=== PATIENT | female | born 1960 | race Caucasian/White ===

== ENCOUNTER 2018-10-23 01:20 | Observation (INO) | payer BC, OTHER ==
[2018-10-23] MEDS ORDERED: NA CHLORIDE 0.9% 1,000 ML ONE (01:48)
[2018-10-23 02:18] LABS: Absolute Lymphocytes (CBC) 1.9 K/uL (0.7-4.9); Basophils % 0.9 % (0-1.3); Hematocrit 46.1 % (36.0-45.0); MPV 10.4 fL (7.6-11.3); Protime INR 0.99; RBC Red Blood Cell Count 4.96 M/uL (3.86-4.86)
[2018-10-23] MEDS ORDERED: MORPHINE 2 MG/ML SYR ONE ×2 (02:33→04:04)
[2018-10-23] MEDS ORDERED: ONDANSETRON 4 MG/2 ML VIAL ONE (02:33)
[2018-10-23] MEDS ORDERED: PANTOPRAZOLE 40 MG INJ ONE (02:33)
[2018-10-23 02:37] LABS: ALT/SGPT 32 U/L (12-78); AST/SGOT 16 U/L (15-37); Albumin 4.1 g/dL (3.4-5.0); Alkaline Phosphatase 96 U/L (45-117); BUN Blood Urea Nitrogen 15 mg/dL (7-18); Bicarbonate 33 mmol/L (21-32); Bilirubin Direct 0.1 mg/dL (0-0.2); Bilirubin Total 0.2 mg/dL (0.2-1.0); Glucose Level 125 mg/dL (74-106); Lipase 126 U/L (73-393); Magnesium 2.3 mg/dL (1.8-2.4); NT PRO-BNP 25 pg/mL (<125); Protein, Total 8.1 g/dL (6.4-8.2); Sodium Level 144 mmol/L (136-145); Troponin (Emerg Dept Use Only) < 0.02 ng/mL (0.0-0.045)
--- NOTE | 2018-10-23 02:41 | EDPHYS ---
Physician Documentation [facility] Name: Ronda Dela Cruz Age: 58 yrs Sex: Female : 1960 Arrival Date: 10/23/2018 Time: 01:24 Bed 3 Private MD: ED Physician Lincoln Marroquin HPI: 10/23 02:14 This 58 yrs old Female presents to ER via Wheelchair with complaints of Chest howie Pain. 02:14 The patient or guardian reports chest pain that is located primarily in the substernal howie area, epigastric area, anterior chest wall. Onset: 6 hour(s) ago. The pain radiates to back. Associated signs and symptoms: Pertinent positives: diaphoresis, dizziness, shortness of breath. The chest pain is described as a pressure. Modifying factors: The symptoms are alleviated by nothing. the symptoms are aggravated by nothing. Severity of pain: At its worst the pain was mild moderate in the emergency department the pain is unchanged. The patient has not experienced similar symptoms in the past. Historical: - Allergies: 01:38 No Known Allergies; fc - Home Meds: 01:38 aspirin 81 mg Oral TbEC 1 tab once daily [Active]; levothyroxine 88 mcg tab 1 tab once fc daily [Active]; - PMHx: 01:38 GERD; Hypothyroidism; C3/C4 fx; fc - PSHx: 01:38 neck surg; fc - Immunization history:: Last tetanus immunization: unknown. - Social history:: Smoking status: Patient/guardian denies using tobacco, Patient/guardian denies using alcohol, street drugs. - Ebola Screening: : Patient negative for fever greater than or equal to 101.5 degrees Fahrenheit, and additional compatible Ebola Virus Disease symptoms Patient denies exposure to infectious person Patient denies travel to an Ebola-affected area in the 21 days before illness onset. - Family history:: not pertinent. ROS: 02:14 Constitutional: Negative for fever, chills, and weight loss, Eyes: Negative for injury, howie pain, redness, and discharge, ENT: Negative for injury, pain, and discharge, Neck: Negative for injury, pain, and swelling, Cardiovascular: Negative for chest pain, palpitations, and edema, Respiratory: Negative for shortness of breath, cough, wheezing, and pleuritic chest pain, Abdomen/GI: Negative for abdominal pain, nausea, vomiting, diarrhea, and constipation, Back: Negative for injury and pain, : Negative for injury, bleeding, discharge, and swelling, MS/Extremity: Negative for injury and deformity, Skin: Negative for injury, rash, and discoloration, Neuro: Negative for headache, weakness, numbness, tingling, and seizure. Exam: 02:16 Constitutional: This is a well developed, well nourished patient who is awake, alert, howie and in no acute distress. Head/Face: Normocephalic, atraumatic. Eyes: Pupils equal round and reactive to light, extra-ocular motions intact. Lids and lashes normal. Conjunctiva and sclera are non-icteric and not injected. Cornea within normal limits. Periorbital areas with no swelling, redness, or edema. ENT: Nares patent. No nasal discharge, no septal abnormalities noted. Tympanic membranes are normal and external auditory canals are clear. Oropharynx with no redness, swelling, or masses, exudates, or evidence of obstruction, uvula midline. Mucous membranes moist. Neck: Trachea midline, no thyromegaly or masses palpated, and no cervical lymphadenopathy. Supple, full range of motion without nuchal rigidity, or vertebral point tenderness. No Meningismus. Chest/axilla: Normal chest wall appearance and motion. Nontender with no deformity. No lesions are appreciated. Cardiovascular: Regular rate and rhythm with a normal S1 and S2. No gallops, murmurs, or rubs. Normal PMI, no JVD. No pulse deficits. Respiratory: Lungs have equal breath sounds bilaterally, clear to auscultation and percussion. No rales, rhonchi or wheezes noted. No increased work of breathing, no retractions or nasal flaring. Abdomen/GI: Soft, non-tender, with normal bowel sounds. No distension or tympany. No guarding or rebound. No evidence of tenderness throughout. Back: No spinal tenderness. No costovertebral tenderness. Full range of motion. Female : Normal external genitalia. Skin: Warm, dry with normal turgor. Normal color with no rashes, no lesions, and no evidence of cellulitis. Vital Signs: 01:20 BP 134 / 94; Pulse 86; Resp 18; Temp 97.9(O); Pulse Ox 99% on R/A; Weight 104.33 kg fc (R); Height 5 ft. 3 in. (160.02 cm) (R); Pain 8/10; 02:00 BP 135 / 85; Pulse 81; Resp 18; Pulse Ox 95% on R/A; lp1 03:00 BP 130 / 96; Pulse 80; Resp 17; Pulse Ox 97% on R/A; lp1 03:56 BP 136 / 77; Pulse 77; Resp 20; Pulse Ox 97% on R/A; Pain 5/10; lp1 01:20 Body Mass Index 40.74 (104.33 kg, 160.02 cm) MDM: 01:36 Patient medically screened. [facility] 02:17 Data reviewed: vital signs, nurses notes, lab test result(s), EKG, radiologic studies, howie plain films. 10/23 01:37 Order name: Basic Metabolic Panel; Complete Time: 02:41 [facility] 10/23 01:37 Order name: CBC with Diff; Complete Time: 02:38 [facility] 10/23 01:37 Order name: LFT's; Complete Time: 02:41 [facility] 10/23 01:37 Order name: Magnesium; Complete Time: 02:41 [facility] 10/23 01:37 Order name: NT PRO-BNP; Complete Time: 02:41 [facility] 10/23 01:37 Order name: PT-INR; Complete Time: 02:38 [facility] 10/23 01:37 Order name: Troponin (emerg Dept Use Only); Complete Time: 02:41 [facility] 10/23 01:37 Order name: Lipase; Complete Time: 02:41 [facility] 10/23 03:14 Order name: Basic Metabolic Panel EDMN 10/23 03:14 Order name: Basic Metabolic Panel EDMN 10/23 03:14 Order name: CBC with Automated Diff EDMN 10/23 03:14 Order name: CBC with Automated Diff EDMS 10/23 03:14 Order name: Lipid Profile EDMN 10/23 03:14 Order name: Lipid Profile EDMN 10/23 01:37 Order name: XRAY Chest (1 view) [facility] 10/23 01:37 Order name: EKG; Complete Time: 01:39 [facility] 10/23 01:37 Order name: Cardiac monitoring; Complete Time: 02:00 [facility] 10/23 03:14 Order name: CONS Physician Consult EDMN 10/23 03:14 Order name: Heart Healthy EDMN 10/23 03:14 Order name: Echo with Doppler EDMN 10/23 03:14 Order name: EKG Electrocardiogram EDMN 10/23 03:14 Order name: EKG Electrocardiogram [facility] 10/23 03:14 Order name: Troponin I EDMN 10/23 03:14 Order name: Troponin I [facility] 10/23 03:14 Order name: Troponin I [facility] 10/23 01:37 Order name: EKG - Nurse/Tech; Complete Time: 02:00 [facility] 10/23 01:37 Order name: IV Saline Lock; Complete Time: 03:12 [facility] 10/23 01:37 Order name: Labs collected and sent; Complete Time: 02:00 [facility] 10/23 01:37 Order name: O2 Per Protocol; Complete Time: 02:00 [facility] 10/23 01:37 Order name: O2 Sat Monitoring; Complete Time: 02:00 [facility] Administered Medications: 03:11 Drug: NS 0.9% 1000 ml Route: IV; Rate: 125 ml/hr; Site: right upper arm; lp1 03:26 Follow up: IV Status: Infusion continued upon admission lp1 03:11 Drug: ProTONIX 40 mg Route: IVP; Site: right upper arm; lp1 03:46 Follow up: Response: No adverse reaction lp1 03:11 Drug: morphine 2 mg Route: IVP; Site: right upper arm; lp1 03:46 Follow up: Response: Pain is decreased lp1 03:11 Drug: Zofran 4 mg Route: IVP; Site: right upper arm; lp1 03:46 Follow up: Response: No adverse reaction lp1 04:11 Drug: morphine 2 mg Route: IVP; Site: right upper arm; lp1 04:11 Follow up: Response: Medication administered at discharge. lp1 Disposition: 10/23/18 02:40 Hospitalization ordered by Timo Saavedra for Observation. Preliminary diagnosis are Other chest pain, Functional dyspepsia, Essential (primary) hypertension. - Bed requested for Telemetry/MedSurg (observation). - Status is Observation. lp1 - Condition is Stable. - Problem is new. - Symptoms have improved. UTI on Admission? No Signatures: Dispatcher [employer] EDMN Lincoln Marroquin MD MD cha Chretien, Felicia, RN RN Sarah Dawson RN RN lp1 Corrections: (The following items were deleted from the chart) 03:02 02:40 Hospitalization Ordered by Timo Saavedra MD for Observation. Preliminary fc diagnosis is Other chest pain; Functional dyspepsia; Essential (primary) hypertension. Bed requested for Telemetry/MedSurg (observation). Status is Observation. Condition is Stable. Problem is new. Symptoms have improved. UTI on Admission? No. howie 04:13 03:02 10/23/2018 02:40 Hospitalization Ordered by Timo Saavedra MD for Observation. lp1 Preliminary diagnosis is Other chest pain; Functional dyspepsia; Essential (primary) hypertension. Bed requested for Telemetry/MedSurg (observation). Status is Observation. Condition is Stable. Problem is new. Symptoms have improved. UTI on Admission? No. fc
--- NOTE | 2018-10-23 02:41 | ER ---
Nurse's Notes [facility] Name: Ronda Dela Cruz Age: 58 yrs Sex: Female : 1960 Arrival Date: 10/23/2018 Time: 01:24 Bed 3 Private MD: Diagnosis: Other chest pain;Functional dyspepsia;Essential (primary) hypertension Presentation: 10/23 01:20 Presenting complaint: Patient states: that since 2099 she has been having epigastric fc pain that goes around to back. Also having increased reflux. Positive shortness of breath but no nausea or vomiting. Transition of care: patient was not received from another setting of care. Onset of symptoms was October 22, 2018 at 21:00. Risk Assessment: Do you want to hurt yourself or someone else? Patient reports no desire to harm self or others. Initial Sepsis Screen: Does the patient meet any 2 criteria? No. Patient's initial sepsis screen is negative. Does the patient have a suspected source of infection? No. Patient's initial sepsis screen is negative. Care prior to arrival: None. 01:20 Method Of Arrival: Wheelchair fc 01:20 Acuity: JUNAID 2 fc Historical: - Allergies: 01:38 No Known Allergies; fc - Home Meds: 01:38 aspirin 81 mg Oral TbEC 1 tab once daily [Active]; levothyroxine 88 mcg tab 1 tab once fc daily [Active]; - PMHx: 01:38 GERD; Hypothyroidism; C3/C4 fx; fc - PSHx: 01:38 neck surg; fc - Immunization history:: Last tetanus immunization: unknown. - Social history:: Smoking status: Patient/guardian denies using tobacco, Patient/guardian denies using alcohol, street drugs. - Ebola Screening: : Patient negative for fever greater than or equal to 101.5 degrees Fahrenheit, and additional compatible Ebola Virus Disease symptoms Patient denies exposure to infectious person Patient denies travel to an Ebola-affected area in the 21 days before illness onset. - Family history:: not pertinent. Screenin:20 Abuse screen: Denies threats or abuse. Nutritional screening: No deficits noted. fc Tuberculosis screening: No symptoms or risk factors identified. Fall Risk No fall in past 12 months (0 pts). Secondary diagnosis (15 points) impaired mobility, No IV (0 pts). Ambulatory Aid- None/Bed Rest/Nurse Assist (0 pts). Gait- Impaired (20 pts.). Mental Status- Overestimates/Forgets Limitations (15 pts.). Total Ruffin Fall Scale indicates High Risk Score (45 or more points). Fall prevention measures have been instituted. Side Rails Up X 2 Placed Close to Nursing Station Frequent Obs/Assessments Occuring Family Present and informed to notify staff if the need to leave the bedside As available patient and family educated on Fall Prevention Program and Strategies. Assessment: 01:30 General: Appears uncomfortable, Behavior is appropriate for age. Pain: Complains of lp1 pain in chest Pain radiates to thoracic area Pain currently is 8 out of 10 on a pain scale. Quality of pain is described as radiating, sharp, Pain began at 2100. Neuro: Level of Consciousness is awake, alert, obeys commands, Oriented to person, place, time, situation, Paralysis in left arm(s) leg(s). Cardiovascular: Patient's skin is warm and dry. Rhythm is sinus rhythm. Respiratory: Reports pain with respiration Respiratory effort is even, unlabored, Respiratory pattern is regular, Breath sounds are clear bilaterally. GI: Abdomen is non-distended, Reports indigestion. : No signs and/or symptoms were reported regarding the genitourinary system. EENT: No signs and/or symptoms were reported regarding the EENT system. Derm: Skin is pink, warm \T\ dry. Musculoskeletal: Range of motion: intact in all extremities. 02:30 Reassessment: Patient appears in no apparent distress at this time. No changes from lp1 previously documented assessment. 03:30 Reassessment: Patient states some relief from medications administered Patient states lp1 symptoms have improved. Vital Signs: 01:20 BP 134 / 94; Pulse 86; Resp 18; Temp 97.9(O); Pulse Ox 99% on R/A; Weight 104.33 kg fc (R); Height 5 ft. 3 in. (160.02 cm) (R); Pain 8/10; 02:00 BP 135 / 85; Pulse 81; Resp 18; Pulse Ox 95% on R/A; lp1 03:00 BP 130 / 96; Pulse 80; Resp 17; Pulse Ox 97% on R/A; lp1 03:56 BP 136 / 77; Pulse 77; Resp 20; Pulse Ox 97% on R/A; Pain 5/10; lp1 01:20 Body Mass Index 40.74 (104.33 kg, 160.02 cm) fc ED Course: 01:20 Arm band placed on Patient placed in an exam room, on a stretcher. fc 01:20 Patient has correct armband on for positive identification. Placed in gown. Bed in low fc position. Call light in reach. Side rails up X2. lunchroom monitor on. Pulse ox on. NIBP on. 01:24 Patient arrived in ED. ds1 01:30 Patient maintains SpO2 saturation greater than 95% on room air. lp1 01:32 Triage completed. fc 01:36 Lincoln Marroquin MD is Attending Physician. howie 01:39 Sarah Dawson RN is Primary Nurse. lp1 02:34 X-ray completed. Portable x-ray completed in exam room. Patient tolerated procedure mh1 well. 02:35 XRAY Chest (1 view) In Process Unspecified. EDMS 02:39 Timo Saavedra MD is Hospitalizing Provider. howie 03:00 Inserted 18 gauge 10 cm midline to right upper arm basilic vein on first attempt. Line fc with good blood return and flushes well. 03:27 No provider procedures requiring assistance completed. Patient admitted, IV remains in lp1 place. Administered Medications: 03:11 Drug: NS 0.9% 1000 ml Route: IV; Rate: 125 ml/hr; Site: right upper arm; lp1 03:26 Follow up: IV Status: Infusion continued upon admission lp1 03:11 Drug: ProTONIX 40 mg Route: IVP; Site: right upper arm; lp1 03:46 Follow up: Response: No adverse reaction lp1 03:11 Drug: morphine 2 mg Route: IVP; Site: right upper arm; lp1 03:46 Follow up: Response: Pain is decreased lp1 03:11 Drug: Zofran 4 mg Route: IVP; Site: right upper arm; lp1 03:46 Follow up: Response: No adverse reaction lp1 04:11 Drug: morphine 2 mg Route: IVP; Site: right upper arm; lp1 04:11 Follow up: Response: Medication administered at discharge. lp1 Outcome: 02:40 Decision to Hospitalize by Provider. howie 03:28 Condition: stable lp1 03:28 Instructed on the need for admit. 03:55 Admitted to Tele accompanied by tech, via stretcher, room 410, with chart, Report lp1 called to HERMINIA Dobson 04:13 Patient left the ED. lp1 Signatures: Dispatcher [employer] EDLincoln Sotelo MD MD cha Harvey, Martha 1 Margaret Lynn RN RN Paulina Mccracken 1 Sarah Dawson RN RN lp1 Corrections: (The following items were deleted from the chart) 01:36 01:20 Fall Risk None identified. [facility]
[2018-10-23] MEDS ORDERED: ACETAMINOPHEN 500 MG TAB PO PRN (03:08)
[2018-10-23] MEDS ORDERED: MORPHINE 4 MG/ML SYR IV PRN (03:08)
[2018-10-23] MEDS ORDERED: ALPRAZOLAM 0.25 MG TABLET PO PRN (03:08)
[2018-10-23 05:27] VITALS: BMI 40.1
[2018-10-23 05:53] LABS: Urine Appearance CLOUDY; Urine Bilirubin NEGATIVE (NEG); Urine Blood NEGATIVE (NEG); Urine Color YELLOW; Urine Glucose NEGATIVE (NEG); Urine Protein NEGATIVE (NEG); Urine pH 7.5 (5.0-7.0)
[2018-10-23 05:55] LABS: Urine Microscopic Reflex ORDER UMIC
[2018-10-23 06:07] LABS: Urine Bacteria 20-50 /HPF (<20); Urine Culture Reflex Order REFLEXED; Urine RBC <5 /HPF (NONE SEEN)
[2018-10-23] MEDS ORDERED: MAGNES/ALUMIN/SIMET 30ML UCUP PO ONE (06:36)
[2018-10-23] MEDS ORDERED: MAGNES/ALUMIN/SIMET 30ML UCUP ONE (06:45)
--- NOTE | 2018-10-23 06:46 | EKG ---
Test Date: 2018-10-23 Test Time: 01:28:03 Respiratory Director: ANOOP MEASUREMENT RESULTS: Intervals: Rate: 75 LA: 156 QRSD: 72 QT: 362 QTc: 404 Upperco: P: 44 LA: 156 QRS: 11 T: 50 INTERPRETIVE STATEMENTS: Normal sinus rhythm Normal ECG No previous ECG available for comparison Electronically Signed On 10-23-18 06:45:53 CDT by Ted Wood
[2018-10-23] MEDS: METOPROLOL TAR 50 MG TAB PO SCH ×2 (06:50→07:34)
[2018-10-23 06:54] LABS: HDL Cholesterol 45 mg/dL (40-60); LDL Cholesterol, Calculated 101 (<130); Troponin I < 0.02 ng/mL (0.0-0.045)
[2018-10-23] MEDS ORDERED: NA CHLORIDE 0.9% 1,000 ML IV SCH (07:00)
[2018-10-23 07:49] VITALS: O2SAT 100
[2018-10-23] MEDS ORDERED: ASPIRIN EC 81 MG TAB PO SCH (09:00)
[2018-10-23] MEDS ORDERED: ENOXAPARIN 40 MG/0.4 ML SQ SCH (09:00)
--- NOTE | 2018-10-23 09:06 | RAD REPORT ---
EXAM DESCRIPTION: CT - Angio Aorta For Dissection - 10/23/2018 8:38 am CLINICAL HISTORY: . Chest and abdominal pain COMPARISON: None TECHNIQUE: Computed tomography angiography of the chest, abdomen pelvis were obtained. 100 cc Isovue 370 was administered intravenously. Coronal and sagittal reconstruction were performed. MIP 3D reconstruction was performed All CT scans are performed using dose optimization technique as appropriate and may include automated exposure control or mA/KV adjustment according to patient size. FINDINGS: An aortic dissection is not seen. An aortic aneurysm is not displayed. The celiac, SMA and KEEGAN are patent . A lung consolidation is not present. A pericardial effusion is not seen. A pleural effusion is not n oted. The thyroid gland is enlarged The liver,spleen, pancreas adrenals kidneys demonstrate no significant abnormality. Cholelithiasis. Gallbladder is mildly distended. There no evidence diverticulitis. No ascites is noted. Small umbilical hernia IMPRESSION: Negative for an aortic dissection. Cholelithiasis with mild gallbladder distention
--- NOTE | 2018-10-23 09:49 | CON ---
Date of Consultation: 10/23/[address] Saavedra's service on 10/23/2018. I saw the patient on 10/23/2018. Reason For Consultation: Chest pain. History Of Present Illness: Ms. Dela Cruz is 58, has a history of hypothyroidism, gastroesophageal ref lux disease, and a C3-C4 fracture. Came in with chest pain, that is midepigastric, radiating to the back with some nausea and diaphoresis. No shortness of breath. Denied PND, orthopnea, pedal edema, palpitation, or syncope. Symptoms have been going on for 6 hours. So far, her sugar was 125. Other rios, her labs were normal. Troponin was negative. Past Medical History: As stated above. Allergies: NONE. Review of Systems: Negative. Family History: Positive for heart disease. Medications: At home, include aspirin, and levothyroxine. Physical Examination: Vital Signs: She weighed 226 pounds. Vital signs were stable, afebrile. HEENT: Negative. Neck: Supple. No bruit. Chest: Clear. Cardiac: Revealed a regular rhythm and rate. No murmurs, gallops, or rubs. Abdomen: Benign. Extremities: Revealed no clubbing, cyanosis, or edema. Diagnostic Data: As stated earlier. Her EKG and x-ray were normal. Impression And Plan: 1.Atypical chest pain, most likely gastroesophageal reflux disease in nature. 2.Hypothyroidism. 3.History of gastroesophageal reflux disease. 4.History of C3-C4 fracture. 5.Obesity. Ms. Dela Cruz has a family history of heart disease. I think with her chest pain, I would recommend an outpatient stress test and an echocardiogram. I think she needs to be on a proton pump inhibitor in the interim. She can go home whenever it is okay with Dr. Saavedra. I will set up for outp atient workup in my office. RADHA/MODL Voice ID: [id number] Report ID: [id number]
[2018-10-23 11:03] VITALS: BP 115/67; TEMP 97.8
--- NOTE | 2018-10-23 11:19 | RAD REPORT ---
EXAM DESCRIPTION: Sherry Single View10/23/2018 2:35 am CLINICAL HISTORY: Chest pain COMPARISON: none FINDINGS: The lungs appear clear of acute infiltrate. The heart is mildly enlarged IMPRESSION: No acute abnormalities displayed
--- NOTE | 2018-10-24 02:22 | P.HP ---
Certification for Inpatient Patient admitted to: Observation With expected LOS: <2 Midnights Patient will require the following post-hospital care: None Practitioner: I am a practitioner with admitting privileges, knowledge of patient current condition, hospital course, and medical plan of care. Services: Services provided to patient in accordance with Admission requirements found in Title 42 Section 412.3 of the Code of Federal Regulations Patient History Date of Service: 10/23/18 Reason for admission: Chest pain rule out acute coronary syndrome History of Present Illness: Patient is a 58-year-old female came to the hospital with chest discomfort. Pain was mainly substernal chest area as well as epigastric region. It started about 6 hr ago. She says she has some diaphoresis and was short of breath. The pain radiated to her back. She felt some dizziness as well. She feels like it may be related to gas. It happened a few hr after she ate something. She decided come into the ER for further evaluation. In the emergency room, her workup is been unremarkable. Troponins and EKG negative. She will be admitted to the hospital for observation. Mentioned in supper spinal cord injury from the 3 C4. It left her paralyzed; however, she was able to regain the use of her right side. She never regained the use of her left side. Allergies No Known Allergies Allergy (Verified 10/23/18 05:03) Home Medications: Aspirin [Pramod Chewable Aspirin] 81 mg PO DAILY 10/23/18 Levothyroxine Sodium 88 mcg PO DAILY 10/23/18 - Past Medical/Surgical History Has patient received pneumonia vaccine in the past: No Diabetic: No -: HYPOTHYROIDISM -: SPINAL SURGERY - Family History Father Medical History: Cancer Mother Medical History: Hypertension, Stroke - Social History Smoking Status: Never smoker Alcohol use: No CD- Drugs: No Caffeine use: Yes Place of Residence: Home Review of Systems 10-point ROS is otherwise unremarkable Physical Examination - Vital Signs Temperature: 97.8 F Blood Pressure: 115/67 Pulse: 63 Respirations: 16 Pulse Ox (%): 100 - Physical Exam General: Alert, In no apparent distress, Oriented x3 HEENT: Atraumatic, PERRLA, Mucous membr. moist/pink, EOMI, Sclerae nonicteric Neck: Supple, 2+ carotid pulse no bruit, No LAD, Without JVD or thyroid abnormality Respiratory: Clear to auscultation bilaterally, Normal air movement Cardiovascular: Regular rate/rhythm, Normal S1 S2, No murmurs Gastrointestinal: Normal bowel sounds, Soft and benign, Non-distended, No tenderness Musculoskeletal: No clubbing, No swelling, No tenderness Integumentary: No rashes Neurological: Normal speech, Cranial nerves 3-12 intact, Normal affect, Abnormal gait, Abnormal strength, Abnormal tone, Abnormal sensation Lymphatics: No axilla or inguinal lymphadenopathy - Studies Laboratory Data (last 24 hrs) 10/23/18 01:32: PT 11.7, INR 0.99 10/23/18 01:32: WBC 8.5, Hgb 15.3 H, Hct 46.1 H, Plt Count 183 10/23/18 01:32: Sodium 144, Potassium 4.0, BUN 15, Creatinine 1.18, Glucose 125 H, Magnesium 2.3, Total Bilirubin 0.2, AST 16, ALT 32, Alkaline Phosphatase 96, Lipase 126 Assessment & Plan - Plan Assessment: 1. Chest pain rule out acute coronary syndrome-pain radiated to her back 2. Dyspepsia 3. History of C3-C4 spinal cord injury with paralysis 4. Hypothyroidism Plan: 1. Serial troponins and EKG 2. Appreciate Cardiology consultation 3. Echocardiogram and outpt stress test 4. Anti-platelet therapy, anti coagulation, beta-jocelynn, statin, and O2 as needed 5. IV morphine for pain 6. CT aorta to rule out possible dissection 7. GI/DVT prophylaxis Discharge Plan: Home Plan to discharge in: 24 Hours - Advance Directives Does patient have a Living Will: No Does patient have a Durable POA for Healthcare: No - Code Status/Comfort Care Code Status Assessed: Yes Code Status: Full Code Critical Care: No Time Spent Managing PTS Care (In Minutes): 40
== END 2018-10-23 11:58 | disposition home or self-care (01) ==
LOC: ER 01:20 → ERHOLD 03:22 → 4TH 03:55
PROVIDERS: ADMIT Hospitalist; ATTEND Family Medicine
DX: R07.89 Other chest pain (principal); E03.9 Hypothyroidism, unspecified; K21.9 Gastro-esophageal reflux disease without esophagitis; F45.8 Other somatoform disorders; I10 Essential (primary) hypertension; K80.20 Calculus of gallbladder without cholecystitis without obstruction; Z79.82 Long term (current) use of aspirin; Z79.899 Other long term (current) drug therapy; E66.9 Obesity, unspecified; Z82.49 Family history of ischemic heart disease and other diseases of the circulatory system
CPT/HCPCS: 93005; 87088; 85025; 87086; 80048; 36415; 83735; 85610; 80061; 80076; 87077; 87186; 84484 ×2; 83690; 83880; 71275; 74175; 71045; 96375; 96374; 99285; Q9967; C9113; J1650; J2270 ×2; J7030 ×2; J2405; G0378 ×2; 81003; 81015

== ENCOUNTER 2018-11-08 08:33 | Inpatient (IN) | payer BC ==
[2018-11-05 11:06] LABS: Albumin 3.6 g/dL (3.4-5.0); Bilirubin Direct 0.1 mg/dL (0-0.2); Bilirubin Total 0.5 mg/dL (0.2-1.0); Protein, Total 7.5 g/dL (6.4-8.2)
[2018-11-08] MEDS ORDERED: Ringers Lactate 1,000 ML IV ONE ×2 (08:57→11:08)
[2018-11-08] MEDS ORDERED: ROCURONIUM 50 MG/5 ML VIAL IV ONE (10:02)
[2018-11-08] MEDS ORDERED: ONDANSETRON 4 MG/2 ML VIAL ONE ×2 (10:02→12:49)
[2018-11-08] MEDS ORDERED: PROPOFOL 200 MG/20 ML VIAL IV ONE (10:02)
[2018-11-08] MEDS ORDERED: FENTANYL CITR 250 MCG/5 ML ONE (10:02)
[2018-11-08] MEDS ORDERED: MIDAZOLAM HCL 2 MG/2 ML INJ ONE (10:02)
[2018-11-08] MEDS ORDERED: LIDOCAINE 2% MPF 5 ML VIAL ONE (10:02)
[2018-11-08] MEDS: CEFOXITIN/SWI 1gm 1 GM/10 ML SYR ONE ×2 (10:21→10:25)
[2018-11-08] MEDS ORDERED: EPHEDRINE SULF 50 MG/ML VIAL ONE (10:31)
[2018-11-08] MEDS ORDERED: GLYCOPYRROLATE 0.2 MG/ML SYR ONE ×2 (10:35→11:14)
[2018-11-08] MEDS ORDERED: LABETALOL HCL 100 MG/20 ML ONE (10:46)
[2018-11-08] MEDS ORDERED: NEOSTIGMINE 1 MG/ML -10 ML VIAL ONE (11:15)
[2018-11-08] MEDS ORDERED: KETOROLAC 30 MG/ML INJ ONE (11:15)
[2018-11-08] MEDS: MORPHINE 4 MG/ML SYR ONE ×2 (12:46→12:54)
[2018-11-08] MEDS ORDERED: HYDROMORPHONE HCL 1 MG/ML INJ ONE (12:49)
[2018-11-08] MEDS ORDERED: ONDANSETRON 4 MG/2 ML VIAL IV PRN (12:54)
[2018-11-08] MEDS ORDERED: HYDROMORPHONE HCL 1 MG/ML INJ IV PRN (12:56)
[2018-11-08] MEDS ORDERED: MORPHINE 4 MG/ML SYR ONE (13:32)
[2018-11-08 15:03] VITALS: BMI 40.0
[2018-11-08] MEDS: NACHLORIDE 0.45% 1,000 ML IV SCH (15:12)
[2018-11-08] MEDS: HYDROCODONE/APAP 7.5/325 MG TAB PO PRN (16:11)
--- NOTE | 2018-11-08 16:42 | P.CNS ---
Date of Consult: 11/08/18 Reason for Consult: Open Cholecystectomy Requesting Physician: Adolfo Hearn Primary Care Provider: Dr. Mccray Chief Complaint: RUQ Abdominal Pain History of Present Illness: This is a 58 y/o F patient that was scheduled for routine laproscopic cholecystectomy. While in surgery it was found that patient was in need of laparotomy. Post surgery Dr. Hearn asked us to consult on case as patient has paralysis of left side from previous injury and has hypothyroidism. Patient currently in room 205 resting awake and alert. Moderate pain currently but denies any other symptoms. LOUANN drain in place with serosanguenous drainage. Abdominal binder also in place. Mild abdominal tenderness present but without rigidity or guarding. Home medications list reviewed: Yes - Past Medical/Surgical History Diabetic: No -: HYPOTHYROIDISM -: SPINAL SURGERY -: ligation - Family History Father Medical History: Cancer Mother Medical History: Hypertension, Stroke - Social History Smoking Status: Never smoker Alcohol use: Yes CD- Drugs: No Caffeine use: Yes Place of Residence: Home <Rizwan Mei - Last Filed: 11/08/18 16:31> History of Present Illness: Consulted for medical management. Case discussed with surgery. Home medications list reviewed: Yes - Past Medical/Surgical History Diabetic: No -: Hypothyroidism -: Previous trauma to spine now with left-sided paralysis Psychosocial/ Personal History: Patient lives at home. She uses motorized wheelchair. Patient still drives - Social History Smoking Status: Never smoker Alcohol use: Yes CD- Drugs: No Caffeine use: Yes Place of Residence: Home <John Medellin - Last Filed: 11/08/18 17:51> Allergies No Known Allergies Allergy (Verified 11/05/18 10:11) Home Medications: Aspirin [Pramod Chewable Aspirin] 81 mg PO DAILY 10/23/18 Levothyroxine Sodium 88 mcg PO DAILY 10/23/18 Sulfamethoxazole/Trimethoprim [Bactrim Ds Tablet] 1 each PO BID 11/05/18 Review of Systems General: Unremarkable Eyes: Unremarkable ENT: Unremarkable Respiratory: Unremarkable Cardiovascular: Unremarkable Gastrointestinal: Abdominal Pain, No Distention, As per HPI Musculoskeletal: Unremarkable Integumentary: Unremarkable Neurological: Unremarkable Lymphatics: Unremarkable <Rizwan Mei - Last Filed: 11/08/18 16:31> Genitourinary: Unremarkable <John Medellin - Last Filed: 11/08/18 17:51> Physical Examination Temp Pulse Resp BP Pulse Ox 99 F 67 18 98/56 L 98 11/08/18 13:35 11/08/18 13:35 11/08/18 16:11 11/08/18 13:35 11/08/18 16:11 General: Alert, In no apparent distress, Oriented x3 HEENT: Normocephalic, PERRLA, Mucous membr. moist/pink Neck: Supple, Without JVD or thyroid abnormality Respiratory: Clear to auscultation bilaterally, Normal air movement Cardiovascular: No edema, Normal pulses, Regular rate/rhythm, Normal S1 S2, No gallops, No rubs, No murmurs Capillary refill: <2 Seconds Gastrointestinal: Hypoactive, Soft and benign, No ascites, No masses, No rebound , No guarding, Tenderness (mild tenderness to RUQ near surgical incision ) Musculoskeletal: No clubbing, No swelling, No contractures, No erythema, No tenderness, No warmth Integumentary: No rashes, No breakdown, No significant lesion, No tenderness/ swelling, No erythema, No warmth, No cyanosis Neurological: Normal speech, Sensation intact, Normal affect, Other (Patient with left sided paralysis. Right side 5/5 strength ) Lymphatics: No axilla or inguinal lymphadenopathy Urinary: Napier catheter <Rizwan Mei - Last Filed: 11/08/18 16:31> Temp Pulse Resp BP Pulse Ox 97.2 F 75 18 112/63 98 11/08/18 16:00 11/08/18 16:00 11/08/18 17:11 11/08/18 16:00 11/08/18 17:11 General: Alert, In no apparent distress, Oriented x3, Cooperative HEENT: Atraumatic, Normocephalic, PERRLA, Mucous membr. 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 Mild pain but doing well post surgery. Will monitor for signs of infection from post surgical procedure along with any electrolyte imbalance and hydration status. Patient will continue SCD's , abx, fluids, and pain medication. LOUANN will be monitored for drainage and output. We will continue to consult on case with Dr. Hearn. Expected length of stay is 1-2 days Critical Care: No Time Spent Managing Pts care (In Minutes): 30 <Rizwan Mei - Last Filed: 11/08/18 16:31> Physician Review Additional Text: Impression: Cholecystitis with cholelithiasis status post open cholecystectomy Hypothyroidism History traumatic injury with residual left-sided paralysis Obesity, BMI 40 Plan: Cholecystitis with cholelithiasis status post open cholecystectomy: Patient stable this time. Case discussed with surgery. Surgery plans to advance diet slowly. Will follow along. Hypothyroidism: Continue home medication. History traumatic injury with residual left-sided paralysis: Patient with history of traumatic injury to the spine. Now with residual left-sided paralysis. Will get physical therapy tomorrow to evaluate. Patient still drives and uses motorized wheelchair. Patient may require skilled placement but the patient prefers to go home at discharge. Obesity, BMI 40: Address lifestyle modification education. Time Spent Managing Pts care (In Minutes): 55 <John Medellin - Last Filed: 11/08/18 17:51>
[2018-11-08] MEDS: CEFOXITIN/SWI 1gm 1 GM/10 ML SYR IV SCH (17:57)
--- NOTE | 2018-11-08 23:31 | OP ---
Date of Procedure: 11/08/2018 Surgeon: Adolfo Hearn MD Real Estate Assessor: BUTCH Cevallos Preoperative Diagnoses: Chronic cholecystitis and cholelithiasis. Postoperative Diagnoses: Chronic cholecystitis and cholelithiasis with extensive adhesion. Procedure: Diagnostic laparoscopy and open cholecystectomy. Estimated Blood Loss: Minimal. Specimen: Gallbladder. Findings: As above. Anesthesia: General. Drains: LOUANN #10 flat. Complications: None. Disposition: Patient tolerated the procedure in stable condition, taken to Recovery in good general condition. Procedure In Detail: The patient was brought to the OR and placed in supine position. General anest hesia was begun. The patient was prepped and draped in usual sterile fashion. Marcaine 0.5% was inf iltrated locally. A 15-blade was used to make a 1 cm supraumbilical midline incision. Subcutaneous tissue was divided. The fascia was identified and divided. #1 Vicryl stay suture was placed. Perit shaikh cavity was entered with sharp and blunt dissection. A 12 mm trocar was placed into the periton eal cavity under direct vision. Pneumoperitoneum was established. Then, a 5-mm trocar was placed in the epigastrium. Laparoscopy at this point revealed I could not see the gallbladder. There were so much adhesions. The gallbladder was intrahepatic, could not get anything to grasp or aspirate the g allbladder because of all the extensive adhesions. Therefore, I made a decision to convert this to a n open procedure for safety purposes. Then, a subcostal incision was made. Subcutaneous tissue was divided. The fascia was identified and divided. The posterior sheath identified and divided. Perit shaikh cavity was entered. Liver mobilized inferiorly slightly to bring the gallbladder into the view . Then, sharp and blunt dissection carefully done to remove the adhesions away from the gallbladder. The gallbladder was intrahepatic. It was distended. It was very tense with that. It was opened a nd the bile was aspirated. This appeared infected. Then, sharp and blunt dissection retrograde proc eeded and there was so much inflammation near the cystic artery left side. It would be safer to leav e a little piece of the gallbladder behind and make sure there is no stones left behind and then this was done. Then, the infundibulum of the gallbladder was divided between April clamps, and this was oversewn with 2-0 silk sutures. Complete occlusion was made. There was oozing noted from the liver bed. This controlled with cautery. Surgicel was placed there as well and no further evidence of ble eding was noted. A Cortes-Thompson drain #10 flat was placed securely through nylon. The entire wound was irrigated. Everything was clear. No evidence of bile leakage or any other complication was see n. Subsequently, #1 chromic was used to close the posterior sheath. Subcutaneous wounds were irriga cristina. Bleeding controlled with cautery, and #2 nylon was used to close the fascia and then subcutaneo us wounds were irrigated. Bleeding controlled with cautery. A 3-0 chromic was used to approximate t he subcutaneous tissues loosely and then dwight used to close the skin. Sterile dressing was applie d. Patient was awakened and taken to recovery in good general condition. /MODL Voice ID: [id number] Report ID: [id number]
[2018-11-09] MEDS: CEFOXITIN/SWI 1gm 1 GM/10 ML SYR IV SCH ×5 (00:45→23:36)
[2018-11-09] MEDS: NACHLORIDE 0.45% 1,000 ML IV SCH ×3 (00:46→16:17)
[2018-11-09] MEDS: LEVOTHYROXINE SOD 0.088 MG TAB PO SCH (05:24)
[2018-11-09 06:20] LABS: Absolute Lymphocytes (CBC) 1.1 K/uL (0.7-4.9); Basophils % 1.1 % (0-1.3); Lymphocytes % 8.6 % (15.3-44.8); MPV 9.7 fL (7.6-11.3); RBC Red Blood Cell Count 4.41 M/uL (3.86-4.86)
[2018-11-09 06:24] LABS: Phosphorus 3.6 mg/dL (2.5-4.9); Potassium 4.2 mmol/L (3.5-5.1)
[2018-11-09] MEDS: HYDROCODONE/APAP 7.5/325 MG TAB PO PRN ×3 (08:27→22:05)
--- NOTE | 2018-11-09 15:18 | P.PN ---
Subjective Date of Service: 11/09/18 Primary Care Provider: Dr. Mccray Chief Complaint: RUQ Abdominal Pain Subjective: Doing well, Other (No complaints noted today.) Physical Examination - Vital Signs Temperature: 97.6 F Blood Pressure: 110/62 Pulse: 76 Respirations: 14 Pulse Ox (%): 96 - Physical Exam General: Alert, In no apparent distress, Oriented x3, Cooperative HEENT: Atraumatic Neck: Supple Respiratory: Clear to auscultation bilaterally, Normal air movement Cardiovascular: Normal pulses, Regular rate/rhythm Gastrointestinal: Hypoactive, Non-distended, Other (Abdominal binder in place.) Neurological: Normal affect - Studies Laboratory Data (last 24 hrs) 11/09/18 05:45: Sodium 139, Potassium 4.2, BUN 9, Creatinine 1.22, Glucose 117 H , Phosphorus 3.6, Magnesium 2.0 11/09/18 05:45: WBC 12.6 H, Hgb 13.7, Hct 41.0, Plt Count 234 Medications List Reviewed: Yes Assessment & Plan Discharge Plan: Home Plan to discharge in: 24 Hours Physician Review Additional Text: Impression: Chronic Cholecystitis with cholelithiasis status post diagnostic laparoscopy and open cholecystectomy, postop day 1 Hypothyroidism History traumatic injury with residual left-sided paralysis Obesity, BMI 40 Plan: Chronic Cholecystitis with cholelithiasis status post diagnostic laparoscopy and open cholecystectomy, postop day 1: Patient stable at this time. No significant complaints. Pain under control. Continue with IV antibiotic therapy and IV fluids. Case discussed with surgery. Surgery plans to advance diet slowly. Once the patient is able to eat appropriately then will plan for discharge. Anticipate discharge in the next 1-2 days pending clinical improvement. Will follow along with surgery. Attending is surgery. Hypothyroidism: Continue home medication. History traumatic injury with residual left-sided paralysis: Patient with history of traumatic injury to the spine. Now with residual left-sided paralysis. Will consult physical therapy to evaluate and work with patient. Patient still drives and uses motorized wheelchair. Patient plans to go home at discharge. She does not require any social work needs. Obesity, BMI 40: Address lifestyle modification education. Time Spent Managing Pts Care (In Minutes): 55
--- NOTE | 2018-11-09 17:44 | PN ---
Date of Progress Note: 11/09/2018 Subjective: The patient is awake, alert, no complaints, tolerating liquids. Objective: Vital Signs: Stable, afebrile. Abdomen: Benign. Dressing is clean, dry, and intact. LOUANN is putting out mL of serosangui neous fluid. Laboratory Data: Reviewed. H and H stable. White count is slightly elevated. Assessment: Status post open cholecystectomy. Plan: Continue IV antibiotics. Advance diet as tolerated. Parenteral pain management. Probably carolyn DOUGHERTY/ANDRÉS Voice ID: [id number] Report ID: [id number]
[2018-11-10] MEDS: LEVOTHYROXINE SOD 0.088 MG TAB PO SCH (05:23)
[2018-11-10] MEDS: CEFOXITIN/SWI 1gm 1 GM/10 ML SYR IV SCH (05:24)
[2018-11-10] MEDS: HYDROCODONE/APAP 7.5/325 MG TAB PO PRN (05:26)
[2018-11-10] MEDS: NACHLORIDE 0.45% 1,000 ML IV SCH (05:27)
[2018-11-10 05:56] LABS: Absolute Lymphocytes (CBC) 1.4 K/uL (0.7-4.9); Basophils % 0.7 % (0-1.3); Hematocrit 35.5 % (36.0-45.0); Lymphocytes % 13.1 % (15.3-44.8); MPV 9.3 fL (7.6-11.3)
[2018-11-10 08:42] VITALS: O2SAT 91
--- NOTE | 2018-11-10 10:48 | P.PN ---
Subjective Date of Service: 11/10/18 Primary Care Provider: Dr. Mccray Chief Complaint: RUQ Abdominal Pain Subjective: Doing well Physical Examination - Vital Signs Temperature: 98.6 F Blood Pressure: 110/56 Pulse: 89 Respirations: 17 Pulse Ox (%): 92 - Physical Exam General: Alert, In no apparent distress, Oriented x3, Cooperative HEENT: Atraumatic Neck: Supple Respiratory: Clear to auscultation bilaterally, Normal air movement Cardiovascular: Normal pulses, Regular rate/rhythm Neurological: Normal speech, Normal affect - Studies Laboratory Data (last 24 hrs) 11/10/18 05:02: WBC 10.3 D, Hgb 12.2, Hct 35.5 L, Plt Count 222 Medications List Reviewed: Yes Assessment & Plan Discharge Plan: Home Plan to discharge in: 24 Hours Physician Review Additional Text: Impression: Chronic Cholecystitis with cholelithiasis status post diagnostic laparoscopy and open cholecystectomy, postop day 2 Hypothyroidism History traumatic injury with residual left-sided paralysis Obesity, BMI 40 Plan: Chronic Cholecystitis with cholelithiasis status post diagnostic laparoscopy and open cholecystectomy, postop day 2: Patient this time. Case discussed with surgery. Surgery plans to discharge patient today. Patient cleared for discharge from medical standpoint. She may continue with her medication. Patient will follow up with surgery as directed. Hypothyroidism: Continue home medication. History traumatic injury with residual left-sided paralysis: Patient with history of traumatic injury to the spine. Now with residual left-sided paralysis. Will consult physical therapy to evaluate and work with patient. Patient still drives and uses motorized wheelchair. Patient plans to go home at discharge. She does not require any social work needs. Obesity, BMI 40: Continue to lifestyle modification education. Time Spent Managing Pts Care (In Minutes): 30
[2018-11-10 14:42] VITALS: BP 125/74; TEMP 98.7
--- NOTE | 2018-11-11 01:40 | DS ---
Date of Discharge: 11/10/2018 Admitting Diagnosis: Chronic cholecystitis and cholelithiasis. Discharge Diagnosis: Chronic cholecystitis and cholelithiasis with acute component. Procedure Performed: Open cholecystectomy. Hospital Course: Patient is a 58-year-old female who underwent the aforementioned procedure. Postop eratively she is tolerating diet, pain controlled with p.o. pain medication, afebrile. She does not ambulate, but Physical Therapy did work with her and she has paralysis, but she is able to transfer, therefore patient will be discharged to home. Consultation from Dr. Medellin was obtained for medical management. Disposition: Home. Condition: Stable. Discharge Instructions: Resume home medications and diet. Activity: As tolerated. No heavy lifting. Remove outer dressing in a.m. Shower and keep wound adele an, dry, record LOUANN q.12. Followup in my office in 1 week. Call for appointment. Tylenol No.3 one tablet p.o. every 4 p.r.n. pain and Cipro 500 mg p.o. q.12. /SCOTTL Voice ID: [id number] Report ID: [id number]
== END 2018-11-10 11:46 | disposition home or self-care (01) | DRG 415 ==
LOC: OR 08:33 → 2ND 13:38 → OR 11-09 07:48 → 2ND 11-09 07:55
PROVIDERS: ADMIT Surgery; ATTEND Surgery
PROC: 0FJ44ZZ Inspection of Gallbladder, Percutaneous Endoscopic Approach (ICD-10-PCS; 2018-11-08)
PROC: 0DNW0ZZ Release Peritoneum, Open Approach (ICD-10-PCS; 2018-11-08)
PROC: 0FT40ZZ Resection of Gallbladder, Open Approach (ICD-10-PCS; principal; 2018-11-08 09:45)
DX: K80.10 Calculus of gallbladder with chronic cholecystitis without obstruction (principal); G81.94 Hemiplegia, unspecified affecting left nondominant side; Z68.41 Body mass index [BMI] 40.0-44.9, adult; E03.9 Hypothyroidism, unspecified; E66.9 Obesity, unspecified; K66.0 Peritoneal adhesions (postprocedural) (postinfection); Z87.828 Personal history of other (healed) physical injury and trauma
CPT/HCPCS: 36415; 80048; 80076; 82150; 83735; 84100; 85025; 88304; 97110; 97116; 97161; 97530; J1170; J2250; J2405; J2704; J2710; J3010

== ENCOUNTER 2019-01-19 19:04 | Emergency (ER) | payer BC ==
[2019-01-19] MEDS ORDERED: ONDANSETRON 4 MG/2 ML VIAL ONE (19:50)
[2019-01-19] MEDS ORDERED: MORPHINE 4 MG/ML SYR ONE ×2 (19:50→21:51)
[2019-01-19] MEDS ORDERED: PIPER/TAZO/NS 3.375gm 3.375 GM/100 ML BAG ONE (19:50)
--- NOTE | 2019-01-19 20:33 | EDPHYS ---
Physician Documentation [facility] Name: Ronda Dela Cruz Age: 58 yrs Sex: Female : 1960 Arrival Date: 01/19/2019 Time: 19:08 Bed 8 Private MD: ED Physician Manuel Cota HPI: 01/20 02:55 This 58 yrs old Female presents to ER via Wheelchair with complaints of tw4 Abdominal Pain, Abdominal Problem. 02:55 The patient presents with abdominal pain in the left lower quadrant. Onset: The tw4 symptoms/episode began/occurred 2 week(s) ago. The symptoms radiate to the left flank. Associated signs and symptoms: Pertinent positives: nausea and vomiting. The symptoms are described as sharp. Modifying factors: The symptoms are alleviated by remaining still, the symptoms are aggravated by movement, pressure. Severity of pain: At its worst the pain was moderate in the emergency department the pain is unchanged. The patient has not experienced similar symptoms in the past. Historical: - Allergies: 01/19 19:36 No Known Allergies; bb - Home Meds: 19:36 aspirin 81 mg Oral TbEC 1 tab once daily [Active]; levothyroxine 88 mcg tab 1 tab once bb daily [Active]; - PMHx: 19:36 C3/C4 fx; GERD; Hypothyroidism; bb - PSHx: 19:36 neck surg; bb - Immunization history:: Adult Immunizations not up to date. - Social history:: Smoking status: Patient/guardian denies using tobacco, never smoked. - Ebola Screening: : No symptoms or risks identified at this time. ROS: 01/20 02:55 Constitutional: Negative for fever, chills, and weight loss, Eyes: Negative for injury, tw4 pain, redness, and discharge, Cardiovascular: Negative for chest pain, palpitations, and edema, Respiratory: Negative for shortness of breath, cough, wheezing, and pleuritic chest pain, Back: Negative for injury and pain, MS/Extremity: Negative for injury and deformity, Skin: Negative for injury, rash, and discoloration, Neuro: Negative for headache, weakness, numbness, tingling, and seizure. Abdomen/GI: Positive for abdominal pain, anorexia, dysphagia, hematemesis, black/tarry stool, Negative for nausea and vomiting, nausea, vomiting, and diarrhea, nausea. Exam: 02:55 Constitutional: This is a well developed, well nourished patient who is awake, alert, tw4 and in no acute distress. Head/Face: Normocephalic, atraumatic. Chest/axilla: Normal chest wall appearance and motion. Nontender with no deformity. No lesions are appreciated. Cardiovascular: Regular rate and rhythm with a normal S1 and S2. No gallops, murmurs, or rubs. Normal PMI, no JVD. No pulse deficits. Respiratory: Lungs have equal breath sounds bilaterally, clear to auscultation and percussion. No rales, rhonchi or wheezes noted. No increased work of breathing, no retractions or nasal flaring. Back: No spinal tenderness. No costovertebral tenderness. Full range of motion. MS/ Extremity: Pulses equal, no cyanosis. Neurovascular intact. Full, normal range of motion. Neuro: Awake and alert, GCS 15, oriented to person, place, time, and situation. Cranial nerves II-XII grossly intact. Motor strength 5/5 in all extremities. Sensory grossly intact. Cerebellar exam normal. Normal gait. 02:55 Abdomen/GI: Inspection: distension, that is moderate, Bowel sounds: diminished, Palpation: moderate abdominal tenderness, in the right upper quadrant, left upper quadrant, right lower quadrant and left lower quadrant. Vital Signs: 01/19 19:11 BP 116 / 80; Pulse 92; Resp 18 S; Temp 98.3(O); Pulse Ox 97% on R/A; Weight 102.51 kg cc3 (R); Height 5 ft. 3 in. (160.02 cm) (R); Pain 10/10; 20:00 BP 107 / 61; Pulse 88; Resp 19; Pulse Ox 99% ; Pain 10/10; rr5 20:50 BP 116 / 84; Pulse 85; Resp 17; Pulse Ox 99% ; Pain 1/10; rr5 21:50 BP 133 / 65; Pulse 99; Resp 20; Pulse Ox 98% ; Pain 10/10; rr5 23:19 BP 122 / 93; Pulse 95; Resp 17; Temp 98.2; Pulse Ox 99% ; Pain 2/10; rr5 23:36 BP 125 / 85; Pulse 89; Resp 17; Temp 98.1; Pulse Ox 96% on R/A; rr5 19:11 Body Mass Index 40.03 (102.51 kg, 160.02 cm) cc3 MDM: 19:24 Patient medically screened. tw4 01/20 02:55 Differential diagnosis: bowel obstruction, cholecystitis, Cholelithiasis, gastritis, tw4 Peptic Ulcer Disease, Perf. Duodenal Ulcer, Perf. Gastric Ulcer, Peritonitis, Pyelonephritis. Data reviewed: vital signs, nurses notes, old medical records, CT scan of the abdomen revealed ascites and 6mm stone. Data interpreted: Pulse oximetry: Interpretation: normal. Test interpretation: by ED physician or midlevel provider: ECG. Counseling: I had a detailed discussion with the patient and/or guardian regarding: the historical points, exam findings, and any diagnostic results supporting the discharge/admit diagnosis. Medication response: morphine markedly relieved the patient's pain. Symptoms have improved. Response to treatment: and as a result, I will admit patient. 01/19 19:34 Order name: Basic Metabolic Panel; Complete Time: 21:14 tw4 01/19 19:34 Order name: CBC with Diff; Complete Time: 22:26 tw4 01/19 19:34 Order name: Creatinine for Radiology; Complete Time: 21:14 tw4 01/19 19:34 Order name: Hepatic Function; Complete Time: 21:14 tw4 01/19 19:34 Order name: Lipase; Complete Time: 21:14 tw4 01/19 20:21 Order name: Blood Culture Adult (2) rr5 01/19 21:46 Order name: CXR XRAY snw 01/19 22:11 Order name: CBC Smear Scan; Complete Time: 22:26 EDMS 01/19 19:34 Order name: IV Saline Lock; Complete Time: 20:19 tw4 01/19 19:34 Order name: Labs collected and sent; Complete Time: 20:19 tw4 Administered Medications: 01/19 20:05 Drug: Zofran 4 mg Route: IVP; Site: right antecubital; rr5 21:00 Follow up: Response: No adverse reaction rr5 20:07 Drug: morphine 4 mg {Note: rass 0.} Route: IVP; Site: right antecubital; rr5 21:00 Follow up: Response: No adverse reaction; RASS: Alert and Calm (0) rr5 20:56 Drug: Zosyn 3.375 grams Route: IVPB; Infused Over: 60 mins; Site: right antecubital; rr5 21:55 Follow up: Response: No adverse reaction; IV Status: Completed infusion; IV Intake: rr5 100ml 21:53 Drug: morphine 4 mg {Note: rass 0.} Route: IVP; Site: right antecubital; rr5 23:00 Follow up: Response: No adverse reaction; RASS: Alert and Calm (0) rr5 22:58 CANCELLED (Physician Discretion): Octreotide 50 mcg IV at bolus once tw4 22:58 CANCELLED (Physician Discretion): Octreotide Infusion (50 mcg/hr) - (Octreotide 500 tw4 mcg, NS 0.9% 500 ml) IV at 50 ml/hr continuous 22:58 CANCELLED (Physician Discretion): ProTONIX 8 mg/hr IV at 25 ml/hr continuous; (Standard tw4 dilution is 80 mg in 250 mL NS) Disposition: 01/19/19 23:06 Transfer ordered to [facility]. Diagnosis are Ascites, Calculus of kidney with calculus of ureter. - Reason for transfer: Higher level of care. - Accepting physician is DR WAHL. - Condition is Stable. - Problem is new. - Symptoms have improved. Signatures: Dispatcher [employer] Ronda Go, RN RN Manuel Olsen MD MD tw4 Ginger Singh cc3 Braxton Roldan RN RN rr5 Corrections: (The following items were deleted from the chart) 19:37 19:35 Abdomen Pelvis W Con+CT.RAD.BRZ ordered. [facility] :58 22:46 Octreotide 50 mcg IV at bolus once ordered. tw4 tw4 22:58 22:46 Octreotide Infusion (50 mcg/hr) - (Octreotide 500 mcg, NS 0.9% 500 ml) IV at 50 tw4 ml/hr continuous ordered. tw4 :58 22:46 ProTONIX 8 mg/hr IV at 25 ml/hr continuous; (Standard dilution is 80 mg in 250 mL tw4 NS) ordered. tw4 23:04 20:32 Hospitalization Ordered by John Medellin DO for Inpatient Admission. Preliminary tw4 diagnosis is Ascites. Bed requested for Telemetry/MedSurg (Inpatient). Status is Inpatient Admission. Condition is Stable. Problem is an ongoing problem. Symptoms have worsened. UTI on Admission? No. tw4 01/20 00:37 01/19 23:06 01/19/2019 23:06 Transfer ordered to [facility]. rr5 Diagnosis is Ascites; Calculus of kidney with calculus of ureter. Reason for transfer: Higher level of care. Accepting physician is DR WAHL. Condition is Stable. Problem is new. Symptoms have improved. tw4
--- NOTE | 2019-01-19 20:33 | ER ---
Nurse's Notes [facility] Name: Ronda Dela Cruz Age: 58 yrs Sex: Female : 1960 Arrival Date: 01/19/2019 Time: 19:08 Bed 8 Private MD: Diagnosis: Ascites;Calculus of kidney with calculus of ureter Presentation: 01/19 19:11 Presenting complaint: Patient states: "I had gallbladder surgery on November 08 of this cc3 year and since then I've been having generalized abdominal pain. Post surgical incision was draining fluid daily but yesterday it wasn't so they removed the tube in Dr. Cochran's clinic". Transition of care: patient was not received from another setting of care. Onset of symptoms was January 19, 2019. Risk Assessment: Do you want to hurt yourself or someone else? Patient reports no desire to harm self or others. Initial Sepsis Screen: Does the patient meet any 2 criteria? HR > 90 bpm. No. Patient's initial sepsis screen is negative. Does the patient have a suspected source of infection? Yes: Skin breakdown/wound. Care prior to arrival: None. 19:11 Method Of Arrival: Wheelchair cc3 19:11 Acuity: JUNAID 3 cc3 Triage Assessment: 19:11 General: Appears in no apparent distress. uncomfortable, Behavior is calm, cooperative, cc3 appropriate for age. Pain: Complains of pain in whole abdomen. GI: Abdomen is round obese. Historical: - Allergies: 19:36 No Known Allergies; bb - Home Meds: 19:36 aspirin 81 mg Oral TbEC 1 tab once daily [Active]; levothyroxine 88 mcg tab 1 tab once bb daily [Active]; - PMHx: 19:36 C3/C4 fx; GERD; Hypothyroidism; bb - PSHx: 19:36 neck surg; bb - Immunization history:: Adult Immunizations not up to date. - Social history:: Smoking status: Patient/guardian denies using tobacco, never smoked. - Ebola Screening: : No symptoms or risks identified at this time. Screenin:11 Abuse screen: Denies threats or abuse. Denies injuries from another. Nutritional cc3 screening: No deficits noted. Tuberculosis screening: No symptoms or risk factors identified. Fall Risk Ambulatory Aid- Crutches/Cane/Walker (15 pts). Gait- Impaired (20 pts.). Mental Status- Oriented to own ability (0 pts). Assessment: 19:40 General: Appears in no apparent distress. uncomfortable, Behavior is calm, cooperative, rr5 appropriate for age. Pain: Complains of pain in right upper quadrant and left upper quadrant Pain radiates to left mid back and right mid back Pain currently is 10 out of 10 on a pain scale. Quality of pain is described as aching, Pain began gradually, Is intermittent. 19:40 Neuro: Level of Consciousness is awake, alert, obeys commands, Oriented to person, rr5 place, time, situation, Appropriate for age. Cardiovascular: Capillary refill < 3 seconds Patient's skin is warm and dry. Respiratory: Airway is patent Respiratory effort is even, unlabored, Respiratory pattern is regular, symmetrical. GI: Abdomen is distended, Abdomen is tender to palpation in right upper quadrant and left upper quadrant Guarding noted in right upper quadrant and left upper quadrant Reports upper abdominal pain. GI: Bowel sounds present X 4 quads. : No signs and/or symptoms were reported regarding the genitourinary system. EENT: No signs and/or symptoms were reported regarding the EENT system. Derm: Skin is intact, Skin temperature is warm. Musculoskeletal: Capillary refill < 3 seconds, left sided paralysis. 20:55 Reassessment: Patient appears in no apparent distress at this time. Patient is alert, rr5 oriented x 3, equal unlabored respirations, skin warm/dry/pink. Patient states feeling better. Patient states symptoms have improved. Pain: Pain currently is 1 out of 10 on a pain scale. 21:50 Reassessment: Patient appears in no apparent distress at this time. complaints of rr5 abdominal pain pain score 10/10. ED provider aware with order made and carried out. Pain: Complains of pain in right upper quadrant and left upper quadrant Pain radiates to back Pain currently is 10 out of 10 on a pain scale. Quality of pain is described as aching, Pain began gradually, Is intermittent. 22:05 Reassessment: dr. ferrera seen and examined the patient talked to dr. cochran and decided rr5 for transfer to [place]. patient agreed for the plan of care. 23:35 Reassessment: gordon from [facility] accepted the case thru phone. rr5 23:35 Reassessment: Patient appears in no apparent distress at this time. No changes from rr5 previously documented assessment. Patient and/or family updated on plan of care and expected duration. Pain level reassessed. awaiting for EMS transport. Patient states symptoms have improved. 01/20 00:35 Reassessment: Patient appears in no apparent distress at this time. Patient and/or rr5 family updated on plan of care and expected duration. Pain level reassessed. Patient is alert, oriented x 3, equal unlabored respirations, skin warm/dry/pink. endorsed to [facility] 15/15 comfortable, breathing spontaneously at room air. with IV cannula intact. Vital Signs: 01/19 19:11 BP 116 / 80; Pulse 92; Resp 18 S; Temp 98.3(O); Pulse Ox 97% on R/A; Weight 102.51 kg cc3 (R); Height 5 ft. 3 in. (160.02 cm) (R); Pain 10/10; 20:00 BP 107 / 61; Pulse 88; Resp 19; Pulse Ox 99% ; Pain 10/10; rr5 20:50 BP 116 / 84; Pulse 85; Resp 17; Pulse Ox 99% ; Pain 1/10; rr5 21:50 BP 133 / 65; Pulse 99; Resp 20; Pulse Ox 98% ; Pain 10/10; rr5 23:19 BP 122 / 93; Pulse 95; Resp 17; Temp 98.2; Pulse Ox 99% ; Pain 2/10; rr5 23:36 BP 125 / 85; Pulse 89; Resp 17; Temp 98.1; Pulse Ox 96% on R/A; rr5 19:11 Body Mass Index 40.03 (102.51 kg, 160.02 cm) cc3 ED Course: 19:08 Patient arrived in ED. cf2 19:23 Braxton Roldan, HERMINIA is Primary Nurse. rr5 19:24 Manuel Cota MD is Attending Physician. tw4 19:32 Triage completed. cc3 20:05 Inserted saline lock: 20 gauge in right antecubital area, using aseptic technique. rr5 Blood collected. 20:05 First set of blood cultures drawn by me. rr5 20:15 Patient has correct armband on for positive identification. Placed in gown. Bed in low rr5 position. Call light in reach. Side rails up X2. Pulse ox on. NIBP on. 20:15 Arm band placed on. rr5 20:31 John Ferrera DO is Hospitalizing Provider. tw4 20:45 Second set of blood cultures drawn by lab staff. rr5 21:58 CXR XRAY In Process Unspecified. EDMS 01/20 00:30 No provider procedures requiring assistance completed. Patient transferred, IV remains rr5 in place. intact, No redness/swelling at site. Administered Medications: 01/19 20:05 Drug: Zofran 4 mg Route: IVP; Site: right antecubital; rr5 21:00 Follow up: Response: No adverse reaction rr5 20:07 Drug: morphine 4 mg {Note: rass 0.} Route: IVP; Site: right antecubital; rr5 21:00 Follow up: Response: No adverse reaction; RASS: Alert and Calm (0) rr5 20:56 Drug: Zosyn 3.375 grams Route: IVPB; Infused Over: 60 mins; Site: right antecubital; rr5 21:55 Follow up: Response: No adverse reaction; IV Status: Completed infusion; IV Intake: rr5 100ml 21:53 Drug: morphine 4 mg {Note: rass 0.} Route: IVP; Site: right antecubital; rr5 23:00 Follow up: Response: No adverse reaction; RASS: Alert and Calm (0) rr5 22:58 CANCELLED (Physician Discretion): Octreotide 50 mcg IV at bolus once tw4 22:58 CANCELLED (Physician Discretion): Octreotide Infusion (50 mcg/hr) - (Octreotide 500 tw4 mcg, NS 0.9% 500 ml) IV at 50 ml/hr continuous 22:58 CANCELLED (Physician Discretion): ProTONIX 8 mg/hr IV at 25 ml/hr continuous; (Standard tw4 dilution is 80 mg in 250 mL NS) Intake: 21:55 IV: 100ml; Total: 100ml. rr5 Outcome: 20:32 Decision to Hospitalize by Provider. tw4 23:06 ER care complete, transfer ordered by . tw4 01/20 00:30 Transferred by ground EMS to [facility], Transfer form completed. rr5 Condition: stable Instructed on the need for transfer. 00:37 Patient left the ED. rr5 Signatures: Dispatcher [employer] Ronda Go RN RN bb Manuel Cota MD MD tw4 Ginger Singh cc3 Braxton Roldan RN RN rr5 Gumaro Rainey cf2 Corrections: (The following items were deleted from the chart) 01/19 20:19 20:07 morphine 4 mg IVP in right antecubital rr5 rr5 22:24 19:11 BP 116 / 80; Pulse 92bpm; Resp 18bpm; Spontaneous; Pulse Ox 97% RA; Temp 98.3F cc3 Oral; 102.51 kg Reported; Height 5 ft. 3 in. Reported; BMI: 40.0; cc3
[2019-01-19 20:40] LABS: Basophils % 0.7 % (0-1.3); Hematocrit 47.1 % (36.0-45.0); MPV 9.2 fL (7.6-11.3); RBC Red Blood Cell Count 5.17 M/uL (3.86-4.86)
[2019-01-19 20:41] LABS: Albumin 3.1 g/dL (3.4-5.0); Bilirubin Direct 0.1 mg/dL (0-0.2); Bilirubin Total 0.4 mg/dL (0.2-1.0); Potassium 3.5 mmol/L (3.5-5.1); Protein, Total 7.8 g/dL (6.4-8.2)
[2019-01-19 22:11] LABS: Urine White Blood Cell Casts OK
[2019-01-19 22:12] LABS: Blood Morphology Comment NOT SEEN (NOT SEEN); Platelet Estimate ADEQ
[2019-01-19] MEDS ORDERED: NA CHLORIDE 0.9% 0 ML ONE ×3 (22:50→23:00)
[2019-01-19] MEDS ORDERED: PANTOPRAZOLE 40 MG INJ ONE (22:50)
[2019-01-19] MEDS ORDERED: OCTREOTIDE ACETATE 100 MCG/ML ONE (22:53)
[2019-01-20 00:53] VITALS: BP 125/85; TEMP 98.1; O2SAT 96
--- NOTE | 2019-01-20 08:34 | RAD REPORT ---
EXAM DESCRIPTION: [place] Single View01/19/2019 9:59 pm CLINICAL HISTORY: Abdominal pain COMPARISON: October 2018 FINDINGS: Small left pleural effusion with mild left basilar atelectasis Right lung appears clear. Heart is mildly enlarged
== END 2019-01-20 00:37 | disposition short-term general hospital (02) ==
LOC: ER 19:04
DX: R18.8 Other ascites (principal); N20.2 Calculus of kidney with calculus of ureter; E03.9 Hypothyroidism, unspecified
CPT/HCPCS: 96365; 87040 ×2; 85025; 80048; 36415; 80076; 83690; 71045; 96375; 99285; J2543; J2405; C9113; J2354; J7030; J7040

== ENCOUNTER 2019-12-23 22:38 | Emergency (ER) | payer BC ==
[2019-12-23 23:07] LABS: Hematocrit 30.7 % (36.0-45.0)
[2019-12-23 23:10] LABS: Absolute Lymphocytes (CBC) 0.6 K/uL (0.7-4.9); Basophils % 0.6 % (0-1.3); Lymphocytes % 21.7 % (15.3-44.8); MPV 8.4 fL (7.6-11.3)
[2019-12-23 23:14] LABS: Protime INR 1.35
[2019-12-23] MEDS ORDERED: NA CHLORIDE 0.9% 2,000 ML ONE (23:14)
[2019-12-23] MEDS ORDERED: ACETAMINOPHEN 500 MG TAB ONE (23:14)
[2019-12-23 23:28] LABS: ALT/SGPT 26 U/L (12-78); AST/SGOT 13 U/L (15-37); Albumin 2.9 g/dL (3.4-5.0); Alkaline Phosphatase 97 U/L (45-117); Amylase 39 U/L (25-115); BUN Blood Urea Nitrogen 9 mg/dL (7-18); Bicarbonate 26 mmol/L (21-32); Bilirubin Direct 0.2 mg/dL (0-0.2); Bilirubin Total 0.7 mg/dL (0.2-1.0); CKMB Creatine Kinase MB < 1.0 ng/mL (0.3-3.6); Creatine Phosphokinase 13 U/L (26-192); Glucose Level 119 mg/dL (74-106); Lipase 105 U/L (73-393); Potassium 3.6 mmol/L (3.5-5.1); Sodium Level 139 mmol/L (136-145); Troponin (Emerg Dept Use Only) < 0.02 ng/mL (0.0-0.045)
[2019-12-23] MEDS ORDERED: CEFEPIME 2 GM VIAL ONE (23:40)
[2019-12-23] MEDS ORDERED: NA CHLORIDE 0.9% 250 ML ONE (23:41)
[2019-12-23] MEDS ORDERED: VANCOMYCIN 1 GM/VIAL ONE (23:41)
[2019-12-23] MEDS ORDERED: NA CHLORIDE 0.9% 100 ML IV ONE (23:41)
[2019-12-23] MEDS ORDERED: FAMOTIDINE 20 MG/2 ML VIAL IV ONE (23:55)
[2019-12-23 23:56] LABS: Anisocytosis 2+; Blood Morphology Comment NOTED (NOT SEEN); Hypochromasia 1+; Ovalocytes 1+; Platelet Estimate DECR; Polychromasia 1+; Stomatocytes 1+
--- NOTE | 2019-12-24 01:33 | ER ---
Nurse's Notes [facility] Name: Ronda Dela Cruz Age: 59 yrs Sex: Female : 1960 Arrival Date: 12/23/2019 Time: 22:42 Bed 8 Private MD: Diagnosis: Fever, unspecified;Hydronephrosis with renal and ureteral calculous obstruction-8MM DISTAL LEFT;Abdominal and pelvic pain-PERIHEPATIC FLUID COLLECTIONS, MID ABDOMINAL FLUID COLLECTIONS, PELVIC FLUID COLLECTION;Neutropenia;Bandemia Presentation: 12/22 22:40 Chief complaint: EMS states: patient has been diagnosed of UTI 2-3 weeks ago today she rr5 developed fever T 102.3 F and headache. heart rate 127 bpm. denies cough diagnosed of stage 4 uterine cancer. 22:40 Coronavirus screen: Client denies travel out of the [place] in the last 14 days. At this rr5 time, the client does not indicate any symptoms associated with coronavirus-19. Ebola Screen: Patient negative for fever greater than or equal to 101.5 degrees Fahrenheit, and additional compatible Ebola Virus Disease symptoms Patient denies exposure to infectious person. Patient denies travel to an Ebola-affected area in the 21 days before illness onset. Initial Sepsis Screen: Does the patient meet any 2 criteria? Temp <36.0*C (96.8*F)) or > 38.3*C (100.9*F). HR > 90 bpm. Yes Does the patient have a suspected source of infection? Yes: Dysuria/Frequency/Urgency/UTI If YES to both, name of provider notified: Lincoln Marroquin MD. Risk Assessment: Do you want to hurt yourself or someone else? Patient reports no desire to harm self or others. Onset of symptoms was December 23, 2019. 22:40 Method Of Arrival: EMS: [facility] rr5 22:40 Acuity: JUNAID 2 rr5 Historical: - Allergies: 22:47 No Known Allergies; rr5 - Home Meds: 12/23 00:26 apixaban oral 5 mg oral 1 tab 2 times per day [Active]; ferrous sulfate 325 mg (65 mg rr5 iron) Oral TbEC daily [Active]; hydrocodone-acetaminophen 7.5-325 mg Oral tab 1 tab every 6 hours for Pain [Active]; zolpidem 5 mg Oral tab 1 tab once daily for Sleep-Onset Insomnia [Active]; metoclopramide HCl 5 mg Oral tab 1 tab every 6 hours prn [Active]; furosemide 40 mg Oral tab 1 tab 2 times per day [Active]; potassium chloride 20 mEq Oral TbER 1 tab 2 times per day [Active]; levothyroxine 88 mcg tab 1 tab once daily [Active]; ciprofloxacin 500 mg tbalet [Active]; - PMHx: 12/22 22:47 C3/C4 fx; Hypothyroidism; GERD; uterine cancer; rr5 - PSHx: 22:47 Tubal ligation; anterior fusion neck; rr5 12/23 00:27 port-a-cath; rr5 - Immunization history:: Adult Immunizations up to date. - Social history:: Smoking status: unknown Patient/guardian denies using alcohol, street drugs. Screenin/02 22:48 Abuse screen: Denies threats or abuse. Denies injuries from another. Nutritional rr5 screening: No deficits noted. Tuberculosis screening: No symptoms or risk factors identified. Fall Risk IV access (20 points). Ambulatory Aid- None/Bed Rest/Nurse Assist (0 pts). Gait- Impaired (20 pts.). Total Ruffin Fall Scale indicates High Risk Score (45 or more points). Fall prevention measures have been instituted. Side Rails Up X 2 Frequent Obs/Assessments Occuring Family Present and informed to notify staff if the need to leave the bedside As available patient and family educated on Fall Prevention Program and Strategies. Assessment: 23:00 General: Appears in no apparent distress. uncomfortable, Behavior is calm, cooperative, rr5 appropriate for age, Reports fever for. Pain: Complains of pain in head Pain currently is 10 out of 10 on a pain scale. Quality of pain is described as aching, Pain began gradually, Is intermittent. Neuro: Level of Consciousness is awake, alert, obeys commands, Oriented to person, place, time, situation. Cardiovascular: Capillary refill < 3 seconds Patient's skin is warm and dry. Respiratory: Airway is patent Respiratory effort is even, unlabored, Respiratory pattern is regular, symmetrical. GI: No signs and/or symptoms were reported involving the gastrointestinal system. : Reports UTI. EENT: No signs and/or symptoms were reported regarding the EENT system. Derm: Skin is intact, is healthy with good turgor, Skin temperature is warm. Musculoskeletal: Capillary refill < 3 seconds, paralyze left arm and lower legs. 23:00 Reassessment: with port a cath at right chest wall. rr5 23:56 Reassessment: candy from laboratory called CBC test will send for pathology. resulted rr5 with immature un identified CBC atypical lymph,band and mono is high ED provider aware. 12/23 00:39 Reassessment: Patient appears in no apparent distress at this time. Patient is alert, rr5 oriented x 3, equal unlabored respirations, skin warm/dry/pink. awaiting for results. 01:25 Reassessment: Patient appears in no apparent distress at this time. Patient is alert, rr5 oriented x 3, equal unlabored respirations, skin warm/dry/pink. reassess by ED provider. 02:11 Reassessment: Patient appears in no apparent distress at this time. awaiting for other rr5 facility acceptance. 03:06 Reassessment: Patient appears in no apparent distress at this time. Patient is alert, rr5 oriented x 3, equal unlabored respirations, skin warm/dry/pink. call made to [facility] spoke to george HOPE given report. 03:50 Reassessment: Patient appears in no apparent distress at this time. Patient is alert, rr5 oriented x 3, equal unlabored respirations, skin warm/dry/pink. report given to ems awake alert vital signs taken and recorded. with IV cannula intact. Vital Signs: 12/22 22:40 BP 131 / 81; Pulse 124; Resp 19; Temp 103; Pulse Ox 95% ; Weight 89.81 kg; Height 5 ft. rr5 3 in. (160.02 cm); Pain 12/30; 12/23 00:20 BP 126 / 85; Pulse 96; Resp 20; Temp 98.9; Pulse Ox 98% ; rr5 01:25 BP 113 / 62; Pulse 93; Resp 17; Pulse Ox 99% ; rr5 02:51 BP 99 / 60; Pulse 89; Resp 16; Pulse Ox 99% ; rr5 03:12 BP 118 / 75; Pulse 100; Resp 19; Temp 98.8; Pulse Ox 97% ; rr5 03:52 BP 118 / 76; Pulse 98; Resp 16; Pulse Ox 98% on R/A; rr5 12/22 22:40 Body Mass Index 35.07 (89.81 kg, 160.02 cm) rr5 ED Course: 12/22 22:42 Patient arrived in ED. rr5 22:43 Lincoln Marroquin MD is Attending Physician. [facility] 22:46 Triage completed. rr5 22:48 Arm band placed on right wrist. rr5 22:49 Patient has correct armband on for positive identification. Placed in gown. Bed in low rr5 position. Call light in reach. Side rails up X2. Pulse ox on. NIBP on. 22:50 Initial lab(s) drawn, by [employer], sent to lab. rr5 23:00 Inserted saline lock: 20 gauge in right forearm, using aseptic technique. Blood rr5 collected. 23:00 Second set of blood cultures drawn by tn. rr5 23:05 Braxton Roldan, RN is Primary Nurse. rr5 23:10 EKG done, by ED staff, reviewed by Lincoln Marroquin MD. rr5 12/23 00:09 Chest Single View XRAY In Process Unspecified. EDMS 00:10 Flu and/or RSV swab sent to lab. covid. rr5 00:12 CT Chest, Abdomen, Pelvis - W/Contrast In Process Unspecified. EDMS 01:04 Urine collected: straight cath specimen, cloudy. rr5 03:53 No provider procedures requiring assistance completed. Patient transferred, IV remains rr5 in place. intact, No redness/swelling at site. Administered Medications: 12/22 23:05 Drug: NS 0.9% (30 ml/kg) 30 ml/kg Route: IV; Rate: bolus; Site: right forearm; rr5 12/23 02:10 Follow up: Response: No adverse reaction; IV Status: Completed infusion; IV Intake: rr5 2300ml 12/22 23:13 Drug: Tylenol 1000 mg Route: PO; rr5 12/23 00:38 Follow up: Response: No adverse reaction; Temperature is decreased rr5 00:05 Drug: Pepcid 20 mg Route: IVP; Site: right forearm; rr5 01:00 Follow up: Response: No adverse reaction rr5 00:10 Dru grams of (Cefepime 2 grams, NS 0.9% 100 ml) Route: IVPB; Rate: 200 ml/hr; rr5 Infused Over: 30 mins; Site: right forearm; 00:35 Follow up: Response: No adverse reaction; IV Status: Completed infusion; IV Intake: rr5 100ml 00:37 Dru grams of (vancoMYCIN 1 grams, NS 0.9% 250 ml) Route: IVPB; Infused Over: 2 hrs; rr5 Site: right forearm; 02:30 Follow up: Response: No adverse reaction; IV Status: Completed infusion; IV Intake: rr5 250ml 03:48 Drug: Zofran (Ondansetron) 4 mg Route: IVP; Site: right forearm; rr5 03:52 Follow up: Response: Other; given prior to transfer rr5 03:50 Drug: fentaNYL (PF) 50 mcg {Note: rass 0.} Route: IVP; Site: right forearm; rr5 03:52 Follow up: Response: Other; given prior to transfer rr5 Intake: 00:35 IV: 100ml; Total: 100ml. rr5 02:10 IV: 2300ml; Total: 2400ml. rr5 02:30 IV: 250ml; Total: 2650ml. rr5 Outcome: 01:32 ER care complete, transfer ordered by MD. denise 03:53 Transferred by ground EMS to [facility], Transfer form completed. rr5 03:53 Condition: stable 03:53 Instructed on the need for transfer. 03:53 Patient left the ED. rr5 Signatures: Dispatcher [employer] Lincoln Chaney MD MD cha Roque, Raymond, RN RN rr5 Corrections: (The following items were deleted from the chart) 00:27 12/22 22:47 Home Meds: aspirin 81 mg Oral TbEC 1 tab once daily; rr5 rr5 12/23 00:27 10 22:47 Home Meds: levothyroxine 88 mcg tab 1 tab once daily; rr5 rr5
--- NOTE | 2019-12-24 01:33 | EDPHYS ---
Physician Documentation [facility] Name: Ronda Dela Cruz Age: 59 yrs Sex: Female : 1960 Arrival Date: 12/23/2019 Time: 22:42 Bed 8 Private MD: ED Physician Lincoln Mraroquin HPI: 12/22 23:21 This 59 yrs old Female presents to ER via EMS with complaints of Fever. howie 23:21 The patient reports fever, that was measured at 103 degrees Fahrenheit. Onset: The howie symptoms/episode began/occurred 2 day(s) ago. Modifying factors: there are no obvious modifying factors. Associated signs and symptoms: Pertinent positives: arthralgias, cough, myalgias, nausea, runny nose. Severity of symptoms: At their worst the symptoms were mild moderate in the emergency department the symptoms are unchanged. The patient has not experienced similar symptoms in the past. Historical: - Allergies: 22:47 No Known Allergies; rr5 - Home Meds: 12/23 00:26 apixaban oral 5 mg oral 1 tab 2 times per day [Active]; ferrous sulfate 325 mg (65 mg rr5 iron) Oral TbEC daily [Active]; hydrocodone-acetaminophen 7.5-325 mg Oral tab 1 tab every 6 hours for Pain [Active]; zolpidem 5 mg Oral tab 1 tab once daily for Sleep-Onset Insomnia [Active]; metoclopramide HCl 5 mg Oral tab 1 tab every 6 hours prn [Active]; furosemide 40 mg Oral tab 1 tab 2 times per day [Active]; potassium chloride 20 mEq Oral TbER 1 tab 2 times per day [Active]; levothyroxine 88 mcg tab 1 tab once daily [Active]; ciprofloxacin 500 mg tbalet [Active]; - PMHx: 12/22 22:47 C3/C4 fx; Hypothyroidism; GERD; uterine cancer; rr5 - PSHx: 22:47 Tubal ligation; anterior fusion neck; rr5 12/23 00:27 port-a-cath; rr5 - Immunization history:: Adult Immunizations up to date. - Social history:: Smoking status: unknown Patient/guardian denies using alcohol, street drugs. ROS: 12/22 23:22 Eyes: Negative for injury, pain, redness, and discharge, ENT: Negative for injury, howie pain, and discharge, Neck: Negative for injury, pain, and swelling, Respiratory: Negative for shortness of breath, cough, wheezing, and pleuritic chest pain, Back: Negative for injury and pain, MS/Extremity: Negative for injury and deformity, Skin: Negative for injury, rash, and discoloration, Neuro: Negative for headache, weakness, numbness, tingling, and seizure, Psych: Negative for depression, anxiety, suicide ideation, homicidal ideation, and hallucinations, Allergy/Immunology: Negative for hives, rash, and allergies, Endocrine: Negative for neck swelling, polydipsia, polyuria, polyphagia, and marked weight changes, Hematologic/Lymphatic: Negative for swollen nodes, abnormal bleeding, and unusual bruising. Constitutional: Positive for body aches, chills, fatigue, fever, malaise. Respiratory: Positive for cough. Abdomen/GI: Positive for abdominal distension. : Positive for burning with urination, difficulty urinating. Neuro: Positive for weakness. Exam: 23:22 Head/Face: Normocephalic, atraumatic. Eyes: Pupils equal round and reactive to light, howie extra-ocular motions intact. Lids and lashes normal. Conjunctiva and sclera are non-icteric and not injected. Cornea within normal limits. Periorbital areas with no swelling, redness, or edema. ENT: Nares patent. No nasal discharge, no septal abnormalities noted. Tympanic membranes are normal and external auditory canals are clear. Oropharynx with no redness, swelling, or masses, exudates, or evidence of obstruction, uvula midline. Mucous membranes moist. Neck: Trachea midline, no thyromegaly or masses palpated, and no cervical lymphadenopathy. Supple, full range of motion without nuchal rigidity, or vertebral point tenderness. No Meningismus. Chest/axilla: Normal chest wall appearance and motion. Nontender with no deformity. No lesions are appreciated. Respiratory: Lungs have equal breath sounds bilaterally, clear to auscultation and percussion. No rales, rhonchi or wheezes noted. No increased work of breathing, no retractions or nasal flaring. Abdomen/GI: Soft, non-tender, with normal bowel sounds. No distension or tympany. No guarding or rebound. No evidence of tenderness throughout. Back: No spinal tenderness. No costovertebral tenderness. Full range of motion. Female : Normal external genitalia. Skin: Warm, dry with normal turgor. Normal color with no rashes, no lesions, and no evidence of cellulitis. MS/ Extremity: Pulses equal, no cyanosis. Neurovascular intact. Full, normal range of motion. Neuro: Awake and alert, GCS 15, oriented to person, place, time, and situation. Cranial nerves II-XII grossly intact. Motor strength 5/5 in all extremities. Sensory grossly intact. Cerebellar exam normal. Normal gait. Psych: Awake, alert, with orientation to person, place and time. Behavior, mood, and affect are within normal limits. 23:22 Constitutional: The patient appears febrile. 23:22 Cardiovascular: Rate: tachycardic, Rhythm: regular, Pulses: Pulses are 4+ in bilateral radial, brachial, femoral, popliteal, posterior tibial and and dorsalis pedis arteries.. Heart sounds: normal, Edema: is not appreciated, JVD: is not appreciated. Vital Signs: 22:40 BP 131 / 81; Pulse 124; Resp 19; Temp 103; Pulse Ox 95% ; Weight 89.81 kg; Height 5 ft. rr5 3 in. (160.02 cm); Pain 12/30; 12/23 00:20 BP 126 / 85; Pulse 96; Resp 20; Temp 98.9; Pulse Ox 98% ; rr5 01:25 BP 113 / 62; Pulse 93; Resp 17; Pulse Ox 99% ; rr5 02:51 BP 99 / 60; Pulse 89; Resp 16; Pulse Ox 99% ; rr5 03:12 BP 118 / 75; Pulse 100; Resp 19; Temp 98.8; Pulse Ox 97% ; rr5 03:52 BP 118 / 76; Pulse 98; Resp 16; Pulse Ox 98% on R/A; rr5 12/22 22:40 Body Mass Index 35.07 (89.81 kg, 160.02 cm) rr5 MDM: 12/22 22:43 Patient medically screened. howie 23:24 Antibiotic administration: cefepime/vanco. Differential diagnosis: Neoplasm nonspecific howie abdominal pain, viral Infection, bacterial infection, URI, bronchitis, pneumonia UTI. Differential Diagnosis: Bronchitis Influenza Upper Respiratory Infection Sinusitis Pharyngitis Otitis Media Pneumonia. Data reviewed: vital signs, nurses notes, lab test result(s), EKG, radiologic studies. Data interpreted: awake overnight monitor: rate is 124 beats/min, rhythm is normal sinus rhythm, Pulse oximetry: on room air is 95 %. Test interpretation: by ED physician or midlevel provider: ECG, plain radiologic studies. Counseling: I had a detailed discussion with the patient and/or guardian regarding: the historical points, exam findings, and any diagnostic results supporting the discharge/admit diagnosis. 12/22 22:43 Order name: Amylase, Serum rr5 12/22 22:43 Order name: Basic Metabolic Panel rr5 12/22 22:43 Order name: Blood Culture Adult (2) rr5 12/22 22:43 Order name: CBC with Diff rr5 12/22 22:43 Order name: Ckmb rr 12/22 22:43 Order name: CPK; Complete Time: 23:28 rr5 12/22 22:43 Order name: Lactate; Complete Time: 23:28 rr5 12/22 22:43 Order name: LFT's; Complete Time: 23:28 rr5 12/22 22:43 Order name: Lipase; Complete Time: 23:28 rr5 12/22 22:43 Order name: Procalcitonin; Complete Time: 00:17 rr5 12/22 22:43 Order name: Protime (+inr); Complete Time: 23:28 rr5 12/22 22:43 Order name: Ptt, Activated; Complete Time: 23:28 rr5 12/22 22:43 Order name: Troponin (emerg Dept Use Only); Complete Time: 23:28 rr5 12/22 22:43 Order name: Urine Microscopic Only; Complete Time: 02:32 rr5 12/22 22:43 Order name: Chest Single View XRAY rr5 12/22 22:43 Order name: Amylase; Complete Time: 23:28 EDMS 12/22 22:43 Order name: Basic Metabolic Panel; Complete Time: 23:28 EDWA 12/22 22:43 Order name: Blood Culture EDWA 12/22 22:43 Order name: CBC with Automated Diff; Complete Time: 00:17 EDWA 12/22 22:43 Order name: CKMB Creatine Kinase MB; Complete Time: 23:28 EDWA 12/22 23:18 Order name: Manual Differential; Complete Time: 00:17 EDWA 12/22 23:21 Order name: CT Chest, Abdomen, Pelvis - W/Contrast howie 12/22 23:21 Order name: Type And Screen; Complete Time: 01:24 [facility] 12/22 23:28 Order name: Influenza Screen (a \T\ B); Complete Time: 02:32 [facility] 12/23 01:10 Order name: Urine Dipstick--Ancillary (enter results); Complete Time: 02:32 ar 12/23 01:35 Order name: SARS-COV-2 RT PCR [facility] 12/23 01:57 Order name: Urine Culture [facility] 12/22 22:43 Order name: Accucheck; Complete Time: 23:05 rr5 12/22 22:43 Order name: Cardiac monitoring; Complete Time: 23:05 rr5 12/22 22:43 Order name: EKG - Nurse/Tech; Complete Time: 23:05 rr5 12/22 22:43 Order name: IV Saline Lock - Large Bore; Complete Time: 23:06 rr5 12/22 22:43 Order name: Labs collected and sent; Complete Time: 23:06 rr5 12/22 22:43 Order name: O2 Per Protocol; Complete Time: 23:06 rr5 12/22 22:43 Order name: O2 Sat Monitoring; Complete Time: 23:06 rr5 12/22 22:43 Order name: Urine Dipstick-Ancillary (obtain specimen); Complete Time: 01:04 rr5 12/23 01:05 Order name: Straight Cath - Urine; Complete Time: 01:05 rr5 Administered Medications: 23:05 Drug: NS 0.9% (30 ml/kg) 30 ml/kg Route: IV; Rate: bolus; Site: right forearm; rr5 12/23 02:10 Follow up: Response: No adverse reaction; IV Status: Completed infusion; IV Intake: rr5 2300ml 12/22 23:13 Drug: Tylenol 1000 mg Route: PO; rr5 12/23 00:38 Follow up: Response: No adverse reaction; Temperature is decreased rr5 00:05 Drug: Pepcid 20 mg Route: IVP; Site: right forearm; rr5 01:00 Follow up: Response: No adverse reaction rr5 00:10 Dru grams of (Cefepime 2 grams, NS 0.9% 100 ml) Route: IVPB; Rate: 200 ml/hr; rr5 Infused Over: 30 mins; Site: right forearm; 00:35 Follow up: Response: No adverse reaction; IV Status: Completed infusion; IV Intake: rr5 100ml 00:37 Dru grams of (vancoMYCIN 1 grams, NS 0.9% 250 ml) Route: IVPB; Infused Over: 2 hrs; rr5 Site: right forearm; 02:30 Follow up: Response: No adverse reaction; IV Status: Completed infusion; IV Intake: rr5 250ml 03:48 Drug: Zofran (Ondansetron) 4 mg Route: IVP; Site: right forearm; rr5 03:52 Follow up: Response: Other; given prior to transfer rr5 03:50 Drug: fentaNYL (PF) 50 mcg {Note: rass 0.} Route: IVP; Site: right forearm; rr5 03:52 Follow up: Response: Other; given prior to transfer rr5 Disposition: 12/24/19 01:32 Transfer ordered to [facility]. Diagnosis are Fever, unspecified, Hydronephrosis with renal and ureteral calculous obstruction - 8MM DISTAL LEFT, Abdominal and pelvic pain - PERIHEPATIC FLUID COLLECTIONS, MID ABDOMINAL FLUID COLLECTIONS, PELVIC FLUID COLLECTION, Neutropenia, Bandemia. - Reason for transfer: Higher level of care. - Accepting physician is to [facility]. - Condition is Fair. - Problem is new. - Symptoms have improved. Signatures: Dispatcher [employer] [facility] Lincoln Marroquin MD MD cha Attema, Lee, NUT PROCESS HELPER-C NUT PROCESS HELPER-Cla1 Braxton Roldan, RN RN rr5 Corrections: (The following items were deleted from the chart) 00:27 12/22 22:47 Home Meds: aspirin 81 mg Oral TbEC 1 tab once daily; rr5 rr5 12/23 00:27 12/22 22:47 Home Meds: levothyroxine 88 mcg tab 1 tab once daily; rr5 rr5 12/23 01:33 10 23:28 CORONAVIRUS+MR.LAB.BRZ ordered. [facility] 12/23 01:33 01:32 12/24/2019 01:32 Transfer ordered to [facility]. howie Diagnosis is Fever, unspecified; Hydronephrosis with renal and ureteral calculous obstruction - 8MM DISTAL LEFT; Abdominal and pelvic pain - PERIHEPATIC FLUID COLLECTIONS, MID ABDOMINAL FLUID COLLECTIONS, PELVIC FLUID COLLECTION. Reason for transfer: Higher level of care. Accepting physician is to [facility]. Condition is Fair. Problem is new. Symptoms have improved. howie 03:53 01:33 12/24/2019 01:32 Transfer ordered to [facility]. rr5 Diagnosis is Fever, unspecified; Hydronephrosis with renal and ureteral calculous obstruction - 8MM DISTAL LEFT; Abdominal and pelvic pain - PERIHEPATIC FLUID COLLECTIONS, MID ABDOMINAL FLUID COLLECTIONS, PELVIC FLUID COLLECTION; Neutropenia; Bandemia. Reason for transfer: Higher level of care. Accepting physician is to [facility]. Condition is Fair. Problem is new. Symptoms have improved. howie
[2019-12-24 01:38] LABS: Urine Blood 2+ (NEG); Urine Glucose NEGATIVE (NEG); Urine Protein 1+ (NEG)
[2019-12-24 01:56] LABS: Urine Bacteria 20-50 /HPF (<20); Urine Culture Reflex Order REFLEXED; Urine RBC 20-50 /HPF (NONE SEEN)
[2019-12-24] MEDS ORDERED: ONDANSETRON 4 MG/2 ML VIAL ONE (03:56)
[2019-12-24] MEDS ORDERED: FENTANYL CITR 100 MCG/2 ML ONE (03:56)
[2019-12-24 04:07] VITALS: TEMP 98.8
[2019-12-24 04:08] VITALS: BP 118/76; O2SAT 98
--- NOTE | 2019-12-24 11:51 | RAD REPORT ---
EXAM DESCRIPTION: Sherry Single View12/24/2019 12:06 am CLINICAL HISTORY: fever COMPARISON: none FINDINGS: The lungs appear clear of acute infiltrate. The heart is normal size. The tip of the cent ral venous catheter lies within the superior cava IMPRESSION: No acute abnormalities displayed
--- NOTE | 2019-12-27 12:14 | RAD REPORT ---
EXAM DESCRIPTION: CT - Chest Abdomen Pelvis W Cont - 12/24/2019 6:51 am CLINICAL HISTORY: Abdominal distention; Fever COMPARISON: 02/24/2019 TECHNIQUE: CT of the chest, abdomen and pelvis performed following IV administration of iodinated co ntrast. FINDINGS: Chest: Thyroid: No abnormalities of the visualized thyroid. Great Vessels: Great vessels have normal anatomic configuration. Thoracic Aorta: No abnormalities of the thoracic aorta identified. Pulmonary arteries: No central filling defects. Heart: No cardiomegaly, significant pericardial effusion, or coronary artery atherosclerosis Lymph Nodes: No enlarged mediastinal lymph nodes identified. Esophagus: No abnormalities of the esophagus identified Other: No additional findings. Lungs: No airspace opacities identified. Pleura: No pleural effusion or pneumothorax. Trachea/Airways: No abnormalities of the visualized trachea or airways. Abdomen: Liver: There are multiple perihepatic fluid collections. The largest is a multiloculated fluid collec tion anterior to the left hepatic lobe measuring 13.1 x 11.4 x 9.7 cm. Right subdiaphragmatic multi l oculated fluid collection measuring at least 11.5 x 7.8 x 7.7 cm. Gallbladder: Cholelithiasis. Spleen, Pancreas, and Adrenal Glands: The spleen, pancreas, and adrenal glands are unremarkable. Kidneys: There is a 0.8 cm obstructing calculus in the distal left ureter producing moderate left h ydroureter and hydronephrosis. Small bilateral renal cysts. No right-sided hydronephrosis. Vasculature: Aortoiliac atherosclerosis. IVC is unremarkable. The portal vein is patent. The proxim al visceral and renal arteries are patent. Stomach: The stomach and duodenum have normal course. Other: No free intraperitoneal air. Small amount of free fluid. In the mid pelvis there is a thic k-walled fluid collection measuring 7.9 x 8.3 x 7.0 cm. Pelvis: Bladder: Wall thickening of the urinary bladder. Mild adjacent inflammatory change. Bowel: No dilated loops of large or small bowel. Appendix: Not identified. Pelvis: Heterogeneous appearance of the uterine myometrium. This may indicate a fibroid. Mildly promi nent left peripelvic veins may be related to inflammation with pelvic congestion. At the leftward asp ect of the uterus there is a well-circumscribed thin-walled fluid collection measuring 8.3 x 7.8 x 6. 4 cm. Bones: Mild degenerative change of the spine. IMPRESSION: 1. Multiple large perihepatic fluid collections with thick stone. The one anterior to th e left hepatic lobe measures 13.1 cm in greatest dimension. The one adjacent to the right hepatic lob e measures 11.5 cm. These are concerning for abscess formation. 2. Thick walled rim enhancing fluid collection in the mid abdomen measuring 8.3 cm in greatest dimens ion. This is also concerning for abscess formation. 3. There is a thin-walled simple appearing fluid collection in the left adnexa measuring 8.3 cm. This may represent an ovarian cyst however due to other fluid collections in the abdomen, abscess is also a consideration. Pelvic ultrasound or MRI could provide additional characterization. 4. There is a 0.8 cm obstructing calculus in the distal left ureter producing moderate left hydrouret er and hydronephrosis. 5. Wall thickening of the urinary bladder with adjacent inflammatory change could be seen with cystit is. 6. Possible uterine fibroid. 7. Cholelithiasis. 8. No acute abnormalities of the chest. This exam was performed according to our departmental dose-optimization program, which includes autom ated exposure control, adjustment of the mA and/or kV according to patient size and/or use of iterati ve reconstruction technique. Electronically signed by: Raul Dueñas 12/24/2019 12:57 AM CDT Due to temporary technical issues with the PACS/Fluency reporting system, reports are being signed by the in house radiologist without review as a courtesy to ensure prompt reporting. The interpreting r adiologist is fully responsible for the content of the report.
--- OUTSIDE RECORDS SUMMARY | 2019-12-28 21:59 | XMS REPORT | Clinical Summary ---
:1960 Author Organization [facility] Address [address] [place] [address] Care Team Providers Name Role Phone Truman Mccray MD Primary Care Provider Allergies No Known Allergies Medications Medication Sig Dispensed Refills Start End Date Status Date nitrofurantoin, Take 1 capsule 20 capsule 0 01/06/20 Active macrocrystal-monohy (100 mg total) by 0 20 drate, (MACROBID) mouth 2 (two) 100 MG capsule times daily for 10 days. levothyroxine Take 88 mcg by 0 S uspended (SYNTHROID, mouth Every LEVOTHROID) 88 MCG morning on an tablet empty stomach. HYDROcodone-acetami Take 1 tablet by 30 tablet 0 nophen (NORCO mouth every 6 0 20 5-325) 5-325 mg per (six) hours as tablet needed for up to 10 days. Max Daily Amount: 4 tablets HYDROmorphone Inject 1 mL (1 mg 1 mL 0 12/27/19 Discontinued (DILAUDID) total) 0 20 injection 1 mg/mL intravenously every 3 (three) hours as needed. Max Daily Amount: 8 mg metoclopramide HCl Inject 2 mLs (10 2 mL 0 09/09 Discontinued (REGLAN) 5 mg/mL mg total) 0 20 injectionIndication intravenously s: Malignant every 6 (six) neoplasm of uterus, hours as needed unspecified site (Hypersensitivity (HCC), Other reaction.). ascites promethazine Take 1 tablet 30 tablet 0 05/06/19 Exp ired (PHENERGAN) 12.5 MG (12.5 mg total) 0 20 tablet by mouth every 6 (six) hours as needed for up to 7 days. zolpidem (AMBIEN) 5 Take 1 tablet (5 30 tablet 0 11/09 MG tablet mg total) by 0 20 mouth every night as needed for Insomnia for up to 30 days. Max Daily Amount: 5 mg ondansetron Inject 4 mLs (8 20 mL 0 Richardson spended (ZOFRAN) 4 mg/2 mL mg total) 0 injection intravenously every 8 (eight) hours. furosemide (LASIX) Take 1 tablet (40 60 tablet 11 09/09 Suspended 40 MG tablet mg total) by 0 21 mouth 2 (two) times daily. potassium chloride Take 1 tablet (20 60 tablet 09/09 Suspended SA (K-DUR,KLOR-CON) mEq total) by 0 21 20 MEQ tablet mouth 2 (two) times daily. Continue current Per Parenteral 1 each 0 12/27/19 Discontinued parenteral nutrition 0 20 nutrition IV formulation. infusion apixaban (ELIQUIS) Take 5 mg by 0 Suspended 5 mg Tab tablet mouth 2 (two) times daily. HYDROcodone-acetami Take 1 tablet by 0 Suspended nophen (NORCO mouth every 6 7.5-325) 7.5-325 mg (six) hours as per tablet needed for Pain. zolpidem (AMBIEN) 5 Take 5 mg by 0 Suspended MG tablet mouth every night as needed for Insomnia. cyclobenzaprine Take 1 tablet (10 30 tablet 0 Discontinued (FLEXERIL) 10 MG mg total) by 0 20 tablet mouth 2 (two) times daily as needed for Muscle spasms (back spasms) for up to 10 days. ferrous sulfate 325 Take 1 tablet 30 tablet 0 Discontinued (65 FE) MG tablet (325 mg total) by [address] 1 patch 15 patch 0 11/06/19 Discon tinued (LIDODERM) 5 % onto the skin 0 20 patch daily for 15 days Remove & Discard patch within 12 hours or as directed by . nitrofurantoin, Take 1 capsule 14 capsule 0 11/06/19 Discontinued macrocrystal-monohy (100 mg total) by 0 20 drate, (MACROBID) mouth every 12 100 MG capsule (twelve) hours for 7 days. apixaban (ELIQUIS) Take 1 tablet (5 60 tablet 0 Suspended 5 mg Tab tablet mg total) by 0 mouth 2 (two) times daily. cyclobenzaprine Take 1 tablet (10 30 tablet 0 (FLEXERIL) 10 MG mg total) by 0 20 tablet mouth 2 (two) times daily as needed for Muscle spasms (back spasms) for up to 10 days. ferrous sulfate 325 Take 1 tablet 30 tablet 0 Suspended (65 FE) MG tablet (325 mg total) by 0 21 mouth daily. HYDROcodone-acetami Take 1 tablet by 20 tablet 0 nophen (NORCO mouth every 6 0 20 10-325) 10-325 mg (six) hours as per tablet needed for up to 3 days. Max Daily Amount: 4 tablets nitrofurantoin, Take 1 capsule 14 capsule 0 11/13/19 macrocrystal-monohy (100 mg total) by 0 20 drate, (MACROBID) mouth every 12 100 MG capsule (twelve) hours for [address]. [address] 1 patch 15 patch 0 11/21/19 d (LIDODERM) 5 % onto the skin 0 20 patch daily for 15 days Remove & Discard patch within 12 hours or as directed by MD. metoclopramide Take 5 mg by 0 Richardson spended (REGLAN) 5 MG mouth 4 (four) tabletIndications: times daily as prevent nausea and needed. vomiting from cancer chemotherapy ciprofloxacin HCl Take 500 mg by 0 0 Discontinued (CIPRO) 500 MG mouth 2 (two) 20 tablet times daily. Hospital, Clinic, or Other Ordered Dose Route Frequency Start Date End Date Status Facility Administered Medication sodium chloride 0.9% (NS) IV Once 12/14/2019 Ended infusion diphenhydrAMINE (BENADRYL) 25 mg IV Once 12/14/2019 Ended injection 25 mg acetaminophen (TYLENOL) 650 mg Oral Once 12/14/201912/13 Ended tablet 650 mg Active Problems Problem Noted Date Anemia 12/25/2019 Thrombocytopenia 12/25/2019 Hypokalemia 12/25/2019 Chronic anticoagulation 12/25/2019 Ureteral stone with hydronephrosis 12/24/2019 Fever 11/01/2019 Sepsis 11/01/2019 Acute cystitis without hematuria 11/01/2019 Malignant neoplasm of uterus, unspecified site 020 Malignant neoplasm of endometrium 04/19/2019 Vomiting and diarrhea 04/12/2019 Other ascites 01/20/2019 Ascites 01/20/2019 Encounters Date Type Specialty Care Team Description 12/28/2019 Anesthesia Event Segun Cantu MD 12/28/2019 Surgery Manny Holt MD CYSTOSCOPY, URETEROSCOPY W/ LASER LITHOT RIPSY 12/24/2019 Anesthesia Event Duncan Hicks MD 12/24/2019 Surgery Manny Holt MD CYSTOSCOPY, INSERTION URETERAL STENTS 12/24/2019 [facility] Internal [facility] Uretera l stone with hydronephrosis; Encounter Medicine MD Tere Acute cystitis without hematuria; Gadicherla, Judith Sepsis wit hout acute organ dysfunction, due to unspecified organism ([facility]); MD Floyd Paraplegia ([facility]); Estefania Gimenezmureji 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, 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; MD Nupur Hypokalemia; Micaela Giordano Chronic pul monary embolism without acute cor pulmonale, unspecified pulmonary embolism type ([facility]); MD Juanita Malignant neopl asm of uterus, unspecified site ([facility]); Hypothyroidism, unspecified type 12/24/2019 Travel 12/22/2019 [facility] Computed Tung, Cole Malignant ne oplasm of Encounter Tomography MD Kapil uterus, unspecified site 1, [facility] [place] ([facility]) Ct Room 12/22/2019 Hospital Computed Tung, Cole Malignant ne oplasm of Encounter Tomography MD Kapil uterus, unspecified site 1, [facility] [place] ([facility]) Ct Room 12/14/2019 Infusion Oncology Tung, Cole Hemoglobin l ow (Primary MD Kapil Dx) 12/13/2019 Infusion Oncology Tung, Cole Malignant ne oplasm of MD Kapil uterus, unspec ified site (HCC) (Primary Dx) 12/12/2019 Infusion Oncology Tung, Cole Malignant ne oplasm of MD Kapil uterus, unspec ified site (HCC) 12/05/2019 Hospital Radiology Cole Albright Malignant ne oplasm of Encounter MD Kapil cervix, unspec ified site (HCC) 11/24/2019 Outside Orders Central Jose Ramon, Cole Malignant neoplasm of cervix, unspecified site (HCC) (Primary Dx); Scheduling MD Kapil Malignant neop lasm of uterus, unspecified site (HCC) 10/31/2019 [facility] Internal Aris Wright Pyelonephr itis (Primary Dx); - Encounter Medicine MD Stevie Fever, unspecified fever cause; 11/06/2019 MurreyAlissonIttmann, Tachycardia; MD Cortes Acute cystitis without hematuria; Liv Corrales, Sepsis witho ut acute organ dysfunction, due to unspecified organism (HCC); Malignant ascites; Gabriella, Rudy Fever in oth er diseases; MD Art Malignant neopl asm of uterus, unspecified site (HCC); Hypokalemia; Hypervolemia, u nspecified hypervolemia type; Other constipat ion; Malignant neopl asm of endometrium (HCC); Positive blood culture 10/31/2019 Travel 10/24/2019 [facility] Radiology Cole Albright No Show Encounter MD Kapil 10/05/2019 [facility] Radiology Cole Albright Malignant ne oplasm of - Encounter MD Kapil uterus, unspec ified site 10/06/2019 (HCC) 10/05/2019 Travel 09/28/2019 Outside Orders Central Cole Albright Malignant neoplasm of Scheduling MD Kapil uterus, unspec ified site (HCC) (Primary Dx) 09/22/2019 Hospital Radiology Jose Ramon Cole Malignant ne oplasm of Encounter MD Kapil uterus, unspec ified site (HCC) 09/22/2019 Hospital Radiology Cole Albright Malignant ne oplasm of Encounter MD Kapil uterus, unspec ified site (HCC) 09/15/2019 Outside Orders Central Jose Ramon Cole Malignant neoplasm of Scheduling MD Kapil uterus, unspec ified site (HCC) (Primary Dx) 09/02/2019 [facility] Computed Tung, Cole Malignant ne oplasm of Encounter Tomography Kapil uterus, unspecified site 1, [facility] [place] (HCC) Ct Room 09/02/2019 Hospital Computed Tung, Cole Malignant ne oplasm of Encounter Tomography Kapil uterus, unspecified site 1, [facility] [place] (HCC) Ct Room 08/26/2019 Outside Orders Central Tung, Cole Malignant neoplasm of Scheduling Kapil uterus, unspec ified site (HCC) (Primary Dx) 07/25/2019 Hospital Radiology Tung, Cole Malignant ne oplasm of Encounter Kapil uterus, unspec ified site (HCC) 07/25/2019 Travel 07/22/2019 Outside Orders Central Tung, Cole Malignant neoplasm of Scheduling Kapil uterus, unspec ified site (HCC) (Primary Dx) 07/18/2019 [facility] Computed Tung, Cole Malignant ne oplasm of Encounter Tomography Kapil uterus, unspecified site 1, [facility] [place] (HCC) Ct Room 07/18/2019 Hospital Computed Tung, Cole Malignant ne oplasm of Encounter Tomography Kapil uterus, unspecified site 1, [facility] [place] (HCC) Ct Room 07/12/2019 Outside Orders Central Tung, Cole Malignant neoplasm of Scheduling Kapil uterus, unspec ified site (HCC) (Primary Dx) 06/10/2019 [facility] Radiology Tung, Cole Malignant ne oplasm of Encounter Kapil uterus, unspec ified site (HCC) 05/31/2019 Outside Orders Central Tung, Cole Malignant neoplasm of Scheduling KapilMD uterus, unspec ified site (HCC) (Primary Dx) 04/12/2019 [facility] Oncology Arianne, Tej Vomiting and di arrhea (Primary Dx); - Encounter MD Ángel Biloma; 05/02/2019 Gadicherla, Judith Other asci mirtha; MD Floyd Pelvic mass; Donna Triplett Malignant neoplasm of uterus, unspecified site (HCC) 04/12/2019 Travel 01/22/2019 Outside Orders Lab Bhanu Grewal 01/21/2019 Travel 01/20/2019 [facility] Internal Brann, Other ascit es (Primary Dx); - Encounter Medicine Canelo staley gs on diagnostic imaging of abdomen; 01/23/2019 MD Ángel Class 2 obesity due to excess calories w ithout serious comorbidity with body mass index (BMI) of 39.0 to 39.9 in adult; Kristie Padilla MD 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 Never 01/20/2019 How many drinks containing alcohol do you have on a typical Not asked day when you are drinking? How often do you have six or more drinks on one occasion? No t asked Sex Assigned at Date Recorded Not on file Job Start Date Occupation Industry Not on file Not on file Not on file Travel History Travel Start Travel End No recent travel history available. Last Filed Vital Signs Vital Sign Reading Time Taken Blood Pressure 108/55 12/28/2019 7:18 PM CDT Pulse 94 12/28/2019 7:18 PM CDT Temperature 36.4 C (97.6 F) 12/28/2019 7:18 PM CDT Respiratory Rate 18 12/28/2019 7:18 PM CDT Oxygen Saturation 94% 12/28/2019 7:18 PM CDT Inhaled Oxygen Concentration - - Weight 90.7 kg (200 lb) 12/24/2019 5:36 AM CDT Height 160 cm (5' 3") 12/24/2019 5:36 AM CDT Body Mass Index 35.43 12/24/2019 5:36 AM CDT Plan of Treatment Health Maintenance Due Date Last Done Comments BREAST CANCER SCREENING 1960 COLON CANCER SCREENING COLONOSCOPY 1960 PNEUMOCOCCAL VACCINE 2-64 YEARS AT RISK (1 of 3 - 1967 PCV13) LIPID PANEL 2006 INFLUENZA VACCINE (#1) 2019 Implants Implanted Type Area 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 The information in this section might not be complete until the patient is discharged. Procedure Name Priority Date/Time Associated Comments Diagnosis FL FLUORO Routine 12/28/2019 3:15 Results for this NON-SPECIFIC UP TO 1 PM CDT procedu re are in HOUR the results section. CYSTOSCOPY,URETEROSCO 12/28/2019 1:30 Renal stone PY W/ LASER PM CDT LITHOTRIPSY Case Notes 90 MINS PER VALERIAPATIENT I SN'T A DIALYSIS PATIENT OKAYED BY RIDDHI TO PLACE ON WAITLIST AND DID INFORM THEM THAT THERE WERE 4 CYSTOS IN FRONT OF HIM/CORINA 12/26 @ 1343 Special Needs (REQ 1400) URINALYSIS W/ REFLEX STAT 12/27/2019 10:56 Res ults for this URINE CULTURE PM CDT procedure are in the results section. GRAM STAIN STAT 12/27/2019 10:56 Results for this PM CDT procedure are i n the results section. CBC W/PLT COUNT & AUTO Routine 12/26/2019 1:10 R esults for this DIFFERENTIAL PM CDT procedure are i n the results section. BASIC METABOLIC PANEL Routine 12/26/2019 1:10 Re sults for this (7) PM CDT procedure are i n the results section. CBC W/PLT COUNT & AUTO Routine 12/26/2019 1:10 R esults for this DIFFERENTIAL PM CDT procedure are i n the results section. VANCOMYCIN LEVEL, Timed 12/26/2019 2:53 Result s for this TROUGH AM CDT procedure are i n the results section. CBC W/PLT COUNT & AUTO Routine 12/25/2019 5:07 R esults for this DIFFERENTIAL AM CDT procedure are i n the results section. LACTIC ACID, VENOUS Routine 12/25/2019 5:07 Resu lts for this AM CDT procedure are i n the results section. COMPREHENSIVE Routine 12/25/2019 5:07 Results fo r this METABOLIC PANEL AM CDT procedure ar e in the results section. CBC W/PLT COUNT & AUTO Routine 12/25/2019 5:07 R esults for this DIFFERENTIAL AM CDT procedure are i n the results section. URINALYSIS W/ REFLEX Routine 12/25/2019 12:35 Res ults for this URINE CULTURE AM CDT procedure are in the results section. URINE CULTURE Routine 12/25/2019 12:35 Results fo r this AM CDT procedure are i n the results section. FL FLUORO NON-SPECIFIC STAT 12/24/2019 1:00 R esults for this UP TO 1 HOUR PM CDT procedure are i n the results section. SURGICALLY OBTAINED Routine 12/24/2019 12:48 Resu lts for this CULTURE + GRAM STAIN PM CDT procedu re are in the results section. FUNGUS CULTURE + Routine 12/24/2019 12:48 SMEAR PM CDT ANAEROBIC CULTURE Routine 12/24/2019 12:48 Result s for this PM CDT procedure are i n the results section. CYSTOSCOPY,INSERTION 12/24/2019 11:30 Left ureteral URETERAL STENTS AM CDT stone SARS-COV2/RT-PCR ([facility] STAT 12/24/2019 11:10 R esults for this & REF LABS) AM CDT procedure are i n the results section. CBC W/PLT COUNT & AUTO Routine 12/24/2019 11:02 R esults for this DIFFERENTIAL AM CDT procedure are i n the results section. PROTHROMBIN TIME/INR Routine 12/24/2019 11:02 Res ults for this AM CDT procedure are i n the results section. HEPATIC FUNCTION PANEL Routine 12/24/2019 11:02 R esults for this AM CDT procedure are i n the results section. BASIC METABOLIC PANEL Routine 12/24/2019 11:02 Re sults for this (7) AM CDT procedure are i n the results section. CBC W/PLT COUNT & AUTO Routine 12/24/2019 11:02 R esults for this DIFFERENTIAL AM CDT procedure are i n the results section. CT CHEST WITH IV Routine 12/22/2019 5:04 Malignant neoplasm R esults for this CONTRAST PM CDT of uterus, procedure are i n unspecified site the results (HCC) section. CT ABDOMEN/PELVIS WITH Routine 12/22/2019 5:04 Malignant neop lasm Results for this IV CONTRAST PM CDT of uterus, procedure are i n unspecified site the results (HCC) section. TRANSFUSION SERVICE 12/16/2019 6:04 REPORT - SCAN PM CDT PREPARE LEUKO-REDUCED Routine 12/15/2019 11:54 Hemoglobin low Results for this RBC PM CDT procedure are i n the results section. TRANSFUSION SERVICE 12/14/2019 6:05 REPORT - SCAN PM CDT TRANSFUSE Routine 12/14/2019 12:59 Hemoglobin low LEUKO-REDUCED RED PM CDT BLOOD CELLS TRANSFUSION SERVICE 12/13/2019 6:34 REPORT - SCAN PM CDT PREPARE LEUKO-REDUCED Routine 12/13/2019 11:25 Malignant neopl asm Results for this RBC AM CDT of uterus, procedure are i n unspecified site the results (HCC) section. TYPE AND SCREEN, Routine 12/12/2019 10:41 Results for this AUTOMATED AM CDT procedure are i n the results section. US PARACENTESIS TIFFANY 12/05/2019 9:18 Malignant neoplasm Re sults for this AM CDT of cervix, procedure are i n unspecified site the results (HCC) section. (CELLAVISION MANUAL Routine 12/05/2019 7:15 Resu lts for this DIFF) AM CDT procedure are i n the results section. CBC W/PLT COUNT & AUTO Routine 12/05/2019 7:15 R esults for this DIFFERENTIAL AM CDT procedure are i n the results section. CBC W/PLT COUNT & AUTO Routine 12/05/2019 7:15 R esults for this DIFFERENTIAL AM CDT procedure are i n the results section. APTT Routine 12/05/2019 7:15 Results for this AM CDT procedure are i n the results section. PROTHROMBIN TIME/INR Routine 12/05/2019 7:15 Res ults for this AM CDT procedure are i n the results section. (MANUAL DIFFERENTIAL) Routine 11/06/2019 5:17 Re sults for this AM CDT procedure are i n the results section. CBC W/PLT COUNT & AUTO Routine 11/06/2019 5:17 R esults for this DIFFERENTIAL AM CDT procedure are i n the results section. COMPREHENSIVE Routine 11/06/2019 5:17 Results fo r this METABOLIC PANEL AM CDT procedure ar e in the results section. CBC W/PLT COUNT & AUTO Routine 11/06/2019 5:17 R esults for this DIFFERENTIAL AM CDT procedure are i n the results section. TRANSFUSION SERVICE 11/05/2019 6:02 REPORT - SCAN PM CDT (CELLAVISION MANUAL Routine 11/05/2019 10:50 Resu lts for this DIFF) AM CDT procedure are i n the results section. CBC W/PLT COUNT & AUTO Routine 11/05/2019 10:50 R esults for this DIFFERENTIAL AM CDT procedure are i n the results section. COMPREHENSIVE Routine 11/05/2019 10:50 Results fo r this METABOLIC PANEL AM CDT procedure ar e in the results section. CBC W/PLT COUNT & AUTO Routine 11/05/2019 10:50 R esults for this DIFFERENTIAL AM CDT procedure are i n the results section. BLOOD CULTURE Routine 11/05/2019 5:13 Results fo r this AM CDT procedure are i n the results section. BLOOD CULTURE Routine 11/05/2019 4:56 Results fo r this AM CDT procedure are i n the results section. PREPARE LEUKO-REDUCED Routine 11/04/2019 11:54 Re sults for this RBC PM CDT procedure are i n the results section. TRANSFUSION SERVICE 11/04/2019 6:03 REPORT - SCAN PM CDT (MANUAL DIFFERENTIAL) Routine 11/04/2019 4:26 Re sults for this AM CDT procedure are i n the results section. CBC W/PLT COUNT & AUTO Routine 11/04/2019 4:26 R esults for this DIFFERENTIAL AM CDT procedure are i n the results section. CBC W/PLT COUNT & AUTO Routine 11/04/2019 4:26 R esults for this DIFFERENTIAL AM CDT procedure are i n the results section. BASIC METABOLIC PANEL Routine 11/04/2019 4:26 Re sults for this (7) AM CDT procedure are i n the results section. PREPARE LEUKO-REDUCED Routine 11/03/2019 11:54 Re sults for this RBC PM CDT procedure are i n the results section. TRANSFUSION SERVICE 11/03/2019 6:04 REPORT - SCAN PM CDT (CELLAVISION MANUAL TIFFANY 11/03/2019 5:59 Resu lts for this DIFF) PM CDT procedure are i n the results section. CBC W/PLT COUNT & AUTO TIFFANY 11/03/2019 5:59 R esults for this DIFFERENTIAL PM CDT procedure are i n the results section. CBC W/PLT COUNT & AUTO TIFFANY 11/03/2019 5:59 R esults for this DIFFERENTIAL PM CDT procedure are i n the results section. TRANSFUSE Routine 11/03/2019 4:31 LEUKO-REDUCED RED PM CDT BLOOD CELLS (CELLAVISION MANUAL Routine 11/03/2019 5:10 Resu lts for this DIFF) AM CDT procedure are i n the results section. CBC W/PLT COUNT & AUTO Routine 11/03/2019 5:10 R esults for this DIFFERENTIAL AM CDT procedure are i n the results section. CBC W/PLT COUNT & AUTO Routine 11/03/2019 5:10 R esults for this DIFFERENTIAL AM CDT procedure are i n the results section. BASIC METABOLIC PANEL Routine 11/03/2019 5:10 Re sults for this (7) AM CDT procedure are i n the results section. VANCOMYCIN LEVEL, Timed 11/03/2019 5:10 Result s for this TROUGH AM CDT procedure are i n the results section. HEMOGLOBIN AND Routine 11/02/2019 10:26 Results f or this HEMATOCRIT PM CDT procedure are i n the results section. TRANSFUSE Routine 11/02/2019 10:12 LEUKO-REDUCED RED PM CDT BLOOD CELLS TRANSFUSION SERVICE 11/02/2019 6:03 REPORT - SCAN PM CDT BLOOD CULTURE Routine 11/02/2019 1:59 Results fo r this PM CDT procedure are i n the results section. BLOOD CULTURE Routine 11/02/2019 1:43 Results fo r this PM CDT procedure are i n the results section. US RENAL COMPLETE Routine 11/02/2019 10:40 Result s for this AM CDT procedure are i n the results section. CBC W/PLT COUNT & AUTO Routine 11/02/2019 5:31 R esults for this DIFFERENTIAL AM CDT procedure are i n the results section. TSH Add-On 11/02/2019 5:31 Results for this AM CDT procedure are i n the results section. VITAMIN B12 AND FOLATE Routine 11/02/2019 5:31 R esults for this AM CDT procedure are i n the results section. FERRITIN Routine 11/02/2019 5:31 Results for this AM CDT procedure are i n the results section. IRON, TIBC, % SAT. Routine 11/02/2019 5:31 Resul ts for this (WITHOUT FERRITIN) AM CDT procedure are in the results section. CBC W/PLT COUNT & AUTO Routine 11/02/2019 5:31 R esults for this DIFFERENTIAL AM CDT procedure are i n the results section. BASIC METABOLIC PANEL Routine 11/02/2019 5:31 Re sults for this (7) AM CDT procedure are i n the results section. ABORH, MANUAL STAT 11/01/2019 1:44 Results fo r this PM CDT procedure are i n the results section. TYPE AND SCREEN, TIFFANY 11/01/2019 8:04 Results for this AUTOMATED AM CDT procedure are i n the results section. LACTIC ACID, VENOUS Routine 11/01/2019 8:04 Resu lts for this AM CDT procedure are i n the results section. XR CHEST 2 VIEWS STAT 11/01/2019 7:20 Results for this AM CDT procedure are i n the results section. URINALYSIS W/ REFLEX STAT 11/01/2019 4:22 Res ults for this URINE CULTURE AM CDT procedure are in the results section. URINE CULTURE STAT 11/01/2019 4:22 Results fo r this AM CDT procedure are i n the results section. SARS-COV2/RT-PCR ([facility] STAT 11/01/2019 4:22 R esults for this & REF LABS) AM CDT procedure are i n the results section. BLOOD CULTURE STAT 11/01/2019 4:22 Results fo r this AM CDT procedure are i n the results section. BLOOD CULTURE Routine 11/01/2019 1:21 Results fo r this IDENTIFICATION PANEL AM CDT procedu re are in the results section. BLOOD CULTURE STAT 11/01/2019 1:21 Results fo r this AM CDT procedure are i n the results section. CBC W/PLT COUNT & AUTO STAT 11/01/2019 1:20 R esults for this DIFFERENTIAL AM CDT procedure are i n the results section. TROPONIN I Add-On 11/01/2019 1:20 Results for this AM CDT procedure are i n the results section. PROTHROMBIN TIME/INR STAT 11/01/2019 1:20 Res ults for this AM CDT procedure are i n the results section. COMPREHENSIVE STAT 11/01/2019 1:20 Results fo r this METABOLIC PANEL AM CDT procedure ar e in the results section. LACTIC ACID, VENOUS STAT 11/01/2019 1:20 Resu lts for this AM CDT procedure are i n the results section. CBC W/PLT COUNT & AUTO STAT 11/01/2019 1:20 R esults for this DIFFERENTIAL AM CDT procedure are i n the results section. US PARACENTESIS Routine 10/05/2019 9:10 Malignant neoplasm Re sults for this AM CDT of uterus, procedure are i n unspecified site the results (HCC) section. US ABDOMEN COMPLETE Routine 09/22/2019 11:27 Malignant neoplas m Results for this AM CDT of uterus, procedure are i n unspecified site the results (HCC) section. US ABDOMEN LIMITED Routine 09/22/2019 10:36 Resul ts for this AM CDT procedure are i n the results section. (CELLAVISION MANUAL Routine 09/22/2019 9:18 Resu lts for this DIFF) AM CDT procedure are i n the results section. CBC W/PLT COUNT & AUTO Routine 09/22/2019 9:18 R esults for this DIFFERENTIAL AM CDT procedure are i n the results section. PROTHROMBIN TIME/INR Routine 09/22/2019 9:18 Res ults for this AM CDT procedure are i n the results section. CBC W/PLT COUNT & AUTO Routine 09/22/2019 9:18 R esults for this DIFFERENTIAL AM CDT procedure are i n the results section. APTT Routine 09/22/2019 9:18 Results for this AM CDT procedure are i n the results section. CT CHEST WITH IV Routine 09/02/2019 12:35 Malignant neoplasm R esults for this CONTRAST PM CDT of uterus, procedure are i n unspecified site the results (HCC) section. CT ABDOMEN/PELVIS WITH Routine 09/02/2019 12:35 Malignant neop lasm Results for this IV CONTRAST PM CDT of uterus, procedure are i n unspecified site the results (HCC) section. POCT-CREATININE Routine 09/02/2019 12:17 Results for this PM CDT procedure are i n the results section. CYTOLOGY AP Routine 07/25/2019 11:34 Results for this AM CDT procedure are i n the results section. US PARACENTESIS Routine 07/25/2019 11:20 Malignant neoplasm Re sults for this AM CDT of uterus, procedure are i n unspecified site the results (HCC) section. CBC W/PLT COUNT & AUTO Routine 07/25/2019 8:38 R esults for this DIFFERENTIAL AM CDT procedure are i n the results section. CBC W/PLT COUNT & AUTO Routine 07/25/2019 8:38 R esults for this DIFFERENTIAL AM CDT procedure are i n the results section. APTT Routine 07/25/2019 8:38 Results for this AM CDT procedure are i n the results section. PROTHROMBIN TIME/INR Routine 07/25/2019 8:38 Res ults for this AM CDT procedure are i n the results section. CT CHEST WITH IV Routine 07/18/2019 10:04 Malignant neoplasm R esults for this CONTRAST AM CDT of uterus, procedure are i n unspecified site the results (HCC) section. CT ABDOMEN/PELVIS WITH Routine 07/18/2019 10:04 Malignant neop lasm Results for this IV CONTRAST AM CDT of uterus, procedure are i n unspecified site the results (HCC) section. POCT-CREATININE Routine 07/18/2019 9:47 Results for this AM CDT procedure are i n the results section. IR CV ACCESS FLUORO Routine 06/10/2019 12:00 Malignant neoplas m Results for this PM CDT of uterus, procedure are i n unspecified site the results (HCC) section. (CELLAVISION MANUAL STAT 06/10/2019 9:29 Resu lts for this DIFF) AM CDT procedure are i n the results section. CBC W/PLT COUNT & AUTO STAT 06/10/2019 9:29 R esults for this DIFFERENTIAL AM CDT procedure are i n the results section. PT/APTT STAT 06/10/2019 9:29 Results for this AM CDT procedure are i n the results section. CBC W/PLT COUNT & AUTO STAT 06/10/2019 9:29 R esults for this DIFFERENTIAL AM CDT procedure are i n the results section. POCT-GLUCOSE METER Routine 05/02/2019 6:48 Resul ts for this PM [employer] procedure are i n the results section. POCT-GLUCOSE METER Routine 05/02/2019 1:06 Resul ts for this PM [employer] procedure are i n the results section. PHOSPHORUS Routine 05/02/2019 6:19 Results for this AM [employer] procedure are i n the results section. MAGNESIUM Routine 05/02/2019 6:19 Results for this AM [employer] procedure are i n the results section. BASIC METABOLIC PANEL Routine 05/02/2019 6:19 Re sults for this (7) AM [employer] procedure are i n the results section. POCT-GLUCOSE METER Routine 05/02/2019 6:16 Resul ts for this AM [employer] procedure are i n the results section. POCT-GLUCOSE METER Routine 05/01/2019 11:04 Resul ts for this PM [employer] procedure are i n the results section. POCT-GLUCOSE METER Routine 05/01/2019 6:57 Resul ts for this PM [employer] procedure are i n the results section. POCT-GLUCOSE METER Routine 05/01/2019 12:38 Resul ts for this PM [employer] procedure are i n the results section. POCT-GLUCOSE METER Routine 05/01/2019 5:48 Resul ts for this AM [employer] procedure are i n the results section. PHOSPHORUS Routine 05/01/2019 5:30 Results for this AM [employer] procedure are i n the results section. MAGNESIUM Routine 05/01/2019 5:30 Results for this AM [employer] procedure are i n the results section. BASIC METABOLIC PANEL Routine 05/01/2019 5:30 Re sults for this (7) AM [employer] procedure are i n the results section. POCT-GLUCOSE METER Routine 04/30/2019 11:04 Resul ts for this PM [employer] procedure are i n the results section. POCT-GLUCOSE METER Routine 04/30/2019 6:01 Resul ts for this PM [employer] procedure are i n the results section. POCT-GLUCOSE METER Routine 04/30/2019 12:20 Resul ts for this PM [employer] procedure are i n the results section. POCT-GLUCOSE METER Routine 04/30/2019 5:11 Resul ts for this AM [employer] procedure are i n the results section. PHOSPHORUS Routine 04/30/2019 5:07 Results for this AM [employer] procedure are i n the results section. MAGNESIUM Routine 04/30/2019 5:07 Results for this AM [employer] procedure are i n the results section. BASIC METABOLIC PANEL Routine 04/30/2019 5:07 Re sults for this (7) AM [employer] procedure are i n the results section. POCT-GLUCOSE METER Routine 04/30/2019 12:34 Resul ts for this AM [employer] procedure are i n the results section. POCT-GLUCOSE METER Routine 04/29/2019 6:23 Resul ts for this PM [employer] procedure are i n the results section. POCT-GLUCOSE METER Routine 04/29/2019 12:20 Resul ts for this PM [employer] procedure are i n the results section. POCT-GLUCOSE METER Routine 04/29/2019 6:25 Resul ts for this AM [employer] procedure are i n the results section. PHOSPHORUS Routine 04/29/2019 4:37 Results for this AM [employer] procedure are i n the results section. MAGNESIUM Routine 04/29/2019 4:37 Results for this AM [employer] procedure are i n the results section. BASIC METABOLIC PANEL Routine 04/29/2019 4:37 Re sults for this (7) AM [employer] procedure are i n the results section. POCT-GLUCOSE METER Routine 04/28/2019 11:47 Resul ts for this PM [employer] procedure are i n the results section. POCT-GLUCOSE METER Routine 04/28/2019 6:11 Resul ts for this PM [employer] procedure are i n the results section. POCT-GLUCOSE METER Routine 04/28/2019 1:00 Resul ts for this PM [employer] procedure are i n the results section. C. DIFFICILE GDH TOXIN Routine 04/28/2019 10:40 R esults for this AM [employer] procedure are i n the results section. POCT-GLUCOSE METER Routine 04/28/2019 6:36 Resul ts for this AM [employer] procedure are i n the results section. CBC W/PLT COUNT & AUTO Routine 04/28/2019 5:34 R esults for this DIFFERENTIAL AM [employer] procedure are i n the results section. CBC W/PLT COUNT & AUTO Routine 04/28/2019 5:34 R esults for this DIFFERENTIAL AM [employer] procedure are i n the results section. PHOSPHORUS Routine 04/28/2019 5:34 Results for this AM [employer] procedure are i n the results section. MAGNESIUM Routine 04/28/2019 5:34 Results for this AM [employer] procedure are i n the results section. BASIC METABOLIC PANEL Routine 04/28/2019 5:34 Re sults for this (7) AM [employer] procedure are i n the results section. POCT-GLUCOSE METER Routine 04/28/2019 12:01 Resul ts for this AM [employer] procedure are i n the results section. POCT-GLUCOSE METER Routine 04/27/2019 6:43 Resul ts for this PM [employer] procedure are i n the results section. POCT-GLUCOSE METER Routine 04/27/2019 1:40 Resul ts for this PM [employer] procedure are i n the results section. PHOSPHORUS Routine 04/27/2019 5:28 Results for this AM [employer] procedure are i n the results section. MAGNESIUM Routine 04/27/2019 5:28 Results for this AM [employer] procedure are i n the results section. PREALBUMIN Routine 04/27/2019 5:28 Results for this AM [employer] procedure are i n the results section. COMPREHENSIVE Routine 04/27/2019 5:28 Results fo r this METABOLIC PANEL AM [employer] procedure ar e in the results section. POCT-GLUCOSE METER Routine 04/27/2019 1:19 Resul ts for this AM [employer] procedure are i n the results section. POCT-GLUCOSE METER Routine 04/26/2019 6:18 Resul ts for this PM [employer] procedure are i n the results section. POCT-GLUCOSE METER Routine 04/26/2019 12:49 Resul ts for this PM [employer] procedure are i n the results section. POCT-GLUCOSE METER Routine 04/26/2019 7:43 Resul ts for this AM [employer] procedure are i n the results section. POCT-GLUCOSE METER Routine 04/26/2019 1:55 Resul ts for this AM [employer] procedure are i n the results section. POCT-GLUCOSE METER Routine 04/25/2019 7:32 Resul ts for this PM [employer] procedure are i n the results section. POCT-GLUCOSE METER Routine 04/25/2019 6:57 Resul ts for this AM [employer] procedure are i n the results section. POCT-GLUCOSE METER Routine 04/24/2019 11:31 Resul ts for this PM [employer] procedure are i n the results section. POCT-GLUCOSE METER Routine 04/24/2019 6:03 Resul ts for this PM [employer] procedure are i n the results section. XR ABDOMEN / KUB 1 STAT 04/24/2019 2:00 Resul ts for this VIEW PM [employer] procedure are i n the results section. POCT-GLUCOSE METER Routine 04/24/2019 1:48 Resul ts for this PM [employer] procedure are i n the results section. POCT-GLUCOSE METER Routine 04/24/2019 5:20 Resul ts for this AM [employer] procedure are i n the results section. PHOSPHORUS Routine 04/24/2019 5:18 Results for this AM [employer] procedure are i n the results section. POCT-GLUCOSE METER Routine 04/23/2019 11:14 Resul ts for this PM [employer] procedure are i n the results section. POCT-GLUCOSE METER Routine 04/23/2019 6:35 Resul ts for this PM [employer] procedure are i n the results section. POCT-GLUCOSE METER Routine 04/23/2019 2:00 Resul ts for this PM [employer] procedure are i n the results section. CBC W/PLT COUNT & AUTO Routine 04/23/2019 6:46 R esults for this DIFFERENTIAL AM [employer] procedure are i n the results section. PHOSPHORUS Routine 04/23/2019 6:46 Results for this AM [employer] procedure are i n the results section. MAGNESIUM Routine 04/23/2019 6:46 Results for this AM [employer] procedure are i n the results section. CBC W/PLT COUNT & AUTO Routine 04/23/2019 6:46 R esults for this DIFFERENTIAL AM [employer] procedure are i n the results section. BASIC METABOLIC PANEL Routine 04/23/2019 6:46 Re sults for this (7) AM [employer] procedure are i n the results section. POCT-GLUCOSE METER Routine 04/23/2019 6:07 Resul ts for this AM [employer] procedure are i n the results section. POCT-GLUCOSE METER Routine 04/22/2019 11:16 Resul ts for this PM [employer] procedure are i n the results section. PROTEIN, BODY FLUID Routine 04/22/2019 9:41 Resu lts for this PM [employer] procedure are i n the results section. ALBUMIN PERITONEAL Routine 04/22/2019 9:41 Resul ts for this FLUID PM [employer] procedure are i n the results section. BODY FLUID CULTURE + Routine 04/22/2019 9:16 Res ults for this GRAM STAIN PM [employer] procedure are i n the results section. BODY FLUID CELL COUNT Routine 04/22/2019 9:16 Re sults for this WITH DIFFERENTIAL PM [employer] procedure are in the results section. US PARACENTESIS Routine 04/22/2019 6:56 Results for this PM [employer] procedure are i n the results section. POCT-GLUCOSE METER Routine 04/22/2019 5:53 Resul ts for this AM [employer] procedure are i n the results section. CBC W/PLT COUNT & AUTO Routine 04/22/2019 5:09 R esults for this DIFFERENTIAL AM [employer] procedure are i n the results section. PROTHROMBIN TIME/INR Routine 04/22/2019 5:09 Res ults for this AM [employer] procedure are i n the results section. PT/APTT Routine 04/22/2019 5:09 Results for this AM [employer] procedure are i n the results section. PHOSPHORUS Routine 04/22/2019 5:09 Results for this AM [employer] procedure are i n the results section. MAGNESIUM Routine 04/22/2019 5:09 Results for this AM [employer] procedure are i n the results section. CBC W/PLT COUNT & AUTO Routine 04/22/2019 5:09 R esults for this DIFFERENTIAL AM [employer] procedure are i n the results section. BASIC METABOLIC PANEL Routine 04/22/2019 5:09 Re sults for this (7) AM [employer] procedure are i n the results section. POCT-GLUCOSE METER Routine 04/22/2019 12:59 Resul ts for this AM [employer] procedure are i n the results section. POCT-GLUCOSE METER Routine 04/21/2019 6:50 Resul ts for this PM [employer] procedure are i n the results section. POCT-GLUCOSE METER Routine 04/21/2019 12:11 Resul ts for this PM [employer] procedure are i n the results section. POCT-GLUCOSE METER Routine 04/21/2019 5:42 Resul ts for this AM [employer] procedure are i n the results section. CBC W/PLT COUNT & AUTO Routine 04/21/2019 4:53 R esults for this DIFFERENTIAL AM [employer] procedure are i n the results section. PHOSPHORUS Routine 04/21/2019 4:53 Results for this AM [employer] procedure are i n the results section. MAGNESIUM Routine 04/21/2019 4:53 Results for this AM [employer] procedure are i n the results section. CBC W/PLT COUNT & AUTO Routine 04/21/2019 4:53 R esults for this DIFFERENTIAL AM [employer] procedure are i n the results section. BASIC METABOLIC PANEL Routine 04/21/2019 4:53 Re sults for this (7) AM [employer] procedure are i n the results section. POCT-GLUCOSE METER Routine 04/20/2019 11:55 Resul ts for this PM [employer] procedure are i n the results section. POCT-GLUCOSE METER Routine 04/20/2019 6:04 Resul ts for this PM [employer] procedure are i n the results section. POCT-GLUCOSE METER Routine 04/20/2019 1:20 Resul ts for this PM [employer] procedure are i n the results section. PREALBUMIN Routine 04/20/2019 8:54 Results for this AM [employer] [facility] procedure are i n the results section. CT CHEST WITH IV Routine 04/20/2019 8:10 Results for this CONTRAST AM [employer] procedure are i n the results section. POCT-GLUCOSE METER Routine 04/20/2019 6:14 Resul ts for this AM [employer] procedure are i n the results section. CBC W/PLT COUNT & AUTO Routine 04/20/2019 6:06 R esults for this DIFFERENTIAL AM [employer] procedure are i n the results section. HEPATIC FUNCTION PANEL Add-On 04/20/2019 6:06 R esults for this AM [employer] procedure are i n the results section. TRIGLYCERIDES Routine 04/20/2019 6:06 Results fo r this AM [employer] procedure are i n the results section. PHOSPHORUS Routine 04/20/2019 6:06 Results for this AM [employer] procedure are i n the results section. MAGNESIUM Routine 04/20/2019 6:06 Results for this AM [employer] procedure are i n the results section. CBC W/PLT COUNT & AUTO Routine 04/20/2019 6:06 R esults for this DIFFERENTIAL AM [employer] procedure are i n the results section. BASIC METABOLIC PANEL Routine 04/20/2019 6:06 Re sults for this (7) AM [employer] procedure are i n the results section. POCT-GLUCOSE METER Routine 04/19/2019 6:34 Resul ts for this PM [employer] procedure are i n the results section. XR CHEST 1 VIEW Routine 04/19/2019 1:34 Results for this PORTABLE/BEDSIDE PM [employer] procedure a re in the results section. IR PICC LINE PLACEMENT Routine 04/19/2019 10:57 R esults for this OLDER THAN 5 YRS AM [employer] procedure a re in the results section. POCT-GLUCOSE METER Routine 04/19/2019 6:18 Resul ts for this AM [employer] procedure are i n the results section. CBC W/PLT COUNT & AUTO Routine 04/19/2019 4:17 R esults for this DIFFERENTIAL AM [employer] procedure are i n the results section. MAGNESIUM Routine 04/19/2019 4:17 Results for this AM [employer] procedure are i n the results section. CBC W/PLT COUNT & AUTO Routine 04/19/2019 4:17 R esults for this DIFFERENTIAL AM [employer] procedure are i n the results section. BASIC METABOLIC PANEL Routine 04/19/2019 4:17 Re sults for this (7) AM [employer] procedure are i n the results section. PT/APTT Routine 04/19/2019 4:17 Results for this AM [employer] procedure are i n the results section. POCT-GLUCOSE METER Routine 04/18/2019 6:18 Resul ts for this PM [employer] procedure are i n the results section. POCT-GLUCOSE METER Routine 04/18/2019 11:24 Resul ts for this AM [employer] procedure are i n the results section. POCT-GLUCOSE METER Routine 04/18/2019 7:33 Resul ts for this AM [employer] procedure are i n the results section. POCT-GLUCOSE METER Routine 04/18/2019 6:09 Resul ts for this AM [employer] procedure are i n the results section. (CELLAVISION MANUAL Routine 04/18/2019 4:02 Resu lts for this DIFF) AM [employer] procedure are i n the results section. CBC W/PLT COUNT & AUTO Routine 04/18/2019 4:02 R esults for this DIFFERENTIAL AM [employer] procedure are i n the results section. MAGNESIUM Routine 04/18/2019 4:02 Results for this AM [employer] procedure are i n the results section. BASIC METABOLIC PANEL Routine 04/18/2019 4:02 Re sults for this (7) AM [employer] procedure are i n the results section. CBC W/PLT COUNT & AUTO Routine 04/18/2019 4:02 R esults for this DIFFERENTIAL AM [employer] procedure are i n the results section. POCT-GLUCOSE METER Routine 04/18/2019 12:06 Resul ts for this AM [employer] procedure are i n the results section. POCT-GLUCOSE METER Routine 04/17/2019 6:07 Resul ts for this PM [employer] procedure are i n the results section. CT ABDOMEN/PELVIS WITH Routine 04/17/2019 2:06 R esults for this IV CONTRAST PM [employer] procedure are i n the results section. POCT-GLUCOSE METER Routine 04/17/2019 12:43 Resul ts for this PM [employer] procedure are i n the results section. POCT-GLUCOSE METER Routine 04/17/2019 5:52 Resul ts for this AM [employer] procedure are i n the results section. (CELLAVISION MANUAL Routine 04/17/2019 5:49 Resu lts for this DIFF) AM [employer] procedure are i n the results section. CBC W/PLT COUNT & AUTO Routine 04/17/2019 5:49 R esults for this DIFFERENTIAL AM [employer] procedure are i n the results section. MAGNESIUM Routine 04/17/2019 5:49 Results for this AM [employer] procedure are i n the results section. BASIC METABOLIC PANEL Routine 04/17/2019 5:49 Re sults for this (7) AM [employer] procedure are i n the results section. CBC W/PLT COUNT & AUTO Routine 04/17/2019 5:49 R esults for this DIFFERENTIAL AM [employer] procedure are i n the results section. POCT-GLUCOSE METER Routine 04/16/2019 11:58 Resul ts for this PM [employer] procedure are i n the results section. POCT-GLUCOSE METER Routine 04/16/2019 6:05 Resul ts for this PM [employer] procedure are i n the results section. POCT-GLUCOSE METER Routine 04/16/2019 1:16 Resul ts for this PM [employer] procedure are i n the results section. POCT-GLUCOSE METER Routine 04/16/2019 6:28 Resul ts for this AM [employer] procedure are i n the results section. POCT-GLUCOSE METER Routine 04/16/2019 12:27 Resul ts for this AM [employer] procedure are i n the results section. (CELLAVISION MANUAL Routine 04/15/2019 5:34 Resu lts for this DIFF) AM [employer] procedure are i n the results section. CBC W/PLT COUNT & AUTO Routine 04/15/2019 5:34 R esults for this DIFFERENTIAL AM [employer] procedure are i n the results section. CBC W/PLT COUNT & AUTO Routine 04/15/2019 5:34 R esults for this DIFFERENTIAL AM [employer] procedure are i n the results section. BASIC METABOLIC PANEL Routine 04/15/2019 5:34 Re sults for this (7) AM [employer] procedure are i n the results section. US PARACENTESIS TIFFANY 04/14/2019 3:07 Results for this PM [employer] procedure are i n the results section. CYTOLOGY AP Routine 04/14/2019 3:02 Results for this PM [employer] procedure are i n the results section. BODY FLUID CULTURE + Routine 04/14/2019 3:02 Res ults for this GRAM STAIN PM [employer] procedure are i n the results section. BODY FLUID CELL COUNT Routine 04/14/2019 3:02 Re sults for this WITH DIFFERENTIAL PM [employer] procedure are in the results section. CBC W/PLT COUNT & AUTO Routine 04/14/2019 3:23 R esults for this DIFFERENTIAL AM [employer] procedure are i n the results section. CBC W/PLT COUNT & AUTO Routine 04/14/2019 3:23 R esults for this DIFFERENTIAL AM [employer] procedure are i n the results section. BASIC METABOLIC PANEL Routine 04/14/2019 3:23 Re sults for this (7) AM [employer] procedure are i n the results section. PERIPHERAL VASCULAR 04/13/2019 9:23 REPORT - SCAN PM [employer] [facility] MR PELVIS WITH & Routine 04/13/2019 3:23 Results for this WITHOUT IV CONTRAST PM [employer] procedur e are in the results section. CANCER ANTIGEN 125 (CA Routine 04/13/2019 12:16 R esults for this 125) PM [employer] procedure are i n the results section. CBC W/PLT COUNT & AUTO Routine 04/13/2019 8:36 R esults for this DIFFERENTIAL AM [employer] procedure are i n the results section. CBC W/PLT COUNT & AUTO Routine 04/13/2019 8:36 R esults for this DIFFERENTIAL AM [employer] procedure are i n the results section. BASIC METABOLIC PANEL Routine 04/13/2019 8:36 Re sults for this (7) AM [employer] procedure are i n the results section. VENOUS DOPPLER LEGS TIFFANY 04/12/2019 9:55 Resu lts for this BILATERAL PM [employer] procedure are i n the results section. BLOOD CULTURE Routine 04/12/2019 5:38 Results fo r this PM [employer] procedure are i n the results section. BLOOD CULTURE Routine 04/12/2019 5:38 Results fo r this PM [employer] procedure are i n the results section. CT ABDOMEN/PELVIS WITH STAT 04/12/2019 9:10 R esults for this IV CONTRAST AM [employer] procedure are i n the results section. CBC W/PLT COUNT & AUTO STAT 04/12/2019 8:26 R esults for this DIFFERENTIAL AM [employer] procedure are i n the results section. PT/APTT STAT 04/12/2019 8:26 Results for this AM [employer] procedure are i n the results section. CBC W/PLT COUNT & AUTO STAT 04/12/2019 8:26 R esults for this DIFFERENTIAL AM [employer] procedure are i n the results section. LIPASE STAT 04/12/2019 6:20 Results for this AM [employer] procedure are i n the results section. HEPATIC FUNCTION PANEL STAT 04/12/2019 6:20 R esults for this AM [employer] procedure are i n the results section. BASIC METABOLIC PANEL STAT 04/12/2019 6:20 Re sults for this (7) AM [employer] procedure are i n the results section. NM HEPATOBILIARY Routine 01/22/2019 3:13 Results for this (HIDA) SCAN PM CDT procedure are i n the results section. HEPATIC FUNCTION PANEL Add-On 01/22/2019 4:24 R esults for this AM CDT procedure are i n the results section. CBC (HEMOGRAM ONLY) Routine 01/22/2019 4:24 Resu lts for this AM CDT procedure are i n the results section. MAGNESIUM Routine 01/22/2019 4:24 Results for this AM CDT procedure are i n the results section. BASIC METABOLIC PANEL Routine 01/22/2019 4:24 Re sults for this (7) AM CDT procedure are i n the results section. ECHOCARDIOGRAM REPORT 01/21/2019 9:21 - SCAN PM CDT 2D ECHO W/ DOPPLER Routine 01/21/2019 12:02 Resul ts for this (CW/PW/COLOR) PM CDT procedure are in the results section. MR ABDOMEN WITH & Routine 01/21/2019 11:10 Result s for this WITHOUT IV CONTRAST AM CDT procedur e are in the results section. HEPATITIS C ANTIBODY Routine 01/21/2019 3:45 Res ults for this AM CDT procedure are i n the results section. HEPATITIS B CORE Routine 01/21/2019 3:45 Results for this ANTIBODY, TOTAL AM CDT procedure ar e in the results section. HEPATITIS B SURFACE Routine 01/21/2019 3:45 Resu lts for this ANTIBODY AM CDT procedure are i n the results section. HEPATITIS A ANTIBODY, Routine 01/21/2019 3:45 Re sults for this IGG AM CDT procedure are i n the results section. CBC (HEMOGRAM ONLY) Routine 01/21/2019 3:45 Resu lts for this AM CDT procedure are i n the results section. MAGNESIUM Routine 01/21/2019 3:45 Results for this AM CDT procedure are i n the results section. BASIC METABOLIC PANEL Routine 01/21/2019 3:45 Re sults for this (7) AM CDT procedure are i n the results section. LIPASE Routine 01/21/2019 3:45 Results for this AM CDT procedure are i n the results section. US ABDOMINAL WITH TIFFANY 01/20/2019 2:30 Result s for this DOPPLER PM CDT procedure are i n the results section. US PARACENTESIS Routine 01/20/2019 1:07 Results for this PM CDT procedure are i n the results section. ALBUMIN, BODY FLUID Routine 01/20/2019 12:56 Resu lts for this PM CDT procedure are i n the results section. CYTOLOGY AP Routine 01/20/2019 12:48 Results for this PM CDT procedure are i n the results section. BODY FLUID CELL COUNT Routine 01/20/2019 12:48 Re sults for this WITH DIFFERENTIAL PM CDT procedure are in the results section. BODY FLUID CULTURE + Routine 01/20/2019 12:48 Res ults for this GRAM STAIN PM CDT procedure are i n the results section. ANAEROBIC CULTURE Routine 01/20/2019 12:47 Result s for this PM CDT procedure are i n the results section. MISCELLANEOUS LAB Routine 01/20/2019 12:47 ORDER PM CDT URINALYSIS MICROSCOPIC Routine 01/20/2019 6:32 R esults for this AM CDT procedure are i n the results section. URINALYSIS WITH Routine 01/20/2019 6:32 Results for this MICROSCOPIC IF AM CDT procedure are in INDICATED the results section. CREATININE, RANDOM Routine 01/20/2019 6:32 Resul ts for this URINE AM CDT procedure are i n the results section. URINE PROTEIN AP Routine 01/20/2019 6:32 Results fo r this ELECTROPHORESIS, AM CDT procedure a re in RANDOM the results section. CBC W/PLT COUNT & AUTO Routine 01/20/2019 4:15 R esults for this DIFFERENTIAL AM CDT procedure are i n the results section. TSH/FREE T4 IF Routine 01/20/2019 4:15 Results f or this INDICATED AM CDT procedure are i n the results section. MAGNESIUM Routine 01/20/2019 4:15 Results for this AM CDT procedure are i n the results section. PROTHROMBIN TIME/INR Routine 01/20/2019 4:15 Res ults for this AM CDT procedure are i n the results section. CBC W/PLT COUNT & AUTO Routine 01/20/2019 4:15 R esults for this DIFFERENTIAL AM CDT procedure are i n the results section. COMPREHENSIVE Routine 01/20/2019 4:15 Results fo r this METABOLIC PANEL AM CDT procedure ar e in the results section. after 12/27/2018 Results [place] fluoro non-specific up to 1 hour (12/28/2019 3:15 PM CDT)Only the most recent of2 resultswithin the time period is included. Specimen Narrative Performed At Fluoroscopic unit utilized for a procedure performed i n the OR.No GE RIS interpretation was requested.Refer to the operativ e report for findings.Refer to PACS for patient radiation dose information. Procedure Note Interface, External Ris In - 12/28/2019 4:50 PM CDT Fluoroscopic unit utilized for a procedu re performed in the OR. No interpretation was requested. Refer to the operative r eport for findings. Refer to PACS for patient radiation dose information. Performing Organization Address City/State/Zipcode Phone Number GE RIS Urinalysis w/Microscopic + Reflex to Culture (12/27/2019 10:56 PM CDT)Only the most recent of3 resultswithin the time period is included. Color, UA Yellow [facility] Clarity, UA Hazy [facility] Specific [place], UA 1.011 1.001 - 1.035 [facility] pH, UA 5.5 5.0 - 8.0 [facility] Protein, UA Negative Negative [facility] Glucose, UA Negative Negative [facility] Ketones, UA Negative Negative [facility] Bilirubin, UA Negative Negative [facility] Blood, UA Small (A) Negative [facility] Nitrite, UA Negative Negative [facility] Leukocytes, UA Moderate (A) Negative [facility] Urobilinogen, UA 0.2 0.2 - 1.0 mg/dL [facility] RBC, UA 5 /HPF [facility] WBC, UA 16 /HPF [facility] Squam Epithel, UA 2 /HPF [facility] Specimen Source [facility] Specimen Urine Narrative Performed At Hand Slitter ID - tech [facility] Performing Organization Address City/[facility]/Zipcode Phone Number [address] [address] CENTER Gram stain (12/27/2019 10:56 PM CDT) Gram Stain Result <1+ WBCs [facility] Gram Stain Result No organisms seen [facility] Specimen Urine Performing Organization Address City/[facility]/Zipcode Phone Number [place] [phone] [place] [address] CENTER CBC with platelet count + automated diff (12/26/2019 1:10 PM CDT)Only the most recent of27 resultswithin the time period is included. WBC 3.7 3.5 - 10.5 K/L [facility] RBC 2.55 (L) 3.93 - 5.22 M/L [facility] Hemoglobin 8.3 (L) 11.2 - 15.7 GM/DL [facility] Hematocrit 26.2 (L) 34.1 - 44.9 % [facility] MCV 102.7 (H) 79.4 - 94.8 fL [facility] MCH 32.5 (H) 25.6 - 32.2 pg [facility] MCHC 31.7 (L) 32.2 - 35.5 GM/DL [facility] RDW 19.6 (H) 11.7 - 14.4 % [facility] Platelets 104 (L) 150 - 450 K/CU MM [facility] MPV 10.0 9.4 - 12.3 fL [facility] nRBC 0 0 - 0 /100 WBC [facility] % Neutros 50 % [facility] % Lymphs 31 % [facility] % Monos 17 % [facility] % Eos 1 % [facility] % Baso 0 % [facility] # Neutros 1.84 1.56 - 6.13 K/L [facility] # Lymphs 1.16 (L) 1.18 - 3.74 K/L [facility] # Monos 0.61 (H) 0.24 - 0.36 K/L [facility] # Eos 0.02 (L) 0.04 - 0.36 K/L [facility] # Baso 0.01 0.01 - 0.08 K/L [facility] Immature 1 0 - 1 % [facility] Granulocytes-Relative [facility] Specimen Blood Performing Organization Address City/[facility]/Zipcode Phone Number [address] [address] CENTER Basic Metabolic Panel (12/26/2019 1:10 PM CDT)Only the most recent of23 results within the time period is included. Sodium 137 136 - 145 meq/L [facility] Potassium 3.6 3.5 - 5.1 meq/L [facility] Chloride 105 98 - 107 meq/L [facility] CO2 27 22 - 29 meq/L [facility] BUN 3 (L) 7 - 21 mg/dL [facility] Creatinine 0.49 (L) 0.57 - 1.25 mg/dL [facility] Glucose 111 (H) 70 - 105 mg/dL [facility] Calcium 8.3 (L) 8.4 - 10.2 mg/dL [facility] EGFR 130Comment: ESTIMATED GFR IS mL/min/1.73 sq m [facility] NOT ACCURATE [facility] CLEARANCE IN PREDICTING GLOMERULAR FILTRATION RATE. ESTIMATED GFR IS NOT APPLICABLE FOR DIALYSIS PATIENTS. Specimen Blood Narrative Performed At Hand Slitter ID - [place] [facility] Performing Organization Address City/[facility]/Zipcode Phone Number [address] [address] CENTER Vancomycin level, trough (12/26/2019 2:53 AM CDT)Only the most recent of2 resultswithin the time period is included. Vancomycin Tr 12.2 10.0 - 20.0 ug/mL [facility] Specimen Blood Narrative Performed At Hand Slitter ID - [facility] Performing Organization Address [facility] Phone Number [address] [address] [place] Lactic acid, venous (12/25/2019 5:07 AM CDT)Only the most recent of3 results within the time period is included. Lactate, Venous 0.49 (L) 0.50 - 2.20 mmol/L [facility] Specimen Blood Narrative Performed At Hand Slitter ID - [facility] Performing Organization Address [facility] Phone Number [address] [address] [place] Comprehensive metabolic panel (12/25/2019 5:07 AM CDT)Only the most recent of6 resultswithin the time period is included. Protein, Total 4.9 (L) 6.0 - 8.3 gm/dL [facility] Albumin 2.6 (L) 3.5 - 5.0 g/dL [facility] Alkaline Phosphatase 65 40 - 150 U/L [facility] Total Bilirubin 0.3 0.2 - 1.2 mg/dL [facility] Sodium 136 136 - 145 meq/L [facility] Potassium 3.2 (L) 3.5 - 5.1 meq/L [facility] Chloride 107 98 - 107 meq/L [facility] CO2 22 22 - 29 meq/L [facility] BUN 8 7 - 21 mg/dL [facility] Creatinine 0.55 (L) 0.57 - 1.25 mg/dL [facility] Glucose 90 70 - 105 mg/dL [facility] Calcium 7.6 (L) 8.4 - 10.2 mg/dL [facility] AST 10 5 - 34 U/L [facility] ALT 12 6 - 55 U/L [facility] EGFR 114Comment: ESTIMATED mL/min/1.73 sq m [facility] GFR IS NOT ACCURATE [facility] CREATININE CLEARANCE IN PREDICTING GLOMERULAR FILTRATION RATE. ESTIMATED GFR IS NOT APPLICABLE FOR DIALYSIS PATIENTS. Specimen Blood Narrative Performed At Hand Slitter ID - [facility] Performing Organization Address City/[facility] Phone Number [address] [address] CENTER Urine culture (12/25/2019 12:35 AM CDT)Only the most recent of2 resultswithin the time period is included. Result No growth [facility] Specimen Urine Performing Organization Address City/[facility] Phone Number [address] [address] CENTER Anaerobic culture (12/24/2019 12:48 PM CDT)Only the most recent of2 results within the time period is included. Result No anaerobes isolated [facility] Specimen Body Fluid Performing Organization Address City/[facility] Phone Number [address] [address] CENTER Surgically obtained culture + gram stain (12/24/2019 12:48 PM CDT) Result 2+ Bela glabrata (A) [facility] Gram Stain Result 2+ WBCs [facility] Gram Stain Result No organisms seen [facility] Specimen Body Fluid Performing Organization Address City/[facility]/Zipcode Phone Number [facility] [address] [place] [address] CENTER SARS-CoV2/RT-PCR (Asymptomatic ONLY) (12/24/2019 11:10 AM CDT)Only the most recent of2 resultswithin the time period is included. SARS-COV2/RT-PCR Negative Not Detected, Negative, [facility] See external report for MEDICAL CENTER linked test SARS-COV-[address] [facility] Specimen Other Narrative Performed At Negative result for this test determines that [facility] SARS-CoV-2 RNA was not present in the specimen above the Limit of Detection (LOD).However, Negative results do not preclude SARS-CoV-2 infection and should not be used as the sole basis for treatment or patient management decisions. Negative results must be combined with clinical observations, patient history, and epidemiological information. A false negative result may occur if a specimen is improperly collected, transported or handled.A false negative result should be considered if patient's recent exposures or clinical presentation indicate that COVID-19 (SARS-CoV-2) is likely and diagnostic tests for other causes of illness are negative.Re-testing should be considered in cases of suspected false negatives. The limit of detection for this assay is 800 copies/mL. This SARS CoV-2 test is a real-time RT-PCR test intended for the qualitative detection of nucleic acid from SARS-CoV-2 in a nasopharyngeal swab specimen collected from individuals suspected of COVID-19 by their healthcare provider. This test has not been Food and Drug Administration (FDA) cleared or approved.This is a modified version of an approved Emergency Use Authorization (EUA) and is in the process of review by the FDA. Once authorized by the FDA, the issued EUA will be effective until the declaration that circumstances exist justifying the authorization of the emergency use of in vitro diagnostic tests for detection and/or diagnosis of COVID-19 is terminated under Section 564(b)(2) of the Act or the EUA is revoked under Section 564(g) of the Act. Fact Sheet for Healthcare Providers: https://www.[employer]/sites/default/files/pro duct/documents/Fact_Sheet_HC_Providers_Lyra_SA RS-CoV-2.pdf Fact Sheet for Healthcare Patients: https://www.[employer]/sites/default/files/pro duct/documents/Fact_Sheet_Patients_Lyra_SARS-C oV-2.pdf Performing Laboratory: [address] [place] [address] Performing Organization Address City/[facility] [place] [address] [place] Prothrombin time/INR (12/24/2019 11:02 AM CDT)Only the most recent of7 results within the time period is included. Protime 17.1 (H) 11.9 - 14.2 seconds [facility] INR 1.43 <=5.90 [facility] Specimen Blood Narrative Performed At [facility] 08/18/2018: PT Reference Range [facility] Change New: 11.9-14.2Previous: 11.7-14.7 RECOMMENDED COUMADIN/WARFARIN INR THERAPY RANGES STANDARD DOSE: 2.0-3.0Includes: PROPHYLAXIS for venous thrombosis, systemic embolization; TREATMENT for venous thrombosis and/or pulmonary embolus. HIGH RISK: Target INR is 2.5-3.5 for patients wiht mechanical heart valves. Performing Organization Address City/[facility] [place] [address] [place] Hepatic function panel (12/24/2019 11:02 AM CDT)Only the most recent of4 results within the time period is included. Protein, Total 5.5 (L) 6.0 - 8.3 gm/dL [facility] Albumin 3.0 (L) 3.5 - 5.0 g/dL [facility] Total Bilirubin 0.7 0.2 - 1.2 mg/dL [facility] Bilirubin, Direct 0.4 0.1 - 0.5 mg/dL [facility] Alkaline Phosphatase 70 40 - 150 U/L [facility] AST 11 5 - 34 U/L [facility] ALT 15 6 - 55 U/L [facility] Specimen Blood Narrative Performed At Hand Slitter ID - [facility] Performing Organization Address City/State/Zipcode Phone Number [facility] [address] [place] [address] Abdomen/Pelvis with IV Contrast (12/22/2019 5:04 PM CDT)Only the most recent of5 resultswithin the time period is included. Specimen Narrative Performed At FINAL REPORT [facility] Suite TECHNIQUE: CT of the chest, abdomen, and pelvis WITH intravenous contrast and WITHOUT oral contrast. Dose modulation, iterative reconstruction, and/or weight-based adju stment of the mA/kV was utilized to reduce the radiation dose to as low as reasonably achievable. INDICATION: Unlisted Reason for Exam Uterine cancer COMPARISON: 09/02/2019. FINDINGS: LINES/TUBES: Right IJ port catheter tip terminates in the superior vena cava.. LUNGS AND AIRWAYS: Central airways are p atent. No focal consolidation. There are a few scattered calcified granulomas in the lungs. No new or enlarging pulmonary nod ule.. PLEURA: The pleural spaces are clear. HEART AND MEDIASTINUM: . Mild increase i n size of a few cardiophrenic lymph nodes. For instance a 0.9 x 0.6 cm left cardiophrenic lymph node. This previously measured 4 mm. (Ax ial image 37).. The heart and pericardium are within normal limits. 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 No new hepatic lesions.. C holelithiasis.. No biliary ductal dilatation. SPLEEN: No splenomegaly. PANCREAS: No focal masses or ductal dila tation. ADRENALS: No adrenal nodules. KIDNEYS/URETERS: 8 mm calculus within th e left distal ureter. There is no proximal hydroureteronephrosis. Th ere is normal symmetric enhancement of bilateral kidneys. 1.3 cm cyst in lower pole of the right kidney.. PELVIC ORGANS/BLADDER: Unchanged lobulat ed contour of the uterus. Hypodense cystic focus within the left a dnexa measures 7.5 x 7 cm. This previously measured 6 x 5 cm.. PERITONEUM/RETROPERITONEUM: Redemonstrat ion of multiple foci of loculated ascites in the perihepatic reg ion demonstrating mass effect and scalloping of the liver. These colle ctions have increased in size since previous exam. (The collection yaneli ng the lateral left hepatic lobe now measures 13.5 x 8.5 cm. This pr eviously measured 6.5 x 5 cm. The collection anterior and superior to the right hepatic lobe now measures 12.5 x 6 cm. This previously me asured 11.5 x 5.3 cm. The collection within the small bowel mesent pamela now measures 8.5 x 7 cm. This previously measured 10 x 7.5 cm. Th ere is small amount of free pelvic fluid. The previously seen omenta l/anterior peritoneal collection has collapsed. There is resid ual thickened soft tissue. (Axial image 86). LYMPH NODES: There is interval increase in size of a few retroperitoneal lymph nodes. For instanc e an aortocaval lymph node now measures 1.3 x 1 cm. This previously measured 0.9 x 0.7 cm. There are a few small left paracolic lymph nod es which are also increased in size. The largest measures 0.7 x 1.4 cm. On (axial image 66). A gastrohepatic lymph node is increased in size now measuring 1.9 x 1.9 cm. VESSELS: Infrarenal IVC filter is presen t. Mild atherosclerotic calcifications of the abdominal aorta an d iliac arteries. No evidence of aneurysmal dilation.. GI TRACT: No distention or wall thickeni ng. BONES AND SOFT TISSUES: Mild degenerativ e changes are noted in spine. No suspicious osseous lesion.. IMPRESSION: Redemonstration of loculated ascites and omental thickening consistent with peritoneal metastatic di sease. Some of the loculated ascites has increased in size while othe rs are decreased. Interval increase in size of left cystic adnexal lesion. Now measuring 7.5 cm. Interval increase in size of bilateral c ardiophrenic, gastric hepatic and retroperitoneal lymph nodes concerni ng for metastatic disease. Redemonstration of calculus within the l eft distal ureter. No proximal hydroureteronephrosis. Signed: Emma Arvizu MD Report Verified Date/Time:12/23/2019 11:54:15 Reading Location: [facility] B1 C013X Ortho Con sult Reading Room Procedure Note Interface, External Ris In - 12/23/2019 11:56 AM CDT FINAL REPORT TECHNIQUE: CT of the chest, abdomen, and pelvis WITH intravenous contrast and WITHOUT oral contrast. Dose modulation, iterative reconstruction, and/or weight-based adju stment of the mA/kV was utilized to reduce the radiation dose to as low as reasonably achievable. INDICATION: Unlisted Reason for Exam Uterine cancer COMPARISON: 09/02/2019. FINDINGS: LINES/TUBES: Right IJ port catheter tip terminates in the superior vena cava.. LUNGS AND AIRWAYS: Central airways are p atent. No focal consolidation. There are a few scattered calcified granulomas in the lungs. No new or enlarging pulmonary nod ule.. PLEURA: The pleural spaces are clear. HEART AND MEDIASTINUM: . Mild increase i n size of a few cardiophrenic lymph nodes. For instance a 0.9 x 0.6 cm left cardiophrenic lymph node. This previously measured 4 mm. (Ax ial image 37).. The heart and pericardium are within normal limits. 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 No new hepatic lesions.. C holelithiasis.. No biliary ductal dilatation. SPLEEN: No splenomegaly. PANCREAS: No focal masses or ductal dila tation. ADRENALS: No adrenal nodules. KIDNEYS/URETERS: 8 mm calculus within th e left distal ureter. There is no proximal hydroureteronephrosis. Th ere is normal symmetric enhancement of bilateral kidneys. 1.3 cm cyst in lower pole of the right kidney.. PELVIC ORGANS/BLADDER: Unchanged lobulat ed contour of the uterus. Hypodense cystic focus within the left a dnexa measures 7.5 x 7 cm. This previously measured 6 x 5 cm.. PERITONEUM/RETROPERITONEUM: Redemonstrat ion of multiple foci of loculated ascites in the perihepatic reg ion demonstrating mass effect and scalloping of the liver. These colle ctions have increased in size since previous exam. (The collection yaneli ng the lateral left hepatic lobe now measures 13.5 x 8.5 cm. This pr eviously measured 6.5 x 5 cm. The collection anterior and superior to the right hepatic lobe now measures 12.5 x 6 cm. This previously me asured 11.5 x 5.3 cm. The collection within the small bowel mesent pamela now measures 8.5 x 7 cm. This previously measured 10 x 7.5 cm. Th ere is small amount of free pelvic fluid. The previously seen omenta l/anterior peritoneal collection has collapsed. There is resid ual thickened soft tissue. (Axial image 86). LYMPH NODES: There is interval increase in size of a few retroperitoneal lymph nodes. For instanc e an aortocaval lymph node now measures 1.3 x 1 cm. This previously measured 0.9 x 0.7 cm. There are a few small left paracolic lymph nod es which are also increased in size. The largest measures 0.7 x 1.4 cm. On (axial image 66). A gastrohepatic lymph node is increased in size now measuring 1.9 x 1.9 cm. VESSELS: Infrarenal IVC filter is presen t. Mild atherosclerotic calcifications of the abdominal aorta an d iliac arteries. No evidence of aneurysmal dilation.. GI TRACT: No distention or wall thickeni ng. BONES AND SOFT TISSUES: Mild degenerativ e changes are noted in spine. No suspicious osseous lesion.. IMPRESSION: Redemonstration of loculated ascites and omental thickening consistent with peritoneal metastatic di sease. Some of the loculated ascites has increased in size while othe rs are decreased. Interval increase in size of left cystic adnexal lesion. Now measuring 7.5 cm. Interval increase in size of bilateral c ardiophrenic, gastric hepatic and retroperitoneal lymph nodes concerni ng for metastatic disease. Redemonstration of calculus within the l eft distal ureter. No proximal hydroureteronephrosis. Signed: Emma Arvizu MD Report Verified Date/Time: 12/23/2019 1 1:54:15 Reading Location: [facility] C013X [facility] Reading Room Performing Organization Address City/State/Zipcode Phone Number SMB Suite CT Chest with IV Contrast (12/22/2019 5:04 PM CDT)Only the most recent of4 resultswithin the time period is included. Specimen Narrative Performed At FINAL REPORT [facility] Suite TECHNIQUE: CT of the chest, abdomen, and pelvis WITH intravenous contrast and WITHOUT oral contrast. Dose modulation, iterative reconstruction, and/or weight-based adju stment of the mA/kV was utilized to reduce the radiation dose to as low as reasonably achievable. INDICATION: Unlisted Reason for Exam Uterine cancer COMPARISON: 09/02/2019. FINDINGS: LINES/TUBES: Right IJ port catheter tip terminates in the superior vena cava.. LUNGS AND AIRWAYS: Central airways are p atent. No focal consolidation. There are a few scattered calcified granulomas in the lungs. No new or enlarging pulmonary nod ule.. PLEURA: The pleural spaces are clear. HEART AND MEDIASTINUM: . Mild increase i n size of a few cardiophrenic lymph nodes. For instance a 0.9 x 0.6 cm left cardiophrenic lymph node. This previously measured 4 mm. (Ax ial image 37).. The heart and pericardium are within normal limits. 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 No new hepatic lesions.. C holelithiasis.. No biliary ductal dilatation. SPLEEN: No splenomegaly. PANCREAS: No focal masses or ductal dila tation. ADRENALS: No adrenal nodules. KIDNEYS/URETERS: 8 mm calculus within th e left distal ureter. There is no proximal hydroureteronephrosis. Th ere is normal symmetric enhancement of bilateral kidneys. 1.3 cm cyst in lower pole of the right kidney.. PELVIC ORGANS/BLADDER: Unchanged lobulat ed contour of the uterus. Hypodense cystic focus within the left a dnexa measures 7.5 x 7 cm. This previously measured 6 x 5 cm.. PERITONEUM/RETROPERITONEUM: Redemonstrat ion of multiple foci of loculated ascites in the perihepatic reg ion demonstrating mass effect and scalloping of the liver. These colle ctions have increased in size since previous exam. (The collection yaneli ng the lateral left hepatic lobe now measures 13.5 x 8.5 cm. This pr eviously measured 6.5 x 5 cm. The collection anterior and superior to the right hepatic lobe now measures 12.5 x 6 cm. This previously me asured 11.5 x 5.3 cm. The collection within the small bowel mesent pamela now measures 8.5 x 7 cm. This previously measured 10 x 7.5 cm. Th ere is small amount of free pelvic fluid. The previously seen omenta l/anterior peritoneal collection has collapsed. There is resid ual thickened soft tissue. (Axial image 86). LYMPH NODES: There is interval increase in size of a few retroperitoneal lymph nodes. For instanc e an aortocaval lymph node now measures 1.3 x 1 cm. This previously measured 0.9 x 0.7 cm. There are a few small left paracolic lymph nod es which are also increased in size. The largest measures 0.7 x 1.4 cm. On (axial image 66). A gastrohepatic lymph node is increased in size now measuring 1.9 x 1.9 cm. VESSELS: Infrarenal IVC filter is presen t. Mild atherosclerotic calcifications of the abdominal aorta an d iliac arteries. No evidence of aneurysmal dilation.. GI TRACT: No distention or wall thickeni ng. BONES AND SOFT TISSUES: Mild degenerativ e changes are noted in spine. No suspicious osseous lesion.. IMPRESSION: Redemonstration of loculated ascites and omental thickening consistent with peritoneal metastatic di sease. Some of the loculated ascites has increased in size while othe rs are decreased. Interval increase in size of left cystic adnexal lesion. Now measuring 7.5 cm. Interval increase in size of bilateral c ardiophrenic, gastric hepatic and retroperitoneal lymph nodes concerni ng for metastatic disease. Redemonstration of calculus within the l eft distal ureter. No proximal hydroureteronephrosis. Signed: Emma Arvizu MD Report Verified Date/Time:12/23/2019 11:54:15 Reading Location: [address] Reading Room Procedure Note Interface, External Ris In - 12/23/2019 11:56 AM CDT FINAL REPORT TECHNIQUE: CT of the chest, abdomen, and pelvis WITH intravenous contrast and WITHOUT oral contrast. Dose modulation, iterative reconstruction, and/or weight-based adju stment of the mA/kV was utilized to reduce the radiation dose to as low as reasonably achievable. INDICATION: Unlisted Reason for Exam Uterine cancer COMPARISON: 09/02/2019. FINDINGS: LINES/TUBES: Right IJ port catheter tip terminates in the superior vena cava.. LUNGS AND AIRWAYS: Central airways are p atent. No focal consolidation. There are a few scattered calcified granulomas in the lungs. No new or enlarging pulmonary nod ule.. PLEURA: The pleural spaces are clear. HEART AND MEDIASTINUM: . Mild increase i n size of a few cardiophrenic lymph nodes. For instance a 0.9 x 0.6 cm left cardiophrenic lymph node. This previously measured 4 mm. (Ax ial image 37).. The heart and pericardium are within normal limits. 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 No new hepatic lesions.. C holelithiasis.. No biliary ductal dilatation. SPLEEN: No splenomegaly. PANCREAS: No focal masses or ductal dila tation. ADRENALS: No adrenal nodules. KIDNEYS/URETERS: 8 mm calculus within th e left distal ureter. There is no proximal hydroureteronephrosis. Th ere is normal symmetric enhancement of bilateral kidneys. 1.3 cm cyst in lower pole of the right kidney.. PELVIC ORGANS/BLADDER: Unchanged lobulat ed contour of the uterus. Hypodense cystic focus within the left a dnexa measures 7.5 x 7 cm. This previously measured 6 x 5 cm.. PERITONEUM/RETROPERITONEUM: Redemonstrat ion of multiple foci of loculated ascites in the perihepatic reg ion demonstrating mass effect and scalloping of the liver. These colle ctions have increased in size since previous exam. (The collection yaneli ng the lateral left hepatic lobe now measures 13.5 x 8.5 cm. This pr eviously measured 6.5 x 5 cm. The collection anterior and superior to the right hepatic lobe now measures 12.5 x 6 cm. This previously me asured 11.5 x 5.3 cm. The collection within the small bowel mesent pamela now measures 8.5 x 7 cm. This previously measured 10 x 7.5 cm. Th ere is small amount of free pelvic fluid. The previously seen omenta l/anterior peritoneal collection has collapsed. There is resid ual thickened soft tissue. (Axial image 86). LYMPH NODES: There is interval increase in size of a few retroperitoneal lymph nodes. For instanc e an aortocaval lymph node now measures 1.3 x 1 cm. This previously measured 0.9 x 0.7 cm. There are a few small left paracolic lymph nod es which are also increased in size. The largest measures 0.7 x 1.4 cm. On (axial image 66). A gastrohepatic lymph node is increased in size now measuring 1.9 x 1.9 cm. VESSELS: Infrarenal IVC filter is presen t. Mild atherosclerotic calcifications of the abdominal aorta an d iliac arteries. No evidence of aneurysmal dilation.. GI TRACT: No distention or wall thickeni ng. BONES AND SOFT TISSUES: Mild degenerativ e changes are noted in spine. No suspicious osseous lesion.. IMPRESSION: Redemonstration of loculated ascites and omental thickening consistent with peritoneal metastatic di sease. Some of the loculated ascites has increased in size while othe rs are decreased. Interval increase in size of left cystic adnexal lesion. Now measuring 7.5 cm. Interval increase in size of bilateral c ardiophrenic, gastric hepatic and retroperitoneal lymph nodes concerni ng for metastatic disease. Redemonstration of calculus within the l eft distal ureter. No proximal hydroureteronephrosis. Signed: Emma Arvizu MD Report Verified Date/Time: 12/23/2019 1 1:54:15 Reading Location: [address] Reading Room Performing Organization Address City/State/[facility] Phone Number [facility] TRANSFUSION SERVICE REPORT - SCAN (12/16/2019 6:04 PM CDT)Only the most recent of7 resultswithin the time period is included. Narrative Performed At This result has an attachment that is no t available. Prepare Leuko-Red RBC (12/15/2019 11:54 PM CDT)Only the most recent of4 results within the time period is included. CROSSMATCH COMPATIBLE SAFETRACE TX Unit ABO B Pos SAFETRACE TX UNIT NUMBER [id number] SAFETRACE TX Status TX_TIMEINCHART SAFETRACE TX Blood Bank Product RED BLOOD CELLS SAFETRACE TX PRODUCT CODE [id number] SAFETRACE TX Specimen Other Performing Organization Address City/State/Zipcode Phone Number SAFETRACE TX Transfuse Leuko-Red RBC (12/14/2019 12:59 PM CDT)Only the most recent of6 resultswithin the time period is included.Type and screen, automated (12/12/2019 10:41 AM CDT)Only the most recent of2 resultswithin the time period is included. ABO/RH AUTOMATED (BEAKER) B POSITIVE [facility] Ab Scrn NEGATIVE [facility] Specimen Blood Performing Organization Address City/State/Zipcode Phone Number [facility] [address] [place] [address] [place] Paracentesis (12/05/2019 9:18 AM CDT)Only the most recent of6 resultswithin the time period is included. Specimen Narrative Performed At FINAL REPORT SMB Suite Ultrasound guided paracentesis. Clinical History:Ascites. Sedation: None. Milk Delivery Driver:Marva Elliott PA-C New Home Sales Consultant:None. Estimated Blood Loss: < 1 cc. Specimen: 850 cc of dark brown fluid, sa mples sent to laboratory. Technique:Informed consent was obtai osman.The risks of pain, bleeding, infection, bowel perforation, injury to adjacent structures, and adverse medication react ions were discussed with the patient. After informed consent was obtained, the patient's abdomen was scanned.The left upper quadrant of the abdomen was selected for paracentesis.After the largest fluid pocket area was marked, and the anterior abdominal wall was evaluate d with color Doppler to exclude presence of blood vessels serge sing the area, the skin was prepped and draped in the usual sterile manner.After local anesthesia was achieved with 2% lidocain e, a 5 Icelandic one-step catheter was advanced into the peritonea l cavity under ultrasound guidance. After completion of drainage, the catheter was removed. There was no evidence of complication. Impression: Successful ultrasound guided paracentesi s. Signed: Brayan Shea MD Report Verified Date/Time:12/05/2019 17:42:59 Reading Location: [facility] [id number] [facility] Reading Room Procedure Note Interface, External Ris In - 12/05/2019 5:45 PM CDT FINAL REPORT Ultrasound guided paracentesis. Clinical History: Ascites. Sedation: None. Milk Delivery Driver: Marva Elliott PA-C New Home Sales Consultant: None. Estimated Blood Loss: < 1 cc. Specimen: 850 cc of dark brown fluid, sa mples sent to laboratory. Technique: Informed consent was obtaine d. The risks of pain, bleeding, infection, bowel perforation, injury to adjacent structures, and adverse medication react ions were discussed with the patient. After informed consent was ob tained, the patient's abdomen was scanned. The left upper quadrant of the abdomen was selected for paracentesis. After the largest fluid p ocket area was marked, and the anterior abdominal wall was evaluate d with color Doppler to exclude presence of blood vessels serge sing the area, the skin was prepped and draped in the usual sterile manner. After local anesthesia was achieved with 2% lidocain e, a 5 Icelandic one-step catheter was advanced into the peritonea l cavity under ultrasound guidance. After completion of drainage, the catheter was removed. There was no evidence of complication. Impression: Successful ultrasound guided paracentesi s. Signed: Brayan Shea MD Report Verified Date/Time: 12/05/2019 1 7:42:59 Reading Location: [facility] [id number] [facility] Reading Room Performing Organization Address City/State/Zipcode Phone Number [facility] Manual Differential (12/05/2019 7:15 AM CDT)Only the most recent of9 results within the time period is included. % Neutros 41 % [facility] % Lymphs 51 % [facility] % Monos 6 % [facility] % Baso 2 % [facility] # Neutros 1.03 (L) 1.56 - 6.13 K/ul [facility] # Lymphs 1.28 1.18 - 3.74 K/ul [facility] # Monos 0.15 (L) 0.24 - 0.36 K/uL [facility] # Baso 0.05 0.01 - 0.08 K/uL [facility] Total Counted [address] [facility] Platelet Morphology Normal [facility] Smudge [facility] Present [facility] Polychromasia 1+ few [facility] Microcytes 1+ few [facility] Poikilocytes 1+ few [facility] Artifact Present [facility] Platelet Conc Decreased [facility] Specimen Blood Narrative Performed At Hand Slitter ID - Carmina Wilhelm [facility] User comments: Slide comments: Performing Organization Address City/[facility] Phone Number [facility] [address] [place] [phone] CENTER aPTT (12/05/2019 7:15 AM CDT)Only the most recent of3 resultswithin the time period is included. PTT 29.7 22.5 - 36.0 seconds [facility] Specimen Blood Performing Organization Address City/[facility]/Zipcode Phone Number [address] [address] CENTER Manual Differential (11/06/2019 5:17 AM CDT)Only the most recent of2 results within the time period is included. Total Counted [facility] WBC Morphology Normal [facility] Platelet Morphology Normal [facility] Anisocytosis 1+ few [facility] Specimen Blood Performing Organization Address [facility]/Zipcode Phone Number [facility] [address] [place] [address] [place] Blood Culture - Routine (Left Venipuncture) (11/05/2019 5:13 AM CDT)Only the most recent of8 resultswithin the time period is included. Result No growth in 5 days [facility] Specimen Blood Performing Organization Address City/State/Zipcode Phone Number [facility] [address] [place], [place] [phone] CENTER Hemoglobin and hematocrit (11/02/2019 10:26 PM CDT) Hemoglobin 6.8 (L) 11.2 - 15.7 GM/DL [facility] Hematocrit 21.3 (L) 34.1 - 44.9 % [facility] Specimen Blood Narrative Performed At Hand Slitter ID - [id number] [facility] Performing Organization Address City/[facility]/Zipcode Phone Number [facility] [address] [place], [place] [phone] CENTER US renal complete (11/02/2019 10:40 AM CDT) Specimen Narrative Performed At FINAL REPORT SMB Suite TECHNIQUE: Grayscale ultrasound of the k idneys and bladder. INDICATION: urosepsis. COMPARISON: None. FINDINGS: RIGHT KIDNEY: The right kidney measures 12 x 5 x 4.7 cm with a cortical thickness of 1.1 cm. No solid m ass lesions. No hydronephrosis. Renal artery and vein ar e patent. LEFT KIDNEY: The left kidney measures 13 .3 x 5.5 x 5.2 cm with a cortical thickness of 1.3 cm. No solid m ass lesions. No hydronephrosis. Renal artery and vein ar e patent. BLADDER: The bladder volume is 185 mL. IMPRESSION: This is a normal renal ultrasound. Speci fically, no hydronephrosis. No signs of complicated pyelonephritis. Signed: Stephen Jeffries MD Report Verified Date/Time:11/02/2019 12:53:15 Reading Location: [address] Radiolog Reading Room Procedure Note Interface, External Ris In - 11/02/2019 12:55 PM CDT FINAL REPORT TECHNIQUE: Grayscale ultrasound of the k idneys and bladder. INDICATION: urosepsis. COMPARISON: None. FINDINGS: RIGHT KIDNEY: The right kidney measures 12 x 5 x 4.7 cm with a cortical thickness of 1.1 cm. No solid m ass lesions. No hydronephrosis. Renal artery and vein ar e patent. LEFT KIDNEY: The left kidney measures 13 .3 x 5.5 x 5.2 cm with a cortical thickness of 1.3 cm. No solid m ass lesions. No hydronephrosis. Renal artery and vein ar e patent. BLADDER: The bladder volume is 185 mL. IMPRESSION: This is a normal renal ultrasound. Speci fically, no hydronephrosis. No signs of complicated pyelonephritis. Signed: Stephen Jeffries MD Report Verified Date/Time: 11/02/2019 1 2:53:15 Reading Location: [address] Radiolog Reading Room Performing Organization Address City/[facility] Phone Number [facility] Vitamin B12 and Folate (11/02/2019 5:31 AM CDT) Vitamin B12 423 213 - 816 pg/mL [facility] Folate 9.70 >=7.00 ng/mL [facility] Specimen Blood Narrative Performed At Hand Slitter JAZMIN Barnes [facility] Performing Organization Address [facility] Phone Number [address] [address] CENTER Iron, TIBC, % sat. (without ferritin) (11/02/2019 5:31 AM CDT) Iron 9.0 (L) 40.0 - 160.0 ug/dL [facility] TIBC 185 (L) 250 - 450 ug/dL [facility] Iron % Saturation 5 (L) 20 - 55 % [facility] Specimen Blood Narrative Performed At Hand Slitter JAZMIN Palmer [facility] Performing Organization Address City/[facility] Phone Number [address] [phone] CENTER TSH (11/02/2019 5:31 AM CDT) TSH 0.965 0.350 - 4.940 uIU/mL [facility] Specimen Blood Narrative Performed At Hand Slitter ID - JURGEN C [facility] Performing Organization Address City/[facility] Phone Number [address] [phone] CENTER Ferritin (11/02/2019 5:31 AM CDT) Ferritin 401.48 (H) 5.00 - 275.00 ng/mL [facility] Specimen Blood Narrative Performed At Hand Slitter ID - JURGEN C [facility] Performing Organization Address [facility] Phone Number [address] [phone] CENTER ABORH, manual (11/01/2019 1:44 PM CDT) ABO Grouping B [facility] Rh Factor POS [facility] Specimen Blood Performing Organization Address [facility] Phone Number [address] [address] XR chest 2 views (11/01/2019 7:20 AM CDT) Specimen Narrative Performed At FINAL REPORT GE RIS Chest exam INDICATION: FEVER COMPARISON: None TECHNIQUE: Frontal and lateral views of the chest. FINDINGS: Lungs and pleura: Clear lungs. No effusi on. Heart and mediastinum: Normal heart size . Unremarkable mediastinal contours. Osseous structures: No acute abnormality . Additional findings: Port-A-Cath tip ove rlies the SVC. IMPRESSION: No acute intrathoracic abnormality. Signed: Kavya Ledesma MD Report Verified Date/Time:11/01/2019 08:08:11 Reading Location: [facility] Reading Room Procedure Note Interface, External Ris In - 11/01/2019 8:10 AM CDT FINAL REPORT Chest exam INDICATION: FEVER COMPARISON: None TECHNIQUE: Frontal and lateral views of the chest. FINDINGS: Lungs and pleura: Clear lungs. No effusi on. Heart and mediastinum: Normal heart size . Unremarkable mediastinal contours. Osseous structures: No acute abnormality . Additional findings: Port-A-Cath tip ove rlies the SVC. IMPRESSION: No acute intrathoracic abnormality. Signed: Kavya Ledesma MD Report Verified Date/Time: 11/01/2019 0 8:08:11 Reading Location: [address] [facility] Reading Room Performing Organization Address City/State/Zipcode Phone Number [facility] Blood Culture Panel(BioFire) (11/01/2019 1:21 AM CDT) LISTERIA MONOCYTOGENES Not detected Not detected [facility] STAPHYLOCOCCUS Detected (A) Not detected [facility] Comment: [facility] EM[facility] Coagulase negative Staph species (CoNS)- methici llin susceptible CENTER First-line therapy: Cefazoli n or Oxacillin (Oxacillin preferred if MAINTENANCE AND CUSTODIAN SUPERVISOR involvement) MecA NOT DETECTED Possible contamination. The likelihood of pathogenicity is increased if the organism is observed in multiple blood cultures obtained from separate venipunctures. Reference Range: Not Detected STAPHYLOCOCCUS AUREUS Not detected Not detected [facility] Streptococcus Not detected Not detected [facility] STREPTOCOCCUS AGALACTIAE Not detected Not detected [facility] STREPTOCOCCUS PNEUMONIAE Not detected Not detected [facility] Streptococcus pyogenes (Group Not detected Not detected [facility] ACINETOBACTER BAUMANNII Not detected Not detected [facility] HAEMOPHILUS INFLUENZAE Not detected Not detected [facility] NEISSERIA MENINGITIDIS Not detected Not detected [facility] ENTEROBACTERIACEAE Not detected Not detected [facility] ENTEROBACTER CLOACOE COMPLEX Not detected Not detected [facility] KLEBSIELLA OXYTOCA Not detected Not detected [facility] KLEBSIELLA PNEUMONIAE Not detected Not detected [facility] PROTEUS Not detected Not detected [facility] SERRATIA MARCESCENS Not detected Not detected [facility] BEL[facility] ALBICANS Not detected Not detected [facility] BELA GLABRATA Not detected Not detected [facility] BELA KRUSEI Not detected Not detected [facility] BELA PARAPSILOSIS Not detected Not detected [facility] BELA TROPICALIS Not detected Not detected [facility] ESCHERICHIA COLI Not detected Not detected [facility] METHICILLIN-RESISTANCE GENE Not detected Not detected [facility] VANCOMYCIN-RESISTANCE GENE [facility] CARBAPENEM-RESISTANCE GENE [facility] ENTEROCOCCUS Not detected Not detected [facility] PSEUDOMONAS AERUGINOSA Not detected Not detected [facility] Specimen Blood Narrative Performed At Other bacteria and resistance markers not [facility] targeted by this PCR panel cannot be excluded; therefore clinical correlation and follow up of serology, culture results, and other molecular studies is required. The results are not intended to be used as the sole means for clinical diagnosis or patient management decisions. This sample was tested at the [facility] Molecular Diagnostics Laboratory using the LookItArray Blood Culture ID Panel. It is FDA cleared and has been verified and approved by the [facility] Molecular Diagnostics Laboratory for clinical use. This laboratory is CLIA-certified and [employer] (CAP)-accredited to perform high complexity testing. Performing Organization Address City/State/Zipcode Phone Number [facility] [address] [place] [address] [place] Troponin I (11/01/2019 1:20 AM CDT) Troponin I <0.01 0.00 - 0.03 ng/mL [facility] Specimen Blood Narrative Performed At Troponin I (TnI) levels must be interpreted [facility] in the context of the presenting symptoms and the clinical findings. Elevated TnI levels indicate myocardial damage, but are not specific for ischemic heart disease. Elevated TnI levels are seen in patients with other cardiac conditions (including myocarditis and congestive heart failure), and slight TnI elevations occur in patients with other conditions, including sepsis, renal failure, acidosis, acute neurological disease, and persistent tachyarrhythmia. Hand Slitter ID - DB Performing Organization Address City/State/Zipcode Phone Number [facility] [address] [place] [address] [place] US Abdomen Complete (09/22/2019 11:27 AM CDT) Specimen Narrative Performed At FINAL REPORT SMB Suite TECHNIQUE: Grayscale ultrasound of the hever rome. INDICATION: 59-year-old woman with uteri ne cancer. COMPARISON: Abdomen and pelvis CT 020. FINDINGS: MIDLINE VASCULATURE: Visualized inferior vena cava is patent. Main portal vein is patent. Visualized abdomi nal aorta is patent. LIVER: Liver is normal in size and echog enicity with smooth contour. No focal lesion. BILIARY: Gallbladder: Prior cholecystectomy. Common bile duct measures approximately 0.6 cm, within normal limits. No intrahepatic biliary ductal dilatatio n. PANCREAS: Visualized portions of the marie creas are unremarkable. SPLEEN: No splenomegaly. PERITONEUM: Persistent loculated perihep atic ascites; the component along the left hepatic lobe measures martinez roximately 3.9 x 2.7 x 5.8 cm and the component along the right hepati c lobe measures 3.5 x 2.2 x 3.3 cm. Persistent 6.5 x 7.3 x 6.5 cm lo cule of ascites in the midline of the abdomen appears to contai n internal septations/debris. KIDNEYS: Suboptimal evaluation of both k idneys due to patient body habitus. Both kidneys are normal in size . Suspected moderate left hydronephrosis. Questionable mild right hydronephrosis. No sonographically evident mass. IMPRESSION: Persistent perihepatic and mid abdominal loculated ascites. Suboptimal evaluation of both kidneys du e to patient body habitus. Suspected moderate left hydronephrosis w ith questionable mild right hydronephrosis. Abdomen and pelvis CT ma y be obtained for further evaluation. Signed: Trang Adkins MD Report Verified Date/Time:09/22/2019 13:56:45 Reading Location: [address] Radiolog y Reading Room Procedure Note Interface, External Ris In - 09/22/2019 1:58 PM CDT FINAL REPORT TECHNIQUE: Grayscale ultrasound of the hever rome. INDICATION: 59-year-old woman with uteri ne cancer. COMPARISON: Abdomen and pelvis CT 020. FINDINGS: MIDLINE VASCULATURE: Visualized inferior vena cava is patent. Main portal vein is patent. Visualized abdomi nal aorta is patent. LIVER: Liver is normal in size and echog enicity with smooth contour. No focal lesion. BILIARY: Gallbladder: Prior cholecystectomy. Common bile duct measures approximately 0.6 cm, within normal limits. No intrahepatic biliary ductal dilatatio n. PANCREAS: Visualized portions of the marie creas are unremarkable. SPLEEN: No splenomegaly. PERITONEUM: Persistent loculated perihep atic ascites; the component along the left hepatic lobe measures martinez roximately 3.9 x 2.7 x 5.8 cm and the component along the right hepati c lobe measures 3.5 x 2.2 x 3.3 cm. Persistent 6.5 x 7.3 x 6.5 cm lo cule of ascites in the midline of the abdomen appears to contai n internal septations/debris. KIDNEYS: Suboptimal evaluation of both k idneys due to patient body habitus. Both kidneys are normal in size . Suspected moderate left hydronephrosis. Questionable mild right hydronephrosis. No sonographically evident mass. IMPRESSION: Persistent perihepatic and mid abdominal loculated ascites. Suboptimal evaluation of both kidneys du e to patient body habitus. Suspected moderate left hydronephrosis w ith questionable mild right hydronephrosis. Abdomen and pelvis CT ma y be obtained for further evaluation. Signed: Trang Adkins MD Report Verified Date/Time: 09/22/2019 1 3:56:45 Reading Location: [facility] 10th Fl[facility] Radiolog y Reading Room Performing Organization Address City/State/[facility] Phone Number [place] RIS US abdomen limited (09/22/2019 10:36 AM CDT) Specimen Narrative Performed At FINAL REPORT GE RIS Limited abdominal ultrasound CLINICAL HISTORY: Ascites FINDINGS:A limited abdominal ultraso und was performed and only a trace amount of fluid was seen. Therefor e a paracentesis was not performed. Signed: Ephraim Mckeon MD Report Verified Date/Time:09/22/2019 17:45:03 Reading Location: [facility] B1 P006J Ultrasoun d Reading Room Procedure Note Interface, External Ris In - 09/22/2019 5:47 PM CDT FINAL REPORT Limited abdominal ultrasound CLINICAL HISTORY: Ascites FINDINGS: A limited abdominal ultrasoun d was performed and only a trace amount of fluid was seen. Therefor e a paracentesis was not performed. Signed: Ephraim Mckeon MD Report Verified Date/Time: 09/22/2019 1 7:45:03 Reading Location: [facility] B1 P006J Ultrasoun d Reading Room Performing Organization Address [facility] Phone Number GE RIS POC-Creatinine (09/02/2019 12:17 PM CDT)Only the most recent of2 resultswithin the time period is included. POC-Creatinine 0.5 (L)Comment: : TESTED AT 0.6 - 1.3 mg/dL [facility] [address] [facility] A, [facility] [address]: Hand Slitter/Tinning Machine Set Up Operator ID = [id number] for BRAYAN WARD POC-EGFR 127 mL/min/1.73M2 [facility] Specimen Blood Performing Organization Address City/State/Zipcode Phone Number [facility] [address] [place] [address] [phone] CENTER Cytology (07/25/2019 11:34 AM CDT)Only the most recent of3 resultswithin the time period is included. Case Report Medical Cytology Report Case: [id number] [facility] Authorizing Provider:Cole Samayoa, Collected: 07/25/2019 11:34 AM [facility] Ordering Location: [facility] Radiology Main Received:07/25/2019 01:20 PM Pathologist: Billy Arora MD Specimen:Peritoneal Fluid DIAGNOSIS PERITONEAL FLUID (CYTOSPINS AND CELL BLOCK): [facility] - PREDOMINANTLY BLOOD WITH FEW HEMOSIDERIN LA DEN MACROPHAGES [facility] - NO MALIGNANT CELLS IDENTIFIED Signing Pathologist Direct Phone Line: CPT Code(s) 74689, [address] [facility] ER CLINICAL DATA Ascites; uterine cancer [facility] SPECIMEN SOURCE PERITONEAL FLUID [facility] GROSS DESCRIPTION Received 50 ml dark bloody fluid [facility] Prepared cell block(A2) and 4 cytospins [facility] Collected: [id number] Received: [id number] MICROSCOPIC DESCRIPTION Performed. [facility] STATEMENT OF ADEQUACY Satisfactory [facility] Gross assessment was [facility] performed at [place], Department of [facility] Pathology, [address] [place] [address], Technical component was [facility] performed at [place], Department of [facility] Pathology, [address] [place] [address], Professional component was [facility] performed at [place], Department of [facility] Pathology, [address] [place] [address], Specimen Body Fluid Narrative Performed At This result has an attachment that is no t available. Performing Organization Address City/State/Zipcode Phone Number [facility] [address] [place] [address] CENTER IR CV Access Fluoro (06/10/2019 12:00 PM CDT) Specimen Narrative Performed At FINAL REPORT GE RIS PROCEDURE: Venous Port Placement CLINICAL HISTORY: uterine cancer PREDATORY ANIMAL HUNTER: Martínez Treadwell DO, JD ANESTHESIA:Conscious sedation was pr ovided by radiology nursing using constant hemodynamic monitoring fo r 45 Minutes. Versed IV 1 mg, Fentanyl IV 25 mcg. DEVICE: Single lumen 6 Fr PowerPort. DOSE INFORMATION - Ka,r:5 mGy Estimated Blood Loss: < 5cc Samples: None. PROCEDURE: The risks, benefits, and alte rnatives to the procedure were discussed with the patient.All questions were answered and written informed consent was obtained. A universal timeout was performed prior to starting the procedur e.For Prevention of Central Venous Catheter (CVC)-Related Bloodstrea m Infections all elements of maximal sterile barrier technique, hand hygiene, skin preparation and sterile techniques were followed. Ultrasound of the right internal jugular vein demonstrated a patent and compressible vessel. An ultrasound i mage of the vessel was obtained. Lidocaine was used for cutaneo us anesthesia. Under ultrasound guidance the vessel was acces sed with a 19-gauge needle and through this a 0.035 inch 3J wire wa s positioned in the inferior vena cava. Over the wire a Peel-Away she ath was placed. I next directed my attention to the anterior ch est wall which was anesthetized with 2% lidocaine. Below th e clavicle a small linear incision was made with a #15 blade and a subcutaneous pocket was created with blunt and sharp dissection. The catheter was connected to the port and the port was placed in t he pocket. Through the pocket a subcutaneous track was created with a metallic tunneling device and the port catheter was brought through th e incision and out the venotomy site. The catheter was cut to t he appropriate length. Through the Peel-Away sheath the port ca theter was positioned with its tip at the right atrium under fluoro scopic guidance. The Peel-Away sheath was removed. The port was accessed and demonstrated e xcellent blood return and flushed easily. The port was instilled w ith 5 mL of heparin at 100 units per mL. The incision was then clos ed with subcuticular/deep suture. The skin at the venotomy site an d the incision site were subsequently closed with Dermabond, Ster i-Strips and sterile dressings. The right upper extremity PIC C line was removed. The patient tolerated the procedure well and was returned to the recovery area/floor in stable condition. IMPRESSION: Ultrasound and fluoroscopically guided p lacement of a right internal jugular single lumen port. The port is r val for use immediately. Signed: Martínez Treadwell MD Report Verified Date/Time:06/10/2019 12:28:01 Reading Location: [place] [id number] Angio Body Reading Room Procedure Note Interface, External Ris In - 06/10/2019 12:35 PM CDT FINAL REPORT PROCEDURE: Venous Port Placement CLINICAL HISTORY: uterine cancer PREDATORY ANIMAL HUNTER: Martínez Treadwell DO, JD ANESTHESIA: Conscious sedation was prov ided by radiology nursing using constant hemodynamic monitoring fo r 45 Minutes. Versed IV 1 mg, Fentanyl IV 25 mcg. DEVICE: Single lumen 6 Fr PowerPort. DOSE INFORMATION - Ka,r: 5 mGy Estimated Blood Loss: < 5cc Samples: None. PROCEDURE: The risks, benefits, and alte rnatives to the procedure were discussed with the patient. All qu estions were answered and written informed consent was obtained. A universal timeout was performed prior to starting the procedur e. For Prevention of Central Venous Catheter (CVC)-Related Bloodstrea m Infections all elements of maximal sterile barrier technique, hand hygiene, skin preparation and sterile techniques were followed. Ultrasound of the right internal jugular vein demonstrated a patent and compressible vessel. An ultrasound i mage of the vessel was obtained. Lidocaine was used for cutaneo us anesthesia. Under ultrasound guidance the vessel was acces sed with a 19-gauge needle and through this a 0.035 inch 3J wire wa s positioned in the inferior vena cava. Over the wire a Peel-Away she ath was placed. I next directed my attention to the anterior ch est wall which was anesthetized with 2% lidocaine. Below th e clavicle a small linear incision was made with a #15 blade and a subcutaneous pocket was created with blunt and sharp dissection. The catheter was connected to the port and the port was placed in t he pocket. Through the pocket a subcutaneous track was created with a metallic tunneling device and the port catheter was brought through th e incision and out the venotomy site. The catheter was cut to t he appropriate length. Through the Peel-Away sheath the port ca theter was positioned with its tip at the right atrium under fluoro scopic guidance. The Peel-Away sheath was removed. The port was accessed and demonstrated e xcellent blood return and flushed easily. The port was instilled w ith 5 mL of heparin at 100 units per mL. The incision was then clos ed with subcuticular/deep suture. The skin at the venotomy site an d the incision site were subsequently closed with Dermabond, Ster i-Strips and sterile dressings. The right upper extremity PIC C line was removed. The patient tolerated the procedure well and was returned to the recovery area/floor in stable condition. IMPRESSION: Ultrasound and fluoroscopically guided p lacement of a right internal jugular single lumen port. The port is r val for use immediately. Signed: Martínez Treadwell MD Report Verified Date/Time: 06/10/2019 1 2:28:01 Reading Location: [place] [address] Angio Body Reading Room Performing Organization Address City/[facility] Phone Number GE RIS PT/aPTT (06/10/2019 9:29 AM CDT)Only the most recent of4 resultswithin the time period is included. Protime 13.9 11.9 - 14.2 seconds [facility] INR 1.1 <=5.9 [facility] PTT 28.9 22.5 - 36.0 seconds [facility] Specimen Blood Narrative Performed At Effective 08/18/2018: PT Reference Range [facility] Change New: 11.9-14.2Previous: 11.7-14.7 RECOMMENDED COUMADIN/WARFARIN INR THERAPY RANGES STANDARD DOSE: 2.0-3.0Includes: PROPHYLAXIS for venous thrombosis, systemic embolization; TREATMENT for venous thrombosis and/or pulmonary embolus. HIGH RISK: Target INR is 2.5-3.5 for patients wiht mechanical heart valves. Performing Organization Address City/[facility] Phone Number [address] [address] CENTER POC-Glucose meter (05/02/2019 6:48 PM CAR STORER)Only the most recent of62 results within the time period is included. POC-Glucose Meter 122 (H)Comment: : TESTED 70 - 110 mg/dL [facility] AT [address], [address]: Hand Slitter/Tinning Machine Set Up Operator ID = [id number] for ARMEN SCHROEDER Specimen Blood Performing Organization Address [facility]/[place] [address] CENTER Phosphorus (05/02/2019 6:19 AM CAR STORER)Only the most recent of11 resultswithin the time period is included. Phosphorus 3.3Comment: Specimen slightly 2.3 - 4.7 mg/dL [facility] Specimen Blood Narrative Performed At Hand Slitter ID - [facility] Performing Organization Address [facility] Phone Number [address] [address] CENTER Magnesium (05/02/2019 6:19 AM CAR STORER)Only the most recent of16 resultswithin the time period is included. Magnesium 2.1Comment: Specimen slightly 1.6 - 2.6 mg/dL [facility] Specimen Blood Narrative Performed At Hand Slitter ID - [facility] Performing Organization Address [facility]/Zipcode Phone Number [address] [phone] [place] Clostridium difficile [facility] Toxin (04/28/2019 10:40 AM CAR STORER) C. Difficle Toxin Negative Negative [facility] C. Difficile [facility] Antigen Positive (A)Comment: C. Negative [facility] difficile present but toxin [facility] not detected. Indicates colonization with non-toxigenic strain or level of toxin below detectable levels. No need for enteric isolation. Treatment is rarely needed (only when strong clinical suspicion for Clostridium difficile infection) Specimen Stool Narrative Performed At Testing performed by [employer] [facility] Assay.For [facility], published sensitivity of the assay is 98.7% compared to cytotoxicity testing.For Toxin AB, published sensitivity is 87.8% and specificity 99.4% compared to cytotoxicity testing. Verification of kit performance was done by the [facility] Microbiology Lab prior to clinical use. Performing Organization Address City/State/Zipcode Phone Number [facility] [address] [place] [address] CENTER Prealbumin (04/27/2019 5:28 AM CAR STORER)Only the most recent of2 resultswithin the time period is included. Prealbumin 20 14 - 45 mg/dL [facility] Specimen Blood Narrative Performed At Hand Slitter ID - [facility] MED ICAL CENTER Performing Organization Address City/State/Zipcode Phone Number [facility] [address] [place] [address] CENTER XR abdomen / KUB 1 view (04/24/2019 2:00 PM CAR STORER) Specimen Narrative Performed At FINAL REPORT GE RIS Abdomen dated to April 24, 2019 Comment: Abdomen was examined in the supine and e rect position. Air is seen in the small and large bowel. There is a di latation of the small bowel in the abdomen measuring up to 3 cm in d iameter. No mass, pathological calcification, or free air is present. Impression: Early small bowel obstruction or ileus. Signed: Edvin Yanes MD Report Verified Date/Time:04/24/2019 14:07:31 Reading Location: [facility] C013X [facility] Reading Room Procedure Note Interface, External Ris In - 04/24/2019 2:09 PM CAR STORER FINAL REPORT Abdomen dated to April 24, 2019 Comment: Abdomen was examined in the supine and e rect position. Air is seen in the small and large bowel. There is a di latation of the small bowel in the abdomen measuring up to 3 cm in d iameter. No mass, pathological calcification, or free air is present. Impression: Early small bowel obstruction or ileus. Signed: Edvin Yanes MD Report Verified Date/Time: 04/24/2019 1 4:07:31 Reading Location: [facility] C013X [facility] Reading Room Performing Organization Address City/State/Zipcode Phone Number GE RIS Protein, Total, Peritoneal Fluid (04/22/2019 9:41 PM CAR STORER) PROTEIN, TOTAL, PERITONEAL FLUID 4.0 [facility] Specimen Body Fluid Narrative Performed At This result has an attachment that is no t available. Performing Organization Address [facility] Hospitalcode [place] [phone] [id number] [place] [address] ALBUMIN PERITONEAL FLUID (04/22/2019 9:41 PM CAR STORER) Albumin, Peritoneal Fluid 2.5 [facility] Specimen Body Fluid Performing Organization Address [facility] Phone Number [address] [address] [place] Body fluid culture + gram stain (04/22/2019 9:16 PM CAR STORER)Only the most recent of 3 resultswithin the time period is included. Result No growth [facility] Gram Stain Result <1+ White blood cells seen [facility] Gram Stain Result No organisms seen [facility] Specimen Body Fluid Performing Organization Address [facility]/Zipcode Phone Number [address] [address] [place] Body fluid cell count with differential (04/22/2019 9:16 PM CAR STORER)Only the most recent of3 resultswithin the time period is included. Appearance Bloody (A) Clear [facility] Color Brown (A) Colorless, Straw [facility] RBCs 12,250 (H) <=1 /cu mm [facility] Adjusted WBC Count 425 (H) <=5 /cu mm [facility] Lining Cells 25 (H) <=1 /cu mm [facility] % Segs 20 % [facility] % Lymphs 5 % [facility] % Monos 75 % [facility] % Eos 0 % [facility] % Baso 0 % [facility] Container Body Fluid EDTA Tube [facility] Specimen Body Fluid Narrative Performed At Many lysed red cells present (not included in [facility] count), degenerated white blood cells present. Performing Organization Address City/State/Zipcode Phone Number [address] [address] CENTER Triglycerides (04/20/2019 6:06 AM CAR STORER) Triglycerides 101 mg/dL [facility] Specimen Blood Narrative Performed At TRIGLYCERIDE REFERENCE RANGE [facility] Low Risk<150 Borderline Risk 150-199 High [id number] Very High Risk >=500 Hand Slitter ID - [place] Performing Organization Address City/[facility]/Zipcode Phone Number [address] [address] [place] XR chest 1 view portable / bedside (04/19/2019 1:34 PM CAR STORER) Specimen Narrative Performed At FINAL REPORT GE RIS RAD, CHEST, 1 VIEW, NON DEPT INDICATION: dyspnea COMPARISON: None FINDINGS: Portable frontal view of the c hest. IMPRESSION: Support Lines: Right IJ central venous c atheter terminates near the cavoatrial junction. Enteric tube side-p ort is not visible. Lungs and pleura: Bibasilar subsegmental atelectasis and small effusions. No pneumothorax. Heart and mediastinum: Unremarkable cont ours. Additional findings: None. Signed: JR Jose Robert MD Report Verified Date/Time:04/19/2019 13:52:29 Reading [facility] Room Procedure Note Interface, External Ris In - 04/19/2019 1:54 PM CAR STORER FINAL REPORT RAD, CHEST, 1 VIEW, NON DEPT INDICATION: dyspnea COMPARISON: None FINDINGS: Portable frontal view of the c hest. IMPRESSION: Support Lines: Right IJ central venous c atheter terminates near the cavoatrial junction. Enteric tube side-p ort is not visible. Lungs and pleura: Bibasilar subsegmental atelectasis and small effusions. No pneumothorax. Heart and mediastinum: Unremarkable cont ours. Additional findings: None. Signed: JR Jose Robert MD Report Verified Date/Time: 04/19/2019 1 3:52:29 Reading [facility] Reading Room Performing Organization Address City/State/Zipcode Phone Number [facility] IR PICC line placement older than 5 yrs (04/19/2019 10:57 AM CAR STORER) Specimen Narrative Performed At Addendum Begins [facility] REPORT STATUS:A Addendum: April 26, 2019 at 1445 hours This addendum is for billing and documen tation purposes only. Maximum sterile barrier techniques were utilized during this PICC line placement. The report is otherwise unchanged. Signed: Brayan Shea MD Report Verified Date/Time:04/26/2019 14:44:30 Reading Location: [facility] Reading Room - [facility] 1.310.12 Addendum Ends FINAL REPORT History: Uterine cancer. Need for long-t erm central IV access for chemotherapy initiation. PROCEDURE: Following informed written consent, the patient's right upper extremity was prepped and draped in the usual sterile manner. 2% lidocaine was given locally for anesthes ia. No conscious sedation was administered. Using ultrasound guidance a micropuncture needle, access was gained to the patient's right upper extremity cephalic vein. A 5 Icelandic dual-lumen bile flow PI CC line was cut to a length of 41 cm and placed through a peel-away sheath and over a wire centrally into the superior vena cava un sonia fluoroscopic guidance. The catheter was flushed with saline and secured to the skin using 2-0 silk suture. Overall, the patient to lerated the procedure well without immediate complications and was discharged from the department in stable condition. FINDINGS: Spot image of the chest following PICC l ine placement demonstrates a right upper extremity PICC to lie in exp ected position with its tip near the cavoatrial junction. Both ports of the PICC line flush and aspirate without difficulty. Ultrasound images obtained during the pr ocedure show patent and compressible right cephalic vein. There is no evidence for thrombus. These images were obtained and archived to PACS. IMPRESSION: 1. Successful uncomplicated placement of a 5 Icelandic dual-lumen right upper extremity PICC line as described a ivania. Total fluoroscopy time: 0.3 minutes. Estimated total patient dose reported as (Ka,r): 1.9 mGy Note: Patient was initially referred to the department for a chest port placement. However, the patient was unable to lie flat on the angiographic table. Following discussion with referring oncologist by telephone, the decision was made to plac e a PICC line at this time for inpatient initiation of chemotherapy . Chest port placement will be considered in the future once the pat ient is able to lie flat. Signed: Brayan Shea MD Report Verified Date/Time:04/19/2019 19:35:07 Reading Location: [facility] P048 Angio Body Reading Room Procedure Note Interface, External Ris In - 04/26/2019 2:46 PM CAR STORER Addendum Begins REPORT STATUS:A Addendum: April 26, 2019 at 1445 hours This addendum is for billing and documen tation purposes only. Maximum sterile barrier techniques were utilized during this PICC line placement. The report is otherwise unchanged. Signed: Brayan Shea MD Report Verified Date/Time: 04/26/2019 1 4:44:30 Reading Location: [facility] Reading Room - [facility] F1 [id number] Addendum Ends FINAL REPORT History: Uterine cancer. Need for long-t erm central IV access for chemotherapy initiation. PROCEDURE: Following informed written consent, the patient's right upper extremity was prepped and draped in the usual sterile manner. 2% lidocaine was given locally for anesthes ia. No conscious sedation was administered. Using ultrasound guidance a micropuncture needle, access was gained to the patient's right upper extremity cephalic vein. A 5 Icelandic dual-lumen bile flow PI CC line was cut to a length of 41 cm and placed through a peel-away sheath and over a wire centrally into the superior vena cava un sonia fluoroscopic guidance. The catheter was flushed with saline and secured to the skin using 2-0 silk suture. Overall, the patient to lerated the procedure well without immediate complications and was discharged from the department in stable condition. FINDINGS: Spot image of the chest following PICC l ine placement demonstrates a right upper extremity PICC to lie in exp ected position with its tip near the cavoatrial junction. Both ports of the PICC line flush and aspirate without difficulty. Ultrasound images obtained during the pr ocedure show patent and compressible right cephalic vein. There is no evidence for thrombus. These images were obtained and archived to PACS. IMPRESSION: 1. Successful uncomplicated placement of a 5 Icelandic dual-lumen right upper extremity PICC line as described a ivania. Total fluoroscopy time: 0.3 minutes. Estimated total patient dose reported as (Ka,r): 1.9 mGy Note: Patient was initially referred to the department for a chest port placement. However, the patient was unable to lie flat on the angiographic table. Following discussion with referring oncologist by telephone, the decision was made to plac e a PICC line at this time for inpatient initiation of chemotherapy . Chest port placement will be considered in the future once the pat ient is able to lie flat. Signed: Brayan Shea MD Report Verified Date/Time: 04/19/2019 1 9:35:07 Reading Location: [facility] B1 P048 Angio Body Reading Room Performing Organization Address City/State/Zipcode Phone Number [facility] PERIPHERAL VASCULAR REPORT - SCAN (04/13/2019 9:23 PM CAR STORER) Narrative Performed At This result has an attachment that is no t available. MR pelvis without & with IV contrast (04/13/2019 3:23 PM CAR STORER) Specimen Narrative Performed At FINAL REPORT [facility] TECHNIQUE: MRI of the pelvis WITHOUT and WITH intravenous contrast. INDICATION: 59-year-old woman with adnex al mass. COMPARISON: Abdomen and pelvis CT 020. FINDINGS: Suboptimal evaluation secondary to patie nt body habitus. UTERUS: The uterus measures 11 x 6.4 x 5 .4 cm. Intramural fibroid in the anterior uterine body measures 4.7 x 4.2 x 4.4 cm. Cervical nabothian cysts. ENDOMETRIUM: Endometrium is normal in th ickness and contains a 1.1 x 0.6 cm T2 hypointense structure. OVARIES/ADNEXA: Neither normal ovary is clearly visualized. 14.9 x 11.4 x 22.8 cm cystic structure in the r ight adnexum extends superiorly into the anterior lower abdom en; this structure contains multiple irregular septations as well as hemorrhagic/proteinaceous debris. 6.3 x 6.3 x 4.9 cm cystic struct ure in the left adnexum also contains irregular septations as well as hemorrhagic/proteinaceous debris. PERITONEUM/RETROPERITONEUM: Trace ascite s. Suspected omental caking superior to the larger cystic structure. BLADDER: Bladder is unremarkable. RECTUM: Rectum and mesorectum are unrema rkable. LYMPH NODES: No lymphadenopathy. BONES AND SOFT TISSUES: Unremarkable. Other findings: 1.2 x 1 cm cyst in the l ower pole of the right kidney. IMPRESSION: Suboptimal evaluation secondary to patie nt body habitus. Complex cystic structures in the lower a bdomen/bilateral adnexa, suspicious for epithelial ovarian neopla sm. Additional differential considerations include complex fluid col lection/ascites. 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 Intramural uterine fibroid. Additional 1 .1 cm structure within the endometrium, suggestive of a submucosal fibroid. Signed: Trang Adkins MD Report Verified Date/Time:04/13/2019 17:50:41 Reading Location: [facility] C013Y CT Body R eading Room Procedure Note Interface, External Ris In - 04/13/2019 5:52 PM CAR STORER FINAL REPORT TECHNIQUE: MRI of the pelvis WITHOUT and WITH intravenous contrast. INDICATION: 59-year-old woman with adnex al mass. COMPARISON: Abdomen and pelvis CT 020. FINDINGS: Suboptimal evaluation secondary to patie nt body habitus. UTERUS: The uterus measures 11 x 6.4 x 5 .4 cm. Intramural fibroid in the anterior uterine body measures 4.7 x 4.2 x 4.4 cm. Cervical nabothian cysts. ENDOMETRIUM: Endometrium is normal in th ickness and contains a 1.1 x 0.6 cm T2 hypointense structure. OVARIES/ADNEXA: Neither normal ovary is clearly visualized. 14.9 x 11.4 x 22.8 cm cystic structure in the r ight adnexum extends superiorly into the anterior lower abdom en; this structure contains multiple irregular septations as well as hemorrhagic/proteinaceous debris. 6.3 x 6.3 x 4.9 cm cystic struct ure in the left adnexum also contains irregular septations as well as hemorrhagic/proteinaceous debris. PERITONEUM/RETROPERITONEUM: Trace ascite s. Suspected omental caking superior to the larger cystic structure. BLADDER: Bladder is unremarkable. RECTUM: Rectum and mesorectum are unrema rkable. LYMPH NODES: No lymphadenopathy. BONES AND SOFT TISSUES: Unremarkable. Other findings: 1.2 x 1 cm cyst in the l ower pole of the right kidney. IMPRESSION: Suboptimal evaluation secondary to patie nt body habitus. Complex cystic structures in the lower a bdomen/bilateral adnexa, suspicious for epithelial ovarian neopla sm. Additional differential considerations include complex fluid col lection/ascites. 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 Intramural uterine fibroid. Additional 1 .1 cm structure within the endometrium, suggestive of a submucosal fibroid. Signed: Trang Adkins MD Report Verified Date/Time: 04/13/2019 1 7:50:41 Reading Location: [facility] B1 C013Y CT Body R eading Room Performing Organization Address City/State/Zipcode Phone Number [facility] Cancer Antigen 125 (CA 125) (04/13/2019 12:16 PM CAR STORER) CA 125 389 (H) <35 U/mL [facility] Comment: This test was performed using the Bita Coulte r Chemiluminescent method. Values obtained from different assay methods can not be used interchangeably. CA 125 levels, regardless of value, should not b e interpreted as absolute evidence of the presence or absence of disease. Specimen Blood Narrative Performed At Performing Lab [facility] [address] [address] [place] [address] I Laura BREWSTER, PhD, GABO Performing Organization Address City/State/Zipcode Phone Number [facility] [place] [address] [facility] [id number] [facility] Venous doppler legs bilateral (04/12/2019 9:55 PM CAR STORER) [facility] ECHO HEAR TLAB [facility]ACS Specimen Impressions Performed At Right Impression [facility] ECHO HEARTLAB [facility] CPACS 1. There is no deep venous obstruction in the common femoral, profunda femoral, femoral or popliteal veins where visualized. 2. The posterior tibial and peroneal veins are poorly visualized. 3. There is no superficial venous obstruction in the great saphenous vein where visualized. Left Impression 1. There is no deep venous obstruction in the common femoral, profunda femoral, femoral or popliteal veins where visualized. 2. The posterior tibial and peroneal veins are poorly visualized. 3. There is no superficial venous obstruction in the great saphenous vein where visualized. Conclusions Summary Venous duplex imaging and compression of the bilateral lower extremities were performed. The veins were technically difficult to visualize due to edema and patient body habitus. The bilateral venous systems had patent flow throughout; however, could not visualize well enough to rule out partial thrombus. The venous Doppler waveforms were phasic with respiration. Signature Velocities are measured in cm/s ; Diameters are measured in cm Narrative Performed At PV LAB - Lower Extremities DVT Study [facility] ECHO HEARTLAB [facility] Demographics Patient NameSERNESTO TRACEYMercedez of Study0 04/12/2019 NAILA BRAND Age59 Visit [id number] Gender Female Date of Birth1960 Referring Arianne Neal Room [id number] Physician In Flight Refueling System Repairer Benjamin Ornelas Interpreting Michelle Guerra , Physician Procedure Type of Study: Veins: Lower Extremities DVT Study, VENOUS DOPPLER LEG, BILATERAL. Indications for Study:Abdominal pain and Bilateral leg edema . Patient Status:TIFFANY. Study Location:Portable. Technical Quality:Technically Difficult. Risk Factors History of Disease + +----+ + !Diagnosis!Date!Comments ! + +----+ + !History/Risk !!Uterine Cancer, Recent Gall Bladder Surgery, ! !Factors: !!Paraplegia ! + +----+ + Procedure Note Interface, External Ris In - 04/13/2019 4:43 PM CAR STORER [facility] - Lower Extremities DVT Study Demographics Patient Name DIMITRY KENNEY Da te of Study 04/12/2019 TACOS Ag e 59 Visit Number [id number] Ge nder Female Accession Number [id number] Da te of 1960 Referring Arianne Tej Ángel Yusuf om Number [id number] Physician In Flight Refueling System Repairer Benjamin Ornelas In terpreting Michelle Guerra, Ph ysician Procedure Type of Study: Veins: Lower Extremities DVT Study, ALBERTO OUS DOPPLER LEG, BILATERAL. Indications for Study:Abdominal pain and Bilateral leg edema . Patient Status:TIFFANY. Study Location:Portable. Technical Quality:Technically Difficult. Risk Factors History of Disease + +----+ + !Diagnosis !Date!Comments ! + +----+ + !History/Risk ! !Uterine Cancer , Recent Gall Bladder Surgery, ! !Factors: ! !Paraplegia ! + +----+ + Impressions Right Impression 1. There is no deep venous obstruction i n the common femoral, profunda femoral, femoral or popliteal veins wher e visualized. 2. The posterior tibial and peroneal vei ns are poorly visualized. 3. There is no superficial venous obstru ction in the great saphenous vein where visualized. Left Impression 1. There is no deep venous obstruction i n the common femoral, profunda femoral, femoral or popliteal veins wher e visualized. 2. The posterior tibial and peroneal vei ns are poorly visualized. 3. There is no superficial venous obstru ction in the great saphenous vein where visualized. Conclusions Summary Venous duplex imaging and compression o f the bilateral lower extremities were performed. The veins were technica lly difficult to visualize due to edema and patient body habitus. The lydia ateral venous systems had patent flow throughout; however, could not vis ualize well enough to rule out partial thrombus. The venous Doppler wa veforms were phasic with respiration. Signature Velocities are measured in cm/s ; Diamet ers are measured in cm Performing Organization Address City/[facility]/Zipcode Phone Number [facility] ECHO HEARTLAB [facility] Lipase (04/12/2019 6:20 AM CAR STORER)Only the most recent of2 resultswithin the time period is included. Lipase 7 (L) 8 - 78 U/L [facility] [place] CENTER Specimen Blood Narrative Performed At Hand Slitter ID - ANOOP [facility] Performing Organization Address City/State/Zipcode Phone Number [facility] [address] [place] [address] CENTER [place] hepatobiliary (HIDA) scan (01/22/2019 3:13 PM CDT) Specimen Narrative Performed At FINAL REPORT [facility] PROCEDURE: HEPATOBILIARY SCAN CPT CODE: 97904 INDICATION: abdominal pain, ascites, possible bile leak PROTOCOL: 5.4 mCi of Tc-99m mebrofenin was injected intravenously. Images of the upper abdom en were obtained for approximately 75 minutes after tracer in jection. FINDINGS:Initial tra cer uptake into the liver is physiological. Subsequent tracer clearan ce from the liver proceeds normally. There is good visualization of the extrahepatic biliary duct, and the tracer appears appropriate ly in the small bowel. No tracer extravasation is seen. The gallbl adder is not seen. IMPRESSION:Normal post-cholecystectomy hep atobiliary scan. No evidence of bile leakage or biliary obst ruction. Signed: Tim Schulte MD Report Verified Date/Time:01/22/2019 15:58:55 Procedure Note Interface, External Ris In - 01/22/2019 4:01 PM CDT FINAL REPORT PROCEDURE: HEPATOBILIARY SCAN CPT CODE: 85621 INDICATION: abdominal pain, ascite s, possible bile leak PROTOCOL: 5.4 mCi of Tc-99m mebrof enin was injected intravenously. Images of the upper abdom en were obtained for approximately 75 minutes after tracer in jection. FINDINGS: Initial tracer uptake into the liver is physiological. Subsequent tracer clearan ce from the liver proceeds normally. There is good visualization of the extrahepatic biliary duct, and the tracer appears appropriate ly in the small bowel. No tracer extravasation is seen. The gallbl adder is not seen. IMPRESSION: Normal post-cholecystec randy hepatobiliary scan. No evidence of bile leakage or biliary obst ruction. Signed: Tim Schulte MD Report Verified Date/Time: 01/22/2019 1 5:58:55 Performing Organization Address City/State/Zipcode Phone Number [facility] CBC (Hemogram only) (01/22/2019 4:24 AM CDT)Only the most recent of2 results within the time period is included. WBC 5.8 3.5 - 10.5 K/L [facility] RBC 4.25 3.93 - 5.22 M/L [facility] Hemoglobin 12.5 11.2 - 15.7 GM/DL [facility] Hematocrit 39.6 34.1 - 44.9 % [facility] MCV 93.2 79.4 - 94.8 fL [facility] MCH 29.4 25.6 - 32.2 pg [facility] MCHC 31.6 (L) 32.2 - 35.5 GM/DL [facility] RDW 12.4 11.7 - 14.4 % [facility] Platelets 290 150 - 450 K/CU MM [facility] MPV 9.9 9.4 - 12.3 fL [facility] nRBC 0 0 - 0 /100 WBC [facility] Specimen Blood Performing Organization Address City/State/Zipcode Phone Number [facility] [address] [place] [address] CENTER ECHOCARDIOGRAM REPORT - SCAN (01/21/2019 9:21 PM CDT) Narrative Performed At This result has an attachment that is no t available. 2D Echo W/Doppler(CW/PW/Color) (01/21/2019 12:02 PM CDT) Ejection Fraction [facility] ECHO HEAR TLAB [facility] Specimen Narrative Performed At Transthoracic Echocardiography Report (T TE) [facility] ECHO HEARTLAB [facility] Demographics Patient Name DIMITRY KENNEY Date of Study 01/21/2019 TACOS [id number] Gender Female Visit Number [id number] Unknown [id number] Room Number 730 Number Date of Birth2Referring Physician CANELO ARZATE Age58 year(s)In Flight Refueling System Repairer Abed Morgan AnalystIzoPhysician NARCISA Hall Procedure Type of Study TTE procedure:2DECHO W DOPPLER(CW/PW/COLOR) (Routine) Indications:Known or suspected heart abran lure. Clinical History HGB 12.3 HCT 39.1 % Contrast Medium: Definity. Amount - 2 ml Height: 63 inches Weight: 102.06 kg (225 lbs) BSA: 2.03 m^2 BMI: 39.86 kg/m^2 HR: 76 bpm BP: 115/56 mmHg Summary 1. Normal LV size and function. LVEF is > 60% 2. Diastology: Grade 1 diastolic dysfun ction 3. Normal RV size and function 4. No significant VHD 5. Unable to estimate PASP 6. No pericardial effusion Previous Study No prior exam available for comparison. Signature Findings Technical Quality: Technically difficult exam. Left Ventricle The left ventricle is chamber size (by PSLAX di mension) is normal (female - LVIDd 3.8-5 .2cm) . No rmal LV wall thickness. All of the LV se gments co ntract normally . Global LV systolic fun ction no rmal . LVEF by Norman's method of disk as sessment is normal (>60%) . The LVEF was measured us ing Norman's bi-plane method of disk . LV en docardium is incompletely visualized angelica pite IV ul trasound enhancing agent. Grade 1 diasto lic dy sfunction (impaired relaxation and low-n ormal LA pr essure). Left AtriumLA size is normal (16-34 ml/m2) . Right VentricleThe right ventricular chamber size and systolic fu nction are within normal limits. Right Atrium The RA is partially visualized. Aortic Valve Mild aortic regurgitation. Mi ld AoV cusp thickening. Mitral Valve Mild mitral annular calcification. No evidence of mitral regurgitation. Tricuspid ValveTV structure is normal. Un able to estimate peak systolic PA pressu re; in adequate TR velocity signal. Pulmonic Valve Normal PV structure and function. AortaAortic root size (SInus of Valsalva diameter) i s no rmal . PericardiumNo significant pericardial effusion is visualized. IVC/SVC/PA/PV/PleuralThe estimated RA pressure by IVC dynamics 5-10mmHg . Chambers/Structures Left Atrium LA Volume: 32.64 ml LA Area: 13.95 cm^2 LA Vol. Index: 16 ml/m^2 Left Ventricle LVIDd: 4.76 cm LV Septum Diastolic: 0.74 cm LV PW Diastolic: 0.89 cm LVEDV Norman's:91.53 ml LVESV Norman's:31.79 ml LVEF Norman's: 65.3 %LVEDV I: 45 ml/m^2 LVESVI: 16 ml/m^2 LVOT Diameter: 2 cm Right Ventricle TAPSE: 3.11 cm Aorta Ao Root S of Marielos.: 3.34 cm Doppler/Quantitative Measurements Mitral Valve MV Peak E-Wave: 0.54 m/sMV Peak A-Wave: 0.77 m/s E/A Ratio: 0. 7 Peak Gradient: 1.16 mmHg Deceleration Time: 243.1 msec MV Lisandro. Peak: Tissue Doppler E' Septal Velocity: 0.07 m/sE/E': 7.21 E' Lateral Velocity: 0.05 m/s LVOT Peak Velocity: 0.73 m/s Peak Gradient: 2.11 mmHg Mean Velocity: 0.47 m/s Mean Gradient: 1.07 mmHg LVOT Diameter: 2 cm LVOT VTI: 16.32 cm LVOT Area: 3.14 cm^2LVOT SV:51.24 ml LVOT CO: 3.89 l/min LVOT CI: 1.92 l/min/m^2 Procedure Note Interface, External Ris In - 01/21/2019 4:44 PM CDT Transthoracic Echocardiography Report (TTE) Demographics Patient Name DIMITRY KENNEY Date of Study 01/21/2019 TACOS [place] Female Visit Number [id number] Race Unknown Room Number 730 Number Date of 1960 Refe rring Physician CANELO ARZATE Age 58 year(s) Sono grapher Abed Morgan Recycle Worker Rosa M Wallis rpreting Miguel Miranda MD Procedure Type of Study TTE procedure:2DECHO W DOPPLE R(CW/PW/COLOR) (Routine) Indications:Known or suspected heart abran lure. Clinical History HGB 12.3 HCT 39.1 % Contrast Medium: Definity. Amount - 2 ml Height: 63 inches Weight: 102.06 kg (225 lbs) BSA: 2.03 m^2 BMI: 39.86 kg/m^2 HR: 76 bpm BP: 115/56 mmHg Summary 1. Normal LV size and function. LVEF is > 60% 2. Diastology: Grade 1 diastolic dysfun ction 3. Normal RV size and function 4. No significant VHD 5. Unable to estimate PASP 6. No pericardial effusion Previous Study No prior exam available for comparison. Signature Findings Technical Quality: Technically difficult exam. Left Ventricle The left ventric le is chamber size (by PSLAX dimension) is no rmal (female - LVIDd 3.8-5.2cm) . Normal LV wall t hickness. All of the LV segments contract normall y . Global LV systolic function normal . LVEF by Norman's method of disk assessment is no rmal (>60%) . The LVEF was measured using Norman's bi-plane method of disk . LV endocardium is i ncompletely visualized despite IV ultrasound enhan cing agent. Grade 1 diastolic dysfunction (imp aired relaxation and low-normal LA pressure). Left Atrium LA size is krystin l (16-34 ml/m2) . Right Ventricle The right ventri cular chamber size and systolic function are wit hin normal limits. Right Atrium The RA is partia lly visualized. Aortic Valve Mild aortic regu rgitation. Mild AoV cusp th ickening. Mitral Valve Mild mitral shamir lar calcification. No evidence of m itral regurgitation. Tricuspid Valve TV structure is normal. Unable to estima te peak systolic PA pressure; inadequate TR ve locity signal. Pulmonic Valve Normal PV struct ure and function. Aorta Aortic root size (SInus of Valsalva diameter) is normal . Pericardium No significant p ericardial effusion is visualized. IVC/SVC/PA/PV/Pleural The estimated RA pressure by IVC dynamics 5-10mmHg . Chambers/Structures Left Atrium LA Volume: 32.64 ml LA Area: 13.95 cm^2 LA Vol. Index: 16 ml/m^2 Left Ventricle LVIDd: 4.76 cm LV Septum Diastolic: 0.74 cm LV PW Diastolic: 0.89 cm LVEDV Norman's:91.53 ml LVESV Norman's:31.79 ml LVEF Norman's: 65.3 % LVEDVI: 45 ml/m^2 LVESVI: 16 ml/m^2 LVOT Diameter: 2 cm Right Ventricle TAPSE: 3.11 cm Aorta Ao Root S of Marielos.: 3.34 cm Doppler/Quantitative Measurements Mitral Valve MV Peak E-Wave: 0.54 m/s M V Peak A-Wave: 0.77 m/s E /A Ratio: 0.7 P eak Gradient: 1.16 mmHg D eceleration Time: 243.1 msec MV Lisandro. Peak: Tissue Doppler E' Septal Velocity: 0.07 m/s E /E': 7.21 E' Lateral Velocity: 0.05 m/s LVOT Peak Velocity: 0.73 m/s Pea k Gradient: 2.11 mmHg Mean Velocity: 0.47 m/s Elo n Gradient: 1.07 mmHg LVOT Diameter: 2 cm LVO T VTI: 16.32 cm LVOT Area: 3.14 cm^2 LVO T SV:51.24 ml LVOT CO: 3.89 l/min LVO T CI: 1.92 l/min/m^2 Performing Organization Address City/State/Zipcode Phone Number [facility] ECHO HEARTLAB [facility] MR abdomen without & with IV contrast (01/21/2019 11:10 AM CDT) Specimen Narrative Performed At FINAL REPORT [facility] INDICATION: Abdominal pain status post cholecystecto my. COMPARISON: Abdomen ultrasound January 20, 2019 TECHNIQUE: MR of the Abdomen WITHOUT and WITH intra venous contrast. MRCP was also performed including 3-D reconstruct ions. FINDINGS: There is free intraperitoneal fluid most ly in the left upper quadrant and low anterior abdomen. This is suspic ious for a bile leak after cholecystectomy. In the gallbladder mick a there are two adjacent 1 cm low signal structures suspicious for nick pped stones. There is no biliary ductal dilatation. The liver is normal in size, contour, an d signal. In the right hepatic lobe there is a 1.5 cm hemangiom a. Pancreas, spleen, adrenal glands are normal. In the right kidney l ower pole there is a 1 cm benign cortical cyst. There is mild left hydronephrosis and pelviectasis with the upper ureter krystin l in caliber. There is a tiny left pleural effusion. IMPRESSION: Free intraperitoneal fluid after cholecy stectomy suspicious for bile leak. Probable two dropped gallstones in the gallbladder fossa. Mild left hydronephrosis and pelviectasi s. This may represent congenital low-grade ureteropelvic junct ion obstruction. Recommend correlation with renal function tests an d follow-up renal ultrasound in two days. Signed: Larry Diaz MD Report Verified Date/Time:01/21/2019 15:55:40 Reading Location: [facility] Radiology Reading Room Procedure Note Interface, External Ris In - 01/21/2019 3:57 PM CDT FINAL REPORT INDICATION: Abdominal pain status post cholecystecto my. COMPARISON: Abdomen ultrasound January 20, 2019 TECHNIQUE: MR of the Abdomen WITHOUT and WITH intra venous contrast. MRCP was also performed including 3-D reconstruct ions. FINDINGS: There is free intraperitoneal fluid most ly in the left upper quadrant and low anterior abdomen. This is suspic ious for a bile leak after cholecystectomy. In the gallbladder mick a there are two adjacent 1 cm low signal structures suspicious for nick pped stones. There is no biliary ductal dilatation. The liver is normal in size, contour, an d signal. In the right hepatic lobe there is a 1.5 cm hemangiom a. Pancreas, spleen, adrenal glands are normal. In the right kidney l ower pole there is a 1 cm benign cortical cyst. There is mild left hydronephrosis and pelviectasis with the upper ureter krystin l in caliber. There is a tiny left pleural effusion. IMPRESSION: Free intraperitoneal fluid after cholecy stectomy suspicious for bile leak. Probable two dropped gallstones in the gallbladder fossa. Mild left hydronephrosis and pelviectasi s. This may represent congenital low-grade ureteropelvic junct ion obstruction. Recommend correlation with renal function tests an d follow-up renal ultrasound in two days. Signed: Larry Diaz MD Report Verified Date/Time: 01/21/2019 1 5:55:40 Reading Location: [facility] Radiology Reading Room Performing Organization Address City/State/Zipcode Phone Number [facility] Hepatitis A antibody, IgG (01/21/2019 3:45 AM CDT) Hep A IgG Nonreactive Nonreactive [facility] Specimen Blood Performing Organization Address City/[facility] Phone Number [address] [address] C[place] Hepatitis C antibody (01/21/2019 3:45 AM CDT) Hepatitis C Ab Nonreactive Nonreactive [facility] Specimen Blood Performing Organization Address [facility] Phone Number [address] [address] [place] Hepatitis B core antibody, total (01/21/2019 3:45 AM CDT) Hep B Core Total Ab Nonreactive Nonreactive [facility] Specimen Blood Performing Organization Address [facility] Phone Number [address] [address] C[place] Hepatitis B surface antibody (01/21/2019 3:45 AM CDT) Hep B S Ab <8.0 <8.0 mIU/mL [facility] Specimen Blood Performing Organization Address City/[facility]/Zipcode Phone Number [facility] [address] [place] [address] C[place] US abdominal with doppler (01/20/2019 2:30 PM CDT) Specimen Narrative Performed At FINAL REPORT [facility] TECHNIQUE: Grayscale ultrasound of the a bdomen with color Doppler and spectral Doppler ultrasound of the kain l/hepatic vasculature. INDICATION: ascites, looking for portal vein thrombus. COMPARISON: None. FINDINGS: LIVER: Mildly heterogeneous liver echote xture. Smooth liver contour. No focal liver lesions. HEPATIC VASCULATURE: Portal veins are pa tent with normal waveform and directionality. Flow velocity in the anh n portal vein is within normal limits. The hepatic arteries are patent with normal flow velocities, resistive indices, and wavef orms. The hepatic veins and confluence are patent. The main portal v ein measures 0.8 cm. The hepatic arterial resistive indices r geoff from 0.6-0.7, and the proper hepatic arterial acceleration mikael e is 0.05 seconds. BILIARY: Gallbladder: Surgically absent Common bile duct measures 0.3 cm, within normal limits. No intrahepatic biliary ductal dilatation. PANCREAS: Incompletely visualized due to overlying bowel gas. The partially visualized pancreatic neck and body are normal. SPLEEN: No splenomegaly. The spleen tyler ures 10.2 cm PERITONEUM: There is a trace residual as cites. KIDNEYS: Normal in size bilaterally. No hydronephrosis. No sonographically evident solid mass lesio n. Minimal right renal pelvic fullness. MIDLINE VASCULATURE: The visualized infe rior vena cava is patent. The maximum visualized aortic diameter is 1. 9 cm.Splenic artery and vein are patent. IMPRESSION: 1.No portal vein thrombosis is seen. Pro viding the prior outside hospital imaging would be helpful. 2.The mild heterogeneity of the liver ec hotexture is nonspecific but can be seen with chronic parenchymal valeria er disease. 3.Minimal right renal pelvic fullness. Signed: Stephen Jeffries MD Report Verified Date/Time:01/20/2019 15:14:32 Reading Location: [address] Radiolog y Reading Room Procedure Note Interface, External Ris In - 01/20/2019 3:16 PM CDT FINAL REPORT TECHNIQUE: Grayscale ultrasound of the a bdomen with color Doppler and spectral Doppler ultrasound of the kain l/hepatic vasculature. INDICATION: ascites, looking for portal vein thrombus. COMPARISON: None. FINDINGS: LIVER: Mildly heterogeneous liver echote xture. Smooth liver contour. No focal liver lesions. HEPATIC VASCULATURE: Portal veins are pa tent with normal waveform and directionality. Flow velocity in the anh n portal vein is within normal limits. The hepatic arteries are patent with normal flow velocities, resistive indices, and wavef orms. The hepatic veins and confluence are patent. The main portal v ein measures 0.8 cm. The hepatic arterial resistive indices r geoff from 0.6-0.7, and the proper hepatic arterial acceleration mikael e is 0.05 seconds. BILIARY: Gallbladder: Surgically absent Common bile duct measures 0.3 cm, within normal limits. No intrahepatic biliary ductal dilatation. PANCREAS: Incompletely visualized due to overlying bowel gas. The partially visualized pancreatic neck and body are normal. SPLEEN: No splenomegaly. The spleen tyler ures 10.2 cm PERITONEUM: There is a trace residual as cites. KIDNEYS: Normal in size bilaterally. No hydronephrosis. No sonographically evident solid mass lesio n. Minimal right renal pelvic fullness. MIDLINE VASCULATURE: The visualized infe rior vena cava is patent. The maximum visualized aortic diameter is 1. 9 cm. Splenic artery and vein are patent. IMPRESSION: 1.No portal vein thrombosis is seen. Pro viding the prior outside hospital imaging would be helpful. 2.The mild heterogeneity of the liver ec hotexture is nonspecific but can be seen with chronic parenchymal valeria er disease. 3.Minimal right renal pelvic fullness. Signed: Stephen Jeffries MD Report Verified Date/Time: 01/20/2019 1 5:14:32 Reading Location: [address] Radiolog y Reading Room Performing Organization Address City/State/Zipcode Phone Number [facility] Albumin, body fluid (01/20/2019 12:56 PM CDT) Albumin, Fluid 2.7 gm/dL [facility] Specimen Body Fluid Narrative Performed At Reference Range:No Normals [facility] Assay performance has not been validated for this type of specimen. Performing Organization Address City/State/[facility] Phone Number [facility] [address] [place] [address] [place] Ascitic fluid bilirubin (01/20/2019 12:47 PM CDT) Scan Result [facility] Specimen Body Fluid Narrative Performed At This result has an attachment that is no t available. Performing Organization Address City/State/Zipcode Phone Number [facility] [address] [facility] [place], [place] Urinalysis Microscopic Only (01/20/2019 6:32 AM CDT) RBC, UA 12 /HPF [facility] WBC, UA 12 /HPF [facility] Bacteria, UA Occasional [facility] Mucus Occasional [facility] Squam Epithel, UA 3 /HPF [facility] Specimen Urine Performing Organization Address City/State/Zipcode Phone Number [facility] [address] [place] [address] [place] Urinalysis with Microscopic If Indicated (01/20/2019 6:32 AM CDT) Color, UA Yellow [facility] Clarity, UA Clear [facility] Specific [place], UA >1.050 (H) 1.001 - 1.035 [facility] pH, UA 5.5 5.0 - 8.0 [facility] Protein, UA 20 mg/dL (A) Negative [facility] Glucose, UA Negative Negative [facility] Ketones, UA 10 mg/dL (A) Negative [facility] Bilirubin, UA Negative Negative [facility] Blood, UA Moderate (A) Negative [facility] Nitrite, UA Negative Negative [facility] Leukocytes, UA Negative Negative [facility] Urobilinogen, UA 0.2 0.2 - 1.0 mg/dL [facility] Specimen Source [facility] Specimen Urine Performing Organization Address City/[facility]/Zipcode Phone Number [address] [address] [place] Urine Protein Electrophoresis, random (01/20/2019 6:32 AM CDT) Protein, Urine 32 (H) 0 - 14 mg/dL [facility] Albumin %, Urine 22.7 % [facility] Globulin %, Urine 77.3 % [facility] UPEP,ID No monoclonal bands [facility] detected. MEDICAL CENTER Pathologist: Leslee Cosme MD [facility] (electronic signature) [facility] Specimen Urine Performing Organization Address City/[facility]/Zipcode Phone Number [address] [address] [place] Creatinine, random urine (01/20/2019 6:32 AM CDT) Creatinine, Ur 211.5 mg/dL [facility] Specimen Urine Narrative Performed At Reference Range: No Normals [facility] Performing Organization Address City/[facility]/Zipcode Phone Number [address] [address] [place] TSH/Free T4 If Indicated (01/20/2019 4:15 AM CDT) TSH 3.09 0.35 - 4.94 uIU/mL [facility] Specimen Blood Performing Organization Address City/State/Zipcode Phone Number [address] [address] CENTER after 12/27/2018 Insurance Payer Benefit Plan / Subscriber ID Type Phone Address Group [employer]UE [employer]OSS/BLUE BCBS PPO POS EPO xxxxxxxxxxxx PPO [phone] [address] [place] [address] CDC REVIEW CDC REVIEW xxxxxxxx [place] [address] Advance Directives For more information, please contact:[place] [id number] Jesus [place], [place] [phone] Code Status Date Activated Date Inactivated Comments DNAR 12/26/2019 1:11 PM This code status was determined by: Patient Has the consent form been signed? No Have you Written ACP Note: Yes Full Code 12/24/2019 6:24 AM 12/26/2019 1:11 PM This code status was determined by: Patient DNAR 11/01/2019 5:49 AM 11/06/2019 3:00 PM This code status was determined by: Patient Has the consent form been signed? Yes Have you Written ACP Note: Yes DNAR 11/01/2019 4:31 AM 11/01/2019 5:49 AM This code status was determined by: Patient Has the consent form been signed? No Have you Written ACP Note: No Full Code 04/12/2019 12:45 PM 05/02/2019 10:15 PM This code status was determined by: Patient
--- OUTSIDE RECORDS SUMMARY | 2019-12-28 22:13 | XMS REPORT | Summary of Care ---
:1960 Author Organization [facility] - Health Address [address] [place] [address] Care Team Providers Name Role Phone Asa Mccray Primary Care Provider Encounter Details Date Type Department Care Team Description 11/01/2019 Orders Only [facility] Doctor Unassigned, No [address] [facility] Name [place] [id number] [place] [id number] Allergies No Known Allergiesdocumented as of this encounter (statuses as of 11/01/2019) Medications Medication Sig Dispensed Refills Start Date End Date Status acetaminophen-codeine TK ONE TO TWO 0 02/01/2019 Active 300-30 mg tablet TS PO Q 6 H PRN P STOOL SOFTENER, DOCUSATE 0 02/01/2019 Active LIDIA, 240 mg capsule fluconazole 150 mg tablet TK 1 T PO QD 0 01/28/2019 Active furosemide 40 mg tablet TK 1 T PO D PRN 0 01/25/2019 Active levothyroxine 88 mcg Take 88 mcg by 0 Active tablet mouth. spironolactone 25 mg TK 1 T PO D WF 0 01/25/2019 Active tablet PRN tamsulosin 0.4 mg 24 hr TK 1 C PO QD 0 02/01/2019 Active capsule FOR 21 DAYS documented as of this encounter (statuses as of 11/01/2019) Active Problems Problem Noted Date Atypical glandular cells on cervical Pap smear 020 Postmenopausal bleeding 04/01/2019 Pelvic mass 04/01/2019 Overview: 03/07/19 - A pelvic US revealed the following: Uterus is enlarged, measures approximate ly 10.3 x 5.7 x 5.6 cm in size with heterogeneous myometrial texture with at least one intramural, partially calcified fibroid of 3.9 cm size noted i n the anterior wall of the fundus of the uterus. Small nabothian cysts are seen in the cervix, the largest is 16 mm. Endometrial echo complex was very diffic ult to visualize, measuring approximately 10 mm in thickness. No chris e fluid in the cul-de-sac. Normal right ovary is not visualized. A very large multiseptated cystic mass is seen in the right side of the pe lvis, 17.3 x 22.8 x 10.3 cm in size. Left ovary is not visualized. CONCLUSIONS: 1. Enlarged uterus with single 3.9 cm si ze intramural/submucosal fibroid in the anterior wall of the fundus. 2. Very large multi septated cystic mass in the right side of the pelvis, likely arising from the right ovary. Mas s does not show any worrisome solid elements and could be a benign serous cy stadenoma. Morbid obesity with body mass index of 40.0-49.9 03/04 documented as of this encounter (statuses as of 11/01/2019) Social History Tobacco Use Types Packs/Day Years Used Date Never Smoker Smokeless Tobacco: Never Used Alcohol Use Drinks/Week oz/Week Comments Not Currently Sex Assigned at Date Recorded Not on file documented as of this encounter Last Filed Vital Signs Not on filedocumented in this encounter Plan of Treatment Health Maintenance Due Date Last Done Comments HEPATITIS C (HCV) SCREEN 1960 Depression Screening 1973 DTaP,Tdap,and Td Vaccines (1 - 1980 Tdap) PAP SMEAR 1982 Breast Cancer Screening (MAMMOGRAM) 2001 COLON CANCER SCREENING ANNUAL 2011 FIT/FOBT COLON CANCER SCREENING FIT DNA 2011 EVERY 3 YEARS COLON CANCER SCREENING 2011 SIGMOIDOSCOPY EVERY 5 YEARS COLONOSCOPY 2011 Colorectal Cancer Screening 2011 Zoster Recombinant Vaccine 2011 (SHINGRIX) (1 of 2) INFLUENZA VACCINE (#1) 2019 PNEUMOCOCCAL 0-64 YEARS COMBINED Aged Out No longer eligible based on SERIES patient's age to complete this topic documented as of this encounter Procedures Procedure Name Priority Date/Time Associated Diagnosis Comme nts EXTERNAL PROVIDER Routine 11/01/2019 12:01 AM CDT RECORDS documented in this encounter Results Not on filedocumented in this encounter Insurance Payer Benefit Plan Subscriber ID Effective Dates Phone Address Type / Group [employer] [place] [id number] 2018-Nelda [phone] [address] PPO/POS [place] t [id number] [place] [address] documented as of this encounter
--- OUTSIDE RECORDS SUMMARY | 2019-12-28 22:13 | XMS REPORT | Summary of Care ---
:1960 Author Organization [facility] Address [address] [place] [address] Care Team Providers Name Role Phone Asa Mccray Primary Care Provider Reason for Visit Reason Comments Medical Records [facility] 09/26/2019 Encounter Details Date Type Department Care Team Description 09/29/2019 Case Management [facility] [address] [place] [address] [address], [facility] [address] [address] [place], [place] [phone] Allergies No Known Allergiesdocumented as of this encounter (statuses as of 09/29/2019) Medications Medication Sig Dispensed Refills Start Date [...] as of this encounter (statuses as of 09/29/2019) Active Problems Problem Noted Date Atypical glandular [...] as of this encounter (statuses as of 09/29/2019) Social History Tobacco Use Types Packs/Day Years Used Date Never Smoker Smokeless Tobacco: Never Used Alcohol Use Drinks/Week oz/Week Comments Not Currently Sex Assigned at Date Recorded Not on file Job Start Date Occupation Industry Not on file Not on file Not on file Travel History Travel Start Travel End No recent travel history available. documented as of this encounter Last Filed Vital Signs Not on filedocumented in this encounter Progress Notes Memo Serrano - 09/29/2019 8:38 AM CDTRecords received from [facility] / dr Cole Albright MD Placed on provider desk for signature and review. documented in this encounter Plan of Treatment Health Maintenance Due Date Last Done Comments HEPATITIS C (HCV) SCREEN 1960 DTaP,Tdap,and Td Vaccines (1 - 1972 Tdap) Depression Screening 1973 PAP SMEAR 1982 Breast Cancer Screening 2001 (MAMMOGRAM) COLONOSCOPY 2011 Zoster Recombinant Vaccine 2011 (SHINGRIX) (1 of 2) INFLUENZA VACCINE (#1) 2019 PNEUMOCOCCAL 0-64 YEARS COMBINED Aged Out No longer eligible based on SERIES patient's age to complete this topic documented as of this encounter Results Not on filedocumented in this encounter Insurance Payer Benefit Plan Subscriber ID Effective Dates Phone Address Type / Group [place] [id number] 2018-Nelda [phone] [address] PPO/POS [place] t [id number] [place] [address] documented as of this encounter
--- OUTSIDE RECORDS SUMMARY | 2019-12-28 22:13 | XMS REPORT | Continuity of Care Document ---
:1960 Author Organization [facility] t Address [address] [place] [address] Care Team Providers Name Role Phone SAUL Primary Care Physician Unavailable SYSTEM, NOT IN Attending Clinician Unavailable Dulce GARCIA Attending Clinician Unavailable Pepe BREWSTER, Ángel Attending Clinician Yanet BREWSTER Attending Clinician Kurt BREWSTER, Ochoa Attending Clinician Tere ROMAN Attending Clinician Unavailable Tere Roman MD Attending Clinician Shazia Jarvis MD Attending Clinician [phone] Nupur Gimenez MD Attending Clinician Yuliana Giordano MD Attending Clinician Kapil Albright MD Attending Clinician 1Lindsey Ca Room Attending Clinician Unavailable Doctor Unassigned, Name Attending Clinician Unavailable Saul BREWSTER Attending Clinician SAUL Attending Clinician Unavailable Tonny Arreola RPH Attending Clinician Mackenzie PIZANO Attending Clinician Gianna HOPE Attending Clinician KAPIL ALBRIGHT Attending Clinician Unavailable Ray LOPEZ, N Attending Clinician STEVIE WRIGHT Attending Clinician Unavailable Stevie Wright MD Attending Clinician Rj BREWSTER Attending Clinician Hilda Corrales MD Attending Clinician Art Quiroz MD Attending Clinician Dulce Garcia MD Attending Clinician Thelma Tsang MD Attending Clinician Miguel MONTGOMERY Attending Clinician Unavailable Greta BREWSTER Attending Clinician Robb HOPE Attending Clinician Unavailable Dulce SARMIENTO Attending Clinician Unavailable Guillermina HOPE, Dulce Attending Clinician Unavailable Maite BREWSTER Attending Clinician Unavailable Ángel Holden MD Attending Clinician Bridget Triplett Attending Clinician ÁNGEL HOLDEN Attending Clinician Unavailable ÁNGEL FLOYD Attending Clinician Unavailable Ángel Floyd MD Attending Clinician Tonny BREWSTER Attending Clinician Carmina Attending Clinician Unavailable Tere ROMAN Admitting Clinician Unavailable KAPIL ALBRIGHT Admitting Clinician Unavailable RJ Admitting Clinician Unavailable SHAZIA JARVIS Admitting Clinician Unavailable TONNY Admitting Clinician Unavailable Payers Payer Name Policy Type Policy Number Effective Date Expiration Source Date [place] POS [id number] 2018 00:00:00 BLUE CROSS/BLUE xxxxxxxxxxxx [facility] SHIELDBCBS P[facility] POS [facility] EPO Medical CHOICExxxxxxxxxxxxPPO [facility] [phone] [place] [id number], [place] [address] CDC REVIEWCDC xxxxxxxx [facility] REVIEWxxxxxxxxPO [facility] [id number] Center Problems Condition Condition Condition Status Onset Resolution Last Treating Co mments Source Name Details Category Date Date Treatment Clinician Date Anemia Anemia Disease Active 2019-[address] [facility] Center Thrombocyt Thrombocyt Disease Active 2019-[address] openia openia 0-04 [facility] Center Hypokalemi Hypokalemi Disease Active 2019- [facility] a [facility] Chronic Chronic Disease Active 2019- [facility] anticoagul anticoagul 0-04 Shaneka kes - ation ation 00:00: Medical 00 Center Ureteral Ureteral Disease Active 2019-03 [facility] with stone with 0-03 Shaneka kes - hydronephr hydronephr 00:00: Me dical osis osis 00 Center Malignant Malignant Disease Active 2019- neoplasm neoplasm 9-21 Shiva o of of 00:00: n endometriu endometriu 00 m m Fever Fever Disease Active [facility] Center Sepsis Sepsis Disease Active [facility] Center Acute Acute Disease Active 2019- [facility] cystitis cystitis 8-11 [facility] - without without 00:00: Medical hematuria hematuria 00 Cent er Malignant Malignant Disease Active 2019- [facility] neoplasm neoplasm 1-29 [facility] - of uterus, of uterus, 00:00: Me dical unspecifie unspecifie 00 Ce nter d site d site Malignant Malignant Disease Active 2019- [facility] neoplasm neoplasm 1-28 [facility] - of of 00:00: Medical endometriu endometriu 00 Ce nter m m Vomiting Vomiting Disease Active 2019- [facility] and and 1-21 [facility] - diarrhea diarrhea 00:00: Medica l 00 Center Ascites Ascites Disease Active 2018-[address] [facility] [facility] - 00:[facility]: Medical 00 Center Allergies, Adverse Reactions, Alerts Allergy Allergy Status Severity Reaction(s) Onset Inactive Treating Comm ents Source Name Type Date Date Clinician No Known DA Active [facility] Allergie 2-10 [facility] 00:[facility]: [facility] [address] [facility] [address] Family History Family Member Diagnosis Comments Start Date Stop Date Source Natural father Brain cancer MD James son Maternal aunt Cancer MD Marroquin Social History Social Habit Start Date Stop Date Quantity Comments Source Exposure to Not sure MD Marroquin SARS-CoV-2 (event) History SDOH [facility] - [facility] Std Drinks Medica l Center History [facility] - Alcohol Binge Medical [facility] Sex Assigned At [facility] Tobacco use and 2019-10-24 2019-10-24 Never used MD Shannon on exposure 00:00:00 00:00:00 Alcohol intake 2019-10-24 2019-10-24 Ex-drinker MD Jose Enrique rivera 00:00:00 00:00:00 (finding) History SDRI 2019-01-20 2019-01-[address] [facility] - Alcohol Frequency 00:00:00 00:00:00 Medical Center Smoking Status Start Date Stop Date Source Never smoker [facility] Medications Ordered Filled Start Stop Current Ordering Indication Dosage Frequency Signature Comments Components Source Medication Medication Date Date Medication? Clinician (SIG) Name Name ciprofloxac 2019-03- No 500mg Q.5D Take [address] in HCl 0-06 10-06 mg by [facility] - (CIPRO) 500 12:30: 00:00 mouth 2 Me dical MG tablet 37 :00 (two) Center times daily. nitrofurant 2019-03 2020- Yes 100mg Q.5D Take [address] oin, 0-06 10-16 capsule [facility] - macrocrysta 00:00: 23:59 (100 mg Me dical l-monohydra 00 :00 total) by Garrett ter te, mouth 2 (MACROBID) (two) 100 MG times capsule daily for 10 days. metoclopram 2019-03 Yes prevent 5mg Take [address] tiffany 0-03 nausea and by mouth 4 Neeru es - (REGLAN) 5 20:36: vomiting (four) M edical MG tablet 11 from cancer times Ce nter chemotherap daily as y needed. sodium 2020- No [facility] chloride 12-13 [facility] - 0.9% (NS) 08:45: 10:20 Medical infusion 00 :00 Center diphenhydrA 2019- No 25mg [facility] MINE 12-13 [facility] - (BENADRYL) 08:45: 08:32 Medica l injection 00 :00 Center 25 mg acetaminoph 2019- No [facility]mg [facility] en 12-13 [facility] - (TYLENOL) 08:45: 08:32 Medical tablet 650 00 :00 Center mg apixaban 2020-0 Yes 5mg Take 5 mg MD (Eliquis) 5 - by mouth Blaine rso mg tablet 19:21: twice n 25 daily. UNABLE TO 2020-0 Yes Med Name: MD FIND - THC Anderso 19:21: gummies n 25 0.5 at night apixaban 2020-0 Yes 5mg Q.5D Take [address] (ELIQUIS) 5 11-05 tablet (5 Neeru es - mg Tab 00:00: mg total) Medica l tablet 00 by mouth 2 Center (two) times daily. ferrous 2019-2020- Yes 325mg QD Take [address] sulfate 325 11-05 tablet [facility] - (65 FE) MG 00:00: 23:59 (325 mg Med ical tablet 00 :00 total) by Center mouth daily. lidocaine 2019- 2020- No 1{patch Q24H Place [address] (LIDODERM) 11-05 } patch onto Shaneka gage - 5 % patch 00:00: 23:59 the skin Med ical 00 :00 daily for Center 15 days Remove & Discard patch within 12 hours or as directed by . cyclobenzap 2019- 2020- No 10mg Take [address] [facility] rine 11-05 tablet (10 [facility] - (FLEXERIL) 00:00: 23:59 mg total) M edical 10 MG 00 :00 by mouth 2 Center tablet (two) times daily as needed for Muscle spasms (back spasms) for up to 10 days. nitrofurant 2019- 2020- No 100mg Take [address] oin, 11-05 capsule [facility] - macrocrysta 00:00: 23:59 (100 mg Me dical l-monohydra 00 :00 total) by Garrett ter te, mouth (MACROBID) every 12 100 MG (twelve) capsule hours for 7 days. HYDROcodone 2019-0 2020- No 1{tbl} Take [address] -acetaminop 11-05 tablet by Shaneka park (NORCO 00:00: 23:59 mouth Medic al 10-325) 00 :00 every 6 Center 10-325 mg (six) per tablet hours as needed for up to 3 days. Max Daily Amount: 4 tablets cyclobenzap 2020-0 2020- No 10mg Take [address] [facility] rine 11-05 tablet (10 [facility] - (FLEXERIL) 00:00: 00:00 mg total) M edical 10 MG 00 :00 by mouth 2 Center tablet (two) times daily as needed for Muscle spasms (back spasms) for up to 10 days. ferrous 2020-0 2020- No 325mg QD Take [address] sulfate 325 11-05 tablet [facility] - (65 FE) MG 00:00: 00:00 (325 mg Med ical tablet 00 :00 total) by Center mouth daily. lidocaine 2020-0 2020- No 1{patch Q24H Place [address] (LIDODERM) 11-05 } patch onto Shaneka kes - 5 % patch 00:00: 00:00 the skin Med ical 00 :00 daily for Center 15 days Remove & Discard patch within 12 hours or as directed by MD. nitrofurant 2020-0 2020- No 100mg Take [address] oin, 11-05 capsule [facility] - macrocrysta 00:00: 00:00 (100 mg Me dical l-monohydra 00 :00 total) by Garrett olson te, mouth (MACROBID) every 12 100 MG (twelve) capsule hours for 7 days. LevoxyL 88 2020-0 Yes daily. MD mcg tablet 7- Anderso 00:00: n 00 ondansetron 2020-0 Yes as needed. (ZOWILMER) 8 5- Anderso mg tablet 00:00: n 00 apixaban 2020-0 Yes 5mg Q.5D Take [address] (ELIQUIS) 5 3-20 by mouth 2 Shaneka kes - mg Tab 10:39: (two) Medical tablet 35 times Center daily. HYDROcodone 2020-0 Yes 1{tbl} Take [address] -acetaminop 3-20 tablet by [place] park (NORCO 10:39: mouth Medica l 7.5-325) 35 every 6 Center 7.5-325 mg (six) per tablet hours as needed for Pain. zolpidem 2020-0 Yes 5mg Take [address] (AMBIEN) 5 3-20 by mouth [facility] - MG tablet 10:39: every Medical 35 night as Center needed for Insomnia. lactulose 2019- Yes as needed. (CHRONULAC) 3-03 Jose Enrique 10 gram/15 00:00: n mL solution 00 Continue 2019- No Per [facility] current 2- 10- Parenteral [facility] - parenteral 00:00: 00:00 nutrition M edical nutrition 00 :00 formulatio Cent er IV infusion n. promethazin Yes as needed. MD moses 2- Jose Enrique (PHENERGAN) 00:00: n 12.5 mg 00 tablet ondansetron Yes 8mg Inject [address] (ZOFRAN) 4 2-07 mLs (8 mg Luke s - mg/2 mL 00:00: total) Medical injection 00 intravenou Cent er sly every 8 (eight) hours. potassium No 20meq Take 20 MD chloride 2- 02-07 mEq by Anderso (K-DUR,KLOR 00:00: 05:59 mouth n -CON M) 20 00 :00 daily. mEq tablet furosemide No 40mg Q.5D Take [address] (LASIX) 40 2- 02-06 tablet (40 Shaneka kes - MG tablet 00:00: 23:59 mg total) Me dical 00 :00 by mouth 2 Center (two) times daily. potassium No 20meq Q.5D Take [address] chloride SA 2- 02-06 tablet (20 L ukes - (K-DUR,KLOR 00:00: 23:59 mEq total) Medical -CON) 20 00 :00 by mouth 2 Cente r MEQ tablet (two) times daily. HYDROmorpho 2019- No 1mg Inject [address] ne 2- 10-06 mL (1 mg [facility] - (DILAUDID) 00:00: 00:00 total) Medi monie injection 1 00 :00 intravenou Ce nter mg/mL sly every 3 (three) hours as needed. Max Daily Amount: 8 mg metoclopram 2019- No Other 10mg Inject [address] tiffany HCl 2- 10-06 ascites mLs (10 mg Shaneka kes - (REGLAN) 5 00:00: 00:00 total) Medi monie mg/mL 00 :00 intravenou Center injection sly every 6 (six) hours as needed (Hypersens itivity reaction.) . zolpidem No 5mg Take [address] (AMBIEN) 5 04-29 03-08 tablet (5 Neeru es - MG tablet 00:00: 23:59 mg total) Me dical 00 :00 by mouth Center every night as needed for Insomnia for up to 30 days. Max Daily Amount: 5 mg HYDROcodone No 1{tbl} Take [address] -acetaminop 04-29 tablet by Shaneka park (NORCO 00:00: 23:59 mouth Medic al 5-325) 00 :00 every 6 Center 5-325 mg (six) per tablet hours as needed for up to 10 days. Max Daily Amount: 4 tablets promethazin No 12.5mg Take [address] e 04-2914 tablet Sami - (PHENERGAN) 00:00: 23:59 (12.5 mg M edical 12.5 MG 00 :00 total) by Center tablet mouth every 6 (six) hours as needed for up to 7 days. furosemide 2018-03 No 40mg Take 40 mg MD (LASIX) 40 03-27 by mouth Blaine rso mg tablet 00:00: 05:59 daily. n 00 :00 levothyroxi 2018-03 Yes 88ug Take [address] [facility] ne 0-31 mcg by Sami - (SYNTHROID, 02:52: mouth Medic al LEVOTHROID) 08 Every Center 88 MCG morning on tablet an empty stomach. Vital Signs Vital Name Observation Time Observation Value Comments Source HEIGHT 2019-10-24 10:36:00 159 cm WEIGHT 2019-10-24 10:36:00 88.9 kg HEIGHT 2019-10-24 10:36:00 159 cm WEIGHT 2019-10-24 10:36:00 88.9 kg Systolic blood 2019-12-28 19:18:00 108 mm[Hg] [facility] Diastolic blood 2019-12-28 19:18:00 55 mm[Hg] [facility] Heart rate 2019-12-28 19:18:00 94 /min [facility] Body temperature 2019-12-28 19:18:00 36.44 Glenna [facility] Respiratory rate 2019-12-28 19:18:00 18 /min [facility] Oxygen saturation in 2019-12-28 19:18:00 94 /min [facility] - Arterial blood by Medical Ce nter Pulse oximetry Body height 2019-12-24 05:36:00 160 cm [facility] Body weight Measured 2019-12-24 05:36:00 90.719 kg [facility] BMI 2019-12-24 05:36:00 35.43 kg/m2 [facility] Body weight 2019-12-12 19:25:00 89.8 kg MD Jacob garcía BMI 2019-12-12 19:25:00 35.52 kg/m2 MD Jacob garcía Systolic blood 2019-12-12 19:24:09 107 mm[Hg] pressure Diastolic blood 2019-12-12 19:24:09 66 mm[Hg] MD Lopez derson pressure Heart rate 2019-12-12 19:24:09 57 /min MD Jacob garcía Body temperature 2019-12-12 19:24:09 36.11 Glenna MD Carlyle gaonarson Respiratory rate 2019-12-12 19:24:09 18 /min MD Tadeo nderson Oxygen saturation in 2019-12-12 19:24:09 97 /min MD Marroquin Arterial blood by Pulse oximetry Body height 2019-10-24 15:36:00 159 cm MD Jacob garcía Procedures Procedure Date / Time Performing Clinician Source Performed [place] FLU[place] NON-SPECIFIC UP 2019-12-28 15:15:[address] [facility] - TO 1 HOUR [facility] CYSTOSCOPY,URETEROSCOPY W/ 2019-12-28 13:30:[address] [facility] LASER LITHOTRIPSY [facility] GRAM STAIN 2019-12-27 22:56:00 Moshe Rivers [facility] URINALYSIS W/ REFLEX URINE 2019-12-27 22:56:00 Moshe Rivers [facility] BASIC METABOLIC PANEL (7) 2019-12-26 13:10:00 Juan Jose Gimenez [facility] CBC W/PLT COUNT & AUTO 2019-12-26 13:10:00 Juan Jose Gimenez [facility] VANCOMYCIN LEVEL, TROUGH 2019-12-26 02:53:00 Heri Do [facility] COMPREHENSIVE METABOLIC 2019-12-25 05:07:00 Indy Cruz [facility] - PANEL [facility] LACTIC ACID, VENOUS 2019-12-25 05:07:00 СергейicherJudith haile [facility] CBC W/PLT COUNT & AUTO 2019-12-25 05:07:[address] [facility] DIFFERENTIAL [facility] URINE CULTURE 2019-12-25 00:35:00 Indy Cruz [facility] URINALYSIS W/ REFLEX URINE 2019-12-25 00:35:00 Indy Cruz [facility] - CULTURE [facility] [place] FLU[place] NON-SPECIFIC UP 2019-12-24 13:00:00 Manny Holt I [facility] - TO 1 HOUR [facility] ANAEROBIC CULTURE 2019-12-24 12:48:58 Count Includes [facility] FUNGUS CULTURE + SMEAR 2019-12-24 12:48:58 Count Includes [facility] SURGICALLY OBTAINED CULTURE 2019-12-24 12:48:58 Count Includes [facility] - + GRAM STAIN [facility] CYSTOSCOPY,INSERTION 2019-12-24 11:30:00 Yanet [facility] URETERAL STENTS [facility] SARS-COV2/RT-PCR ([facility] 2019-12-24 11:10:00 Pankaj Hammond [facility] - REF LABS) [facility] BASIC METABOLIC PANEL (7) 2019-12-24 11:02:00 Evelina Roman [facility] HEPATIC FUNCTION PANEL 2019-12-24 11:02:00 Evelina Roman [facility] PROTHROMBIN TIME/INR 2019-12-24 11:02:00 Evelina Roman [facility] CBC W/PLT COUNT & AUTO 2019-12-24 11:02:00 Evelina Roman [facility] CT ABDOMEN/PELVIS WITH IV 2019-12-22 17:04:[address] [facility] CT CHEST WITH IV CONTRAST 2019-12-22 17:04:00 [facility] TRANSFUSION SERVICE REPORT 2019-12-16 18:04:58 Provider, [facility] PREPARE LEUKO-REDUCED RBC 2019-12-15 23:54:00 [facility] TRANSFUSION SERVICE REPORT 2019-12-14 18:05:28 Provider, [facility] TRANSFUSE LEUKO-REDUCED RED 2019-12-14 12:59:03 [facility] - BLOOD CELLS [facility] TRANSFUSION SERVICE REPORT 2019-12-13 18:34:25 Provider, [facility] PREPARE LEUKO-REDUCED RBC 2019-12-13 11:25:00 [facility] TYPE AND SCREEN, AUTOMATED 2019-12-12 10:41:00 Cole Albright [facility] US PARACENTESIS 2019-12-05 09:18:00 [facility]/INR 2019-12-05 07:15:00 [facility] APTT 2019-12-05 07:15:00 [facility] CBC W/PLT COUNT & AUTO 2019-12-05 07:15:00 Sarah Reyes [facility] (CELLAVISION MANUAL DIFF) 2019-12-05 07:15:[address] [facility] COMPREHENSIVE METABOLIC 2019-11-06 05:17:00 Rudy Quiroz [facility] CBC W/PLT COUNT & AUTO 2019-11-06 05:17:00 Rudy Quiroz [facility] (MANUAL DIFFERENTIAL) 2019-11-06 05:17:00 Rudy Quiroz [facility] TRANSFUSION SERVICE REPORT 2019-11-05 18:02:[facility] METABOLIC 2019-11-05 10:50:00 Gabriella Rudy Cordova [facility] CBC W/PLT COUNT & AUTO 2019-11-05 10:50:00 GabriellaRudy [facility] (CELLAVISION MANUAL DIFF) 2019-11-05 10:50:00 GabriellaRudy [facility] BLOOD CULTURE 2019-11-05 05:13:00 Gabriella Rudy [facility] BLOOD CULTURE 2019-11-05 04:56:00 [facility] PREPARE LEUKO-REDUCED RBC 2019-11-04 23:54:00 Gabriella [facility] TRANSFUSION SERVICE REPORT 2019-11-04 18:03:20 Provider [facility] BASIC METABOLIC PANEL (7) 2019-11-04 04:26:00 Xavier Quevedo [facility] CBC W/PLT COUNT & AUTO 2019-11-04 04:26:00 Xavier Quevedo [facility] (MANUAL DIFFERENTIAL) 2019-11-04 04:26:00 GabriellaRudy Molly [facility] PREPARE LEUKO-REDUCED RBC 2019-11-03 23:54:00 Gabriella Rudy [facility] TRANSFUSION SERVICE REPORT 2019-11-03 18:04:26 Provider, [facility] CBC W/PLT COUNT & AUTO 2019-11-03 17:59:00 Gabriella [facility] (CELLAVISION MANUAL DIFF) 2019-11-03 17:59:00 Gabriella Rudy [facility] TRANSFUSE LEUKO-REDUCED RED 2019-11-03 16:31:21 Gabriella [facility] VANCOMYCIN LEVEL, TROUGH 2019-11-03 05:10:00 Lukasz Daugherty [facility] BASIC METABOLIC PANEL (7) 2019-11-03 05:10:00 Xavier Quevedo [facility] CBC W/PLT COUNT & AUTO 2019-11-03 05:10:00 Xavier Quevedo [facility] DIFFERENTIAL [facility] (CELLAVISION MANUAL DIFF) 2019-11-03 05:10:00 Xavier Quevedo [facility] HEMOGLOBIN AND HEMATOCRIT 2019-11-02 22:26:00 Rudy Quiroz [facility] TRANSFUSE LEUKO-REDUCED RED 2019-11-02 22:12:43 Rudy Quiroz [facility] BLOOD CELLS [facility] TRANSFUSION SERVICE REPORT 2019-11-02 18:03:58 Antwon Chinchilla [facility] - SCAN Scanning [facility] BLOOD CULTURE 2019-11-02 13:59:00 Rudy Quiroz [facility] BLOOD CULTURE 2019-11-02 13:43:00 Rudy Quiroz [facility] US RENAL COMPLETE 2019-11-02 10:40:00 Liv Corrales [facility] BASIC METABOLIC PANEL (7) 2019-11-02 05:31:00 Xavier Quevedo [facility] IRON, TIBC, % SAT. (WITHOUT 2019-11-02 05:31:00 Liv Corrales [facility] FERRITIN) [facility] FERRITIN 2019-11-02 05:31:00 Liv Corrales [facility] VITAMIN B12 AND FOLATE 2019-11-02 05:31:00 Liv Corrales [facility] TSH 2019-11-02 05:31:00 Rudy Quiroz [facility] CBC W/PLT COUNT & AUTO 2019-11-02 05:31:00 Xavier Quevedo [facility] DIFFERENTIAL [facility] ABORH, MANUAL 2019-11-01 13:44:00 Miranda Weaver [facility] LACTIC ACID, VENOUS 2019-11-01 08:04:[address] [facility] TYPE AND SCREEN, AUTOMATED 2019-11-01 08:04:00 Molly De La Rosa [facility] XR CHEST 2 VIEWS 2019-11-01 07:20:[address] [facility] BLOOD CULTURE 2019-11-01 04:22:00 Aris Wright [facility] SARS-COV2/RT-PCR ([facility] & 2019-11-01 04:22:00 Aris Wright [facility] REF LABS) [facility] URINE CULTURE 2019-11-01 04:22:00 Aris Wright [facility] URINALYSIS W/ REFLEX URINE 2019-11-01 04:22:00 Aris Wright [facility] BLOOD CULTURE 2019-11-01 01:21:00 Aris Wright [facility] BLOOD CULTURE 2019-11-01 01:21:00 Aris Wright [facility] ter LACTIC ACID, VENOUS 2019-11-01 01:20:00 Aris Wright [facility] COMPREHENSIVE METABOLIC 2019-11-01 01:20:00 Aris Wright [facility] PROTHROMBIN TIME/INR 2019-11-01 01:20:00 Aris Wright [facility] TROPONIN I 2019-11-01 01:20:00 Xavier Quevedo [facility] CBC W/PLT COUNT & AUTO 2019-11-01 01:20:00 Aris Wright [facility] CT CHEST ABDOMEN PELVIS W 2019-10-24 22:15:09 Morgan Radford MD CONTRAST HEMOGLOBIN A1C 2019-10-24 19:25:00 Morgan Radford MD And erson GLUCOSE, RANDOM 2019-10-24 19:25:00 Morgan Radford MD And erson BLOOD UREA NITROGEN 2019-10-24 19:25:00 Morgan Radford MD SERUM CREATININE 2019-10-24 19:25:00 Morgan Radford MD An derson FRACTIONATED BILIRUBIN 2019-10-24 19:25:00 Morgan Radford MD ALANINE AMINOTRANSFERASE 2019-10-24 19:25:00 Morgan Radford ed, MD ASPARTATE AMINOTRANSFERASE 2019-10-24 19:25:00 Morgan Radford MD ELECTROLYTE PANEL 2019-10-24 19:25:00 Morgan Radford MD nderson MAGNESIUM LEVEL 2019-10-24 19:25:00 Morgan Radford MD And erson COMPLETE BLOOD COUNT W/ 2019-10-24 19:25:00 Morgan Radford MD DIFFERENTIAL ALBUMIN LEVEL 2019-10-24 19:25:00 Morgan Radford MD And erson HEPATITIS C VIRUS ANTIBODY 2019-10-24 19:25:00 Morgan Radford MD CANCER ANTIGEN 125 2019-10-24 19:25:00 Morgan Radford MD, MD NGS BLOOD CONTROL 2019-10-24 19:25:00 Morgan Radford SERUM CREATININE 2019-10-24 19:25:00 Kim Jules MD .GLOMERULAR FILTRATION RATE 2019-10-24 19:25:00 Kim Jules MD Results CBC 2019-10-24 19:25:00 Kim Jules MD MANUAL DIFFERENTIAL 2019-10-24 19:25:00 Kim Jules MD Jacob son TMP HCVAB INTERP 2019-10-24 19:25:00 Kim Jules MD AP IHC MSI (MLH1, MSH2, 2019-10-24 18:39:32 Morgan Radford MD MSH6, PMS2) HC 2019-NCOV COVID-19 2019-10-21 22:04:00 Kim Jules MD And erson US PARACENTESIS 2019-10-05 09:10:00 Tung, Cole [facility] US ABDOMEN COMPLETE 2019-09-22 11:27:00 Tung, Cole [facility] US ABDOMEN LIMITED 2019-09-22 10:36:[address] [facility]TT 2019-09-22 09:18:00 [facility] PROT[facility]/INR 2019-09-22 09:18:00 [facility]Frank [facility] CBC W/PLT COUNT & AUTO 2019-09-22 09:18:00 [facility]FF) 2019-09-22 09:18:[address] [facility] CT ABDOMEN/PELVIS WITH IV 2019-09-02 12:35:00 Tung, Cole [facility] [facility] CT CHEST WITH IV CONTRAST 2019-09-02 12:35:00 [facility], [facility] POCT-CREATININE 2019-09-02 12:17:00 Tung [facility] CYTOLOGY 2019-07-25 11:34:00 Jose Ramon [facility] US PARACENTESIS 2019-07-25 11:20:00 [facility] PROTHROMBIN TIME/INR 2019-07-25 08:38:00 [facility]avFrank [facility] APTT 2019-07-25 08:38:00 Amy [facility] CBC W/PLT COUNT & AUTO 2019-07-25 08:38:00 [facility] CT ABDOMEN/PELVIS WITH IV 2019-07-18 10:04:00 Tung, Cole [facility] CT CHEST WITH IV CONTRAST 2019-07-18 10:04:00 Tung, [facility] POCT-CREATININE 2019-07-18 09:47:00 Tung, [facility] IR CV ACCESS FLUORO 2019-06-10 12:00:00 Tung, [facility] PT/APTT 2019-06-10 09:29:00 Martínez Johnson [facility] CBC W/PLT COUNT & AUTO 2019-06-10 09:29:00 Martínez Johnson [facility] DIFFERENTIAL [facility] (CELLAVISION MANUAL DIFF) 2019-06-10 09:29:00 Sethtanika Martínez [facility] POCT-GLUCOSE METER 2019-05-02 18:48:00 Ioana [facility] [place] POCT-GLUCOSE METER 2019-05-02 13:06:00 Ioana [facility] [place] BASIC METABOLIC PANEL (7) 2019-05-02 06:19:00 Cole Albright [facility] MAGNESIUM 2019-05-02 06:19:[address] [facility] [place] [place] PHOSPHORUS 2019-05-02 06:19:[address] [facility] [place] [place] POCT-GLUCOSE METER 2019-05-02 06:16:00 [facility] POCT-GLUCOSE METER 2019-05-01 23:04:00 [facility] POCT-GLUCOSE METER 2019-05-01 18:57:00 [facility] POCT-GLUCOSE METER 2019-05-01 12:38:00 [facility]UCOSE METER 2019-05-01 05:48:00 [facility] BASIC METABOLIC PANEL (7) 2019-05-01 05:30:00 Jose Ramon [facility] MAGNESIUM 2019-05-01 05:30:[address] [facility] [place] [place] [facility]US 2019-05-01 05:30:[address] [facility] [place] [place] POCT-GLUCOSE METER 2019-04-30 23:04:00 Gadicherva, [facility] POCT-GLUCOSE METER 2019-04-30 18:01:00 [facility] POCT-GLUCOSE METER 2019-04-30 12:20:00 [facility] POCT-GLUCOSE METER 2019-04-30 05:11:00 [facility] [place] BASIC METABOLIC PANEL (7) 2019-04-30 05:07:00 Tung, [facility] MAGNESIUM 2019-04-30 05:07:[address] [facility] [place] [place] [facility]OSPH[facility]US 2019-04-30 05:07:[address] [facility] [place] [place] POCT-GLUCOSE METER 2019-04-30 00:34:00 [facility] POCT-GLUCOSE METER 2019-04-29 18:23:00 [facility] POCT-GLUCOSE METER 2019-04-29 12:20:00 [facility] [place] POCT-GLUCOSE METER 2019-04-29 06:25:00 [facility] BASIC METABOLIC PANEL (7) 2019-04-29 04:37:00 Tung, [facility] MAGNESIUM 2019-04-29 04:37:[address] [facility] [place] [place] PHOSPH[facility]US 2019-04-29 04:37:[address] [facility] [place] [place] POCT-GLUCOSE METER 2019-04-28 23:47:00 [facility] POCT-GLUCOSE METER 2019-04-28 18:11:00 [facility] POCT-GLUCOSE METER 2019-04-28 13:00:00 [facility] C. DIFFICILE GDH TOXIN 2019-04-28 10:40:00 [facility] POCT-GLUCOSE METER 2019-04-28 06:36:00 [facility] BASIC METABOLIC PANEL (7) 2019-04-28 05:34:00 [facility] MAGNESIUM 2019-04-28 05:34:00 Tung [facility] PHOSPHORUS 2019-04-28 05:34:00 [facility] CBC W/PLT COUNT & AUTO 2019-04-28 05:34:00 [facility] POCT-GLUCOSE METER 2019-04-28 00:01:00 [facility] POCT-GLUCOSE METER 2019-04-27 18:43:00 [facility] POCT-GLUCOSE METER 2019-04-27 13:40:00 [facility] COMPREHENSIVE METABOLIC 2019-04-27 05:28:00 [facility] PREALBUMIN 2019-04-27 05:28:00 [facility] MAGNESIUM 2019-04-27 05:28:00 [facility]OSPH[facility] 2019-04-27 05:28:00 [facility] POCT-GLUCOSE METER 2019-04-27 01:19:00 [facility] POCT-GLUCOSE METER 2019-04-26 18:18:00 [facility] POCT-GLUCOSE METER 2019-04-26 12:49:00 [facility] POCT-GLUCOSE METER 2019-04-26 07:43:00 [facility] POCT-GLUCOSE METER 2019-04-26 01:55:00 [facility] POCT-GLUCOSE METER 2019-04-25 19:32:00 [facility] POCT-GLUCOSE METER 2019-04-25 06:57:00 [facility] POCT-GLUCOSE METER 2019-04-24 23:31:00 [facility] POCT-GLUCOSE METER 2019-04-24 18:03:00 [facility] XR ABDOMEN / KUB 1 VIEW 2019-04-24 14:00:00 [facility] POCT-GLUCOSE METER 2019-04-24 13:48:00 [facility] POCT-GLUCOSE METER 2019-04-24 05:20:00 [facility] PHOSPHORUS 2019-04-24 05:18:00 [facility] POCT-[facility]UCOSE METER 2019-04-23 23:14:00 [facility] POCT-GLUCOSE METER 2019-04-23 18:35:00 [facility] POCT-GLUCOSE METER 2019-04-23 14:00:00 [facility] BASIC METABOLIC PANEL (7) 2019-04-23 06:46:00 Tung, [facility] MAGNESIUM 2019-04-23 06:46:00 Tung, [facility] PHOSPHORUS 2019-04-23 06:46:00 [facility] CBC W/PLT COUNT & AUTO 2019-04-23 06:46:00 Cole Albright [facility] POCT-GLUCOSE METER 2019-04-23 06:07:00 Markelva [facility] POCT-GLUCOSE METER 2019-04-22 23:16:00 Simona [facility] ALBUMIN PERITONEAL FLUID 2019-04-22 21:41:[address] [facility] PROTEIN, BODY FLUID 2019-04-22 21:41:00 Markelva [facility] BODY FLUID CELL COUNT WITH 2019-04-22 21:16:00 Andriy Jatin Charley [facility] BODY FLUID CULTURE + GRAM 2019-04-22 21:16:00 СергейTab [facility]White [facility] US PARACENTESIS 2019-04-22 18:56:00 [facility] POCT-GLUCOSE METER 2019-04-22 05:53:00 Markelva [facility] BASIC METABOLIC PANEL (7) 2019-04-22 05:09:00 Cole Albright [facility] MAGNESIUM 2019-04-22 05:09:00 Cole Albright [facility] PHOSPHORUS 2019-04-22 05:09:00 [facility] PT/APTT 2019-04-22 05:09:00 [facility] PROTHROMBIN TIME/INR 2019-04-22 05:09:00 [facility] CBC W/PLT COUNT & AUTO 2019-04-22 05:09:[address] [facility] POCT-GLUCOSE METER 2019-04-22 00:59:00 Simona [facility] POCT-GLUCOSE METER 2019-04-21 18:50:00 Gadichermic [facility] POCT-GLUCOSE METER 2019-04-21 12:11:00 [facility] POCT-GLUCOSE METER 2019-04-21 05:42:00 [facility] BASIC METABOLIC PANEL (7) 2019-04-21 04:53:00 Tung, [facility] MAGNESIUM 2019-04-21 04:53:00 Tung, [facility] PHOSPHORUS 2019-04-21 04:53:00 [facility] CBC W/PLT COUNT & AUTO 2019-04-21 04:53:00 Cole Albright [facility] POCT-GLUCOSE METER 2019-04-20 23:55:00 Gadicherva [facility] POCT-GLUCOSE METER 2019-04-20 18:04:00 [facility] POCT-GLUCOSE METER 2019-04-20 13:20:00 [facility] PREALBUMIN 2019-04-20 08:54:00 Jose Ramon [facility] CT CHEST WITH IV CONTRAST 2019-04-20 08:10:00 Glenna Albrightestine [facility] POCT-GLUCOSE METER 2019-04-20 06:14:00 Gadicherva, [facility] BASIC METABOLIC PANEL (7) 2019-04-20 06:06:00 Tung, [facility] MAGNESIUM 2019-04-20 06:06:00 Tung Cole [facility] PHOSPHORUS 2019-04-20 06:06:00 Gadichermic, [facility] TRIGLYCERIDES 2019-04-20 06:06:00 [facility] HEPATIC FUNCTION PANEL 2019-04-20 06:06:00 [facility] CBC W/PLT COUNT & AUTO 2019-04-20 06:06:00 [facility] CenterGlennaColeB[facility] POCT-GLUCOSE METER 2019-04-19 18:34:00 [facility]jessicaTexas [facility] XR CHEST 1 VIEW 2019-04-19 13:34:[address] [facility] - PORTABLE/BEDSIDE [facility] IR PICC LINE PLACEMENT 2019-04-19 10:57:[address] [facility] OLDER THAN 5 YRS [facility] POCT-GLUCOSE METER 2019-04-19 06:18:00 [facility] PT/APTT 2019-04-19 04:17:00 [facility] BASIC METABOLIC PANEL (7) 2019-04-19 04:17:00 [facility] MAGNESIUM 2019-04-19 04:17:00 [facility] CBC W/PLT COUNT & AUTO 2019-04-19 04:17:00 [facility] CenterGlennaColeB[facility] POCT-GLUCOSE METER 2019-04-18 18:18:00 [facility] POCT-GLUCOSE METER 2019-04-18 11:24:00 [facility] POCT-GLUCOSE METER 2019-04-18 07:33:00 [facility] POCT-GLUCOSE METER 2019-04-18 06:09:00 [facility] BASIC METABOLIC PANEL (7) 2019-04-18 04:02:00 [facility] CenterGlennaCole [facility] MAGNESIUM 2019-04-18 04:02:00 Fay Albrightine [facility] CBC W/PLT COUNT & AUTO 2019-04-18 04:02:00 Cole Albright [facility] DIFFERENTIAL [facility] (CELLAVISION MANUAL DIFF) 2019-04-18 04:02:00 Fay Albrightine [facility] POCT-GLUCOSE METER 2019-04-18 00:06:00 [facility] POCT-GLUCOSE METER 2019-04-17 18:07:00 [facility] ABDOMEN/PELVIS WITH IV 2019-04-17 14:06:00 Glenna Albrightestine CH I [facility] POCT-GLUCOSE METER 2019-04-17 12:43:00 [facility] POCT-GLUCOSE METER 2019-04-17 05:52:00 [facility] BASIC METABOLIC PANEL (7) 2019-04-17 05:49:00 TungFayCole [facility] MAGNESIUM 2019-04-17 05:49:00 Tung Cole [facility] CBC W/PLT COUNT & AUTO 2019-04-17 05:49:00 Cole Albright [facility] DIFFERENTIAL [facility] (CELLAVISION MANUAL DIFF) 2019-04-17 05:49:00 TungGlennaCole [facility] POCT-GLUCOSE METER 2019-04-16 23:58:00 [facility] POCT-GLUCOSE METER 2019-04-16 18:05:00 [facility] POCT-GLUCOSE METER 2019-04-16 13:16:00 [facility] POCT-GLUCOSE METER 2019-04-16 06:28:00 [facility] POCT-GLUCOSE METER 2019-04-16 00:27:00 [facility] BASIC METABOLIC PANEL (7) 2019-04-15 05:34:00 [facility] CBC W/PLT COUNT & AUTO 2019-04-15 05:34:00 [facility] (CELLAVISION MANUAL DIFF) 2019-04-15 05:34:00 [facility] US PARACENTESIS 2019-04-14 15:07:00 [facility] BODY FLUID CELL COUNT WITH 2019-04-14 15:02:00 [facility] BODY FLUID CULTURE + GRAM 2019-04-14 15:02:00 [facility] STAIN [facility] CYTOLOGY 2019-04-14 15:02:[address] [facility] [place] [place] BASIC METABOLIC PANEL (7) 2019-04-14 03:23:00 [facility] CBC W/PLT COUNT & AUTO 2019-04-14 03:23:00 [facility] PATHOLOGY OUTSIDE 2019-04-14 00:00:00 Billy Arora MD INTERPRETATION PERIPHERAL VASCULAR REPORT 2019-04-13 21:23:44 Provider, [facility] - - SCAN Scanning [facility] MR PELVIS WITH & WITHOUT IV 2019-04-13 15:23:[address] [facility] Dipti l [facility] - CONTRAST [facility] CANCER ANTIGEN 125 (CA 125) 2019-04-13 12:16:00 Coty Collins [facility] BASIC METABOLIC PANEL (7) 2019-04-13 08:36:00 [facility] CBC W/PLT COUNT & AUTO 2019-04-13 08:36:[address] [facility] VENOUS DOPPLER LEGS 2019-04-12 21:55:00 Coty Collins [facility] BLOOD CULTURE 2019-04-12 17:38:00 СергейicherJudith haile [facility] CT ABDOMEN/PELVIS WITH IV 2019-04-12 09:10:00 Tej Holden [facility] PT/APTT 2019-04-12 08:26:00 Tej Holden [facility] CBC W/PLT COUNT & AUTO 2019-04-12 08:26:00 [facility] BASIC METABOLIC PANEL (7) 2019-04-12 06:20:00 [facility] HEPATIC FUNCTION PANEL 2019-04-12 06:20:00 [facility] LIPASE 2019-04-12 06:20:00 [facility] PATHOLOGY OUTSIDE 2019-04-05 00:00:00 Judith Tsang MD And gibson INTERPRETATION NM HEPATOBILIARY (HIDA) 2019-01-22 15:13:00 Kristie Padilla [facility] BASIC METABOLIC PANEL (7) 2019-01-22 04:24:00 [facility] Jatin S [facility] MAGNESIUM 2019-01-22 04:24:00 [place], Jatin S [facility] CBC (HEMOGRAM ONLY) 2019-01-22 04:24:00 [place], Jatin S [facility] HEPATIC FUNCTION PANEL 2019-01-22 04:24:[address] ECHOCARDIOGRAM REPORT - 2019-01-21 21:21:30 Provider, Antwon SALES I [facility] 2D ECHO W/ DOPPLER 2019-01-21 12:02:56 Laura Coelho [facility] (CW/PW/COLOR) [facility] MR ABDOMEN WITH & WITHOUT 2019-01-21 11:10:[address] [facility] Center LIPASE 2019-01-21 03:45:00 Laquita [facility] BASIC METABOLIC PANEL (7) 2019-01-21 03:45:00 Jatin Ashraf S [facility] MAGNESIUM 2019-01-21 03:45:00 Andriy [facility] CBC (HEMOGRAM ONLY) 2019-01-21 03:45:00 Andriy [facility] HEPATITIS A ANTIBODY, IGG 2019-01-21 03:45:00 Laquita Laura [facility] HEPATITIS B SURFACE 2019-01-21 03:45:00 Laquita [facility] HEPATITIS B CORE ANTIBODY, 2019-01-21 03:45:00 LaquitaLaura [facility] HEPATITIS C ANTIBODY 2019-01-21 03:45:00 Laquita [facility] US ABDOMINAL WITH DOPPLER 2019-01-20 14:30:00 Jatin Ashraf S [facility] US PARACENTESIS 2019-01-20 13:07:00 Laquita [facility] ALBUMIN, BODY FLUID 2019-01-20 12:56:00 Tonny [facility] BODY FLUID CULTURE + GRAM 2019-01-20 12:48:00 LaquitaLaura [facility] BODY FLUID CELL COUNT WITH 2019-01-20 12:48:00 LaquitaLaura [facility] CYTOLOGY 2019-01-20 12:48:00 Laqiuta [facility] MISCELLANEOUS LAB ORDER 2019-01-20 12:47:00 [facility] ANAER[facility] C[facility] 2019-01-20 12:47:00 Tonny [facility] URINE PROTEIN 2019-01-20 06:32:00 Jatin Ashraf [facility] ELECTROPHORESIS, [facility] CREATININE, RANDOM URINE 2019-01-20 06:32:00 Jatin Ashraf S [facility] URINALYSIS WITH MICROSCOPIC 2019-01-20 06:32:00 [facility] - IF INDICATED [facility] URINALYSIS MICROSCOPIC 2019-01-20 06:32:00 [place] [facility] COMPREHENSIVE METABOLIC 2019-01-20 04:15:[address] [place] [facility] PANEL [facility] PROTHROMBIN TIME/INR 2019-01-20 04:15:00 [facility] MAGNESIUM 2019-01-20 04:15:00 [facility] TSH/FREE T4 IF INDICATED 2019-01-20 04:15:00 [place] [facility] CBC W/PLT COUNT & AUTO 2019-01-20 04:15:[address] [place] [facility] DIFFERENTIAL [facility] Plan of Care Planned Activity Planned Date Details Comments Source Future Scheduled 2019-11-22 INFLUENZA VACCINE (#1) [facility]:00:00 [code = INFLUENZA Medical Ce nter VACCINE (#1)] Future Scheduled [address] [facility]00 (procedure) [code = Medical Center 66153849] Future Scheduled [address] [facility] - Test 00:00:00 2-64 YEARS AT RISK (1 Medica l Center of 3 - PCV13) [code = PNEUMOCOCCAL VACCINE 2-64 YEARS AT RISK (1 of 3 - PCV13)] Future Scheduled [address] [facility] 00:[facility]00 malignant neoplasm of Medica l Center breast (procedure) [code = 030829415] Future Scheduled [address] [facility] 00:00:00 malignant neoplasm of [facility]ica [facility] Center colon (procedure) [code = 889593331] Encounters Start End Encounter Admission Attending Care Care Encounter Source Date/Time Date/Time Type Type Clinicians Facility Department ID 2019-12-15 Outpatient SYSTEMCARMELO MDA [id number] 13:18:02 LUCIA rivera 2019-11-02 Outpatient ELENA GARCIA MDA MDA [id number] 11:59:58 SHIRA rivera 2019-10-24 Outpatient SYSTEMCARMELO MDA [id number] 10:07:46 PROVIDER Shiva rivera 2019-10-21 Outpatient ELENA GARCIA MDA MDA [id number] 14:03:51 SHIRA rivera 2019-12-19 2019-12-19 Orders Doctor SCHMIDT [id number] 00:00:00 00:00:00 Only Unassigned, FAZAL [id number] [place] [facility] [id number] [id number] 2019-12-12 2019-12-12 Outpatient EL SAUL, KIM MDA MDA [id number] 12:37:42 12:37:42 Shiva rivera 2019-12-09 2019-12-09 Telephone Mackenzie [facility] [id number] 00:00:00 00:00:00 Sowmya Sofia [id number] [place] [id number] Professio [phone] [address] 2019-11-01 2019-11-01 Orders Doctor SCHMIDT [id number] 00:00:00 00:00:00 Only [facility]assigned[id number] [id number] [id number] [id number] 2019-10-27 2019-10-27 Outpatient ELENA MONTGOMERY MDA MDA [id number] 15:35:21 15:36:41 LINDSAY rivera 2019-10-27 2019-10-27 Case Mackenzie [facility] [id number] 00:00:00 00:00:00 Management Sowmya Sofia [id number] [place] [id number] Professio [id number] [address] 2019-10-27 2019-10-27 Telephone Greta [facility] [id number] 00:00:00 00:00:00 Bhanu Sofia [id number] [place] [id number] Professio [id number] [address] 2019-10-26 2019-10-26 Outpatient EL SAUL, KIM MDA MDA [id number] 00:00:00 00:00:00 Shiva o n 2019-10-25 2019-10-25 Outpatient EL SAUL, KIM MDA MDA [id number] 00:00:00 00:00:00 Shiva o n 2019-10-24 2019-10-24 Outpatient EL SAUL, KIM MDA MDA [id number] 15:47:48 23:59:00 Shiva o n 2019-10-24 2019-10-24 Outpatient EL SAUL, KIM MDA MDA [id number] 16:37:45 16:37:45 Shiva o n 2019-10-24 2019-10-24 Outpatient EL SAUL, KIM MDA MDA [id number] 13:45:00 15:46:00 Shiva o n 2019-10-24 2019-10-24 Outpatient EL SAUL, KIM MDA MDA [id number] 10:11:17 13:29:03 Shiva o n 2019-10-24 2019-10-24 Outpatient EL MDA MDA [id number] 10:07:54 10:08:13 Shiva o n 2019-10-21 2019-10-21 Outpatient EL GUILLERMINA, MDA MDA [id number] 16:55:25 17:07:52 ALONDRA Shiva o miguel 2019-10-18 2019-10-18 Orders Doctor SCHMIDT [id number] 00:00:00 00:00:00 Only UnassignedFAZAL [id number] [place] [facility] 4.2.7.2.686 [id number] [id number] 2019-10-10 2019-10-10 Orders Doctor SCHMIDT [id number] 00:00:00 00:00:00 Only UnassignedFAZAL [id number] [place] [facility] [id number] [id number] 2019-09-29 2019-09-29 Simba Mann [facility] [id number] 00:00:00 00:00:00 Management Sowmya Sofia [id number] [place] 4.2.7.2.686 Professjulia [id number] [address] 2019-09-07 2019-09-07 Orders Doctor SCHMIDT [id number] 00:00:00 00:00:00 Only Unassigned, FAZAL [id number] [facility] 4.2.7.2.686 [id number] [id number] 2019-08-16 2019-08-16 Orders Doctor BRAYAN 1.2.840.114 [id number] 00:00:00 00:00:00 Only Unassigned, FAZAL [id number] [facility] 4.2.7.2.686 [id number] [id number] 2019-08-02 2019-08-02 Telephone Mackenzie [facility] [id number] 00:00:00 00:00:00 Sowmya Sofia [id number] [place] 4.2.7.2.686 Professio [id number] [address] 2019-08-01 2019-08-01 Orders Doctor SCHMIDT [id number] 00:00:00 00:00:00 Only Unassigned, FAZAL [id number] [facility] 4.2.7.2.686 [id number] [id number] 2019-07-25 2019-07-25 Telephone Mackenzie [facility] [id number] 00:00:00 00:00:00 Sowmya Sofia [id number] [place] 4.2.7.2.686 Professio [id number] [address] 2019-06-24 2019-06-24 Orders Doctor SCHMIDT [id number] 00:00:00 00:00:00 Only Unassigned, FAZAL [id number] [facility] 4.2.7.2.686 [id number] [id number] 2019-06-21 2019-06-21 Telephone Greta [facility] [id number] 00:00:00 00:00:00 Bhanu Sofia 350.1.13.10 [place] [id number] Professio [phone] Results Test Description Test Time Test Comments Results Result Comments Source Anaerobic culture 2019-12-28 19:08:00 Test Item Value Reference Range Interpretation Comme nts Result (test code = 6463-4) No anaerobes isolated [facility] [id number] 19:08:00 Test Item Value Reference Range Interpretation Comments CULTURE (BEAKER) (test No anaerobes isolated code = 1095) [place], FLUORO, NON-SPECIFIC, UP TO 1 [id number] 15:15:00Reason for exam:- >ureteroscopy left ureterFluoroscopic unit utilized for a procedure performed in the OR. No interpretation was requested. Refer to the operative report for findings. Refer to PACS for patient radiation dose information.FL fluoro non- specific up to 1 [id number] 15:15:00Interface, External Ris In - 12/28/2019 4:50 PM CDTFluoroscopic unit utilized for a procedure performed in the OR. No interpretation was requested. Refer to the operative report for findings. Referto PACS for patient radiation dose information.[facility] obtained culture + gram [id number] 12:20:00 Test Item Value Reference Range Interpretation Comments Result (test code = 2+ Bela glabrata A 6463-4) Gram Stain Result (test No organisms seen code = 1123) Lab Interpretation (test Abnormal code = 62002-7) [facility] ServicesURGICALLY OBTAINED CULTURE + GRAM [id number] 12:20:00 Test Item Value Reference Range Interpretation Comments CULTURE (BEAKER) A 2+ Bela (test code = 1095) glabrata GRAM STAIN RESULT 2+ WBCs (BEAKER) (test code = 1123) GRAM STAIN RESULT No organisms seen (BEAKER) (test code = 99014) Gram [id number] 07:37:00 Test Item Value Reference Range Interpretation Comments Gram Stain Result (test No organisms seen code = 1123) [facility] [id number] 07:37:00 Test Item Value Reference Range Interpretation Comments GRAM STAIN RESULT (BEAKER) <1+ WBCs (test code = 1123) GRAM STAIN RESULT (BEAKER) No organisms seen (test code = 92721) Urinalysis w/Microscopic + Reflex to [id number] 00:00:00 Test Item Value Reference Range Interpretation Comments Color, UA (test code = Yellow 5778-6) Clarity, UA (test code = Hazy 5767-9) Specific [place], UA (test 1.011 1.001-1.035 code = 5811-5) pH, UA (test code = 5.5 5.0-8.0 5803-2) Protein, UA (test code = Negative Negative 67371-9) Glucose, UA (test code = Negative Negative 365) Ketones, UA (test code = Negative Negative 2514-8) Bilirubin, UA (test code = Negative Negative 15059-9) Blood, UA (test code = Small Negative A 88702-8) Nitrite, UA (test code = Negative Negative 5802-4) Leukocytes, UA (test code Moderate Negative A = 5799-2) Urobilinogen, UA (test 0.2 mg/dL 0.2-1 code = 21521-3) RBC, UA (test code = 5 /HPF 23152-9) WBC, UA (test code = 16 /HPF 5821-4) Squam Epithel, UA (test 2 /HPF code = 66401-4) Specimen Source (test code = 2795) PAUL (test code = PAUL) Promotional Model ID - tech Lab Interpretation (test Abnormal code = 30298-8) [facility] URINE [id number] 00:00:00 Test Item Value Reference Range Interpretation Comments COLOR (BEAKER) (test code = 470) Yellow CLARITY (BEAKER) (test code = 469) Hazy SPECIFIC GRAVITY UA (BEAKER) (test 1.011 1.001-1.035 code = 468) PH UA (BEAKER) (test code = 467) 5.5 5.0-8.0 PROTEIN UA (BEAKER) (test code = Negative Negative 464) GLUCOSE UA (BEAKER) (test code = Negative Negative 365) KETONES UA (BEAKER) (test code = Negative Negative 371) BILIRUBIN UA (BEAKER) (test code = Negative Negative 462) BLOOD UA (BEAKER) (test code = 461) Small Negative A NITRITE UA (BEAKER) (test code = Negative Negative 465) LEUKOCYTE ESTERASE UA (BEAKER) Moderate Negative A (test code = 466) UROBILINOGEN UA (BEAKER) (test code 0.2 mg/dL 0.2-1.0 = 463) RBC UA (BEAKER) (test code = 519) 5 /HPF WBC UA (BEAKER) (test code = 520) 16 /HPF SQUAMOUS EPITHELIAL (BEAKER) (test 2 /HPF code = 516) SOURCE(BEAKER) (test code = 2795) Promotional Model ID - techCBC with platelet count + automated [id number] 13:59:00 Test Item Value Reference Range Interpretation Comments WBC (test code = 6690-2) 3.7 3.5- 10.5 K/L RBC (test code = 789-8) 2.55 3.93- 5.22 M/L L MCHC (test code = 786-4) 31.7 32.2- 35.5 GM/DL L Hematocrit (test code = 4544-3) 26.2 % 34.1-44.9 L MCV (test code = 787-2) 102.7 fL 79.4-94.8 H MCH (test code = 785-6) 32.5 pg 25.6-32.2 H RDW (test code = 788-0) 19.6 % 11.7-14.4 H Platelets (test code = 777-3) 104 150- 450 K/CU MM L MPV (test code = 55723-6) 10.0 fL 9.4-12.3 nRBC (test code = 413) 0 0- 0 /100 WBC % Neutros (test code = 429) 50 % % Lymphs (test code = 430) 31 % % Monos (test code = 431) 17 % % Eos (test code = 432) 1 % % Baso (test code = 437) 0 % # Neutros (test code = 670) 1.84 1.56- 6.13 K/L # Lymphs (test code = 414) 1.16 1.18- 3.74 K/L L # Monos (test code = 415) 0.61 0.24- 0.36 K/L H # Eos (test code = 416) 0.02 0.04- 0.36 K/L L # Baso (test code = 417) 0.01 0.01- 0.08 K/L Immature Granulocytes-Relative 1 % 0-1 (test code = 2801) Lab Interpretation (test code = Abnormal 46290-9) [facility] W/PLT COUNT & AUTO [id number] 13:59:00 Test Item Value Reference Range Interpretation Comments WHITE BLOOD CELL COUNT (BEAKER) 3.7 K/ L 3.5-10.5 (test code = 775) RED BLOOD CELL COUNT (BEAKER) 2.55 M/ L 3.93-5.22 L (test code = 761) HEMOGLOBIN (BEAKER) (test code = 8.3 GM/DL 11.2-15.7 L 410) HEMATOCRIT (BEAKER) (test code = 26.2 % 34.1-44.9 L 411) MEAN CORPUSCULAR VOLUME (BEAKER) 102.7 fL 79.4-94.8 H (test code = 753) MEAN CORPUSCULAR HEMOGLOBIN 32.5 pg 25.6-32.2 H (BEAKER) (test code = 751) MEAN CORPUSCULAR HEMOGLOBIN CONC 31.7 GM/DL 32.2-35.5 L (BEAKER) (test code = 752) RED CELL DISTRIBUTION WIDTH 19.6 % 11.7-14.4 H (BEAKER) (test code = 412) PLATELET COUNT (BEAKER) (test 104 K/CU MM 150-450 L code = 756) MEAN PLATELET VOLUME (BEAKER) 10.0 fL 9.4-12.3 (test code = 754) NUCLEATED RED BLOOD CELLS 0 /100 WBC 0-0 (BEAKER) (test code = 413) NEUTROPHILS RELATIVE PERCENT 50 % (BEAKER) (test code = 429) LYMPHOCYTES RELATIVE PERCENT 31 % (BEAKER) (test code = 430) MONOCYTES RELATIVE PERCENT 17 % (BEAKER) (test code = 431) EOSINOPHILS RELATIVE PERCENT 1 % (BEAKER) (test code = 432) BASOPHILS RELATIVE PERCENT 0 % (BEAKER) (test code = 437) NEUTROPHILS ABSOLUTE COUNT 1.84 K/ L 1.56-6.13 (BEAKER) (test code = 670) LYMPHOCYTES ABSOLUTE COUNT 1.16 K/ L 1.18-3.74 L (BEAKER) (test code = 414) MONOCYTES ABSOLUTE COUNT (BEAKER) 0.61 K/ L 0.24-0.36 H (test code = 415) EOSINOPHILS ABSOLUTE COUNT 0.02 K/ L 0.04-0.36 L (BEAKER) (test code = 416) BASOPHILS ABSOLUTE COUNT (BEAKER) 0.01 K/ L 0.01-0.08 (test code = 417) IMMATURE GRANULOCYTES-RELATIVE 1 % 0-1 PERCENT (BEAKER) (test code = 2801) Basic Metabolic [id number] 13:44:00 Test Item Value Reference Range Interpretation Comments Sodium (test code = 137 meq/L 618-953 6223-2) Potassium (test code = 3.6 meq/L 3.5-5.1 2823-3) Chloride (test code = 105 meq/L 98-107 2075-0) CO2 (test code = 27 meq/L 22-29 2028-9) BUN (test code = 3 mg/dL 7-21 L 3094-0) Creatinine (test code 0.49 mg/dL 0.57-1.25 L = 2160-0) Glucose (test code = 111 mg/dL 70-105 H 2345-7) Calcium (test code = 8.3 mg/dL 8.4-10.2 L 76511-9) EGFR (test code = 130 mL/min/1.73 [place] [address]-8) NOT ACCURATE CREATININE CLEARANCE IN PREDICTING GLOMERULAR FILTRATION RATE . ESTIMATED GFR I S NOT APPLICABLE FOR DIALYSIS PATIENTS. PAUL (test code = PAUL) Promotional Model ID - SIMONA Toro Lab Interpretation Abnormal (test code = 30152-8) [facility]OL[facility] [id number] 13:44:00 Test Item Value Reference Range Interpretation Comments SODIUM (BEAKER) 137 meq/L 136-145 (test code = 381) POTASSIUM (BEAKER) 3.6 meq/L 3.5-5.1 (test code = 379) CHLORIDE (BEAKER) 105 meq/L 98-107 (test code = 382) CO2 (BEAKER) (test 27 meq/L 22-29 code = 355) BLOOD UREA NITROGEN 3 mg/dL 7-21 L (BEAKER) (test code = 354) CREATININE (BEAKER) 0.49 mg/dL 0.57-1.25 L (test code = 358) GLUCOSE RANDOM 111 mg/dL 70-105 H (BEAKER) (test code = 652) CALCIUM (BEAKER) 8.3 mg/dL 8.4-10.2 L (test code = 697) EGFR (BEAKER) (test 130 mL/min/1.73 ESTIM ATED GFR IS code = 1092) sq m NOT ACCURATE CREATININE CLEARANCE IN PREDICTING GLOMERULAR FILTRATION RATE . ESTIMATED GFR I S NOT APPLICABLE FOR DIALYSIS PATIEN TS. Promotional Model ID - SIMONA Johnston [id number] 09:51:00 Test Item Value Reference Range Interpretation Comments Result (test code = 6463-4) No growth [facility] CenterVancomycin level, [id number] 04:28:00 Test Item Value Reference Range Interpretation Comments Vancomycin Tr (test code = 12.2 ug/mL 10-20 4092-3) PAUL (test code = PAUL) Promotional Model ID - MELVAASI Lab Interpretation (test Normal code = 63717-0) [facility] CenterVANCOMYCIN LEVEL, [id number] 04:28:00 Test Item Value Reference Range Interpretation Comments VANCOMYCIN TROUGH (BEAKER) (test 12.2 ug/mL 10.0-20.0 code = 522) Promotional Model ID - MELVAASIComprehensive metabolic [id number] 06:43:00 Test Item Value Reference Range Interpretation Comments Protein, Total (test 4.9 6.0- 8.3 gm/dL L code = 2885-2) Albumin (test code = 2.6 g/dL 3.5-5 L 43199-4) Alkaline Phosphatase 65 U/L 40-150 (test code = 6768-6) Total Bilirubin (test 0.3 mg/dL 0.2-1.2 code = 1975-2) Sodium (test code = 136 meq/L 775-435 6636-2) Potassium (test code = 3.2 meq/L 3.5-5.1 L 2823-3) Chloride (test code = 107 meq/L 98-107 2075-0) CO2 (test code = 22 meq/L 22-29 2028-9) BUN (test code = 8 mg/dL 7-21 3094-0) Creatinine (test code 0.55 mg/dL 0.57-1.25 L = 2160-0) Glucose (test code = 90 mg/dL 70-105 2345-7) Calcium (test code = 7.6 mg/dL 8.4-10.2 L 02400-1) AST (test code = 10 U/L 5-34 1920-8) ALT (test code = 12 U/L 6-55 1742-6) EGFR (test code = 114 mL/min/1.73 [place] [address]-5) NOT ACCURATE CREATININE CLEARANCE IN PREDICTING GLOMERULAR FILTRATION RATE . ESTIMATED GFR I S NOT APPLICABLE FOR DIALYSIS PATIENTS. PAUL (test code = PAUL) Promotional Model ID - EDASI Lab Interpretation Abnormal (test code = 80046-7) [facility] CenterCOMPREHENSIVE METABOLIC [id number] 06:43:00 Test Item Value Reference Range Interpretation Comments TOTAL PROTEIN 4.9 gm/dL 6.0-8.3 L (BEAKER) (test code = 770) ALBUMIN (BEAKER) 2.6 g/dL 3.5-5.0 L (test code = 1145) ALKALINE PHOSPHATASE 65 U/L 40-150 (BEAKER) (test code = 346) BILIRUBIN TOTAL 0.3 mg/dL 0.2-1.2 (BEAKER) (test code = 377) SODIUM (BEAKER) (test 136 meq/L 136-145 code = 381) POTASSIUM (BEAKER) 3.2 meq/L 3.5-5.1 L (test code = 379) CHLORIDE (BEAKER) 107 meq/L 98-107 (test code = 382) CO2 (BEAKER) (test 22 meq/L 22-29 code = 355) BLOOD UREA NITROGEN 8 mg/dL 7-21 (BEAKER) (test code = 354) CREATININE (BEAKER) 0.55 mg/dL 0.57-1.25 L (test code = 358) GLUCOSE RANDOM 90 mg/dL 70-105 (BEAKER) (test code = 652) CALCIUM (BEAKER) 7.6 mg/dL 8.4-10.2 L (test code = 697) AST (SGOT) (BEAKER) 10 U/L 5-34 (test code = 353) ALT (SGPT) (BEAKER) 12 U/L 6-55 (test code = 347) EGFR (BEAKER) (test 114 ESTIMATE D GFR IS code = 1092) mL/min/1.73 sq NOT ACCURA TE m CREATININE CLEARANCE IN PREDICTING GLOMERULAR FILTRATION RATE . ESTIMATED GFR I S NOT APPLICABLE FOR DIALYSIS PATIEN TS. Promotional Model ID - EDASICBC W/PLT COUNT & AUTO [id number] 06:35:00 Test Item Value Reference Range Interpretation Comments WHITE BLOOD CELL COUNT (BEAKER) 4.1 K/ L 3.5-10.5 (test code = 775) RED BLOOD CELL COUNT (BEAKER) 2.32 M/ L 3.93-5.22 L (test code = 761) HEMOGLOBIN (BEAKER) (test code = 7.6 GM/DL 11.2-15.7 L 410) HEMATOCRIT (BEAKER) (test code = 24.3 % 34.1-44.9 L 411) MEAN CORPUSCULAR VOLUME (BEAKER) 104.7 fL 79.4-94.8 H (test code = 753) MEAN CORPUSCULAR HEMOGLOBIN 32.8 pg 25.6-32.2 H (BEAKER) (test code = 751) MEAN CORPUSCULAR HEMOGLOBIN CONC 31.3 GM/DL 32.2-35.5 L (BEAKER) (test code = 752) RED CELL DISTRIBUTION WIDTH 20.0 % 11.7-14.4 H (BEAKER) (test code = 412) PLATELET COUNT (BEAKER) (test code 82 K/CU MM 150-450 L = 756) MEAN PLATELET VOLUME (BEAKER) 10.1 fL 9.4-12.3 (test code = 754) NUCLEATED RED BLOOD CELLS (BEAKER) 0 /100 WBC 0-0 (test code = 413) NEUTROPHILS RELATIVE PERCENT 42 % (BEAKER) (test code = 429) LYMPHOCYTES RELATIVE PERCENT 35 % (BEAKER) (test code = 430) MONOCYTES RELATIVE PERCENT 22 % (BEAKER) (test code = 431) EOSINOPHILS RELATIVE PERCENT 0 % (BEAKER) (test code = 432) BASOPHILS RELATIVE PERCENT 0 % (BEAKER) (test code = 437) NEUTROPHILS ABSOLUTE COUNT 1.70 K/ L 1.56-6.13 (BEAKER) (test code = 670) LYMPHOCYTES ABSOLUTE COUNT 1.43 K/ L 1.18-3.74 (BEAKER) (test code = 414) MONOCYTES ABSOLUTE COUNT (BEAKER) 0.88 K/ L 0.24-0.36 H (test code = 415) EOSINOPHILS ABSOLUTE COUNT 0.01 K/ L 0.04-0.36 L (BEAKER) (test code = 416) BASOPHILS ABSOLUTE COUNT (BEAKER) 0.01 K/ L 0.01-0.08 (test code = 417) IMMATURE GRANULOCYTES-RELATIVE 2 % 0-1 H PERCENT (BEAKER) (test code = 2801) Lactic acid, [id number] 06:06:00 Test Item Value Reference Range Interpretation Comments Lactate, Venous (test code 0.49 mmol/L 0.5-2.2 L = 2872) PAUL (test code = PAUL) Promotional Model ID - EDASI Lab Interpretation (test Abnormal code = 05079-6) [facility] CenterLACT[facility] ACID, [id number] 06:06:00 Test Item Value Reference Range Interpretation Comments LACTATE BLOOD VENOUS (2) (BEAKER) 0.49 mmol/L 0.50-2.20 L (test code = 2872) Promotional Model ID - EDASIURINALYSIS W/ REFLEX URINE [id number] 01:01:00 Test Item Value Reference Range Interpretation Comments COLOR (BEAKER) (test code = 470) Yellow CLARITY (BEAKER) (test code = 469) Hazy SPECIFIC GRAVITY UA (BEAKER) (test 1.020 1.001-1.035 code = 468) PH UA (BEAKER) (test code = 467) 5.5 5.0-8.0 PROTEIN UA (BEAKER) (test code = 50 mg/dL Negative A 464) GLUCOSE UA (BEAKER) (test code = Negative Negative 365) KETONES UA (BEAKER) (test code = Trace Negative A 371) BILIRUBIN UA (BEAKER) (test code = Negative Negative 462) BLOOD UA (BEAKER) (test code = 461) Moderate Negative A NITRITE UA (BEAKER) (test code = Negative Negative 465) LEUKOCYTE ESTERASE UA (BEAKER) Large Negative A (test code = 466) UROBILINOGEN UA (BEAKER) (test code 0.2 mg/dL 0.2-1.0 = 463) RBC UA (BEAKER) (test code = 519) 33 /HPF WBC UA (BEAKER) (test code = 520) 34 /HPF BACTERIA (BEAKER) (test code = 517) Moderate MUCUS (BEAKER) (test code = 1574) Moderate SQUAMOUS EPITHELIAL (BEAKER) (test 3 /HPF code = 516) SOURCE(BEAKER) (test code = 2795) Promotional Model ID - [auto]Promotional Model ID - techRS-CoV2/RT-PCR (Asymptomatic ONLY) 2019-12-24 20:02:00 Test Item Value Reference Range Interpretation Comments SARS-COV2/RT-PCR Negative Not Detected, (test code = Negative, See 50956-9) external report for linked test [facility]COV-2 [facility] (test code = 12371-9) PAUL (test code = Negative result for this PAUL) test determines that SARS-CoV-2 RNA was not present in the specimen above the Limit of Detection (LOD). However, Negative results do not preclude SARS-CoV-2 infection and should not be used as the sole basis for treatment or patient management decisions. Negative results must be combined with clinical observations, patient history, and epidemiological information. A false negative result may occur if a specimen is improperly collected, transported or handled. A false negative result should be considered if patient's recent exposures or clinical presentation indicate that COVID-19 (SARS-CoV-2) is likely and diagnostic tests for other causes of illness are negative. Re-testing should be considered in cases of suspected [...] Food and Drug Administration (FDA) cleared or approved. This is a modified version of an approved [...] of the Act. Fact Sheet for Healthcare Providers:https://www.[employer]ing[employer]sites/default/f nadeem/product/documents/F act_Sheet_HC_Providers_L ggb_FMTE-IrS-8.pdf Fact Sheet for Healthcare Patients:https://www.[employer].com/sites/default/fi les/product/documents/Fa ct_Sheet_Patients_Lyra_S ARS-CoV-2.pdf Performing Laboratory:[facility] [place] [address] [facility] ServicesARS[facility]OV2/[facility]-PCR (HS & REF LABS)2019-12-24 20:02:00 Test Item Value Reference Range Interpretation Comments SARS-COV2/RT-PCR (test Negative Not Detected, Negative, code = 0748646) See external report for linked test SARS-COV-2 PERFORMING LAB [facility] (test code = 0893902) Negative result for this test determines that SARS-CoV-2 RNA was not present in the specimen above the Limit of Detection (LOD). However, Negative results do not preclude SARS-CoV-2 infection and should not be used as the sole basis for treatment or patient management decisions. Negative results mustbe combined with clinical observations, patient history, and epidemiological information. A false negative result may occur if a specimen is improperly collected, transported or handled. A false negative result should be considered if patient's recent exposures or clinical presentation indicate that COVID-19 (SARS-CoV-2) is likely and diagnostic tests for other causes of illness are negative. Re-testing should be considered in cases of suspected false negatives.The limit of detection for this assay is 800 copies/mL.This SARS CoV-2 test is a real-time RT-PCR test intended for the qualitative detection of nucleic acid from SARS-CoV-2 in a nasopharyngeal swab specimen collected from individuals suspected of COVID-19 by their healthcare provider.This test has not been Food and Drug Administration (FDA) cleared or approved. This is a modified version of an approved [...] is revoked under Section 564(g) of the Act.Fact Sheet for Healthcare Providers:https://www.[employer]sites/default/files/product/documents/Fact_Shee b_OW_Pmjujmaex_Abzn_ZHVP-GhW-1.pdfFact Sheet for Healthcare Patients:https://www.[employer]com/sites/default/files/product/ documents/Omzg_Dowjj_Ngbfdklc_Gksx_HZLL-AeB-9.pdfPerforming Laboratory:[facility], [place] [address]TO, FLUORO, NON- SPECIFIC, UP TO 1 [id number] 13:00:00Reason for exam:->stent placement Fluoroscopic unit utilized for a procedure performed in the OR. No interpretation was requested. Refer to the operative report for findings. Refer to PACS for patient radiation dose information.Hepatic function panel 2019-12-24 11:49:00 Test Item Value Reference Range Interpretation Comments Protein, Total (test code 5.5 6.0- 8.3 gm/dL L = 2885-2) Albumin (test code = 3.0 g/dL 3.5-5 L 81296-8) Total Bilirubin (test code 0.7 mg/dL 0.2-1.2 = 1975-2) Bilirubin, Direct (test 0.4 mg/dL 0.1-0.5 code = 1968-7) Alkaline Phosphatase (test 70 U/L 40-150 code = 6768-6) AST (test code = 1920-8) 11 U/L 5-34 ALT (test code = 1742-6) 15 U/L 6-55 PAUL (test code = PAUL) Promotional Model ID - ROSIANG Lab Interpretation (test Abnormal code = 79413-0) [facility] CenterHEPATIC FUNCTION [id number] 11:49:00 Test Item Value Reference Range Interpretation Comments TOTAL PROTEIN (BEAKER) (test code = 5.5 gm/dL 6.0-8.3 L 770) ALBUMIN (BEAKER) (test code = 1145) 3.0 g/dL 3.5-5.0 L BILIRUBIN TOTAL (BEAKER) (test code 0.7 mg/dL 0.2-1.2 = 377) BILIRUBIN DIRECT (BEAKER) (test 0.4 mg/dL 0.1-0.5 code = 706) ALKALINE PHOSPHATASE (BEAKER) (test 70 U/L 40-150 code = 346) AST (SGOT) (BEAKER) (test code = 11 U/L 5-34 353) ALT (SGPT) (BEAKER) (test code = 15 U/L 6-55 347) Promotional Model ID - ROSIANGBASIC METABOLIC [id number] 11:49:00 Test Item Value Reference Range Interpretation Comments SODIUM (BEAKER) 137 meq/L 136-145 (test code = 381) POTASSIUM (BEAKER) 3.2 meq/L 3.5-5.1 L (test code = 379) CHLORIDE (BEAKER) 106 meq/L 98-107 (test code = 382) CO2 (BEAKER) (test 24 meq/L 22-29 code = 355) BLOOD UREA NITROGEN 8 mg/dL 7-21 (BEAKER) (test code = 354) CREATININE (BEAKER) 0.59 mg/dL 0.57-1.25 (test code = 358) GLUCOSE RANDOM 86 mg/dL 70-105 (BEAKER) (test code = 652) CALCIUM (BEAKER) 8.2 mg/dL 8.4-10.2 L (test code = 697) EGFR (BEAKER) (test 105 mL/min/1.73 ESTIM ATED GFR IS code = 1092) sq m NOT ACCURATE CREATININE CLEARANCE IN PREDICTING GLOMERULAR FILTRATION RATE . ESTIMATED GFR I S NOT APPLICABLE FOR DIALYSIS PATIEN TS. Promotional Model ID - ROSIANGProthrombin time/[id number] 11:43:00 Test Item Value Reference Range Interpretation Comments Protime (test code = 17.1 11.9- 14.2 H 5902-2) seconds INR (test code = 1.43 <=5.90 6301-6) PAUL (test code = PAUL) Effective 08/18/2018: PT Reference Range ChangeNew: 11.9-14.2 Previous: 11.7-14.7 RECOMMENDED COUMADIN/WARFARIN INR THERAPY RANGESSTANDARD DOSE: 2.0-3.0 Includes: PROPHYLAXIS for venous thrombosis, systemic embolization; TREATMENT for venous thrombosis and/or pulmonary embolus.HIGH RISK: Target INR is 2.5-3.5 for patients wiht mechanical heart valves. Lab Interpretation Abnormal (test code = 00110-4) [facility] CenterPROTHROMBIN TIME/[id number] 11:43:00 Test Item Value Reference Range Interpretation Comments PROTIME (BEAKER) (test code = 17.1 seconds 11.9-14.2 H 759) INR (BEAKER) (test code = 370) 1.43 <=5.90 Effective 08/18/2018: PT Reference Range ChangeNew: 11.9-14.2 Previous: 11.7- 14.7RECOMMENDED COUMADIN/WARFARIN INR THERAPY RANGESSTANDARD DOSE: 2.0-3.0 Includes: PROPHYLAXIS for venous thrombosis, systemic embolization; TREATMENT for venous thrombosis and/or pulmonary embolus.HIGH RISK: Target INR is2.5-3.5 for patients wiht mechanical heart valves.CBC W/PLT COUNT & AUTO [id number] 11:37:00 Test Item Value Reference Range Interpretation Comments WHITE BLOOD CELL COUNT (BEAKER) 3.6 K/ L 3.5-10.5 (test code = 775) RED BLOOD CELL COUNT (BEAKER) 2.54 M/ L 3.93-5.22 L (test code = 761) HEMOGLOBIN (BEAKER) (test code = 8.3 GM/DL 11.2-15.7 L 410) HEMATOCRIT (BEAKER) (test code = 26.4 % 34.1-44.9 L 411) MEAN CORPUSCULAR VOLUME (BEAKER) 103.9 fL 79.4-94.8 H (test code = 753) MEAN CORPUSCULAR HEMOGLOBIN 32.7 pg 25.6-32.2 H (BEAKER) (test code = 751) MEAN CORPUSCULAR HEMOGLOBIN CONC 31.4 GM/DL 32.2-35.5 L (BEAKER) (test code = 752) RED CELL DISTRIBUTION WIDTH 19.8 % 11.7-14.4 H (BEAKER) (test code = 412) PLATELET COUNT (BEAKER) (test code 83 K/CU MM 150-450 L = 756) MEAN PLATELET VOLUME (BEAKER) 10.1 fL 9.4-12.3 (test code = 754) NUCLEATED RED BLOOD CELLS (BEAKER) 1 /100 WBC 0-0 H (test code = 413) NEUTROPHILS RELATIVE PERCENT 37 % (BEAKER) (test code = 429) LYMPHOCYTES RELATIVE PERCENT 33 % (BEAKER) (test code = 430) MONOCYTES RELATIVE PERCENT 29 % (BEAKER) (test code = 431) EOSINOPHILS RELATIVE PERCENT 0 % (BEAKER) (test code = 432) BASOPHILS RELATIVE PERCENT 0 % (BEAKER) (test code = 437) NEUTROPHILS ABSOLUTE COUNT 1.34 K/ L 1.56-6.13 L (BEAKER) (test code = 670) LYMPHOCYTES ABSOLUTE COUNT 1.19 K/ L 1.18-3.74 (BEAKER) (test code = 414) MONOCYTES ABSOLUTE COUNT (BEAKER) 1.03 K/ L 0.24-0.36 H (test code = 415) EOSINOPHILS ABSOLUTE COUNT 0.01 K/ L 0.04-0.36 L (BEAKER) (test code = 416) BASOPHILS ABSOLUTE COUNT (BEAKER) 0.01 K/ L 0.01-0.08 (test code = 417) IMMATURE GRANULOCYTES-RELATIVE 1 % 0-1 PERCENT (BEAKER) (test code = 2801) CT, [id number] 11:54:00Unlisted Reason for Exam - Click Yes and Enter Reason Below->YesUnlisted Reason for Exam->Uterine cancerFINAL REPORT TECHNIQUE: CT of the chest, abdomen, and pelvis WITH intravenouscontrast and WITHOUT oral contrast. Dose modulation, iterative reconstruction, and/or weight-based adjustment of the mA/kV was utilized to reduce the radiation dose to as low as reasonably achievable. INDICATION: Unlisted Reason for ExamUterine cancer COMPARISON: 09/02/2019. FINDINGS: LINES/TUBES: Right IJ port catheter tip terminates in the superior vena cava.. LUNGS AND AIRWAYS: Central airways arepatent. No focal consolidation. There are a few scattered calcified granulomas in the lungs. No new or enlarging pulmonary nodule..PLEURA: The pleural spaces are clear.HEART AND MEDIASTINUM: . Mild incr ease in size of a few cardiophrenic lymph nodes. For instance a 0.9 x 0.6 cm left cardiophrenic lymph node. This previously measured 4 mm. (Axial image 37).. The heart and pericardium are within normallimits. HEPATOBILIARY: Stable 1.7 cm hepatic hemangioma within segment seven of the liver. No new hepatic lesions.. Cholelithiasis.. No biliary ductal dilatation.SPLEEN: No splenomegaly.PANCREAS: No focal masses or ductal dilatation. ADRENALS: No adrenal nodules.KIDNEYS/URETERS: 8 mm calculus within the left distal ureter. There is no proximal hydroureteronephrosis. There is normal symmetric enhancement of bilateral kidneys. 1.3 cm cyst in lower pole of the right kidney..PELVIC ORGANS/BLADDER: Unchanged lobulated contour of the uterus. Hypodense cystic focus within the left adnexa measures 7.5 x 7 cm. This previously measured 6 x 5 cm.. PERITONEUM/RETROPERITONEUM: Redemonstration of multiple foci of loculated ascites in the perihepatic region demonstrating mass effect and scalloping of the liver.These collections have increased in size since previous exam. (The collection along the lateral lefthepatic lobe now measures 13.5 x 8.5 cm. This previously measured 6.5 x 5 cm. The collection anterior and superior to the right hepatic lobe now measures 12.5 x 6 cm. This previously measured 11.5 x 5.3 cm. The collection within the small bowel mesentery now measures 8.5 x 7 cm. This previously measured 10 x 7.5 cm. There is small amount of free pelvic fluid. The previously seen omental/anterior peritoneal collection has collapsed. There is residual thickened soft tissue. (Axial image 86).LYMPH NODES: There is interval increase in size of a few retroperitoneal lymph nodes. For instance an aortocaval lymph node now measures 1.3 x 1 cm. This previously measured 0.9 x 0.7 cm. There are a few small left paracolic lymph nodes which are also increased in size. The largest measures 0.7 x 1.4 cm. On (axial image 66). A gastrohepatic lymph node is increased in size now measuring 1.9 x 1.9 cm. VESSELS: Infrarenal IVC filter is present. Mild atherosclerotic calcifications of the abdominal aorta and iliac arteries. No evidence of aneurysmal dilation.. GI TRACT: No distention or wall thickening. BONES AND SOFT TISSUES: Mild degenerative changes are noted in spine. No suspicious osseous lesion.. IMPRESSION:Redemonstration of loculated ascites and omental thickening consistent with peritoneal metastatic disease. Some of the loculated ascites has increased in size while others are decreased. Interval increase in size of left cystic adnexal lesion. Now measuring 7.5 cm. Interval increase in size of bilateral cardiophrenic, gastric hepatic and retroperitoneal lymph nodes concerning for metastatic disease.Redemonstration of calculus within the left distal ureter. No proximal hydroureteronephrosis. Signed: Emma Arvizu MDReport Verified Date/Time: 12/23/2019 11:54:15 Reading Location: [facility] B1 C0 13X Ortho Consult Reading Room CT, CHEST, WITH IV [id number] 11:54:00Unlisted Reason for Exam - Click Yes and Enter Reason Below- >YesUnlisted Reason for Exam->Uterine cancerFINAL REPORT TECHNIQUE: CT of the chest, abdomen, and pelvis WITH intravenous contrast and WITHOUT oral contrast. Dose modulation, iterative reconstruction, and/or weight-based adjustment of the mA/kV was utilized to reduce the radiation dose to as low as reasonably achievable. INDICATION: Unlisted Reason for ExamUterine cancer COMPARISON: 09/02/2019. FINDINGS: LINES/TUBES: Right IJ port catheter tip terminates in the superior vena cava.. LUNGS AND AIRWAYS: Central airways arepatent. No focal consolidation. There are a few scattered calcified granulomas in the lungs. No new or enlarging pulmonary nodule..PLEURA: The pleural spaces are clear.HEART AND MEDIASTINUM: . Mild increase in size of a few cardiophrenic lymph nodes. For instance a 0.9 x 0.6 cm left cardiophrenic lymph node. This previously measured 4 mm. (Axial image 37).. The heart and pericardium are within normallimits. HEPATOBILIARY: Stable 1.7 cm hepatic hemangioma within segment seven of the liver. No new hepatic lesions.. Cholelithiasis.. No biliary ductal dilatation.SPLEEN: No splenomegaly.PANCREAS: No focal masses or ductal dilatation. ADRENALS: No adrenal nodules.KIDNEYS/URETERS: 8 mm calculus within the left distal ureter. There is no proximal hydroureteronephrosis. There is normal symmetric enhancement of bilateral kidneys. 1.3 cm cyst in lower pole of the right kidney..PELVIC ORGANS/BLADDER: Unchanged lobulated contour of the uterus. Hypodense cystic focus within the left adnexa measures 7.5 x 7 cm. This previously measured 6 x 5 cm.. PERITONEUM/RETROPERITONEUM: Redemonstration of multiple foci of loculated ascites in the perihepatic region demonstrating mass effect and scalloping of the liver.These collections have increased in size since previous exam. (The collection along the lateral lefthepatic lobe now measures 13.5 x 8.5 cm. This previously measured 6.5 x 5 cm. The collection anterior and superior to the right hepatic lobe now measures 12.5 x 6 cm. This previously measured 11.5 x 5.3 cm. The collection within the small bowel mesentery now measures 8.5 x 7 cm. This previously measured 10 x 7.5 cm. There is small amount of free pelvic fluid. The previously seen omental/anterior peritoneal collection has collapsed. There is residual thickened soft tissue. (Axial image 86).LYMPH NODES: There is interval increase in size of a few retroperitoneal lymph nodes. For instance an aortocaval lymph node now measures 1.3 x 1 cm. This previously measured 0.9 x 0.7 cm. There are a few small left paracolic lymph nodes which are also increased in size. The largest measures 0.7 x 1.4 cm. On (axial image 66). A gastrohepatic lymph node is increased in size now measuring 1.9 x 1.9 cm. VESSELS: Infrarenal IVC filter is present. Mild atherosclerotic calcifications of the abdominal aorta and iliac arteries. No evidence of aneurysmal dilation.. GI TRACT: No distention or wall thickening. BONES AND SOFT TISSUES: Mild degenerative changes are noted in spine. No suspicious osseous lesion.. IMPRESSION:Redemonstration of loculated ascites and omental thickening consistent with peritoneal metastatic disease. Some of the loculated ascites has increased in size while others are decreased. Interval increase in size of left cystic adnexal lesion. Now measuring 7.5 cm. Interval increase in size of bilateral cardiophrenic, gastric hepatic and retroperitoneal lymph nodes concerning for metastatic disease.Redemonstration of calculus within the left distal ureter. No proximal hydroureteronephrosis. Signed: Emma Arvizu MDReport Verified Date/Time: 12/23/2019 11:54:15 Reading Location: [facility] B1 C0 13X Ortho Consult Reading Room CT Chest with IV [id number] 11:54:00 Interface, External Ris In - 12/23/2019 11:56 AM CDTFINAL REPORT TECHNIQUE: CT of the chest, abdomen, and pelvis WITH intravenous contrast and WITHOUT oral contrast. Dose modulation, iterative reconstruction, and/or weight-based adjustment of the mA/kV was utilized to reduce theradiation dose to as low as reasonably achievable. INDICATION: Unlisted Reason for ExamUterine cancer COMPARISON: 09/02/2019. FINDINGS: LINES/TUBES: Right IJ port catheter tip terminates in the superior vena cava.. LUNGS AND AIRWAYS: Central airways are patent. No focal consolidation. There are a few scattered calcified granulomas in the lungs. No new or enlarging pulmonary nodule..PLEURA: The pleural spaces are clear.HEART AND MEDIASTINUM: . Mild increase in size of a few cardiophrenic lymph nodes.For instance a 0.9 x 0.6 cm left cardiophrenic lymph node. This previously measured 4 mm. (Axial image 37).. The heart and pericardium are within normal limits. HEPATOBILIARY: Stable 1.7 cm hepatic bud ngioma within segment seven of the liver. No new hepatic lesions.. Cholelithiasis.. No biliary ductal dilatation.SPLEEN: No splenomegaly.PANCREAS: No focal masses or ductal dilatation. ADRENALS: No adrenal nodules.KIDNEYS/URETERS: 8 mm calculus within the left distal ureter. There is no proximal hydroureteronephrosis. There is normal symmetric enhancement of bilateral kidneys. 1.3 cm cyst in lower pole of the right kidney..PELVIC ORGANS/BLADDER: Unchanged lobulated contour of the uterus. Hypodense cystic focus within the left adnexa measures 7.5 x 7 cm. This previously measured 6 x 5 cm.. PERITONEUM/RETROPERITONEUM: Redemonstration of multiple foci of loculated ascites in the perihepatic region demonstrating mass effect and scalloping of the liver. These collections have increased in size since previous exam. (The collection along the lateral left hepatic lobe now measures 13.5 x 8.5 cm. This previously measured 6.5 x 5 cm. The collection anterior and superior to the right hepatic lobe now measures 12.5 x 6 cm. This previously measured 11.5 x 5.3 cm. The collection within the small bowel mesentery now measures 8.5 x 7 cm. This previously measured 10 x 7.5 cm. There is small amount of free pelvic fluid. The previously seen omental/anterior peritoneal collection has collapsed. There is residual thickened soft tissue. (Axial image 86).LYMPH NODES: There is interval increase in size of a few retroperitoneal lymph nodes. For instance an aortocaval lymph node now measures 1.3 x 1 cm. This previously measured 0.9 x 0.7 cm. There are a few small left paracolic lymph nodes which are also increasedin size. The largest measures 0.7 x 1.4 cm. On (axial image 66). A gastrohepatic lymph node is increased in size now measuring 1.9 x 1.9 cm. VESSELS: Infrarenal IVC filter is present. Mild atherosclerotic calcifications of the abdominal aorta and iliac arteries. No evidence of aneurysmal dilation.. GITRACT: No distention or wall thickening. BONES AND SOFT TISSUES: Mild degenerative changes are notedin spine. No suspicious osseous lesion.. IMPRESSION:Redemonstration of loculated ascites and omental thickening consistent with peritoneal metastatic disease. Some of the loculated ascites has increased in size while others are decreased. Interval increase in size of left cystic adnexal lesion. Now measuring 7.5 cm. Interval increase in size of bilateral cardiophrenic, gastric hepatic and retroperitoneal lymph nodes concerning for metastatic disease. Redemonstration of calculus within the left distal ureter. No proximal hydroureteronephrosis. Signed: Emma Arvizu MDReport Verified Date/Time: 12/23/2019 11:54:15 Reading Location: [facility] C0X [facility] [id number] 11:54:00Interface, External Ris In - 12/23/2019 11:56 AM CDTFINAL REPORT TECHNIQUE: CT of the chest, abdomen, and pelvis WITH intravenous contrast and WITHOUT oral contrast. Dose modulation, iterative reconstruction, and/or weight-based adjustment of the mA/kV was utilized to reduce theradiation dose to as low as reasonably achievable. INDICATION: Unlisted Reason for ExamUterine cancer COMPARISON: 09/02/2019. FINDINGS: LINES/TUBES: Right IJ port catheter tip terminates in the superior vena cava.. LUNGS AND AIRWAYS: Central airways are patent. No focal consolidation. There are a few scattered calcified granulomas in the lungs. No new or enlarging pulmonary nodule..PLEURA: The pleural spaces are clear.HEART AND MEDIASTINUM: . Mild increase in size of a few cardiophrenic lymph nodes.For instance a 0.9 x 0.6 cm left cardiophrenic lymph node. This previously measured 4 mm. (Axial image 37).. The heart and pericardium are within normal limits. HEPATOBILIARY: Stable 1.7 cm hepatic hemangioma within segment seven of the liver. No new hepatic lesions.. Cholelithiasis.. No biliary ductal dilatation.SPLEEN: No splenomegaly.PANCREAS: No focal masses or ductal dilatation. ADRENALS: No adrenal nodules.KIDNEYS/URETERS: 8 mm calculus within the left distal ureter. There is no proximal hydroureteronephrosis. There is normal symmetric enhancement of bilateral kidneys. 1.3 cm cyst in lower pole of the right kidney..PELVIC ORGANS/BLADDER: Unchanged lobulated contour of the uterus. Hypodense cystic focus within the left adnexa measures 7.5 x 7 cm. This previously measured 6 x 5 cm.. PERITONEUM/RETROPERITONEUM: Redemonstration of multiple foci of loculated ascites in the perihepatic region demonstrating mass effect and scalloping of the liver. These collections have increased in size since previous exam. (The collection along the lateral left hepatic lobe now measures 13.5 x 8.5 cm. This previously measured 6.5 x 5 cm. The collection anterior and superior to the right hepatic lobe now measures 12.5 x 6 cm. This previously measured 11.5 x 5.3 cm. The collection within the small bowel mesent pamela now measures 8.5 x 7 cm. This previously measured 10 x 7.5 cm. There is small amount of free pelvic fluid. The previously seen omental/anterior peritoneal collection has collapsed. There is residual thickened soft tissue. (Axial image 86).LYMPH NODES: There is interval increase in size of a few ret roperitoneal lymph nodes. For instance an aortocaval lymph node now measures 1.3 x 1 cm. This previously measured 0.9 x 0.7 cm. There are a few small left paracolic lymph nodes which are also increasedin size. The largest measures 0.7 x 1.4 cm. On (axial image 66). A gastrohepatic lymph node is increased in size now measuring 1.9 x 1.9 cm. VESSELS: Infrarenal IVC filter is present. Mild atherosclerotic calcifications of the abdominal aorta and iliac arteries. No evidence of aneurysmal dilation.. GITRACT: No distention or wall thickening. BONES AND SOFT TISSUES: Mild degenerative changes are notedin spine. No suspicious osseous lesion.. IMPRESSION:Redemonstration of loculated ascites and omental thickening consistent with peritoneal metastatic disease. Some of the loculated ascites has increased in size while others are decreased. Interval increase in size of left cystic adnexal lesion. Now measuring 7.5 cm. Interval increase in size of bilateral cardiophrenic, gastric hepatic and retroperitoneal lymph nodes concerning for metastatic disease. Redemonstration of calculus within the left distal ureter. No proximal hydroureteronephrosis. Signed: Emma Arvizu Verified Date/Time: 12/23/2019 11:54:15 Reading Location: [address] Ortho Consult Reading Room [facility] Prepare Leuko-Red [id number] 23:54:00 Test Item Value Reference Range Interpretation Comments CROSSMATCH (test code = 2264) COMPATIBLE Unit ABO (test code = B Pos [id number]) UNIT NUMBER (test code = B217766237306 934-0) Status (test code = 9175924) TX_TIMEINCHART Blood Bank Product (test code RED BLOOD CELLS = 2263) PRODUCT CODE (test code = A2815J76 933-2) [facility] [id number] 19:40:00 Test Item Value Reference Range Interpretation Comments Materials Received (test y4nmaHHmRRNbeTHzQzZ code = 9973) hRLHvSGOsu3fjIVCjqX FuZzEwMzNcZnRuYmpcd QPgQQVlUbSqs2fsd268 kKMmm4ifQPXiLjK2fYT uSAOvpOFpJ958UHQxCJ wwz1vdy9JtUWNjgYWjg 2A9PXDFqzrmqYm1aYya L93tf9E4RnbaV7kwQKQ zEAFyM3GfGA0oBYUvMq m8IXL4VEU5QCWuDMMpU 1HbUR7oJPWvsHZtDBo4 x1trvLkiWUHgFCF5c1o yNWuetoHfYW3qoz7odD a8v1bilsZkEUNaMDWnm MDPXAHcR1UbjFcrSa6i uWi1fGqfHwcpSQK5Mnb 4BO6jbx55pfc6iKqxJW UeaiatVnK5XUbsORXli tnxEEj0FKhkGNAxwZij MFxtYXJncjcyMFxtYXJ aeQO5YVWizMCgN6DvMH CsYCkjBXWmzoe8IeGpR d5hcPKljHkyFDfst5vd t8fuiABwPdj5QCZwSiB kGkhxMXase1Yts7yvSN Nxqj0sEAH5xYDycVcmz 7Z1qPLrMAMwtCOkayLs XLKfkb23rHJezOFtpWO kmz1rkoLqoYLoxTGcCX U0rKBzmcQpTOQzyGApS DYzTV2rcMAhROSexT5b cmxjXHBnYnJkcmhlYWR tyRmmhnGdHt1nuWtqMJ A7LCgmC7csiC1yFzB1Q CpwM9omrD5rQMn9FXct iMT6YSVmvG6bIT3hlou oj2lxUzLtHV7uncejp8 ggZmArMJ0iwaq9m3kvT CD0ERvsJVObVnU0sqK0 NDBcaGVhZGVyeTcyMFx oc060SWW2DeShNSPel6 XfP5EluCntE49bjKrvL 60sCUSfxVuokW3unQyy lA5mToMgGcIsLKd6tk6 9PZa5bqtgzYfsPGh0nh YgIUGaSLY4RVKxcKRoD FWtQ0o4rlIvITIlXPO4 JOCdyGXvMXFuB9d0pfR zFVF0RXg7omWrZGMwlC NcdHJwYWRkYjBcdHJwY WRkZmIzXHRybGVmdDBc iUNihG1bjOgvDMJbbPJ igG2bUQF9IVJoswxmTo DmpGDsNUDuwJImud23O GNsdmVydGFsdFxjbGJy VWE6SHWcLYEmPPOqDPA 3MTBcYnJkcmNmMVxjbG JyZHJiXGJyZHJzXGJyZ WL9STEbFiSiksIfJDkw bGJyZHJsXGJyZHJzXGJ dKFN9LQOtBlRtikQcJV xjbGJyZHJyXGJyZHJzX YYsEYL6XRCmWzCdvpFc MVxjbHBhZHQxMFxjbHB zQUD3Q0dsrJHcDFKoIM wxdWKxCDSkT2askYHzC GwwXGNscGFkZmwzXGNs fFTwVrXaD6fnFHOvOqX fO4PscXc7XJVtDNVuaw WliTBesTdcyMLvEOO4V NPfZTYsNYUgKBK8WIVd YnJkcmNmMVxjbGJyZHJ uDGDfPKSyCMZqTPF2HX BcYnJkcmNmMVxjbGJyZ HJsXGJyZHJzXGJyZHJ3 MTBcYnJkcmNmMVxjbGJ yZHJyXGJyZHJzXGJyZH G1TBFuJyWcqeKdMIxsu HBhZHQxMFxjbHBhZGZ0 U0ylvAHtPGRqUBdkvLW dNJKqA2jvuRSqTBilUQ NscGFkZmwzXGNscGFkY uYbL5nuEZIkIfIaG9St gNq7NiPgGDWiolXtnXM jwPtyoFKtIER9HFYlEB MzNVJfSJD0ERIrKmDvj mNmMVxjbGJyZHJiXGJy MTYbBQDpEJX8NWAwKpH kcmNmMVxjbGJyZHJsXG PvCUPoGMQaHIT0RUHgE nJkcmNmMVxjbGJyZHJy HEIpYOLrTZFgIUQ4BBJ cYnJkcmNmMVxjbHBhZH EoWSzwlWVvUTS6C4dmp HBhZHIxMFxjbHBhZGZy M9qhyETiKQrsCSApwXH kZmwzXGNscGFkYjBcY2 uoHNWvFyNeC9JjfBg0E sIsWOKxuiOniI89Vwez v6NwANQdFOC1FTphGTn xbFxwbGFpblxmMVxmcz IwXGxhbmcxMDMzXGhpY 2hcZjFcZGJjaFxmMVxs d1WgZBOiWIFcIdijsoO oGLHkZCYyLXLfxY7kHv xaH3BmgV8fHUpuJyigY 0vvPYYuj0VvqL3fFXpd bGFpblxmMVxmczIwXGx crmtlIFAnKGcsL4bbBi YhEMHabKhdUZqnd0KnO GYxXGNmMlxmczIwXGx0 cmNoXGNlbGxccGFyZFx wjeGpaTjxt5LvqfHmsU knFZBuIHf5tjKpinkup Fk4lCDanKceSWNziOkv dL3dSzMlSrZxLCliyEO pblxmMVxmczIwXGxhbm hwNUTwCIlxI3ysPaOoH YOpaGfyMEfgl4HrUQYy HGBpRyaxitGvTKGdF54 sbGVjdGVkXHBsYWluXG YxXGZzMjBcbGFuZzEwM zNcaGljaFxmMVxkYmNo MQJwCKjnL2itIsEmE8W zWSPuNyKmfAEzY6tnW9 VsbFxwYXJkXGludGJsX BGvwGZlGHW2vDKauzFg bHRycGFyXHFsXHdpZGN 0bHBhclxwbGFpblxmMF bitvK3MJIeUNepLEXxS GZzMjBcbGFuZzEwMzNc aGljaFxmMVxkYmNoXGY qBLwsD4uuZhLnI3XzTR ZzMjBcYiBSZWNlaXZlZ FxwbGFpblxmMVxmczIw CLctgbdgSXKaCAwgK3x cZjFcZGJjaFxmMVxsb2 NoXGYxXGNmMlxmczIwX Sb2cnJzMGYdzBpiqJ15 Fmmcgy18ECVft1iaOSM gE5ZpgHAtJFBnmDNtAN wxMDhcdHJwYWRkZmwzX HRycGFkZHIxMDhcdHJw YWRkZnIzXHRycGFkZHQ qANObgUReQFA6H1n2ab NtVEYbXNx0vvHcHRTgI xMzdHXsOIS4NXb1Wbep ytL4mUOaC2n0IraawkY tAFgtxUGmri41MHZsiy DlvLWooBsaoMTqSKT0C MRaZIXfSAKvPLB8WTJg YnJkcmNmMVxjbGJyZHJ uNKHsPLSoWJWpWFS3DO BcYnJkcmNmMVxjbGJyZ HJsXGJyZHJzXGJyZHJ3 MTBcYnJkcmNmMVxjbGJ yZHJyXGJyZHJzXGJyZH M4DMEpJfLscfMdPRtma HBhZHQxMFxjbHBhZGZ0 G4tidFDcPKWhCRtvtHB fYQHgA1fpoZVsPRieQU NscGFkZmwzXGNscGFkY oBgK7fnLCXrWzSqX6Rj vIj2RPCpPYIoniSzaDG wlIeamWEfBYD0OAIqOJ BfVVFuSOX0FTHtGkIcv mNmMVxjbGJyZHJiXGJy DDJkHIXqZWM3FZTfXvG kcmNmMVxjbGJyZHJsXG JfXLHoKMNmHQY4YNZvO nJkcmNmMVxjbGJyZHJy OARdELFhJQAfLRU5RRU cYnJkcmNmMVxjbHBhZH NhEYkuhPFgYNK3P4rcu HBhZHIxMFxjbHBhZGZy G2ndiWCcCMmxNYKwuQT kZmwzXGNscGFkYjBcY2 rrEDKcKfPyD4PylNb4V jAwXGNsdmVydGFsdFxj oVMiWZF7AWFiUFLrUGB wRZP5ZOFnAjLahdFvIF xjbGJyZHJiXGJyZHJzX SPvGST7BLHbYdVcesCq MVxjbGJyZHJsXGJyZHJ lKLUnWRK3AISnEnZuyc NmMVxjbGJyZHJyXGJyZ RFxRHZqFZE9QBPiMzIg [facility]linMVxjbHBhZHQxMFx uvBLoOHD2J6zysAJsFG WpRWtdmWQpLGVlG4ryx HBhZGwwXGNscGFkZmwz TTTbeQNpUdZiI8yyNKN gQyQtF9NctQh7YmZcNK PayzOrcQ62Msmqt3YxA OPxCZZ1MYxoPAleuUqw vSDzsnxwDArwemZ9XTY sYWluXGYxXGZzMjBcbG FuZzEwMzNcaGljaFxmM IajNdCrGPKbXPppV5in QtDaT5ZjLZEuYjFjTH7 eQdFkLYHxJfJ4JGTdUu DPMvchXMUABY2CN2HuH DAgVVNTXHBhciBCLiBD MdMhZXKyJColBXDtQ6T sEDFpTelDK3pORMHxQE ESR1merNAsbnfmIRtrh zIwXGxhbmcxMDMzXGhp W6ewMhXdMMQnmZzpNIk pl6EkMLVvTKCiNergtn YoOJw8cjUaRBHtdQqms VSqBDxzxfMgeTygl6Wd cmFhdXgwXHMwXHFsXHB sYWluXGYwXGZzMjRccG ovjH4vLvLyWeUjNXrcP Q2tCKZxO0qkhQCsGTOl MNGgM5fxQyXupI0bkKw mMVxjZjJcZnMyMCAxLz IzLzIwMjBccGFyIDUvN J1hSEPhUFTcIEpkJALk XGZzMjBcbGFuZzEwMzN caGljaFxmMVxkYmNoXG QyOCbkN6umGnTpF2FfD LIaPqUlgBLmD1vfJ5Xq bFxwYXJkXGludGJsXHN unZDcEXW1sRQgprZekZ epkDysyF1xPwBfTdRwP FxwbGFpblxmMVxmczIw XKxcagkvATYaEJnjU0n cZjFcZGJjaFxmMVxsb2 NoXGYxXGNmMlxmczIwI DcvMzEvMjAyMFxwYXIg Dd4gCP3qULKzYLEtAXg uXGYxXGZzMjBcbGFuZz EwMzNcaGljaFxmMVxkY lQpGEDaHDhtW4zmEaQp H9SaUFUiRjFbmXOlW3u gB6YknGhezeYbiUxcd1 wblPXbKTitd5HtdfSrb XgwXHMwXHFsXHBsYWlu XGYwXGZzMjRccGxhaW5 ySxYtQsMrFEkdXX7uBY DfD5xxkYAcXMRyXKMtL 8lyWaPmpJ7rgRumUGis czIwXHBhcn0= Addendum 1 (test code = [id number] 37) eCPDlb3rny9YduULpeA RoBQykmZOmfyKwst31l ZP0jA60QU8pXNOuPvT1 QWWzoaP8Xge4PJIbWJK luTRdM025w7nrc1xtaz MlqAB9yWnoTGYlOYtxK VxyaTFcbGluMVxwbGFp blxmczIwIFRoaXMgYWR nLM5viC2ftuRpl2S2gp B5tCFtzxJrnJa6otDtZ xPneAhxtJIpyKo6ZQKd wAGtr2SnIELvpOKadIU fLnKwyDQjNF7vfHNpUJ CcAmNUCAoKU7gqTRAmA aUyKX75PJB2FHL0aUMr k0Nio82ql3IxGH4VUX0 ub22puOSgOGZxdSZlko Wynu81ZMddzdLjngU9d K9wsxIkzAPenN16pm7y sJX5c7OhIB3uh9WolRh wYXJcflxwYXJcYiBDT0 4AIO8AC0qdIDLcXuGqD T0zhP9ukJIts4zxFUYf XXShqAIvkiZtv3MfHIN pYPUfs7IhZDBec5p6aA TyoBFrs7PzjZT0LFRqe 732rx7iwvDlysVxSUmq PHJnw1KeGJRhI5Pwo28 zIChDMjAtMDAyNjkpIH yrlRhuKK69lQPlSYvqe vSgh9RhaWulRULBMDXi aXNtYXRjaCByZXBhaXI qMB49sV6lwnHRDCfaZL OIL0cfJSKIV2g5TZMwu jCyFY6XHp7uAM41XCT8 WK74N5aqPEEqBEoarvL do9jfbyJxxkHrocorRS 50IGZvciBNTEgxLCBNU 8c1HHWvshBjPI5CUzwz s1bcgFKqFq7wOFwbd1A hayBzdGFpbmluZyBpcy GyIATkHQHkvtOJR4akJ IK1cYdxzMAccmYsrdLo cnByZXRlZCBoZXJlIGF dZEOkLSN0wNI8hMSjAC Tlk2e1jGIuPAHfk2Ewv J8sVBUcpXUgSEGmilSI l4HrLUBqHQRliLvnXDF fzRNwp0QlYYYpBQRZRD Hvj0HhosvxT8Grnq33N HLuXZKgweNzxp8lYKPv cQHleL4qzJ56XDLxfYo 6rIXbpJT3SMEiVEWno2 faxBZtw4ChMkMlI2Kaw 24uXHBhclxwYXJcbGkw XGxpbjAgSWYgcmVwZWF 6OQKtiGGzaI5sTDrnRX DvraHvdr0nWHN1ruFor r19eIPbJRXxMSN4RCBh GL6esJNbzWLbMPJatoG fl3mnV1BlDVJftAGfzP bePelbC3zchiikOZlpA 34vk1peCISttKwaqxYy nB23oEPuGaOzS4c9OR8 xuA4tvkDeCUX3qB4iTC MxXYUXC3yitFGxdGtuD qkeTkxgKHyFGDQdIZ4o qnVpq4edX7ShONIkwUM 2aM7ofq8upLCmcL== Diagnosis (test code = 34) n8hsrPNpCBCqoLQ5DQF wADQmv6cie0TyvFRmoE XrTBervRKpwuXkqe78t KE7zX71MJ9mZQGrHxW1 ZUWvdlJ3Tfd9HAIfQUR bcBCxZ502a6ibf5gxpb XwgWG2nKohFFTiERtnN VxyaTFcbGluMVxwbGFp qnhcjiRzZNHrI2QowcH kIDEzIHNsaWRlcyAoQz MzGEGbXkR9JStyXXLaa JnkWQImVZQsODKufT3y ZWFsIGZsdWlkLCBjeXR pi6WnzbFfKW6jAUDywJ xfFyhdT7z4WNKafks+X IJcNdkuCZMqUfk8JRrh TUVUQVNUQVRJQyBBREV SJ3BOYhATDz2KBYrxPh RFP4BgTQBKSIFWITMKV J0XMZuSMnCch6IwGRDg oO0nqsNgFPTgtdnlmDI ccGFyXHBhciBSZWNlaX FjEBM4PPUuxCUedfGmN nCgBTWsCBU7LMXeUORk O35xtBUkVGMjjnr8q82 eAPeeHuh4hUWiDJR4nX 7vwKzidjUwiwLsZ9Vlm RWdoD3poogstNKpSZTz VbOJorUeICLrd3OhoDh cSKQvswAcbf0rWXMnRM IkeDgcySYwDLKvbdq2O DBzSZLbDN8ylX5kojTu dDNzxI7bPJSoeJKvHW2 9chS5sMPuGMkhcQ1tkV AhmfnkVLgcSOWjCP9vH 4OdmAwxO9FxZRBdVTMi bnRccGFyXGxpMFxsaW4 wXHBhclxsaTFcbGluMS BEWZapx7iaV1LaDdM3I ZTcHG5rtUvqTLByic3= Comment (test code = 9835) b3qyePRyTIItrIK8TYC pTZTuc2svk2ChgTKjjZ VqZVsoxWRafwVdca07r SJ6nT37CI3eTNPlJiV8 QEMwusN3Nnn4KQLvKGN baUXwG927w7kjn2bqqw LdtDS7cPxyOMKsVRpxS VxyaTFcbGluMVxwbGFp blxmczIwIFRoZSBzdWJ bvKN5ZPWudZ5yxV2ec4 LbnD7bXUCvQBTgc4PwI IJbr80lX1VsgQUhsI4s pjHhBQS6dY5dytV8pTI oIGFwcHJvcHJpYXRlIG VtfdSba6qyAQOcrP58S EGnRTH6bN6wdeQbWWoz bsS1fzXfGLRdi9DqtMq 0VYWlw5ZqYF3RKkIgIX PCGS05AIWemnIqmGMeC uHLgDMnzGXdu3CiJ6Gk wIScZQNhWG9fB5M2iFW lIGZvciBDYWxyZXRpbm rlMYCGDI4cDPZMFlkdZ X7yUQHCDfOoWkQgISmg d7MiNfpvUDxyA2Iju0W alG8hfMJ6fMVqZJVkyq YxSEnkQ80bl9olUtPVn GluaWNhbCBhbmQgcmFk xU0vx9kxI6EdYEUztjO pgKV1xQ5rTEhoMHAiT1 9tbWVuZGVkLiBccGFyf Q== Gross Description (test s3qtiSJkZYPbv5bmWYV code = [id number]) lMxZlMBPSa2ubs111gA EeFWmuEjXhVsB6jZZbP RFvjWSji8S5OPxfpSHb SbSToupeqSt1t4mcT5q rxg3uFM7vMpGyVGTvPK QwXGZwcnEyIFRpbWVzI H4wjxEWi14gseg2h6ta BKxrlF5pYQMmSBQriBB ri5Y3QDqatFBmBOMPe3 VniEXaLB6csxw1z9ueD Upsn0ubj8SbUeAvROIu ZXQwXGZwcnEyIEFyaWF lPI3qshCygkj4h7zrUD DpRi7wMAUleljgA3xuh gUjwMKsIbIqcBPmF632 zedoqxc5n5gfNMMjUw1 mbKihE6tjlaOamTRbAv BycTIgVHJveSBNaWNyb gSdiXB9nWihPlXfMMQz p17gfzcuY1eobxVreHT sRvWhxZGnA7miHi0nT6 00JFXqXYuvl6wqg8DoR mNoYXJzZXQwXGZwcnEy UMEsK78qAUMNX202URE xQFQoDFDsb5tsd1qlD1 hhcnNldDBcZnBycTIgQ JPkEKb6vI5Rj1lgj4oq gfGfrOG7LAHpZWLdK3L iLC2pTCGmkVOfL9arJU NdFJshnfHnafI8ONVxi VRwUBepxfQoPpEsL8Ef GZ4cYChvuCEzFtK3XTT jNJL2PLiaJTTfWKokFy c9UVT3M6npLQL6H8iux eNsrxBbLTWibQD9Iybl omRbMwgkD9WwQC58KQu ykDRfUke1EBBbZWf5WA ejACUcXRNlXtr7RKk5Y 9xaEPIxLPWhH2ZiVK2a CEJxQut4GYYlHFtmmdA lUEI5THzrWLOlFLT3TJ NckYOtVou2OVQtGAK5V 0ryivZbphW7G0jnwUAh YRLaD0ygUDBlXEjdT2G gAX4cTMbvYaq1QRE7PM nniuMjULh7ZOqbWGIkB Qu4NYOqkYZlPyP6IUPr DMY3NUjkghMmqlI8MSn auRCnJRnfY3usLGDmXR diL6AgJU1bGEwoQlw5X TIwNztccmVkMjIzXGdy ZWVuMjIzXGJsdWUyMjM 7XHJlZDIzOVxncmVlbj ZhZIhlfZVzClU8L5kfX KJoNLExV5IuKE7iGMNl Has6LIX5USewxiLcGRv eplEfrgCfGga4DFY8VM x5Ldqze4G2wAZrlHTtv HtcczEgaGVhZGluZyAx J379ZUWuREebRPUvevd tHdt8y3ljDaQwQEVmvZ 6dMPV2jWypcyIlkUNzR RwuDwX7H573KHS3BGcl WMZpokuaRYh4k7qzTbT uZBDqrD1qKMH8vV1BKl jzDZDhrlivKEa6LWriM WTufkrfBnO5CPclMFDn yXz1IImvLZIfvgO2Dlc tYXJndDcyMFxtYXJnYj hhLCdhYURpVXH5PvOdH QOdh6Apzcz4BxZtAwDq MCAKClRoZSBjYXNlIGh lqvYnphEjbXRuhM1vrt XfgFZbs5ChSEfxm6ZyP ERvbmUuXHBhciAKfQ== Disclaimer (test code = a4mhiDAwSMIkhQPzDfK 9844) tVCGtYQBmo8ujPWCgbD FuZzEwMzNcZnRuYmpcd GFqOAPgBzExu9fqt484 qGZyj6klZWMdBgT8cCW tQRQruNYkF311USOxVS kct0hkh8SvSHDwqEHzb 8T6LHGTntxpdJf7kUgi F11no2U6QnmaS6qlZUK aNUOrW0MzPI6nMVOvGl j8MUW0YZA4DYEsDCGaW 6DlSY7pUWElsYUqQQx0 a9xfeCwbICUiKYT2s8t mQQibyhQjJF7gyv2tlE j7h2dupeJcUZEvECZhh XUZMMQeJ1PtuXrqBw4r cRn3vIyjRfthEVQ3Zex 4GZ8lvx13eax9fYstLS CksekwYiK4UQdtBSVcg fjaDZn8NXowNLCvvLY6 RHIekDQrN3OmFEWhKS8 ehfa4LMA3VAdbQYVqFw R9JTQwuTPpJKFtdRgiU Mdbr151ILC7VqQrCH0d Z3Ptw0E5dE6fuRHxCTF fvMCfOfSlCWSixk8lqB EsHKlyq4TgAHW3glW4z WVmiKGkFXJbYN43Ctqp z8YbKhtqOFF9AQEkhpG nn5Xwm2giPrLvpiNdI3 phF5MsAPRkMOToHDTjO gSzaqCkz2Vqj2ZivCCl fLf0b5gaSZGfYBKsbCb jj1nxBOS9BLUsL2R0hS Jdy3smFRlvVAFyjWY8y qR2GAFecJIgG5HsiB8a UTOiRX5pczh7j9efNAT 8BQhtHZTkNcQ5wmY9MS BcaGVhZGVyeTcyMFxmb 472WBZ6GcFpDBZte1Yo Q4UoaZkxW74tvRsuO31 oNMEscTsfeW7whUlciR 5cZjBcZnMyNFxxbFxwb NOkhltaCYlvpzJ1PCuf szuwJYSyZHptX7hyUsW vDUBfpVudCSvyj5YhCW IsGSAkIhgthoE4YSZHk 77jUDEba1RyHQIxgX1f vLDmBEdgkvHbfXS6CWy hdmUgYmVlbiBkZXZlbG 4hCCSbPX3qPZNrzcSav h7qdyXyLMQnPRWaU6Wc cmlzdGljcyBkZXRlcm1 xicEgSBF2KKJCOG0FQP ZjBWCfw13oEQDgpLxru H1idQFrpnRgHFPhp4Ha iV3vfYNEFSDcQ7wnOO7 kMFtnp2MwaHJjvSCnnP K4ZNVtk1UtFlXcinVoa CUnmFLmK9SxeVduL2ph DDHsHBCzrpDwsTUrf2T iESCblKP1vDJsOQ9WVq WVt90hKHElVCDBbwHyC CCkzBfviIS8piY5dT4p LiBJZiBhcHBsaWNhYmx kQBFue347eu3loqP2EE RxVPNqtgwzn4QdIORmZ RPgvY01MZDbLCZcji9l bjfphWApwkNnF8Ciwqx 3vW1nIDWqLOsbPLAvMP ZzMjJcbGFuZzEwMzNca GljaFxmMVxkYmNoXGYx YCwdV7meKeGuYpGvAuv wYXJ9 MD [employer] and screen, [id number] 13:15:00 Test Item Value Reference Range Interpretation Comments ABO/RH AUTOMATED (BEAKER) (test B POSITIVE code = 2260) Ab Scrn (test code = 890-4) [facility]IVE [facility] [id number] 17:42:00Labs to be ordered:->No Labs NeededReason for Exam:->css uterine cancerFINAL REPORT Ultrasound guided paracentesis. Clinical History: Ascites. Sedation: None. Senior Python Developer: Marva Elliott PA-C Throw Out Clerk: None. Estimated Blood Loss: < 1 cc. Specimen: 850 cc of dark brown fluid, samples sent to laboratory. Technique: Informed consent was obtained. The risks of pain, bleeding, infection, bowel perforation, injury to adjacent structures, and adverse medication reactions were discussed with the patient. After informed consent was obtained, the patient's abdomen was scanned. The left upper quadrant of the abdomen was selected for paracentesis. After the largest fluid pocket area was marked, and the anterior abdominal wall was evaluated with color Doppler to exclude presence of blood vessels traversing the area, the skin was prepped and draped in the usual sterile manner. After local anesthesia was achieved with 2% lidocaine, a 5 Mal[place]ian one- step catheter was advanced into the peritoneal cavity under ultrasound guidance. After completion of drainage, the catheter was removed. There was no evidence of complication. Impression:Successful ultrasound guided paracentesis. Signed: Brayan Mesa Verified Date/Time: 12/05/2019 17:42:59 Reading Location: [address] Ultrasound Reading Room US [id number] 17:42:00 Interface, External Ris In - 12/05/2019 5:45 PM CDTFINAL REPORT Ultrasound guided paracentesis. Clinical History: Ascites. Sedation: None. Senior Python Developer: Marva Elliott PA-C Throw Out Clerk: None. Estimated Blood Loss: < 1 cc. Specimen: 850 cc of dark brown fluid, samples sent to laboratory. Technique: Informed consent was obtained. The risks of pain, bleeding, infection, bowel perforation, injury to adjacent structures, and adverse medication reactions were discussed with the patient. After informed consent was obtained, the patient's abdomen was scanned. The left upper quadrant of the abdomen was selected for paracentesis. After the largest fluid pocket area was marked, and the anterior abdominal wall was evaluated with color Doppler to exclude presence of blood vessels traversing the area, the skin was prepped and draped in the usual sterile manner. After local anesthesia was achieved with 2% lidocaine, a 5 Malawian one-step catheter was advanced into the peritoneal cavity under ultrasound guidance. After completion of drainage, the catheter was removed. There was no evidence of complication. Impression:Successful ultrasound guided paracentesis. Signed: Brayan Mesaeport Verified Date/Time: 12/05/2019 17:42:59 Reading Location: [place] [id number] [facility]trasound Reading [facility] [id number] 10:49:00 Test Item Value Reference Range Interpretation Comments % Neutros (test code = 41 % 2816) % Lymphs (test code = 51 % 2817) % Monos (test code = 6 % 2818) % Baso (test code = 2820) 2 % # Neutros (test code = 1.03 K/ul 1.56-6.13 L 2830) # Lymphs (test code = 1.28 K/ul 1.18-3.74 2831) # Monos (test code = 0.15 K/uL 0.24-0.36 L 2832) # Baso (test code = 2835) 0.05 K/uL 0.01-0.08 Total Counted (test code 100 = 1351) Platelet Morphology (test Normal code = 486) Smudge Cells (test code = Present 1371) Polychromasia (test code 1+ few = 478) Microcytes (test code = 1+ few 965) Poikilocytes (test code = 1+ few 966) Artifact (test code = Present 3432) Platelet Conc (test code Decreased = 3438) PAUL (test code = PAUL) Promotional Model ID - Carmina Barr comments: Slide comments: Lab Interpretation (test Abnormal code = 81642-1) [facility] W/PLT COUNT & AUTO [id number] 10:49:00 Test Item Value Reference Range Interpretation Comments WHITE BLOOD CELL COUNT (BEAKER) 2.5 K/ L 3.5-10.5 L (test code = 775) RED BLOOD CELL COUNT (BEAKER) 2.37 M/ L 3.93-5.22 L (test code = 761) HEMOGLOBIN (BEAKER) (test code = 7.7 GM/DL 11.2-15.7 L 410) HEMATOCRIT (BEAKER) (test code = 25.3 % 34.1-44.9 L 411) MEAN CORPUSCULAR VOLUME (BEAKER) 106.8 fL 79.4-94.8 H (test code = 753) MEAN CORPUSCULAR HEMOGLOBIN 32.5 pg 25.6-32.2 H (BEAKER) (test code = 751) MEAN CORPUSCULAR HEMOGLOBIN CONC 30.4 GM/DL 32.2-35.5 L (BEAKER) (test code = 752) RED CELL DISTRIBUTION WIDTH 20.3 % 11.7-14.4 H (BEAKER) (test code = 412) PLATELET COUNT (BEAKER) (test code 86 K/CU MM 150-450 L = 756) MEAN PLATELET VOLUME (BEAKER) 10.3 fL 9.4-12.3 (test code = 754) NUCLEATED RED BLOOD CELLS (BEAKER) 0 /100 WBC 0-0 (test code = 413) (CELLAVISION MANUAL DIFF)2019-12-05 10:49:00 Test Item Value Reference Range Interpretation Comments NEUTROPHILS - REL 41 % (CELLAVISION)(BEAKER) (test code = 2816) LYMPHOCYTES - REL 51 % (CELLAVISION)(BEAKER) (test code = 2817) MONOCYTES - REL 6 % (CELLAVISION)(BEAKER) (test code = 2818) BASOPHILS - REL 2 % (CELLAVISION)(BEAKER) (test code = 2820) NEUTROPHILS - ABS 1.03 K/ul 1.56-6.13 L (CELLAVISION)(BEAKER) (test code = 2830) LYMPHOCYTES - ABS 1.28 K/ul 1.18-3.74 (CELLAVISION)(BEAKER) (test code = 2831) MONOCYTES - ABS 0.15 K/uL 0.24-0.36 L (CELLAVISION)(BEAKER) (test code = 2832) BASOPHILS - ABS 0.05 K/uL 0.01-0.08 (CELLAVISION)(BEAKER) (test code = 2835) TOTAL COUNTED (BEAKER) (test code = 100 1351) PLT MORPHOLOGY (BEAKER) (test code Normal = 486) SMUDGE CELLS (BEAKER) (test code = Present 1371) POLYCHROMATOPHILLIC RBCS(BEAKER) 1+ few (test code = 478) MICROCYTES (BEAKER) (test code = 1+ few 965) POIKILOCYTES (BEAKER) (test code = 1+ few 966) ARTIFACT (CELLAVISION)(BEAKER) Present (test code = 3432) PLATELET CONCENTRATION Decreased (CELLAVISION)(BEAKER) (test code = 3438) Promotional Model ID - Carmina WilhelmPatel comments: Slide comments:[id number] 07:58:00 Test Item Value Reference Range Interpretation Comments PTT (test code = 31463-4) 29.7 22.5- 36.0 seconds Lab Interpretation (test code = Normal 99274-3) [facility]/[id number] 07:58:00 Test Item Value Reference Range Interpretation Comments PROTIME (BEAKER) (test code = 14.8 seconds 11.9-14.2 H 759) INR (BEAKER) (test code = 370) 1.19 <=5.90 Effective 08/18/2018: PT Reference Range ChangeNew: 11.9-14.2 Previous: 11.7- 14.7RECOMMENDED COUMADIN/WARFARIN INR THERAPY RANGESSTANDARD DOSE: 2.0-3.0 Includes: PROPHYLAXIS for venous thrombosis, systemic embolization; TREATMENT for venous thrombosis and/or pulmonary embolus.HIGH RISK: Target INR is2.5-3.5 for patients wiht mechanical heart valves.[id number] 07:58:00 Test Item Value Reference Range Interpretation Comments PARTIAL THROMBOPLASTIN TIME 29.7 seconds 22.5-36.0 (BEAKER) (test code = 760) Blood Culture - Routine (Left Venipuncture)2019-11-10 08:00:00 Test Item Value Reference Range Interpretation Comments Result (test code = No growth in 5 days 6463-4) [facility] [id number] 08:00:00 Test Item Value Reference Range Interpretation Comments CULTURE (BEAKER) (test No growth in 5 days code = 1095) BLOOD [id number] 08:00:00 Test Item Value Reference Range Interpretation Comments CULTURE (BEAKER) (test No growth in 5 days code = 1095) BLOOD [id number] 16:00:00 Test Item Value Reference Range Interpretation Comments CULTURE (BEAKER) (test No growth in 5 days code = 1095) BLOOD [id number] 16:00:00 Test Item Value Reference Range Interpretation Comments CULTURE (BEAKER) (test No growth in 5 days code = 1095) BLOOD [id number] 14:39:00 Test Item Value Reference Range Interpretation Comments CULTURE A From Anaerobic Bottle (BEAKER) (test Only Coagulas e code = 1095) negative Staphylococcus GRAM STAIN From anaerobic RESULT (BEAKER) bottle only: gram (test code = positive cocci in 1123) clusters Manual [id number] 10:30:00 Test Item Value Reference Range Interpretation Comments Total Counted (test code = 1351) WBC Morphology (test code = 487) Normal Platelet Morphology (test code = 486) Normal Anisocytosis (test code = 961) 1+ few [facility] & AUTO [id number] 10:30:00 Test Item Value Reference Range Interpretation Comments WHITE BLOOD CELL COUNT (BEAKER) 3.6 K/ L 3.5-10.5 (test code = 775) RED BLOOD CELL COUNT (BEAKER) 2.59 M/ L 3.93-5.22 L (test code = 761) HEMOGLOBIN (BEAKER) (test code = 8.1 GM/DL 11.2-15.7 L 410) HEMATOCRIT (BEAKER) (test code = 25.9 % 34.1-44.9 L 411) MEAN CORPUSCULAR VOLUME (BEAKER) 100.0 fL 79.4-94.8 H (test code = 753) MEAN CORPUSCULAR HEMOGLOBIN 31.3 pg 25.6-32.2 (BEAKER) (test code = 751) MEAN CORPUSCULAR HEMOGLOBIN CONC 31.3 GM/DL 32.2-35.5 L (BEAKER) (test code = 752) RED CELL DISTRIBUTION WIDTH 17.7 % 11.7-14.4 H (BEAKER) (test code = 412) PLATELET COUNT (BEAKER) (test code 73 K/CU MM 150-450 L = 756) MEAN PLATELET VOLUME (BEAKER) 10.8 fL 9.4-12.3 (test code = 754) NUCLEATED RED BLOOD CELLS (BEAKER) 1 /100 WBC 0-0 H (test code = 413) (MANUAL DIFFERENTIAL)2019-11-06 10:30:00 Test Item Value Reference Range Interpretation Comments TOTAL COUNTED (BEAKER) (test code = 1351) WBC MORPHOLOGY (BEAKER) (test code = Normal 487) PLT MORPHOLOGY (BEAKER) (test code = Normal 486) ANISOCYTOSIS (BEAKER) (test code = 1+ few 961) COMPREHENSIVE METABOLIC [id number] 07:51:00 Test Item Value Reference Range Interpretation Comments TOTAL PROTEIN 6.0 gm/dL 6.0-8.3 (BEAKER) (test code = 770) ALBUMIN (BEAKER) 2.9 g/dL 3.5-5.0 L (test code = 1145) ALKALINE PHOSPHATASE 66 U/L 40-150 (BEAKER) (test code = 346) BILIRUBIN TOTAL 0.5 mg/dL 0.2-1.2 (BEAKER) (test code = 377) SODIUM (BEAKER) (test 136 meq/L 136-145 code = 381) POTASSIUM (BEAKER) 3.7 meq/L 3.5-5.1 (test code = 379) CHLORIDE (BEAKER) 99 meq/L 98-107 (test code = 382) CO2 (BEAKER) (test 26 meq/L 22-29 code = 355) BLOOD UREA NITROGEN 9 mg/dL 7-21 (BEAKER) (test code = 354) CREATININE (BEAKER) 0.50 mg/dL 0.57-1.25 L (test code = 358) GLUCOSE RANDOM 98 mg/dL 70-105 (BEAKER) (test code = 652) CALCIUM (BEAKER) 9.1 mg/dL 8.4-10.2 (test code = 697) AST (SGOT) (BEAKER) 14 U/L 5-34 (test code = 353) ALT (SGPT) (BEAKER) 17 U/L 6-55 (test code = 347) EGFR (BEAKER) (test 127 ESTIMATE D GFR IS code = 1092) mL/min/1.73 sq NOT ACCURA TE m CREATININE CLEARANCE IN PREDICTING GLOMERULAR FILTRATION RATE . ESTIMATED GFR I S NOT APPLICABLE FOR DIALYSIS PATIEN TS. Promotional Model ID - NTPBLOOD [id number] 07:00:00 Test Item Value Reference Range Interpretation Comments CULTURE (BEAKER) (test No growth in 5 days code = 1095) CBC W/PLT COUNT & AUTO [id number] 14:12:00 Test Item Value Reference Range Interpretation Comments WHITE BLOOD CELL COUNT (BEAKER) 3.1 K/ L 3.5-10.5 L (test code = 775) RED BLOOD CELL COUNT (BEAKER) 2.63 M/ L 3.93-5.22 L (test code = 761) HEMOGLOBIN (BEAKER) (test code = 8.3 GM/DL 11.2-15.7 L 410) HEMATOCRIT (BEAKER) (test code = 26.1 % 34.1-44.9 L 411) MEAN CORPUSCULAR VOLUME (BEAKER) 99.2 fL 79.4-94.8 H (test code = 753) MEAN CORPUSCULAR HEMOGLOBIN 31.6 pg 25.6-32.2 (BEAKER) (test code = 751) MEAN CORPUSCULAR HEMOGLOBIN CONC 31.8 GM/DL 32.2-35.5 L (BEAKER) (test code = 752) RED CELL DISTRIBUTION WIDTH 18.0 % 11.7-14.4 H (BEAKER) (test code = 412) PLATELET COUNT (BEAKER) (test code 70 K/CU MM 150-450 L = 756) MEAN PLATELET VOLUME (BEAKER) 10.7 fL 9.4-12.3 (test code = 754) NUCLEATED RED BLOOD CELLS (BEAKER) 0 /100 WBC 0-0 (test code = 413) (CELLAVISION MANUAL DIFF)2019-11-05 14:12:00 Test Item Value Reference Range Interpretation Comments NEUTROPHILS - REL 51 % (CELLAVISION)(BEAKER) (test code = 2816) LYMPHOCYTES - REL 34 % (CELLAVISION)(BEAKER) (test code = 2817) MONOCYTES - REL 11 % (CELLAVISION)(BEAKER) (test code = 2818) EOSINOPHILS - REL 1 % (CELLAVISION)(BEAKER) (test code = 2819) METAMYELOCYTES - REL 1 % 0-0 H (CELLAVISION)(BEAKER) (test code = 2821) MYELOCYTES - REL 1 % 0-0 H (CELLAVISION)(BEAKER) (test code = 2822) BANDS - REL (CELLAVISION)(BEAKER) 1 % 0-10 (test code = 2826) NEUTROPHILS - ABS 1.58 K/ul 1.56-6.13 (CELLAVISION)(BEAKER) (test code = 2830) LYMPHOCYTES - ABS 1.05 K/ul 1.18-3.74 L (CELLAVISION)(BEAKER) (test code = 2831) MONOCYTES - ABS 0.34 K/uL 0.24-0.36 (CELLAVISION)(BEAKER) (test code = 2832) EOSINOPHILS - ABS 0.03 K/uL 0.04-0.36 L (CELLAVISION)(BEAKER) (test code = 2834) METAMYELOCYTES - ABS 0.03 K/uL 0.00-0.00 H (CELLAVISION)(BEAKER) (test code = 2836) MYELOCYTES-ABS 0.03 K/uL 0.00-0.00 H (CELLAVISION)(BEAKER) (test code = 2837) BANDS - ABS (CELLAVISION)(BEAKER) 0.03 K/uL 0.00-0.80 (test code = 2840) TOTAL COUNTED (BEAKER) (test code 100 = 1351) MANUAL NRBC PER 100 CELLS (BEAKER) 1 /100 WBC 0-0 H (test code = 1353) SMUDGE CELLS (BEAKER) (test code = Present 1371) GIANT PLATELETS (BEAKER) (test Present code = 313) ANISOCYTOSIS (BEAKER) (test code = 1+ few 961) ARTIFACT (CELLAVISION)(BEAKER) Present (test code = 3432) PLATELET CONCENTRATION Decreased (CELLAVISION)(BEAKER) (test code = 3438) Promotional Model ID - Carmina Barr comments: Slide comments:COMPREHENSIVE METABOLIC [id number] 11:21:00 Test Item Value Reference Range Interpretation Comments TOTAL PROTEIN 6.1 gm/dL 6.0-8.3 (BEAKER) (test code = 770) ALBUMIN (BEAKER) 3.0 g/dL 3.5-5.0 L (test code = 1145) ALKALINE PHOSPHATASE 67 U/L 40-150 (BEAKER) (test code = 346) BILIRUBIN TOTAL 0.5 mg/dL 0.2-1.2 (BEAKER) (test code = 377) SODIUM (BEAKER) (test 134 meq/L 136-145 L code = 381) POTASSIUM (BEAKER) 3.6 meq/L 3.5-5.1 (test code = 379) CHLORIDE (BEAKER) 99 meq/L 98-107 (test code = 382) CO2 (BEAKER) (test 28 meq/L 22-29 code = 355) BLOOD UREA NITROGEN 9 mg/dL 7-21 (BEAKER) (test code = 354) CREATININE (BEAKER) 0.59 mg/dL 0.57-1.25 (test code = 358) GLUCOSE RANDOM 131 mg/dL 70-105 H (BEAKER) (test code = 652) CALCIUM (BEAKER) 9.1 mg/dL 8.4-10.2 (test code = 697) AST (SGOT) (BEAKER) 14 U/L 5-34 (test code = 353) ALT (SGPT) (BEAKER) 16 U/L 6-55 (test code = 347) EGFR (BEAKER) (test 105 ESTIMATE D GFR IS code = 1092) mL/min/1.73 sq NOT ACCURA TE m CREATININE CLEARANCE IN PREDICTING GLOMERULAR FILTRATION RATE . ESTIMATED GFR I S NOT APPLICABLE FOR DIALYSIS PATIEN TS. Promotional Model ID - DBCBC W/PLT COUNT & AUTO [id number] 10:33:00 Test Item Value Reference Range Interpretation Comments WHITE BLOOD CELL COUNT (BEAKER) 2.9 K/ L 3.5-10.5 L (test code = 775) RED BLOOD CELL COUNT (BEAKER) 2.61 M/ L 3.93-5.22 L (test code = 761) HEMOGLOBIN (BEAKER) (test code = 8.4 GM/DL 11.2-15.7 L 410) HEMATOCRIT (BEAKER) (test code = 25.2 % 34.1-44.9 L 411) MEAN CORPUSCULAR VOLUME (BEAKER) 96.6 fL 79.4-94.8 H (test code = 753) MEAN CORPUSCULAR HEMOGLOBIN 32.2 pg 25.6-32.2 (BEAKER) (test code = 751) MEAN CORPUSCULAR HEMOGLOBIN CONC 33.3 GM/DL 32.2-35.5 (BEAKER) (test code = 752) RED CELL DISTRIBUTION WIDTH 18.8 % 11.7-14.4 H (BEAKER) (test code = 412) PLATELET COUNT (BEAKER) (test code 64 K/CU MM 150-450 L = 756) MEAN PLATELET VOLUME (BEAKER) 10.2 fL 9.4-12.3 (test code = 754) NUCLEATED RED BLOOD CELLS (BEAKER) 1 /100 WBC 0-0 H (test code = 413) (MANUAL DIFFERENTIAL)2019-11-04 10:33:00 Test Item Value Reference Range Interpretation Comments NEUTROPHILS - REL (DIFF) (BEAKER) 36 % (test code = 1359) LYMPHOCYTES - REL (DIFF) (BEAKER) 49 % (test code = 1360) MONOCYTES - REL (DIFF) (BEAKER) 10 % (test code = 1361) EOSINOPHILS - REL (DIFF) (BEAKER) 0 % (test code = 1362) BASOPHILS - REL (DIFF) (BEAKER) 0 % (test code = 1363) BANDS - REL (DIFF) (BEAKER) (test 5 % 0-10 code = 1348) NEUTROPHILS - ABS (DIFF) (BEAKER) 1.04 K/ L 1.80-8.00 L (test code = 1365) LYMPHOCYTES - ABS (DIFF) (BEAKER) 1.42 K/ L 1.48-4.50 L (test code = 1366) MONOCYTES - ABS (DIFF) (BEAKER) 0.29 K/ L 0.00-1.30 (test code = 1367) EOSINOPHILS - ABS (DIFF) (BEAKER) 0.00 K/ L 0.00-0.50 (test code = 1368) BASOPHILS - ABS (DIFF) (BEAKER) 0.00 K/ L 0.00-0.20 (test code = 1369) BANDS-ABS (DIFF) (BEAKER) (test 0.1 K/ L 0.0-0.8 code = 1349) TOTAL COUNTED (BEAKER) (test code 100 = 1351) BANDS + SEGMENTED NEUTROPHILS 1.19 (BEAKER) (test code = 1352) MANUAL NRBC PER 100 CELLS (BEAKER) 1 /100 WBC 0-0 H (test code = 1353) WBC MORPHOLOGY (BEAKER) (test code Normal = 487) PLT MORPHOLOGY (BEAKER) (test code Normal = 486) ANISOCYTOSIS (BEAKER) (test code = 1+ few 961) BASIC METABOLIC [id number] 05:17:00 Test Item Value Reference Range Interpretation Comments SODIUM (BEAKER) 133 meq/L 136-145 L (test code = 381) POTASSIUM (BEAKER) 3.3 meq/L 3.5-5.1 L (test code = 379) CHLORIDE (BEAKER) 100 meq/L 98-107 (test code = 382) CO2 (BEAKER) (test 27 meq/L 22-29 code = 355) BLOOD UREA NITROGEN 13 mg/dL 7-21 (BEAKER) (test code = 354) CREATININE (BEAKER) 0.58 mg/dL 0.57-1.25 (test code = 358) GLUCOSE RANDOM 110 mg/dL 70-105 H (BEAKER) (test code = 652) CALCIUM (BEAKER) 8.4 mg/dL 8.4-10.2 (test code = 697) EGFR (BEAKER) (test 107 mL/min/1.73 ESTIM ATED GFR IS code = 1092) sq m NOT ACCURATE CREATININE CLEARANCE IN PREDICTING GLOMERULAR FILTRATION RATE . ESTIMATED GFR I S NOT APPLICABLE FOR DIALYSIS PATIEN TS. Promotional Model ID - KEY Palmer(CELLAVISION MANUAL DIFF)2019-11-03 19:09:00 Test Item Value Reference Range Interpretation Comments NEUTROPHILS - REL 45 % (CELLAVISION)(BEAKER) (test code = 2816) LYMPHOCYTES - REL 24 % (CELLAVISION)(BEAKER) (test code = 2817) MONOCYTES - REL 22 % (CELLAVISION)(BEAKER) (test code = 2818) EOSINOPHILS - REL 2 % (CELLAVISION)(BEAKER) (test code = 2819) BASOPHILS - REL 2 % (CELLAVISION)(BEAKER) (test code = 2820) BANDS - REL (CELLAVISION)(BEAKER) 4 % 0-10 (test code = 2826) ATYPICAL LYMPHOCYTES - REL 2 % 0-0 H (CELLAVISION)(BEAKER) (test code = 2829) NEUTROPHILS - ABS 1.26 K/ul 1.56-6.13 L (CELLAVISION)(BEAKER) (test code = 2830) LYMPHOCYTES - ABS 0.67 K/ul 1.18-3.74 L (CELLAVISION)(BEAKER) (test code = 2831) MONOCYTES - ABS 0.62 K/uL 0.24-0.36 H (CELLAVISION)(BEAKER) (test code = 2832) EOSINOPHILS - ABS 0.06 K/uL 0.04-0.36 (CELLAVISION)(BEAKER) (test code = 2834) BASOPHILS - ABS 0.06 K/uL 0.01-0.08 (CELLAVISION)(BEAKER) (test code = 2835) BANDS - ABS (CELLAVISION)(BEAKER) 0.11 K/uL 0.00-0.80 (test code = 2840) ATYPICAL LYMPHOCYTES - ABS 0.06 K/uL 0.00-0.00 H (CELLAVISION)(BEAKER) (test code = 2968) TOTAL COUNTED (BEAKER) (test code = 100 1351) GIANT PLATELETS (BEAKER) (test code Present = 313) TOXIC GRANULATION (BEAKER) (test Present code = 771) POLYCHROMATOPHILLIC RBCS(BEAKER) 1+ few (test code = 478) ANISOCYTOSIS (BEAKER) (test code = 1+ few 961) POIKILOCYTES (BEAKER) (test code = 1+ few 966) TEAR DROP CELLS (BEAKER) (test code 1+ few = 481) ARTIFACT (CELLAVISION)(BEAKER) Present (test code = 3432) PLATELET CONCENTRATION Decreased (CELLAVISION)(BEAKER) (test code = 3438) Promotional Model ID - Laura comments: Slide comments:CBC W/PLT COUNT & AUTO [id number] 18:37:00 Test Item Value Reference Range Interpretation Comments WHITE BLOOD CELL COUNT (BEAKER) 2.8 K/ L 3.5-10.5 L (test code = 775) RED BLOOD CELL COUNT (BEAKER) 2.79 M/ L 3.93-5.22 L (test code = 761) HEMOGLOBIN (BEAKER) (test code = 8.8 GM/DL 11.2-15.7 L 410) HEMATOCRIT (BEAKER) (test code = 27.2 % 34.1-44.9 L 411) MEAN CORPUSCULAR VOLUME (BEAKER) 97.5 fL 79.4-94.8 H (test code = 753) MEAN CORPUSCULAR HEMOGLOBIN 31.5 pg 25.6-32.2 (BEAKER) (test code = 751) MEAN CORPUSCULAR HEMOGLOBIN CONC 32.4 GM/DL 32.2-35.5 (BEAKER) (test code = 752) RED CELL DISTRIBUTION WIDTH 19.1 % 11.7-14.4 H (BEAKER) (test code = 412) PLATELET COUNT (BEAKER) (test code 57 K/CU MM 150-450 L = 756) MEAN PLATELET VOLUME (BEAKER) 11.2 fL 9.4-12.3 (test code = 754) NUCLEATED RED BLOOD CELLS (BEAKER) 1 /100 WBC 0-0 H (test code = 413) CBC W/PLT COUNT & AUTO [id number] 10:52:00 Test Item Value Reference Range Interpretation Comments WHITE BLOOD CELL COUNT 2.6 K/ L 3.5-10.5 L (BEAKER) (test code = 775) RED BLOOD CELL COUNT 2.18 M/ L 3.93-5.22 L (BEAKER) (test code = 761) HEMOGLOBIN (BEAKER) 6.9 GM/DL 11.2-15.7 L (test code = 410) HEMATOCRIT (BEAKER) 21.8 % 34.1-44.9 L (test code = 411) MEAN CORPUSCULAR 100.0 fL 79.4-94.8 H Discordant MCV VOLUME (BEAKER) (test result s compared to code = 753) previous result s; clinical correl ation required. MEAN CORPUSCULAR 31.7 pg 25.6-32.2 HEMOGLOBIN (BEAKER) (test code = 751) MEAN CORPUSCULAR 31.7 GM/DL 32.2-35.5 L HEMOGLOBIN CONC (BEAKER) (test code = 752) RED CELL DISTRIBUTION 19.3 % 11.7-14.4 H WIDTH (BEAKER) (test code = 412) PLATELET COUNT 52 K/CU MM 150-450 L (BEAKER) (test code = 756) MEAN PLATELET VOLUME 11.0 fL 9.4-12.3 (BEAKER) (test code = 754) NUCLEATED RED BLOOD 2 /100 WBC 0-0 H CELLS (BEAKER) (test code = 413) (CELLAVISION MANUAL DIFF)2019-11-03 10:52:00 Test Item Value Reference Range Interpretation Comments NEUTROPHILS - REL 45 % (CELLAVISION)(BEAKER) (test code = 2816) LYMPHOCYTES - REL 32 % (CELLAVISION)(BEAKER) (test code = 2817) MONOCYTES - REL 16 % (CELLAVISION)(BEAKER) (test code = 2818) EOSINOPHILS - REL 3 % (CELLAVISION)(BEAKER) (test code = 2819) BANDS - REL (CELLAVISION)(BEAKER) 4 % 0-10 (test code = 2826) NEUTROPHILS - ABS 1.17 K/ul 1.56-6.13 L (CELLAVISION)(BEAKER) (test code = 2830) LYMPHOCYTES - ABS 0.83 K/ul 1.18-3.74 L (CELLAVISION)(BEAKER) (test code = 2831) MONOCYTES - ABS 0.42 K/uL 0.24-0.36 H (CELLAVISION)(BEAKER) (test code = 2832) EOSINOPHILS - ABS 0.08 K/uL 0.04-0.36 (CELLAVISION)(BEAKER) (test code = 2834) BANDS - ABS (CELLAVISION)(BEAKER) 0.10 K/uL 0.00-0.80 (test code = 2840) TOTAL COUNTED (BEAKER) (test code 100 = 1351) MANUAL NRBC PER 100 CELLS (BEAKER) 1 /100 WBC 0-0 H (test code = 1353) WBC MORPHOLOGY (BEAKER) (test code Normal = 487) PLT MORPHOLOGY (BEAKER) (test code Normal = 486) POLYCHROMATOPHILLIC RBCS(BEAKER) 1+ few (test code = 478) ARTIFACT (CELLAVISION)(BEAKER) Present (test code = 3432) PLATELET CONCENTRATION Decreased (CELLAVISION)(BEAKER) (test code = 3438) Promotional Model ID - Ginger Mayer comments: Slide comments:VANCOMYCIN LEVEL, [id number] 07:05:00 Test Item Value Reference Range Interpretation Comments VANCOMYCIN TROUGH (BEAKER) (test 20.3 ug/mL 10.0-20.0 H code = 522) Promotional Model ID - ASBASIC METABOLIC [id number] 06:02:00 Test Item Value Reference Range Interpretation Comments SODIUM (BEAKER) 134 meq/L 136-145 L (test code = 381) POTASSIUM (BEAKER) 3.3 meq/L 3.5-5.1 L (test code = 379) CHLORIDE (BEAKER) 100 meq/L 98-107 (test code = 382) CO2 (BEAKER) (test 27 meq/L 22-29 code = 355) BLOOD UREA NITROGEN 10 mg/dL 7-21 (BEAKER) (test code = 354) CREATININE (BEAKER) 0.58 mg/dL 0.57-1.25 (test code = 358) GLUCOSE RANDOM 93 mg/dL 70-105 (BEAKER) (test code = 652) CALCIUM (BEAKER) 8.6 mg/dL 8.4-10.2 (test code = 697) EGFR (BEAKER) (test 107 mL/min/1.73 ESTIM ATED GFR IS code = 1092) sq m NOT ACCURATE CREATININE CLEARANCE IN PREDICTING GLOMERULAR FILTRATION RATE . ESTIMATED GFR I S NOT APPLICABLE FOR DIALYSIS PATIEN TS. Promotional Model ID - ASHemoglobin and [id number] 22:37:00 Test Item Value Reference Range Interpretation Comments Hemoglobin (test code = 6.8 11.2- 15.7 GM/DL L 786-4) Hematocrit (test code = 21.3 % 34.1-44.9 L 4544-3) PAUL (test code = PAUL) Promotional Model ID - [id number] Lab Interpretation (test Abnormal code = 60438-9) [facility] [id number] 22:37:00 Test Item Value Reference Range Interpretation Comments HEMOGLOBIN (BEAKER) (test code = 6.8 GM/DL 11.2-15.7 L 410) HEMATOCRIT (BEAKER) (test code = 21.3 % 34.1-44.9 L 411) Promotional Model ID - [id number] 14:56:00 Test Item Value Reference Range Interpretation Comments TSH (test code = 0.965 0.350- 4.940 uIU/mL 64694-0) PAUL (test code = PAUL) Promotional Model ID - JURGEN C Lab Interpretation (test Normal code = 86094-0) [facility] 14:56:00 Test Item Value Reference Range Interpretation Comments THYROID STIMULATING HORMONE 0.965 uIU/mL 0.350-4.940 (BEAKER) (test code = 772) Promotional Model ID - JURGEN CBlood Culture Panel([employer])2019-11-02 13:49:00 Test Item Value Reference Interpretation Comments Range LISTERIA MONOCYTOGENES Not detected Not detected (test code = 78130-8) STAPHYLOCOCCUS (test Detected Not detected A Coagula se negative code = 26148-1) Staph specie s (CoNS)- methici llin susceptibleFirs t-li ne therapy: Cefazolin or Oxacillin (Oxacillin preferred if CN S involvement) Me cA NOT DETECTEDPossibl e contamination. The likelihood of pathogenicity i s increased if th e organism is observed in multiple blood cultures obtain ed from separate venipunctures.R efer ence Range: Not Detected STAPHYLOCOCCUS AUREUS Not detected Not detected (test code = 50652-7) Streptococcus (test Not detected Not detected code = 11263-0) STREPTOCOCCUS Not detected Not detected AGALACTIAE (GROUP B) (test code = 41170-3) STREPTOCOCCUS Not detected Not detected PNEUMONIAE (test code = 79866-0) Streptococcus pyogenes Not detected Not detected (Group A) (test code = 73681-3) ACINETOBACTER Not detected Not detected BAUMANNII (test code = 56511-7) HAEMOPHILUS INFLUENZAE Not detected Not detected (test code = 28741-9) NEISSERIA MENINGITIDIS Not detected Not detected (test code = 83344-3) ENTEROBACTERIACEAE Not detected Not detected (test code = 31241-9) ENTEROBACTER CLOACOE Not detected Not detected COMPLEX (test code = 14251-4) KLEBSIELLA OXYTOCA Not detected Not detected (test code = 74179-4) KLEBSIELLA PNEUMONIAE Not detected Not detected (test code = 95854-2) PROTEUS (test code = Not detected Not detected 19266-9) SERRATIA MARCESCENS Not detected Not detected (test code = 30957-1) BELA ALBICANS (test Not detected Not detected code = 75572-4) BELA GLABRATA (test Not detected Not detected code = 83839-1) BELA KRUSEI (test Not detected Not detected code = 07045-0) BELA PARAPSILOSIS Not detected Not detected (test code = 52076-8) BELA TROPICALIS Not detected Not detected (test code = 96071-0) ESCHERICHIA COLI (test Not detected Not detected code = 19203-4) METHICILLIN-RESISTANCE Not detected Not detected GENE (test code = 42906-2) VANCOMYCIN-RESISTANCE GENE (test code = 65351-1) CARBAPENEM-RESISTANCE GENE (test code = 46945-9) ENTEROCOCCUS (test Not detected Not detected code = 84690-8) PSEUDOMONAS AERUGINOSA Not detected Not detected (test code = 17688-2) PAUL (test code = PAUL) Other bacteria and resistance markers not targeted by this PCR panel cannot be excluded; therefore clinical correlation and follow up of serology, culture results, and other molecular studies is required. The results are not intended to be used as the sole means for clinical diagnosis or patient management decisions. This sample was tested at the [facility] using the [employer] Blood Culture ID Panel. It is FDA cleared and has been verified and approved by the [facility] for clinical use. This laboratory is CLIA-certified and [employer] (CAP)-accredited to perform high complexity testing. Lab Interpretation Abnormal (test code = 25339-5) [facility] [id number] 13:49:00 Test Item Value Reference Interpretation Comments Range LISTERIA MONOCYTOGENES Not detected Not detected (test code = 9357465) STAPHYLOCOCCUS (test Detected Not detected A Coagula se negative code = 7102113) Staph specie s (CoNS)- methici llin susceptibleFirs t-cuca e therapy: Cefa zolin or Oxacillin (Oxacillin pref erred if DOPE HOUSE OPERATOR HELPER involvem ent) MecA NOT DETECTEDPossibl e contamination. The likelihood of pathogenicity i s increased if th e organism is obs erved in multiple blo od cultures obtain ed from separate venipunctures.R efere nce Range: Not Detected STAPHYLOCOCCUS AUREUS Not detected Not detected (test code = 2676846) STREPTOCOCCUS (test Not detected Not detected code = 1038497) STREPTOCOCCUS Not detected Not detected AGALACTIAE (GROUP B) (test code = 1854215) STREPTOCOCCUS Not detected Not detected PNEUMONIAE (test code = 3021465) STREPTOCOCCUS PYOGENES Not detected Not detected (GROUP A) (test code = 9128095) ACINETOBACTER BAUMANNII Not detected Not detected (test code = 3997894) HAEMOPHILUS INFLUENZAE Not detected Not detected (test code = 1409604) NEISSERIA MENINGITIDIS Not detected Not detected (test code = 3883425) ENTEROBACTERIACEAE Not detected Not detected (test code = 7356225) ENTEROBACTER CLOACOE Not detected Not detected COMPLEX (test code = 2562027) KLEBSIELLA OXYTOCA Not detected Not detected (test code = 6953357) KLEBSIELLA PNEUMONIAE Not detected Not detected (test code = 1650) PROTEUS (test code = Not detected Not detected 5784244) SERRATIA MARCESCENS Not detected Not detected (test code = 7628348) BELA ALBICANS (test Not detected Not detected code = 2658751) BELA GLABRATA (test Not detected Not detected code = 2907890) BELA KRUSEI (test Not detected Not detected code = 7143063) BELA PARAPSILOSIS Not detected Not detected (test code = 1361843) BELA TROPICALIS Not detected Not detected (test code = 0099910) ESCHERICHIA COLI (test Not detected Not detected code = 4064743) METHICILLIN-RESISTANCE Not detected Not detected GENE (test code = 9476813) VANCOMYCIN-RESISTANCE GENE (test code = 0576198) CARBAPENEM-RESISTANCE GENE (test code = 2121293) ENTEROCOCCUS-BEAKER Not detected Not detected (test code = 8388039) PSEUDOMONAS Not detected Not detected AERUGINOSA-BEAKER (test code = 0870490) Other bacteria and resistance markers not targeted by this PCR panel cannot be excluded; therefore clinical correlation and follow up of serology, culture results, and other molecular studies is required. The results are not intended to be used as the sole means for clinical diagnosis or patient management decisions. This sample was tested at the [facility] using the [employer] Blood Culture ID Panel. It is FDA cleared and has been verified and approved by the [facility] for clinical use. This laboratory is CLIA-certified and College ofAmerican Pathologists (CAP)-accredited to perform high complexity testing.U/S, RENAL, [id number] 12:53:00Reason for exam:->urosepsisFINAL REPORT TECHNIQUE: Grayscale ultrasound of the kidneys and bladder. INDIC ATION: urosepsis. COMPARISON: None. FINDINGS: RIGHT KIDNEY: The right kidney measures 12 x 5 x 4.7 cm with a cortical thickness of 1.1 cm. No solid mass lesions. No hydronephrosis. Renal artery and vein are patent. LEFT KIDNEY: The left kidney measures 13.3 x 5.5 x 5.2 cm with a cortical thickness of1.3 cm. No solid mass lesions. No hydronephrosis. Renal artery and vein are patent. BLADDER: The bladder volume is 185 mL. IMPRESSION: This is a normal renal ultrasound. Specifically, no hydronephrosis. No signs of complicated pyelonephritis. Signed: Stephen Shin MDReport Verified Date/Time: 11/02/2019 12:53:15 Reading Location: [address] Radiology Reading Room US renal [id number] 12:53:00Interface, External Ris In - 11/02/2019 12:55 PM CDTFINAL REPORT TECHNIQUE: Grayscale ultrasound of the kidneys and bladder. INDICATION: urosepsis. COMPARISON: None. FINDINGS: RIGHT KIDNEY: The right kidney measures 12 x 5 x 4.7 cm with a cortical thickness of 1.1 cm. No solid mass lesions. No hydronephrosis. Renal artery and vein are patent. LEFT KIDNEY: The left kidney measures 13.3 x 5.5 x 5.2 cm with a cortical thickness of 1.3 cm. No solid mass lesions. No hydronephrosis. Renal artery and vein are patent. BLADDER: The bladder volume is 185 mL. IMPRESSION: This is a normal renal ultrasound. Specifically, no hydronephrosis. No signs of complicated pyelonephritis. Signed: Stephen Shin MDReport Verified Date/Time: 11/02/2019 12:53:15 Reading Location: [address] Radiology Reading Room [facility] W/PLT COUNT & AUTO [id number] 07:33:00 Test Item Value Reference Range Interpretation Comments WHITE BLOOD CELL COUNT (BEAKER) 3.9 K/ L 3.5-10.5 (test code = 775) RED BLOOD CELL COUNT (BEAKER) 1.89 M/ L 3.93-5.22 L (test code = 761) HEMOGLOBIN (BEAKER) (test code = 6.2 GM/DL 11.2-15.7 L 410) HEMATOCRIT (BEAKER) (test code = 20.1 % 34.1-44.9 L 411) MEAN CORPUSCULAR VOLUME (BEAKER) 106.3 fL 79.4-94.8 H (test code = 753) MEAN CORPUSCULAR HEMOGLOBIN 32.8 pg 25.6-32.2 H (BEAKER) (test code = 751) MEAN CORPUSCULAR HEMOGLOBIN CONC 30.8 GM/DL 32.2-35.5 L (BEAKER) (test code = 752) RED CELL DISTRIBUTION WIDTH 16.9 % 11.7-14.4 H (BEAKER) (test code = 412) PLATELET COUNT (BEAKER) (test code 56 K/CU MM 150-450 L = 756) MEAN PLATELET VOLUME (BEAKER) 11.8 fL 9.4-12.3 (test code = 754) NUCLEATED RED BLOOD CELLS (BEAKER) 1 /100 WBC 0-0 H (test code = 413) NEUTROPHILS RELATIVE PERCENT 53 % (BEAKER) (test code = 429) LYMPHOCYTES RELATIVE PERCENT 25 % (BEAKER) (test code = 430) MONOCYTES RELATIVE PERCENT 18 % (BEAKER) (test code = 431) EOSINOPHILS RELATIVE PERCENT 0 % (BEAKER) (test code = 432) BASOPHILS RELATIVE PERCENT 0 % (BEAKER) (test code = 437) NEUTROPHILS ABSOLUTE COUNT 2.07 K/ L 1.56-6.13 (BEAKER) (test code = 670) LYMPHOCYTES ABSOLUTE COUNT 0.96 K/ L 1.18-3.74 L (BEAKER) (test code = 414) MONOCYTES ABSOLUTE COUNT (BEAKER) 0.71 K/ L 0.24-0.36 H (test code = 415) EOSINOPHILS ABSOLUTE COUNT 0.00 K/ L 0.04-0.36 L (BEAKER) (test code = 416) BASOPHILS ABSOLUTE COUNT (BEAKER) 0.00 K/ L 0.01-0.08 L (test code = 417) IMMATURE GRANULOCYTES-RELATIVE 4 % 0-1 H PERCENT (BEAKER) (test code = 2801) [id number] 07:10:00 Test Item Value Reference Range Interpretation Comments Ferritin (test code = 401.48 ng/mL 5-275 H 2276-4) PAUL (test code = PAUL) Promotional Model ID - JURGEN C Lab Interpretation (test Abnormal code = 98971-2) [facility] Center[facility]it[facility]12 and [id number] 07:10:00 Test Item Value Reference Range Interpretation Comments Vitamin B12 (test code = 423 pg/mL 497-729 7101-9) Folate (test code = 9.70 ng/mL >=7.00 2284-8) PAUL (test code = PAUL) Promotional Model ID - JURGEN C Lab Interpretation (test Normal code = 43383-2) [facility] [id number] 07:10:00 Test Item Value Reference Range Interpretation Comments FERRITIN (BEAKER) (test code = 401.48 ng/mL 5.00-275.00 H 361) Promotional Model ID - JURGEN CVITAMIN B12 AND [id number] 07:10:00 Test Item Value Reference Range Interpretation Comments VITAMIN B12 (BEAKER) (test code = 423 pg/mL 213-816 774) FOLATE (BEAKER) (test code = 362) 9.70 ng/mL >=7.00 Promotional Model ID - JURGEN CBASIC METABOLIC [id number] 06:42:00 Test Item Value Reference Range Interpretation Comments SODIUM (BEAKER) 133 meq/L 136-145 L (test code = 381) POTASSIUM (BEAKER) 3.1 meq/L 3.5-5.1 L (test code = 379) CHLORIDE (BEAKER) 99 meq/L 98-107 (test code = 382) CO2 (BEAKER) (test 27 meq/L 22-29 code = 355) BLOOD UREA NITROGEN 10 mg/dL 7-21 (BEAKER) (test code = 354) CREATININE (BEAKER) 0.58 mg/dL 0.57-1.25 (test code = 358) GLUCOSE RANDOM 88 mg/dL 70-105 (BEAKER) (test code = 652) CALCIUM (BEAKER) 8.5 mg/dL 8.4-10.2 (test code = 697) EGFR (BEAKER) (test 107 mL/min/1.73 ESTIM ATED GFR IS code = 1092) sq m NOT ACCURATE CREATININE CLEARANCE IN PREDICTING GLOMERULAR FILTRATION RATE . ESTIMATED GFR I S NOT APPLICABLE FOR DIALYSIS PATIEN TS. Promotional Model ID - KEY Zacariason, TIBC, % sat. (without ferritin)2019-11-02 06:34:00 Test Item Value Reference Range Interpretation Comments Iron (test code = 2498-4) 9.0 ug/dL 40-160 L TIBC (test code = 2500-7) 185 ug/dL 250-450 L Iron % Saturation (test 5 % 20-55 L code = 2502-3) PAUL (test code = PAUL) Promotional Model JAZMIN Palmer Lab Interpretation (test Abnormal code = 90176-0) [facility] Center[facility], TIBC, % SAT. (WITHOUT FERRITIN)2019-11-02 06:34:00 Test Item Value Reference Range Interpretation Comments IRON (BEAKER) (test code = 547) 9.0 ug/dL 40.0-160.0 L TOTAL IRON BINDING CAPACITY 185 ug/dL 250-450 L (BEAKER) (test code = 769) IRON % SATURATION (2) (BEAKER) 5 % 20-55 L (test code = 2590) Promotional Model JAZMIN YANEZORH, [id number] 14:06:00 Test Item Value Reference Range Interpretation Comments ABO Grouping (test code = 2588) B Rh Factor (test code = 2589) POS [facility] CenterLACTIC ACID, [id number] 08:26:00 Test Item Value Reference Range Interpretation Comments LACTATE BLOOD VENOUS (2) (BEAKER) 1.28 mmol/L 0.50-2.20 (test code = 2872) Promotional Model ID - JURGEN WARD, CHEST, 2 [id number] 08:08:00Reason for exam:->FEVERFINAL REPORT Chest exam INDICATION: FEVER COMPARISON: None TECHNIQUE: Frontaland lateral views of the chest. FINDINGS: Lungs and pleura: Clear lungs. No effusion.Heart and mediastinum: Normal heart size. Unremarkable mediastinal contours.Osseous structures: No acute abnormality.Additional findings: Port-A-Cath tip overlies the SVC. IMPRESSION: No acute intrathoracic abnormality. Signed: Kavya Hernandez Verified Date/Time: 11/01/2019 08:08:11 Reading Location: [facility] Radiology Reading Room 08:08 AMXR chest 2 [id number] 08:08:00Interface, External Ris In - 11/01/2019 8:10 AM CDTFINAL REPORT Chest exam IN DICATION: FEVER COMPARISON: None TECHNIQUE: Frontal and lateral views of the chest. FINDINGS: Lungs and pleura: Clear lungs. No effusion.Heart and mediastinum: Normal heart size. Unremarkable mediastinal contours.Osseous structures: No acute abnormality.Additional findings: Port-A-Cath tip overlies the SVC. IMPRESSION: No acute intrathoracic abnormality. Signed: Kavya Hernandez Verified Date/Time: 11/01/2019 08:08:11 Reading Location: [facility] Radiology Reading [facility])2019-11-01 06:33:00 Test Item Value Reference Range Interpretation Comments SARS-COV2/RT-PCR (test code Negative Not Detected, Negative, = 2407894) See external report for linked test SARS-COV-2 PERFORMING LAB [facility] (test code = 4675188) Negative results do not preclude SARS-CoV-2 infection and should not be used as the sole basis for patient management decisions. Negative results must be combined with clinical observations, patient history, and epidemiological information. A false negative result may occur if a specimen is improperly collected, transported or handled.The limit of detection for this assay is 250 copies/mL.This SARS CoV-2 test is a rapid, real-time RT-PCR test intended for the qualitative detection of nucleic acid from SARS-CoV-2 in a nasopharyngeal swab specimen collected from individuals suspected of COVID-19 by their healthcare provider.This test has not been Food and Drug Administration (FDA) cleared or approved and has been authorized by FDA under an Emergency Use Authorization (EUA). This EUA will be effective until the declaration that circumstances exist justifying the authorization of the emergency use of in vitro diagnostic tests for detection and/or diagnosis of COVID-19 is terminated under Section 564(b)(2) of the Act or the EUA is revoked under Section 564(g) of the Act.Fact Sheet for Healthcare Pro viders:https://www.[employer]/Documents/Xpert%20Xpress%20SARS%20CoV-2/Fact%20Sh eets/3023802%16XVLG-ALJ-7%20HEALTHCARE%20PROVIDERS%20FACT%20SHEET.pdfFact Sheet for Healthcare Patients:https://www.[employer]/Documents/Xpert%20Xpress%20SARS%20CoV-2/Fact%20Sheets/3023801%20SARS-COV -2%20PATIENT%20FACT%20SHEET.pdfPerforming Laboratory:[facility], [place] [address]Zxzjirru [id number] 06:18:00 Test Item Value Reference Range Interpretation Comments Troponin I (test code = <0.01 0-0.03 45018-7) PAUL (test code = PAUL) Troponin I (TnI) levels must be interpreted in the context of the presenting symptoms and the clinical findings. Elevated TnI levels indicate myocardial damage, but are not specific for ischemic heart disease. Elevated TnI levels are seen in patients with other cardiac conditions (including myocarditis and congestive heart failure), and slight TnI elevations occur in patients with other conditions, including sepsis, renal failure, acidosis, acute neurological disease, and persistent tachyarrhythmia.Opera tor ID - DB Lab Interpretation (test Normal code = 21246-0) [facility] CenterTRVICK [id number] 06:18:00 Test Item Value Reference Range Interpretation Comments TROPONIN I (BEAKER) (test code = 397) < ng/mL 0.00-0.03 Troponin I (TnI) levels must be interpreted in the context of the presenting symptoms and the clinical findings. Elevated TnI levels indicate myocardial damage, but are not specific for ischemic heart disease. Elevated TnI levels are seen in patients with other cardiac conditions (including myocarditis and congestive heart failure), and slight TnI elevations occur in patients with other conditions, including sepsis, renal failure, acidosis, acute neurological disease, and persistent tachyarrhythmia.Promotional Model ID - DBURINALYSIS W/ REFLEX URINE [id number] 05:27:00 Test Item Value Reference Range Interpretation Comments COLOR (BEAKER) (test code = 470) Yellow CLARITY (BEAKER) (test code = 469) Cloudy SPECIFIC GRAVITY UA (BEAKER) (test 1.023 1.001-1.035 code = 468) PH UA (BEAKER) (test code = 467) 6.0 5.0-8.0 PROTEIN UA (BEAKER) (test code = 70 mg/dL Negative A 464) GLUCOSE UA (BEAKER) (test code = Negative Negative 365) KETONES UA (BEAKER) (test code = 20 mg/dL Negative A 371) BILIRUBIN UA (BEAKER) (test code = Negative Negative 462) BLOOD UA (BEAKER) (test code = 461) Moderate Negative A NITRITE UA (BEAKER) (test code = Negative Negative 465) LEUKOCYTE ESTERASE UA (BEAKER) Large Negative A (test code = 466) UROBILINOGEN UA (BEAKER) (test code 0.2 mg/dL 0.2-1.0 = 463) RBC UA (BEAKER) (test code = 519) 0 /HPF WBC UA (BEAKER) (test code = 520) 292 /HPF AMORPHOUS CRYSTALS (BEAKER) (test Many code = 1584) SOURCE(BEAKER) (test code = 2795) Promotional Model ID - [auto]Promotional Model ID - techCOMPREHENSIVE METABOLIC [id number] 02:04:00 Test Item Value Reference Range Interpretation Comments TOTAL PROTEIN 6.8 gm/dL 6.0-8.3 (BEAKER) (test code = 770) ALBUMIN (BEAKER) 3.7 g/dL 3.5-5.0 (test code = 1145) ALKALINE PHOSPHATASE 94 U/L 40-150 (BEAKER) (test code = 346) BILIRUBIN TOTAL 0.6 mg/dL 0.2-1.2 (BEAKER) (test code = 377) SODIUM (BEAKER) (test 135 meq/L 136-145 L code = 381) POTASSIUM (BEAKER) 3.2 meq/L 3.5-5.1 L (test code = 379) CHLORIDE (BEAKER) 97 meq/L 98-107 L (test code = 382) CO2 (BEAKER) (test 25 meq/L 22-29 code = 355) BLOOD UREA NITROGEN 13 mg/dL 7-21 (BEAKER) (test code = 354) CREATININE (BEAKER) 0.78 mg/dL 0.57-1.25 (test code = 358) GLUCOSE RANDOM 125 mg/dL 70-105 H (BEAKER) (test code = 652) CALCIUM (BEAKER) 8.8 mg/dL 8.4-10.2 (test code = 697) AST (SGOT) (BEAKER) 24 U/L 5-34 (test code = 353) ALT (SGPT) (BEAKER) 42 U/L 6-55 (test code = 347) EGFR (BEAKER) (test 76 mL/min/1.73 ESTIMA CRISTINA GFR IS code = 1092) sq m NOT ACCURATE CREATININE CLEARANCE IN PREDICTING GLOMERULAR FILTRATION RATE . ESTIMATED GFR I S NOT APPLICABLE FOR DIALYSIS PATIEN TS. Promotional Model ID - EDASILACTIC ACID, [id number] 01:46:00 Test Item Value Reference Range Interpretation Comments LACTATE BLOOD VENOUS 1.78 mmol/L 0.50-2.20 Specime n slightly (2) (BEAKER) (test hemolyzed code = 1570) Promotional Model ID - DBPROTHROMBIN TIME/[id number] 01:40:00 Test Item Value Reference Range Interpretation Comments PROTIME (BEAKER) (test code = 20.9 seconds 11.9-14.2 H 759) INR (BEAKER) (test code = 370) 1.9 <=5.9 Effective 08/18/2018: PT Reference Range ChangeNew: 11.9-14.2 Previous: 11.7- 14.7RECOMMENDED COUMADIN/WARFARIN INR THERAPY RANGESSTANDARD DOSE: 2.0-3.0 Includes: PROPHYLAXIS for venous thrombosis, systemic embolization; TREATMENT for venous thrombosis and/or pulmonary embolus.HIGH RISK: Target INR is2.5-3.5 for patients wiht mechanical heart valves.CBC W/PLT COUNT & AUTO [id number] 01:32:00 Test Item Value Reference Range Interpretation Comments WHITE BLOOD CELL COUNT (BEAKER) 4.8 K/ L 3.5-10.5 (test code = 775) RED BLOOD CELL COUNT (BEAKER) 2.22 M/ L 3.93-5.22 L (test code = 761) HEMOGLOBIN (BEAKER) (test code = 7.5 GM/DL 11.2-15.7 L 410) HEMATOCRIT (BEAKER) (test code = 23.9 % 34.1-44.9 L 411) MEAN CORPUSCULAR VOLUME (BEAKER) 107.7 fL 79.4-94.8 H (test code = 753) MEAN CORPUSCULAR HEMOGLOBIN 33.8 pg 25.6-32.2 H (BEAKER) (test code = 751) MEAN CORPUSCULAR HEMOGLOBIN CONC 31.4 GM/DL 32.2-35.5 L (BEAKER) (test code = 752) RED CELL DISTRIBUTION WIDTH 16.6 % 11.7-14.4 H (BEAKER) (test code = 412) PLATELET COUNT (BEAKER) (test code 58 K/CU MM 150-450 L = 756) MEAN PLATELET VOLUME (BEAKER) 11.6 fL 9.4-12.3 (test code = 754) NUCLEATED RED BLOOD CELLS (BEAKER) 2 /100 WBC 0-0 H (test code = 413) NEUTROPHILS RELATIVE PERCENT 63 % (BEAKER) (test code = 429) LYMPHOCYTES RELATIVE PERCENT 17 % (BEAKER) (test code = 430) MONOCYTES RELATIVE PERCENT 20 % (BEAKER) (test code = 431) EOSINOPHILS RELATIVE PERCENT 0 % (BEAKER) (test code = 432) BASOPHILS RELATIVE PERCENT 0 % (BEAKER) (test code = 437) NEUTROPHILS ABSOLUTE COUNT 3.01 K/ L 1.56-6.13 (BEAKER) (test code = 670) LYMPHOCYTES ABSOLUTE COUNT 0.79 K/ L 1.18-3.74 L (BEAKER) (test code = 414) MONOCYTES ABSOLUTE COUNT (BEAKER) 0.93 K/ L 0.24-0.36 H (test code = 415) EOSINOPHILS ABSOLUTE COUNT 0.00 K/ L 0.04-0.36 L (BEAKER) (test code = 416) BASOPHILS ABSOLUTE COUNT (BEAKER) 0.00 K/ L 0.01-0.08 L (test code = 417) IMMATURE GRANULOCYTES-RELATIVE 1 % 0-1 PERCENT (BEAKER) (test code = 2801) NGS Blood [id number] 18:51:11 Test Item Value Reference Range Interpretation Comments Molecular Diagnostics (Received) (test Yes code = 8400) MD MarroquinTMP HCV Ab Path [id number] 14:43:35 Test Item Value Reference Range Interpretation Comments HCV Ab Path There is NO Interp (test serologic code = 8923) evidence of ____KODI Hepatitis C YOGI,Dictated by: virus antibody. KODI ESCOBAR IN,Dictated Date/Time: 9:43 AM CDT Transcribed Silvio e/Time: 10.26.2019 9:43 AM CDTElectronical ly Signed By: KODI REYNA on 10.26.2019 9:43 AM C MD MarroquinHepatitis C Virus [id number] 05:19:52 Test Item Value Reference Range Interpretation Comments HCVAb. (test code Non Reactive Non Reactive Performed at: = 5762) [facility] [facility], [place], [place] [address] MD MarroquinCT Chest Abdomen Pelvis with [id number] 15:40:11 1. Loculated fluid as well as cystic and solid peritoneal implants in the abdomen and pelvis.2. Some inhomogeneity in the uterus may represent the known primary versus fibroids.3. There are a few punctate pulmonary nodules that may represent small granulomas without definite evidence of metastaticdisease to the chest. Interface, Radiology Results In - 10/25/2019 10:42 AM CDTFULL RESULT:Examination: CT CHEST ABDOMEN PELVIS W CONTRAST, 10/24/2019 5:15 PMClinical History: Malignant neoplasm of endometriumIndication: Initial staging, Stage IV serous carcinoma of uterine cancerComparison: NoneTechnique: CT of the chest, abdomen, and pelvis was performed with intravenous contrast.Findings: Chest:Ther e is some prominence of the thyroid gland, to be correlated with any history of thyroid disease. No enlarged lymph nodes are seen in the chest.A few punctate nodules are identified, some of which are calcified such as in the right upper lobe (series 4 image 22) and right lower lobe (image 70). These are likely tiny granulomas that may be observed on follow-up.There are no pleural effusions.A right-sided Port-A-Cath extends to the atriocaval junction.Abdomen and pelvis:There are loculated collectionsof fluid and cystic implants in the abdomen and pelvis. A large cystic area along the anterior dome of the liver measures at least 11.5 cm (series 3 image 145) does cause some mass effect upon the liver. Multiple other small cystic implants are identified along the liver surface. Additional solid nodular implants are noted such as along the hepatic flexure (series 3 image 197), measuring approximately 2.3 cm and along the left gastric vessels (series 3 image 159) measuring approximately 2.2 cm.Thereis a hemangioma in the right liver. There are some tiny low-attenuation foci scattered through the right and left liver, possibly tiny cysts that may be observed on follow-up.There are small perisplenic implants. The spleen is otherwise unremarkable. The pancreas and adrenal glands are unremarkable.The kidneys function without hydronephrosis. A cyst is noted at the lower pole of the right kidney.A filter is noted in the infrarenal inferior vena cava.There is some inhomogeneity noted in the uterus possibly representing the known primary versus fibroids. A cystic area in the left adnexa may representloculated fluid, or an implant involving the ovary.No measurable adenopathy is seen in the abdomen or pelvis. Small periportal nodes are nonspecific by size.IMPRESSION:1. Loculated fluid as well as cystic and solid peritoneal implants in the abdomen and pelvis.2. Some inhomogeneity in the uterus mayrepresent the known primary versus fibroids.3. There are a few punctate pulmonary nodules that may r epresent small granulomas without definite evidence of metastatic disease to the chest.MD MarroquinHemoglobin [id number] 20:16:30 Test Item Value Reference Range Interpretation Comments A1C (test code = 5.2 % 4.3-5.6 HbA1c value s >=6.5% are 4632) diagnostic of d iabetes mellitus.Diagno sis should be confirmed by repeat testing.Therape utic Action suggested: >8.0 % HbA1c; Goal oftherapy: <7.0% HbA1c MD MarroquinCancer Antigen [id number] 20:12:11 Test Item Value Reference Range Interpretation Comments CA 125 (test code = 34.6 U/mL <=38.0 Referenc e intervals are 5162) not available f or male patients. Resul ts should be interpreted in conjunction wit h clinical context. Testi ng Performed at [facility], [address] [place] [address], [address], [place] [address] MD MarroquinFractionated [id number] 19:57:52 Test Item Value Reference Range Interpretation Comments Bili Total (test 0.4 mg/dL <=1.2 Testing Per formed at [facility] code = 5096) [facility], [address] [place] [address], [address], [place] [address] Bili Direct (test <0.2 <=0.3 mg/dL Indocyanin e Green (ICG) code = 5094) may cause false ly elevated biliru bin results. Total and direct bilirubi n must not be measured from samples contain ing indocyanine gre en. Testing Perform ed at [facility], [facility], [address], [place] [address] Bili Indirect (test See Note 0-0.9 Unable t o calculate code = 5095) Indirect Biliru bin result due to s ome parameters are outside reportable rang eTesting Performed at [facility], [address] [place], [place] [address], [address], [place] [address] MD MarroquinGlucose, [id number] 19:57:51 Test Item Value Reference Range Interpretation Comments Glucose Random (test 112 mg/dL 70-199 Effecti ve 10/17/15, the code = 9360) glucose referen ce intervals have been updated based o n [place] [employer] ramya delines (Standards of M edical Care in Diabete s 2016. Diabetes Care 2 016; 39: S13-S22)Fasting blood glucose:Normal: 70 99 mg/dLImpair ed fasting glucose (increased risk for diabetes or pre-diabetes): 100 125 mg/dLDiabe mirtha mellitus: >/= 1 26 mg/dLRandom blo od glucose:Normal: 70 199 mg/dLNote: Random glucose >100 mg /dL is associated with increased risk for diabetes Testin g Performed at [facility], [address], [address], [place] [address] MD MarroquinGlomerular Filtration [id number] 19:57:50 Test Item Value Reference Range Interpretation Comments eGFR-AA (test 122 >=60 mL/min/1.73 sq. Normal eGFR >= 60 code = 8062) m mL/min/1.73 m2 Note: The eGFR is calcula cristina using the CKD-EPI equ ation. The eGFR declines w ith age. eGFR <60 mL/min /1.73 m2 is considered as " decreased". This equation s hould only be used for pat ients 18 and older. Acco rding to the National Ki dney Foundation's Ki dney Disease Outcome Quality Initiative (KDO QI) classification and 2012 Kidney Disease Improving Global Outcomes (KDIGO) Clinical Practi ce Guideline, the stage of CKD should be c ategorized based on estima cristina GFR. Stage Descripti on GFR mL/min/1.73 m21 Normal or high GFR >=902 Mildly de creased GFR 60-893a Mildly to moder ately decreased GFR 45-593b Moderately to s everely decreased GFR 30-444 Severely decrea sed GFR 15-295 Kidney failure <15 Testing Performed at [facility], [address], [address], [place] [address] eGFR-TRINA (test 106 >=60 mL/min/1.73 sq. Ashely l eGFR >= 60 code = 8063) m mL/min/1.73 m2 Note: The eGFR is calcula cristina using the CKD-EPI equ ation. The eGFR declines w ith age. eGFR <60 mL/min /1.73 m2 is considered as " decreased". This equation s hould only be used for pat ients 18 and older. Acco rding to the National Ki dney Foundation's Ki dney Disease Outcome Quality Initiative (KDO QI) classification and 2012 Kidney Disease Improving Global Outcomes (KDIGO) Clinical Practi ce Guideline, the stage of CKD should be c ategorized based on estima cristina GFR. Stage Descripti on GFR mL/min/1.73 m21 Normal or high GFR >=902 Mildly de creased GFR 60-893a Mildly to moder ately decreased GFR 45-593b Moderately to s everely decreased GFR 30-444 Severely decrea sed GFR 15-295 Kidney failure <15 Testing P erformed at [facility] Ambulat ory Care [facility], [address], [address], [place] [address] MD MarroquinMagnesium [id number] 19:57:49 Test Item Value Reference Range Interpretation Comments Magnesium (test code = 1.9 mg/dL 1.6-2.6 Testi ng Performed at 6359) [facility], [address], [address], [place] [address] MD MarroquinAlbumin [id number] 19:57:48 Test Item Value Reference Range Interpretation Comments Albumin Lvl (test code 3.8 3.5- 5.2 gm/dL Mirtha ting Performed at [facility] = 4763) [facility], [address], [address], [place] [address] MD MarroquinAspartate [id number] 19:57:47 Test Item Value Reference Range Interpretation Comments AST (test code = 15 U/L <=32 Testing Per formed at [facility] 4731) [facility], [address], [address], [place] [address] MD [id number] 19:57:46 Test Item Value Reference Range Interpretation Comments ALT (test code = 18 U/L <=33 Testing Per formed at [facility] 4705) [facility], [address], [address], [place] [address] MD MarroquinElectrolyte [id number] 19:57:44 Test Item Value Reference Range Interpretation Comments Sodium Lvl (test code = 136 136- 145 mEq/L Te sting Performed at [facility] 7386) [facility], [address], [address], [place] [address] Potassium Lvl (test code 4.2 3.5- 5.1 mEq/L T esting Performed at [facility] = 6854) [facility], [address], [address], [place] [address] Chloride (test code = 100 98- 107 mEq/L Testi ng Performed at [facility] 5279) [facility], [address], [address], [place] [address] CO2 (test code = 5227) 24 22- 29 mEq/L Testi ng Performed at [facility], [address], [address], [place] [address] Anion Gap (test code = 12 4- 14 mEq/L Testi ng Performed at [facility] 9325) [facility], [address], [address], [place] [address] MD Marroquin.Serum [id number] 19:57:42 Test Item Value Reference Range Interpretation Comments Creatinine (test code 0.52 mg/dL 0.51-0.95 Testin g Performed at = 5399) [facility], [address], [address], [facility] [place] [address] MD [id number] 19:57:41 Test Item Value Reference Range Interpretation Comments BUN (test code = 16 mg/dL 6-23 Testing Per formed at [facility] 5055) [facility], [address], [address], [facility] [place] [address] MD Marr[id number] 19:34:09 Test Item Value Reference Range Interpretation Comments Neutrophil % (test code 88.2 % 42-66 H As p art of = 6491) Differential performed at [facility], [address], [address], [place] [address] Lymphocyte % (test code 9.3 % 24-44 L = 6194) Monocyte % (test code = 1.7 % 2-7 L 6422) Eosinophil % (test code 0.0 % 1-4 L = 5520) Basophil % (test code = 0.0 % 0-1 5068) IGRE % (test code = 0.8 % 0-0.4 H IGRE % c ount includes 5958) Metamyelocytes, Myelocytes, and Promyelocytes. As part of Differe ntial performed at [facility], [address], [address], [place] [address] Neutrophil Abs (test 4.25 K/uL 1.7-7.3 code = 6492) Lymphocyte Abs (test 0.45 K/uL 1-4.8 L code = 6195) Monocyte Abs (test code 0.08 K/uL 0.08-0.7 = 6423) Eosinophil Abs (test 0.00 K/uL 0.04-0.4 L code = 5521) Basophil Abs (test code 0.00 K/uL 0-0.1 = 5069) IG Abs (test code = 0.04 K/uL 0-0.04 5954) Lab Interpretation Abnormal (test code = 10150-2) MD Marroquin.[id number] 19:34:07 Test Item Value Reference Range Interpretation Comments WBC (test code = 8034) 4.8 K/uL 4-11 RBC (test code = 6932) 2.42 4.00- 5.50 M/uL L Hgb (test code = 5898) 8.0 12.0- 16.0 gm/dL L A s part of CBC or as an individual orderable testi ng performed at [facility], [address], [address], [place] [address] Hct (test code = 5860) 27.4 % 37-47 L As pa rt of CBC or as an individual orderable testi ng performed at [facility], [address], [address], [place] [address] MCV (test code = 6222) 113 fL 82-98 H MCH (test code = 6220) 33.1 pg 27-31 H MCHC (test code = 6221) 29.2 31.0- 36.0 gm/dL L RDW-SD (test code = 69.9 fL 35.1-46.3 H 6972) RDW-CV (test code = 16.9 % 12-15.5 H 6971) Platelet count (test 117 K/uL 140-440 L As part of CBC or as code = 6832) an individual orderable testi ng performed at [facility], [address], [address], [place] [address] MPV (test code = 6282) 10.7 fL 4-10.4 H INRBC (test code = 0.0 % <=0.0 The INRBC (instrument 5974) NRBC) value ref lects the enumeration of nucleated red b lood cells contained in a 200uL sampleof whole blood analyzed by the instrument. Thi s value maydiffer from the NRBC value reported in a m anual differential,wh ich is based on a 100 cell differential. A s part of CBC testing performed at [facility] [address], [place], [place] [address] Lab Interpretation Abnormal (test code = 88356-0) MD MarroquinMD COVID-19 (BRETT-CoV-2) PCR [id number] 12:17:56 Test Item Value Reference Interpretation Comments Range COVID19 SARS New Patient Indication (test code = 42057) COVID19 SARS Result Not Detected Not Detected (test code = 31547-8) COVID19 SARS SARS-CoV-2 NOT Detected. Interpretation (test Reference Range: Not code = 05301) Detected Methodology: The Alegria RealTime SARS-CoV-2 assay is a qualitative real-time reverse tele marketing executive polymerase chain reaction (front office specialist-PCR) test to detect RNA from SARS-CoV-2 in nasal, nasopharyngeal and oropharyngeal swabs from patients with signs and symptoms of infection who are suspected of COVID-19 by their health care provider. The Alegria RealTime SARS-CoV-2 performed on the Vinny000 System is a dual target assay with primers and probes for the RdRp and N genes. Results must be interpreted within the context of all relevant clinical and laboratory findings, and epidemiological risk factors. Positive results are indicative of the presence of SARS-CoV-2 RNA; clinical correlation with patient history and other diagnostic information is necessary to determine patient infection status. Positive results do not rule out bacterial infection or co-infection with other viruses. Negative results do not preclude SARS-CoV-2 infection and should not be used as the sole basis for patient management decisions. The PacerPro RealTime SARS-CoV-2 assay is for in vitro diagnostic use under FDA Emergency Use Authorization only. Testing is limited to laboratories certified under the Clinical Laboratory Improvement Amendments of 1988 (CLIA), 42U.S.C. 263a, to perform high complexity tests. The Test was performed by the CLIA-certified, high-complexity Molecular Diagn[facility] ([facility]) at [facility] under the Food and Drug Administration (FDA) s Emergency Use Authorization. Factsheet for patients: https://www.Microland.org/ AbbottFactSheetPatientsFact sheet for healthcare providers: https://www.Microland.org/ AbbottFactSheetHCP Test performed by:[facility] [address] [place] [address] PAUL (test code = Pt is scheduled as New Pt PAUL) on 10/24/2019 MD MarroquinU/S, [id number] 18:43:00Labs to be ordered:->No Labs NeededReason for Exam:->[id number] REPORT Ultrasound guided paracentesis. Clinical History: Ascites. Sedation: None. Senior Python Developer: Marva Elliott PA-C Throw Out Clerk: None. Estimated Blood Lo ss: < 1 cc. Specimen: 350 cc of serosanguineous fluid, samples sent to laboratory. Technique: Informed consent was obtained. The risks of pain, bleeding, infection, bowel perforation, injury to adjacent structures, and adverse medication reactions were discussed with the patient. After informed consent was obtained, the patient's abdomen was scanned. The LUQ of the abdomen was selected for paracentesis. After the largest fluid pocket area was marked, and the anterior abdominal wall was evaluated with color Doppler to exclude presence of blood vessels traversing the area, the skin was prepped and draped in the usual sterile manner. After local anesthesia was achieved with 2% lidocaine, a 5 Malawian one-step catheter was advanced into the peritoneal cavity under ultrasound guidance. After completion of drainage, the catheter was removed. There was no evidence of complication. Impression:Successful ultrasound guided paracentesis. Signed: Brayan Mesa Verified Date/Time: 10/06/2019 18:43:10 Reading Location: [address] Ultrasound Reading Room U/S, ABDOMINAL, [id number] 17:45:00Labs to be ordered:->No Labs Needed Reason for Exam:->Uterine cancerFINAL REPORT Limited abdominal ultrasound CLINICAL HISTORY: Ascites FINDINGS: A limited abdominal ultrasound was performed and only a trace amount of fluid was seen. Therefore a paracentesis was not performed. Signed: Ephraim Wei Verified Date/Time: 09/22/2019 17:45:03 Reading Location: [address] Ultrasound Reading Room US abdomen [id number] 17:45:00Interface, External Ris In - 09/22/2019 5:47 PM CDTFINAL REPORT Limited abdominal ultrasound CLINICAL HISTORY: Ascites FINDINGS: A limited abdominal ultrasound was performed and only a trace amount of fluid was seen. Therefore a paracentesis was not performed. Signed: Ephraim Wei Verified Date/Time: 09/22/2019 17:45:03 Reading Location: [address] [facility] DIFFERENTIAL 2019-09-22 17:35:00 Test Item Value Reference Range Interpretation Comments WHITE BLOOD CELL COUNT (BEAKER) 2.3 K/ L 3.5-10.5 L (test code = 775) RED BLOOD CELL COUNT (BEAKER) 2.34 M/ L 3.93-5.22 L (test code = 761) HEMOGLOBIN (BEAKER) (test code = 7.6 GM/DL 11.2-15.7 L 410) HEMATOCRIT (BEAKER) (test code = 25.4 % 34.1-44.9 L 411) MEAN CORPUSCULAR VOLUME (BEAKER) 108.5 fL 79.4-94.8 H (test code = 753) MEAN CORPUSCULAR HEMOGLOBIN 32.5 pg 25.6-32.2 H (BEAKER) (test code = 751) MEAN CORPUSCULAR HEMOGLOBIN CONC 29.9 GM/DL 32.2-35.5 L (BEAKER) (test code = 752) RED CELL DISTRIBUTION WIDTH 19.7 % 11.7-14.4 H (BEAKER) (test code = 412) PLATELET COUNT (BEAKER) (test code 95 K/CU MM 150-450 L = 756) MEAN PLATELET VOLUME (BEAKER) 10.8 fL 9.4-12.3 (test code = 754) NUCLEATED RED BLOOD CELLS (BEAKER) 0 /100 WBC 0-0 (test code = 413) (CELLAVISION MANUAL DIFF)2019-09-22 17:09:00 Test Item Value Reference Range Interpretation Comments NEUTROPHILS - REL 38 % (CELLAVISION)(BEAKER) (test code = 2816) LYMPHOCYTES - REL 49 % (CELLAVISION)(BEAKER) (test code = 2817) MONOCYTES - REL 4 % (CELLAVISION)(BEAKER) (test code = 2818) EOSINOPHILS - REL 9 % (CELLAVISION)(BEAKER) (test code = 2819) NEUTROPHILS - ABS 0.87 K/ul 1.56-6.13 L (CELLAVISION)(BEAKER) (test code = 2830) LYMPHOCYTES - ABS 1.13 K/ul 1.18-3.74 L (CELLAVISION)(BEAKER) (test code = 2831) MONOCYTES - ABS 0.09 K/uL 0.24-0.36 L (CELLAVISION)(BEAKER) (test code = 2832) EOSINOPHILS - ABS 0.21 K/uL 0.04-0.36 (CELLAVISION)(BEAKER) (test code = 2834) TOTAL COUNTED (BEAKER) (test code 100 = 1351) MANUAL NRBC PER 100 CELLS 2 /100 WBC 0-0 H (BEAKER) (test code = 1353) WBC MORPHOLOGY (BEAKER) (test Normal code = 487) GIANT PLATELETS (BEAKER) (test Present code = 313) POLYCHROMATOPHILLIC RBCS(BEAKER) 3+ many (test code = 478) ANISOCYTOSIS (BEAKER) (test code 2+ moderate = 961) MICROCYTES (BEAKER) (test code = 1+ few 965) POIKILOCYTES (BEAKER) (test code 1+ few = 966) TEAR DROP CELLS (BEAKER) (test 1+ few code = 481) ARTIFACT (CELLAVISION)(BEAKER) Present (test code = 3432) PLATELET CONCENTRATION Decreased (CELLAVISION)(BEAKER) (test code = 3438) Promotional Model ID - Laura comments: Slide comments:U/S, ABDOMINAL, COMPLETE 2019-09-22 13:56:00Reason for Exam:->Uterine cancerFINAL REPORT TECHNIQUE: Grayscale ultrasound of the abdomen. INDICATION: 59-year- old woman with uterine cancer. COMPARISON: Abdomen and pelvis CT 09/02/2019. FINDINGS: MIDLINE VASCULATURE: Visualized inferior vena cava is patent. Main portal vein is patent. Visualized abdominal aorta is patent. LIVER: Liver is normal in size and echogenicity with smooth contour. No focal lesion. BILIARY:Gallbladder: Prior cholecystectomy.Common bile duct measures approximately 0.6 cm, within normal limits. No intrahepatic biliary ductal dilatation. PANCREAS: Visualized portions of the pancreas are unremarkable. SPLEEN: No splenomegaly. PERITONEUM: Persistent loculated perihepatic ascites; the component along the left hepatic lobe measures approximately 3.9 x 2.7 x 5.8 cm and the component along the right hepatic lobe measures 3.5 x 2.2 x 3.3 cm. Persistent 6.5 x 7.3 x 6.5 cm locule of ascites in the midline of the abdomen appears to contain internal septations/debris. KIDNEYS: Suboptimal evaluation of both kidneys due to patient body habitus. Both kidneys are normal in size. Suspected moderate left hydronephrosis. Questionable mild right hydronephrosis. No sonographically evident mass.IMPRESSION:Persistent perihepatic and mid abdominal loculated ascites. Suboptimal evaluation of bothkidneys due to patient body habitus. Suspected moderate left hydronephrosis with questionable mild ri ght hydronephrosis. Abdomen and pelvis CT may be obtained for further evaluation. Signed: Trang Adkins MDReport Verified Date/Time: 09/22/2019 13:56:45 Reading Location: [address] Radiology Reading Room US Abdomen [id number] 13:56:00Interface, External Ris In - 09/22/2019 1:58 PM CDTFINAL REPORT TECHNIQUE: Grayscale ultrasound of the abdomen. INDICATION: 59-year-old woman with uterine cancer. COMPARISON: Abd omen and pelvis CT 09/02/2019. FINDINGS: MIDLINE VASCULATURE: Visualized inferior vena cava is patent. Main portal vein is patent. Visualized abdominal aorta is patent. LIVER: Liver is normal in size and echogenicity with smooth contour. No focal lesion. BILIARY:Gallbladder: Prior cholecystectomy.Common bile duct measures approximately 0.6 cm, within normal limits. No intrahepatic biliary ductal dilatation. PANCREAS: Visualized portions of the pancreas are unremarkable. SPLEEN: No splenomegaly. PERITONEUM: Persistent loculated perihepatic ascites; the component along the left hepatic lobe measures a pproximately 3.9 x 2.7 x 5.8 cm and the component along the right hepatic lobe measures 3.5 x 2.2 x 3.3 cm. Persistent 6.5 x 7.3 x 6.5 cm locule of ascites in the midline of the abdomen appears to contain internal septations/debris. KIDNEYS: Suboptimal evaluation of both kidneys due to patient body habitus. Both kidneys are normal in size. Suspected moderate left hydronephrosis. Questionable mild right hydronephrosis. No sonographically evident mass. IMPRESSION:Persistent perihepatic and mid abdominal loculated ascites. Suboptimal evaluation of both kidneys due to patient body habitus. Suspected mo derate left hydronephrosis with questionable mild right hydronephrosis. Abdomen and pelvis CT may beobtained for further evaluation. Signed: Trang Adkins MDReport Verified Date/Time: 09/22/2019 13:56:45 Reading Location: [address] Radiology Reading [facility] 09:46:00 Test Item Value Reference Range Interpretation Comments PARTIAL THROMBOPLASTIN TIME 29.2 seconds 22.5-36.0 (BEAKER) (test code = 760) PROTHROMBIN TIME/[id number] 09:45:00 Test Item Value Reference Range Interpretation Comments PROTIME (BEAKER) (test code = 13.9 seconds 11.9-14.2 759) INR (BEAKER) (test code = 370) 1.1 <=5.9 Effective 08/18/2018: PT Reference Range ChangeNew: 11.9-14.2 Previous: 11.7- 14.7RECOMMENDED COUMADIN/WARFARIN INR THERAPY RANGESSTANDARD DOSE: 2.0-3.0 Includes: PROPHYLAXIS for venous thrombosis, systemic embolization; TREATMENT for venous thrombosis and/or pulmonary embolus.HIGH RISK: Target INR is2.5-3.5 for patients wiht mechanical heart valves.CT, [id number] 14:35:00FINAL REPORT CT of the chest, abdomen and pelvis, with contrast Clinical History: uterine cancer Technique: CT of the chest, abdomen and pelvis is performed with intravenous contrast administration. This exam was performed according to our departmental dose optimization program which includes automated exposure control, adjustment of the mA and/or kV according to patient's size and/or use of iterative reconstructive technique. Comparison Film: July 18, 2019, April 17, 2019 Discussion: There is a right-sided Port-A-Cath. Visualized thyroid gland is normal. No supraclavicular, axillary, mediastinal or hilar lymphadenopathy. Heart and pericardium are unremarkable. There is no mass or consolidation. No new pulmonary nodule. No pleural effusion. Central airways are patent. There is a stable lesion in the right hepatic lobe with peripheral nodular enhancement, likely a hemangioma. Loculated perihepatic ascites with slight scalloping of the liver contour appear unchanged.Spleen, pancreas, adrenal glands are unremarkable. Kidneys demonstrate no mass, hydronephrosis, or radiopaque stone. There is a small cyst at the right lower pole. No bowel obstruction. No definite bowel wall thickening. Normal appendix. In the pelvis, bladder is normal. Uterus is lobulated, as before. There is a left adnexal cystic lesion versus loculated ascitic fluid, unchanged. There is a small amount of loculated ascites, similar to the prior exam, including a collection in the root of small bowel mesentery that measures 9.4 x 7.5 cm. There is no free air, or lymphadenopathy. An IVC filter is present. Tiny omental nodules are stable. Bony structures demonstrate degenerative changes. Impression: Stable appearance of loculated ascites and omental disease. No evidence of disease progression. Signed: Yuliana Jaquez MDReport Verified Date/Time: 09/02/2019 14:35:43 Reading [address]: [address], CHEST, WITH IV [id number] 14:35:00FINAL REPORT CT of the chest, abdomen and pelvis, with contrast Clinical History: uterine cancer Technique: CT of the chest, abdomen and pelvis is performed with intravenous con trast administration. This exam was performed according to our departmental dose optimization program which includes automated exposure control, adjustment of the mA and/or kV according to patient's size and/or use of iterative reconstructive technique. Comparison Film: July 18, 2019, April 17, 2019 Discussion: There is a right-sided Port-A-Cath. Visualized thyroid gland is normal. No supraclavicular, axillary, mediastinal or hilar lymphadenopathy. Heart and pericardium are unremarkable. There is no mass or consolidation. No new pulmonary nodule. No pleural effusion. Central airways are patent. There is a stable lesion in the right hepatic lobe with peripheral nodular enhancement, likely a hemangioma. Loculated perihepatic ascites with slight scalloping of the liver contour appear unchanged.Spleen, pancreas, adrenal glands are unremarkable. Kidneys demonstrate no mass, hydronephrosis, or radiopaque stone. There is a small cyst at the right lower pole. No bowel obstruction. No definite bowel wall thickening. Normal appendix. In the pelvis, bladder is normal. Uterus is lobulated, as before. There is a left adnexal cystic lesion versus loculated ascitic fluid, unchanged. There is a small amount of loculated ascites, similar to the prior exam, including a collection in the root of small bowel mesentery that measures 9.4 x 7.5 cm. There is no free air, or lymphadenopathy. An IVC filter is present. Tiny omental nodules are stable. Bony structures demonstrate degenerative changes. Impression: Stable appearance of loculated ascites and omental disease. No evidence of disease progression. Sig osman: Yuliana Jaquezeport Verified Date/Time: 09/02/2019 14:35:43 Reading Location: [facility] B1 C013X OrthoConsult Reading Room [id number] 12:40:00 Test Item Value Reference Range Interpretation Comments POC-Creatinine (test code 0.5 mg/dL 0.6-1.3 L : TESTED AT [facility] = 1859) [address] [facility] [address]: Promotional Model/Techni jalen ID = [id number] for BRAYAN WARD POC-EGFR (test code = 127 mL/min/1.73M2 1860) Lab Interpretation (test Abnormal code = 18569-2) [id number] 12:40:00 Test Item Value Reference Range Interpretation Comments POC-CREATININE 0.5 mg/dL 0.6-1.3 L : TESTED AT [facility] (BEAKER) (test [address] code = 1859) [facility] 7 [address]30: Promotional Model/Techni jalen ID = [id number] for BRAYAN WARD POC-EGFR 127 mL/min/1.73M2 (BEAKER) (test code = 1860) U/S, [id number] 15:32:00Labs to be ordered:->Other (please add comment)Reason for Exam:->[id number] REPORT Ultrasound guided paracentesis. Clinical History: Ascites. Sedation: None. Supervising physician: Ephraim Wei M.D. Senior Python Developer: Marva Barnes Throw Out Clerk: None. Estimated Blood Loss: < 1 cc. Specimen: 100 cc of dark red fluid, samples sent to laboratory. Technique: Informed consent was obtained. The risks of pain, bleeding, infection, bowel perforation, injury to adjacent structures, and adverse medication reactions were discussed with the patient. After informed consent was obtained, the patient's abdomen was scanned. The midline of the abdomen was selected for paracentesis. After the largest fluid pocket area was marked, and the anterior abdominal wall was evaluated with color Doppler to exclude presence of blood vesselstraversing the area, the skin was prepped and draped in the usual sterile manner. After local anesthesia was achieved with 2% lidocaine, a 5 Malawian one-step catheter was advanced into the peritoneal cavity under ultrasound guidance. After completion of drainage, the catheter was removed. There was noevidence of complication. Impression:Successful ultrasound guided paracentesis. Signed: Ephraim Wei Verified Date/Time: 07/27/2019 15:32:04 Reading Location: [facility] P006J Ultrasound Reading Room [id number] 17:49:00 Test Item Value Reference Range Interpretation Comments Case Report (test code Medical Cytology = 104) Report Case: [id number] Authorizing Provider: Cole Albright, Collected: 07/25/2019 11:34 AM Ordering Location: [facility] Radiology Main Received: 07/25/2019 01:20 PM Pathologist: Billy Arora MD Specimen: Peritoneal Fluid DIAGNOSIS (test code = [id number] 3220) FuZzEwMzNcZnRuYmpcdWMx KBffkbUmFXcbc2IaN4GmUk AwMFxhbnNpXGRlZmxhbmcx MPXrVAP5heCoUBMvZOayNC OwQUaiEw4vlEAqjYzdRmGy BIEyf6pmbuGYrxbyjLm5y6 reJEIgZhX7kNNzSQmfM8mq ekPfcBGwTISqQKr2yJ43EM FkiU4qbHVuBMxiswGfSErw wjZzgmXxOnf5MFHyX2toFX HxISQkV8ChDN0eZWUiIfw6 EDN1SWK8hJkep2M7lREmjL MypIthPiXwNaWsLUQSk2Mj UFy5jTanP7TbMKAnRyV7tH QgUGFyYWdyYXBoIEZvbnQ7 aM07HRylqfG9fKFbn8Iqy9 2ye565uE0jdDNyTOZ5WLQo WFQjqGXkQLWlOFV9ZNYiaX GbV8e6YrDyfRGrA1K1AeMv pZZcL9D9YuVjuJErN9P4Ma BwpHXvBRZldWXdIi1qvZUx fNPqcd8npn74JHF7p7GyyP wfMDQ2MCZ6GkUcDy3lqQEw FXZuUK1tHeDuzLLfDECaro 55sLcxTKpeedVviK9bYcEc KPFidUHbHYVqNF4vbFMhEA AsgN6ehbzaOEMjTsWmuqgp GNWadMmhopVgNd5toLnlXA Z4JGnlH0fjjL1pFtT6DSpa B5qfyB6fNFp2LRideCJ8IS LatR3kHD2dykqfh6vnWdZu NB3pythrk8mcEsHuPG0jjl b3c4kbQaYdQF1mzkyzy8nr NzIwXGhlYWRlcnkwXGZvb3 LcyuyqEVWjh4PdA2MicXbj Q39heRliI83vZTEfdIlmzN 5siEublA4rXbYuGbUiWFqz bFxwbGFpblxmMFxmczIwXH BsYWluXGYxXGZzMjAgUEVS SVRPTkVBTCBGTFVJRCAoQ1 uMO6VBHU1NYAGVQSNSGAqA UXYNA5SSJUffjZZnQLYjPA 1zLYCVTF8GST3XIuUNIPSG YG2SFODCQAIGTXXRAkPMCX 6BQ4cORNBDMdDALQZRDrTB ZJJOU6GNBNlID0kiDBCnBD RcMPYVXiDGWSxBA94YMdYw T5ALSUNeEOFIUuWHTqcJKZ blBRX6l6icmMXaSPPqnSUm ODAwMFxhbnNpXGRlZmxhbm slSKOjJKK0rpYsOYCoHUvm UVHtCIhwMe5hjIYvxVtnJf ObEEDik7qqtqNGjzmbbYj4 b6ueJWLaIpW9hWKqQIkhL0 yinrQjeZPaWZLuKUc9cU96 XAUqwS0shGEyYOdeuyEkXw C6BXneOUCcBvU4SXXhuASx QTNfE3ebNOEfBWoeAOEoLE vpdOZyNLC2vKcug5B2zUMs aGVldHtcZjBcZnMyMiBOb3 ZkTLj5jNumH9IyRVYdEnB1 bHQgUGFyYWdyYXBoIEZvbn U4sY63EGbubxD7wCYkj3Jg b02ug759wC8paCGdWRL2AW QqYDGxdVTeEHTtEVN5RRXq nSPtB7rzNAVjFU0frdhgAB eaWPqnKWWmiMF1NRCmaXXf L9IoQNXwHWtjSNSgfbj0By ZlYu6jzCEjbNjnDDckt9gc o7xtbVYhLky8TCTmCrNjYq iaZFbqw9Eog7ghBDJujj5s IYF5rLBejCpha6G2yVQsIB BzkEZtJUAsKB8crAKbJYTa dM5xbyswCSPuBxYczfwcSN XymGjzfwTlPw4uvZtpUNB2 VAglO2hpgT7mIoY1ZJstU6 hgdX1pEFk8DYxfKDUizKC2 kpM8BYYzaCUgK9RfxK7wME OjKL5mvvv3v1daHFN8IXph BBRxRvC2tpJ6GYLzyYEmYK EzaZwzAHbra028TPS7GcPw XXNih9FsW9BjlLarK21ddI kaB44hEAEqiBlvpP2uiWgq mL0yQtNsRjDkZNkggYwgMV 5jSAUxJ9cmtVNsTXIzLQXz W6euTyGgnZ7piWiiRFtqjc YcONDxTmz9YRFjlCKtKXPh Wyy1ALByZHWdK20hpwvxYC S8sN8uc5fnt8FwFGzdPMD8 DFYla15cQVkkhtQ3ZZnbBi 0fAaTcLNL1EUshVZT7gD== CPT Code(s) (test code f9egdMPpFGXyyXZuFmWuVP = 3357) BvBAMgy7ylJNCdsVNnMmCn MzNcZnRuYmpcdWMxXGRlZm Iua8sri574gDLwl3mdCAFp ZtP5iJYbCZGizVRyW813z3 lsh9wvekEhbHD2QSTzWYY0 MFaikdTfgrB0VVkkhPWrQk H5YBzvbcAgNCwxtqHfidAd Fna6QVSyF680GLZ8fMmlm9 yjNZW1TVMxTDKsBkVdIi3h kFNfX766LKYgHGDUTHRtiK q0PDCxlaWbsyVvrQLLk351 F348c2mzSJStbsIqmVdAri etl3ivH250OZXueDWsqbBl HkGhGVEnrNAfvNQ6KZRtYB 8eixacDgOvBV4yuasfScUp WO4bmqf2IbQnTG9wnmqkBo BcCIwpNXMyvvorICPjs7Hw jftdNK4sI9Xte3V8uU6arC RbQZCcqEIwVpNeIQWclb9p eCMfQOjlp6HuAKT5vqW8vC FqsYBsVMLhMG61Qwxcm2Lx BxbnQZR7DBHvdqCms3Fue9 wnIjNkevLiW8jyQ4PlGOZr RSDzZVYjLbNmtlEmy9Sds2 VtpQVacFi8z2yqVHWxCWDh aVqsu3jmWYS0JEDqF3O2mE Smd3kwNCdeCFIdgSG6blpz JVrbRLAtwoN9uylrJWuoRG VvzLW0umhcGUkjJIGrNnF7 xjblKKrkJDVvUQA6FFtmy0 37EYU5TGgqXefnMFvaWIEf bmNvbnRccGduZGVjXHBsYW luXHBsYWluXGYwXGZzMjRc iGxvsRqvkD4bHaOqMqEqKN ywXU8dMUWmO6szkESpZRYy YUHbU2dkNdOmuK0quRwiKQ dxhdPtTAp4YKK3AMV7BOEf NVxwYXJ9 CLINICAL DATA (test w4jdcWHqIJUpvGWkDiQgXD code = 3355) ApJHMwt3hfBGHixQFsGoRr MzNcZnRuYmpcdWMxXGRlZm Oje0lbd681lHKaq6jbOMAo KkA4aOWdMJPnjVKuX726t4 umk9ycecLhcCN2TBCcBPF3 LFlaggOsgjO8JAfwrQFzSg E1JFcdcjVtTBmakrZcecYu Kvj4RVXiH577BNX9bRrin4 ocJIK0HZTiAZLsHwFhBn9a iHVlS191RASdBHSCXWYwgH l5CMJqnmHxofWrrHBGs671 P657n8nfBUNcxdJbaLfUeh sas6gvN493MFElvJAgafMk CwVkDGKkkJLlqCE1FODyEE 2jrbkbUfFeGX9lqtovEsXb ZT7aurq3XkQpXS2jxmurSj SiMDrgRMNbksauFEEay5Kp slhkZD5bF7Xan5H1wT7oqU OwDRItiCPpSaWxJMNspw4b mGBsNXeex2IrSZJ3lqM4oP GrtDUfRMXkKK47Ucykw8Gs UhkuJSU3UDHckdKcm9Fnq2 wbUlCwjgOaM0nrO6PfEQMv NUKuHQFbOwVrvrTvh3Xga1 JsiDAitZj1x6hxFNMlWPJo lPdur6cyYTJ9JLXcS8U7wK Dfn3piEPaoELSntBV9wdpp AWouRVOxdsD8lrwfRYecNU AmkZV2wexyTRiaWGXhZxR1 fowcUGlqZDTgJTT7NLwxd1 30SPR4WHbsNhyvIIbxTPMi bmNvbnRccGduZGVjXHBsYW luXHBsYWluXGYwXGZzMjRc cGFyZFxwbGFpblxmMFxmcz DiPSskwhaaFIJyXLkuJ3me AsUwQDDjmNsyDBwvj2ErWF YwXGZzMjAgQXNjaXRlczsg jBZxlnasHKMyRG8nOXPpsC FyfQ== SPECIMEN SOURCE (test x1hahMRyYPTiuYRsTjOyKE code = 3377) GdIABna7qgOAQhfZOqXkXo MzNcZnRuYmpcdWMxXGRlZm Htx6rbp211tOXxn1xsVCGt LpU1wZHfGVAcwYOdY520u4 hyl9xihkXoiNY8ILXmXBE7 ODeufsRuvhZ7THymnKRgDf J4EBhlwxDqNEcbpuErznRf Dlf1TYUmZ007DGG7ySkae5 kpJRS1BFJhBZZmFyMsHi9e sCHcY281JXYhZFEMFSJztQ a9NXMovvAqdvZvsSFJq270 D347k3ipDYUzdmZrbHcCbu rla0eyR335ALGljTWocgFw CpVaLSYlxMDnuCK6LKFyYK 8minakSlMbFC2odfugVgPp LI7zhad1HfTqSX5mdffkMy PiZZuyGLJrejsfPMBgb4Pb oskaCA2vA8Gru3P0lX8gbH OoWTVfzLNcTsByWGObzu0d pTWqUUhzn0OnXCS5uqF1eH NkkPEnNOEsID12Xxhhw3Gu McnbJOY3NCWfrxKjr5Ndw8 qtVdDoyfFtK0djQ6EeVAWj VMDcNJIaEwRtgeHwx5Gtk2 LojGSheDz3n4jdPZHvBVFw vLouz9qeJHT2QPEeE6E9yD Dji8psQQfaYMCayEJ4tcmx QLaqUHKyfaB0errzZKzxQC NkuFJ5uidtJXimGIEpHjN9 llorAJvlXOQwXMD0OLiuj9 81JXO5OZqjMnqxGMztMGXk bmNvbnRccGduZGVjXHBsYW luXHBsYWluXGYwXGZzMjRc eOemuQegzM2rIyQfZhHbHY flYT5fZJMiG3ypwONwASYv AQVdC4qtZpQheW1meVrxHD clsmMpQTMGDgpOQ24ACTlk RkxVSURccGFyfQ== GROSS DESCRIPTION (test s8acsJWcPKUtoHTjAvFwYK code = 3366) NnOBGtj6krFFHltMXgZfJq MzNcZnRuYmpcdWMxXGRlZm Hts3oou968lCLea0xhGUOq OhS4mAXcAQNmdOYoY274GI MoOCcyj6avt1SgEDClwBIi y8N8DLEJksvlqWt6wRtlF2 3dt6F9UvwwK8hjJSLnSETb U3NbEL2mGIEyFic0MCD7ZF F1BMFsFUQhD0ZoUR8sSNHk tDBeHSf0y2dfrLlrICRaHO J7o9zaLQpxdtWsFQ6ckk6h cHs8v5objtSiHEEmWKLpeF XHRNUfQ9UgbFmnZs4veDf4 fZelXndaDIZ4Xqc6FA4uhg 41txr2uWwnMMNqhwivZxQ5 SMvxKPDcifqlYEp1UFvqVJ JnbDcyMFxtYXJncjcyMFxt YXJndDcyMFxtYXJnYjcyMF dlARNqEVX8JFcwr892FXD4 RMvqe4qip4xciOMjKsx1GA BtQdDqYwpoYTdqm7Xnu2af OPWivs9yFOA2hQRwzHfmv5 P4eFOaGOQeoWIfttOcYPWq JlJ9ZDfvEL8fmu50BWZvXU X2ym7veQTuzQbpfsLmkNAs IYbgS4MrVTUvv571UBAdT6 KwXKGmj5X0laSuIsRdUSQc fRW2wcO6FYVsUBe8fACsnr X6vgJpwKRlN1tdsH47BxLw gIKzK4DvgX86TnQbvDFiN0 CwqD55UtJsoHNjO3AdjA31 JcUiqEWtETMgqGUdEg0iuU FmoBNsw6VrxVIsSTznE61i z352PSQnfyDkC5idzNLppv kdvPCbjxjqVGoqshS4ZMXs XHBsYWluXGYxXGZzMjJcbG FuZzEwMzNcaGljaFxmMVxk TdVnPYDxQAsyV3evMmGnYo UuDqOCXDFhrLHmMUL9PEXk hSBnRZQzNCLnq73xjDYxrC VpZFxwYXIgUHJlcGFyZWQg O8AddONduY8wljqKFvhrZG 6bUVItG1h9h5VtpE7vTMWo dhWMd1glIZL2XDT4TSA3HE EkHMtxFRJjKeVmYUg8YTM0 AYU5VEClVTjlINN7 MICROSCOPIC DESCRIPTION r0jccMTlVYMddDVxHyDeQV (test code = 3371) EnAEUyv1joMZIzeIReKgOt MzNcZnRuYmpcdWMxXGRlZm Ybh6dmn121bXIvf3sxKQGs WqB7bTLeONVnjUHwB301u7 asb4xqvrIoeHL6QTNfMHI1 LTkakkGjwpR0MDfowVTyKs I1UBfpsaUeAMgiaoJyjnLe Upe4EOWtJ322NYD6eJmsn7 bbETR8UUWiYYXgFmVkKd3w oFPaJ658DIWcHZZNCSTvgT e4RSKsizPwsdBsgTCSe710 P330g3tlRAGuzzOtbRzCqi uoo7nmH074UCXpsODbkyGu SwShPKXhvPHkfAE0VKGkDK 5mpmoaHnVaSE1twwxnTxFm RL6cljp7BjQdBS9jzlojYa FwATcdIVAyjhezRXDuz2Zu xyteUX5oB2Rgm9Q8mW5nyN KvWNVkuLCrSxNrVOSina5b dOSwDEzru4CmCVT2loP7nS UnyHEqQEHoUS15Mnews8Aj EchoJAI7VAQlpzQca9Rhu5 soUnMrlaDtP7cmJ5UjSVWi DEJoXJLhPaUodlIte6Dxn7 XioBBklCw4l6dcLFRdKTIq pLrtm7jsOPP1ITKuY0H7oK Dzi3nuCOvcUGMhqJM3vwcn HZgxAUJexaI2gatjHMbqPC PtuZS3cktnMFtrQGNcGdU1 foejTMasARCzCXL6AFsfw9 31JTM4ODfvMpviNDfzJGQn bmNvbnRccGduZGVjXHBsYW luXHBsYWluXGYwXGZzMjRc bAnfyNhtcD1fRoWvNgJoUR ehDW7gPHQmD2fviAGkTEOd OGOpY4ysYdKzzZ2uuLhgAI hgmnJoEZIenxUlsj6fYQ3l cGFyfQ== STATEMENT OF ADEQUACY Satisfactory (test code = 2757) Gross assessment was [facility] performed at (test code Medical Center, = 2777) Department of Pathology, [address] [place] [address], Technical component was [facility] performed at ([facility], = 2778) Department of Pathology, [address] [place] [address], Professional component [facility] was performed at ([facility], code = 2779) Department of Pathology, [address] [place] [address], [facility]2020[facility] 17:49:00Medical Cytology Report Case: [id number] Aut horizing Provider: Cole Albright, Collected: 07/25/2019 11:34 AM OrderingLocation: [facility] Radiology Main Received: 07/25/2019 01:20 PM Pathologist: Billy Arora MD Specimen: Peritoneal Fluid PERITONEAL FLUID (CYTOSPINS AND CELL BLOCK): - PREDOMINANTLY BLOOD WITH FEW HEMOSIDERIN LADEN MACROPHAGES - NO MALIGNANT CELLS IDENTIFIED Signing Pathologist Direct Phone Line: [phone] signedby Billy Arora MD on 07/26/2019 at 5:49 [id number], [id number]; uterine cancerPERITONEAL FLUIDReceived 50 ml dark bloody fluidPrepared cell block(A2) and 4 cytospinsCollected: [id number]: [id number].[facility], Department of Pathology, [address] [place] [address], [facility]sfpxl[facility], Department of Pathology, [address] [place] [address], [facility]dnzjJohn [facility], Department of Pathology, [address] [place] [address], GZB W/PLT COUNT & AUTO [id number] 08:54:00 Test Item Value Reference Range Interpretation Comments WHITE BLOOD CELL COUNT (BEAKER) 3.5 K/ L 3.5-10.5 (test code = 775) RED BLOOD CELL COUNT (BEAKER) 3.43 M/ L 3.93-5.22 L (test code = 761) HEMOGLOBIN (BEAKER) (test code = 10.0 GM/DL 11.2-15.7 L 410) HEMATOCRIT (BEAKER) (test code = 31.7 % 34.1-44.9 L 411) MEAN CORPUSCULAR VOLUME (BEAKER) 92.4 fL 79.4-94.8 (test code = 753) MEAN CORPUSCULAR HEMOGLOBIN 29.2 pg 25.6-32.2 (BEAKER) (test code = 751) MEAN CORPUSCULAR HEMOGLOBIN CONC 31.5 GM/DL 32.2-35.5 L (BEAKER) (test code = 752) RED CELL DISTRIBUTION WIDTH 18.7 % 11.7-14.4 H (BEAKER) (test code = 412) PLATELET COUNT (BEAKER) (test 189 K/CU MM 150-450 code = 756) MEAN PLATELET VOLUME (BEAKER) 9.3 fL 9.4-12.3 L (test code = 754) NUCLEATED RED BLOOD CELLS 0 /100 WBC 0-0 (BEAKER) (test code = 413) NEUTROPHILS RELATIVE PERCENT 54 % (BEAKER) (test code = 429) LYMPHOCYTES RELATIVE PERCENT 29 % (BEAKER) (test code = 430) MONOCYTES RELATIVE PERCENT 15 % (BEAKER) (test code = 431) EOSINOPHILS RELATIVE PERCENT 1 % (BEAKER) (test code = 432) BASOPHILS RELATIVE PERCENT 1 % (BEAKER) (test code = 437) NEUTROPHILS ABSOLUTE COUNT 1.86 K/ L 1.56-6.13 (BEAKER) (test code = 670) LYMPHOCYTES ABSOLUTE COUNT 1.00 K/ L 1.18-3.74 L (BEAKER) (test code = 414) MONOCYTES ABSOLUTE COUNT (BEAKER) 0.51 K/ L 0.24-0.36 H (test code = 415) EOSINOPHILS ABSOLUTE COUNT 0.04 K/ L 0.04-0.36 (BEAKER) (test code = 416) BASOPHILS ABSOLUTE COUNT (BEAKER) 0.03 K/ L 0.01-0.08 (test code = 417) IMMATURE GRANULOCYTES-RELATIVE 1 % 0-1 PERCENT (BEAKER) (test code = 2801) [id number] 08:52:00 Test Item Value Reference Range Interpretation Comments PARTIAL THROMBOPLASTIN TIME 27.4 seconds 22.5-36.0 (BEAKER) (test code = 760) PROTHROMBIN TIME/[id number] 08:51:00 Test Item Value Reference Range Interpretation Comments PROTIME (GAMALIEL) (test code = 13.7 seconds 11.9-14.2 759) INR (BEAKER) (test code = 370) 1.1 <=5.9 Effective 08/18/2018: PT Reference Range ChangeNew: 11.9-14.2 Previous: 11.7- 14.7RECOMMENDED COUMADIN/WARFARIN INR THERAPY RANGESSTANDARD DOSE: 2.0-3.0 Includes: PROPHYLAXIS for venous thrombosis, systemic embolization; TREATMENT for venous thrombosis and/or pulmonary embolus.HIGH RISK: Target INR is2.5-3.5 for patients wiht mechanical heart valves.CT, [id number] 12:53:00FINAL REPORT CT of the chest, abdomen and pelvis, with contrast Clinical History: C55 Technique: CT of the chest, abdomen and pelvis is performed with intravenous contrast administration. This exam was performed according to our departmental dose optimization program which includes automated exposure control, adjustment of the mA and/or kV according to patient's size and/or use of iterative reconstructive technique. Comparison Film: April 17, 2019 and April 12, 2019 Discussion: There is a right-sided Port-A-Cath. No supraclavicular, axillary, mediastinal or hilar lymphadenopathy. Heart and pericardium are unremarkable. There is interval resolution of pleural effusions. No mass or consolidation. Central airways are patent. In the posterior right hepatic lobe, there is a 1.4 cm lesion with peripheral nodular enhancement, most likely a hemangioma. Again seen is a loculated perihepatic fluid collection that has decreased in size, no measuring 10.7 x 5.2 cm, compared to 14.3 x 8.4 cm previously. There is no biliary ductal dilatation. Gallbladder is partially contracted. No radiopaque stone. The spleen, pancreas, adrenal glands are unremarkable. Kidneys demonstrate nomass, hydronephrosis, or radiopaque stone. There is a small cyst in the right kidney. No evidence ofbowel obstruction or abnormal bowel wall thickening. No pericecal inflammatory change. In the pelvis, bladder is unremarkable. Uterus is mildly enlarged. A cystic structure versus loculated fluid collection at the left adnexa is not significantly changed, measuring 5.5 x 4.7 cm. There is no free air or lymphadenopathy. Ascites has decreased, which is loculated and may contain some debris. Subtle omental nodularity is again noted. There is an IVC filter. Osseous structures demonstrate decreased mineralization, no suspicious bony lesion is identified. Impression: Interval resolution of bilateral pleural effusions. Decreased loculated ascites. Unchanged left adnexal cystic structure may reflect loculated fluid versus a cystic lesion. Stable appearance of small nodules in the omentum, compatible with carcinomatosis. Signed: Yuliana Jaquez MDReport Verified Date/Time: 07/18/2019 12:53:55 Reading Location: [facility] C0X Ortho Consult Reading Room CT, CHEST, WITH IV [id number] 12:53:00FINAL REPORT CT of the chest, abdomen and pelvis, with contrast Clinical History: C55 Technique: CT of the chest, abdomen and pelvis is performed with intravenous contrast administration. This exam was performed according to our departmental dose optimization program which includes automated exposure control, adjustment of the mA and/or kV according to patient's size and/or use of iterative reconstructive technique. Comparison Film: April 17, 2019 and April 12, 2019 Discussion: There is a right-sided Port-A-Cath. No supraclavicular, axillary, mediastinal or hilar lymphadenopathy. Heart and pericardium are unremarkable. There is interval resolution of pleural effusions. No mass or consolidation. Central airways are patent. In the posterior right hepatic lobe, there is a 1.4 cm lesion with peripheral nodular enhancement, most likely a hemangioma. Again seen is a loculated perihepatic fluid collection that has decreased in size, no measuring 10.7 x 5.2 cm, compared to 14.3 x 8.4 cm previously. There is no biliary ductal dilatation. Gallbladder is partially contracted. No radiopaque stone. The spleen, pancreas, adrenal glands are unremarkable. Kidneys demonstrate nomass, hydronephrosis, or radiopaque stone. There is a small cyst in the right kidney. No evidence ofbowel obstruction or abnormal bowel wall thickening. No pericecal inflammatory change. In the pelvis, bladder is unremarkable. Uterus is mildly enlarged. A cystic structure versus loculated fluid collection at the left adnexa is not significantly changed, measuring 5.5 x 4.7 cm. There is no free air or lymphadenopathy. Ascites has decreased, which is loculated and may contain some debris. Subtle omental nodularity is again noted. There is an IVC filter. Osseous structures demonstrate decreased mineralization, no suspicious bony lesion is identified. Impression: Interval resolution of bilateral pleural effusions. Decreased loculated ascites. Unchanged left adnexal cystic structure may reflect loculated fluid versus a cystic lesion. Stable appearance of small nodules in the omentum, compatible with carcinomatosis. Signed: Yuliana Jaquez MDReport Verified Date/Time: 07/18/2019 12:53:55 Reading Location: [facility] C013X Ortho Consult Reading Room [id number] 09:59:00 Test Item Value Reference Range Interpretation Comments POC-CREATININE 0.5 mg/dL 0.6-1.3 L : TESTED AT [facility] ([facility]) (test [facility] code = 1859) [facility] 7 7030: Promotional Model/Techni jalen ID = [id number] for BRAYAN WARD POC-EGFR 127 mL/min/1.73M2 ([facility]) (test code = 1860) ANG, CV ACCESS, [id number] 12:28:00Reason for Exam:->uterine cancer FINAL REPORT PROCEDURE: Venous Port Placement CLINICAL HISTORY: uterine cancer JAVA SDET: Martínez Johnson DO, JD ANESTHESIA: Conscious sedation was provided by radiology nursing using constant hemodynamic monitoring for 45 Minutes. Versed IV 1 mg, Fentanyl IV 25 mcg. DEVICE: Single lumen 6 Fr PowerPort. DOSE INFORMATION - Ka,r: 5 mGy Estimated Blood Loss: < 5cc Samples: None. PROCEDURE: The risks, benefits, and alternatives to the procedure were discussed with the patient. All questions were answered and written informed consent was obtained. A universal timeout was performed prior to starting the procedure. For Prevention of Central Venous Catheter (CVC)- Related Bloodstream Infections all elements of maximal sterile barrier technique, hand hygiene, skin preparation and sterile techniques were followed. Ultrasound of the right internal jugular vein demonstrated a patent and compressible vessel. An ultrasound image of the vessel was obtained. Lidocaine was used for cutaneous anesthesia. Under ultrasound guidance the vessel was accessed with a 19-gauge needle and through this a 0.035 inch 3J wire was positioned in the inferior vena cava. Over the wire a Peel-Awaysheath was placed. I next directed my attention to the anterior chest wall which was anesthetized with 2% lidocaine. Below the clavicle a small linear incision was made with a #15 blade and a subcutaneous pocket was created with blunt and sharp dissection. The catheter was connected to the port and the port was placed in the pocket. Through the pocket a subcutaneous track was created with a metallic tunneling device and the port catheter was brought through the incision and out the venotomy site. The catheter was cut to the appropriate length. Through the Peel-Away sheath the port catheter was positioned with its tip at the right atrium under fluoroscopic guidance. The Peel-Away sheath was removed. The port was accessed and demonstrated excellent blood return and flushed easily. The port was instilled with 5 mL of heparin at 100 units per mL. The incision was then closed with subcuticular/deep suture. The skin at the venotomy site and the incision site were subsequently closed with Dermabond, Steri-Strips and sterile dressings. The right upper extremity PICC line was removed. The patient tolera cristina the procedure well and was returned to the recovery area/floor in stable condition. IMPRESSION:Ultrasound and fluoroscopically guided placement of a right internal jugular single lumen port. The port is ready for use immediately. Signed: Martínez Johnson MDReport Verified Date/Time: 06/10/2019 12:28:01 Reading Location: [place] [address] Angio Body Reading Room IR CV Access [id number] 12:28:00Interface, External Ris In - 06/10/2019 12:35 PM CDTFINAL REPORT PROCEDURE: Venous Port Placement CLINICAL HISTORY: uterine cancer JAVA SDET: Martínez Johnson DO, JD ANESTHESIA:Conscious sedation was provided by radiology nursing using constant hemodynamic monitoring for 45 Min utes. Versed IV 1 mg, Fentanyl IV 25 mcg. DEVICE: Single lumen 6 Fr PowerPort. DOSE INFORMATION - Ka,r: 5 mGy Estimated Blood Loss: < 5cc Samples: None. PROCEDURE: The risks, benefits, and alternatives to the procedure were discussed with the patient. All questions were answered and written informed consent was obtained. A universal timeout was performed prior to starting the procedure. For Prevention of Central Venous Catheter (CVC)-Related Bloodstream Infections all elements of maximal sterile barrier technique, hand hygiene, skin preparation and sterile techniques were followed. Ultrasound of the right internal jugular vein demonstrated a patent and compressible vessel. An ultrasound image of the vessel was obtained. Lidocaine was used for cutaneous anesthesia. Under ultrasound guidancethe vessel was accessed with a 19-gauge needle and through this a 0.035 inch 3J wire was positioned in the inferior vena cava. Over the wire a Peel-Away sheath was placed. I next directed my attention to the anterior chest wall which was anesthetized with 2% lidocaine. Below the clavicle a small linear incision was made with a #15 blade and a subcutaneous pocket was created with blunt and sharp dissection. The catheter was connected to the port and the port was placed in the pocket. Through the pocket a subcutaneous track was created with a metallic tunneling device and the port catheter was brought through the incision and out the venotomy site. The catheter was cut to the appropriate length. Through the Peel-Away sheath the port catheter was positioned with its tip at the right atrium under fluoroscopic guidance. The Peel-Away sheath was removed. The port was accessed and demonstrated excellent blood return and flushed easily. The port was instilled with 5 mL of heparin at 100 units per mL. The incision was then closed with subcuticular/deep suture. The skin at the venotomy site and the incision site were subsequently closed with Dermabond, Steri-Strips and sterile dressings. The right upper extremity PICC line was removed. The patient tolerated the procedure well and was returned to the recovery area/floor in stable condition. IMPRESSION:Ultrasound and fluoroscopically guided placement of a right internal jugular single lumen port. The port is ready for use immediately. Signed: Martínez Johnson MDReport Verified Date/Time: 06/10/2019 12:28:01 Reading Location: [place] [address] Angio Body [facility] [id number] 11:05:00 Test Item Value Reference Range Interpretation Comments WHITE BLOOD CELL COUNT (BEAKER) 2.1 K/ L 3.5-10.5 L (test code = 775) RED BLOOD CELL COUNT (BEAKER) 3.84 M/ L 3.93-5.22 L (test code = 761) HEMOGLOBIN (BEAKER) (test code = 10.5 GM/DL 11.2-15.7 L 410) HEMATOCRIT (BEAKER) (test code = 34.8 % 34.1-44.9 411) MEAN CORPUSCULAR VOLUME (BEAKER) 90.6 fL 79.4-94.8 (test code = 753) MEAN CORPUSCULAR HEMOGLOBIN 27.3 pg 25.6-32.2 (BEAKER) (test code = 751) MEAN CORPUSCULAR HEMOGLOBIN CONC 30.2 GM/DL 32.2-35.5 L (BEAKER) (test code = 752) RED CELL DISTRIBUTION WIDTH 16.7 % 11.7-14.4 H (BEAKER) (test code = 412) PLATELET COUNT (BEAKER) (test 247 K/CU MM 150-450 code = 756) MEAN PLATELET VOLUME (BEAKER) 9.1 fL 9.4-12.3 L (test code = 754) NUCLEATED RED BLOOD CELLS 0 /100 WBC 0-0 (BEAKER) (test code = 413) (CELLAVISION MANUAL DIFF)2019-06-10 11:05:00 Test Item Value Reference Range Interpretation Comments NEUTROPHILS - REL 35 % (CELLAVISION)(BEAKER) (test code = 2816) LYMPHOCYTES - REL 46 % (CELLAVISION)(BEAKER) (test code = 2817) MONOCYTES - REL 12 % (CELLAVISION)(BEAKER) (test code = 2818) EOSINOPHILS - REL 1 % (CELLAVISION)(BEAKER) (test code = 2819) BASOPHILS - REL 1 % (CELLAVISION)(BEAKER) (test code = 2820) MYELOCYTES - REL 2 % 0-0 H (CELLAVISION)(BEAKER) (test code = 2822) ATYPICAL LYMPHOCYTES - REL 3 % 0-0 H (CELLAVISION)(BEAKER) (test code = 2829) NEUTROPHILS - ABS 0.74 K/ul 1.56-6.13 L (CELLAVISION)(BEAKER) (test code = 2830) LYMPHOCYTES - ABS 0.97 K/ul 1.18-3.74 L (CELLAVISION)(BEAKER) (test code = 2831) MONOCYTES - ABS 0.25 K/uL 0.24-0.36 (CELLAVISION)(BEAKER) (test code = 2832) EOSINOPHILS - ABS 0.02 K/uL 0.04-0.36 L (CELLAVISION)(BEAKER) (test code = 2834) BASOPHILS - ABS 0.02 K/uL 0.01-0.08 (CELLAVISION)(BEAKER) (test code = 2835) MYELOCYTES-ABS 0.04 K/uL 0.00-0.00 H (CELLAVISION)(BEAKER) (test code = 2837) ATYPICAL LYMPHOCYTES - ABS 0.06 K/uL 0.00-0.00 H (CELLAVISION)(BEAKER) (test code = 2858) TOTAL COUNTED (BEAKER) (test code = 100 1351) WBC MORPHOLOGY (BEAKER) (test code Normal = 487) PLT MORPHOLOGY (BEAKER) (test code Normal = 486) POLYCHROMATOPHILLIC RBCS(BEAKER) 1+ few (test code = 478) HYPOCHROMIA (BEAKER) (test code = 1+ few 963) ANISOCYTOSIS (BEAKER) (test code = 1+ few 961) ARTIFACT (CELLAVISION)(BEAKER) Present (test code = 3432) PLATELET CONCENTRATION Adequate (CELLAVISION)(BEAKER) (test code = 3438) Promotional Model ID - Ana Cardenas comments: Slide comments:PT/[id number] 10:00:00 Test Item Value Reference Range Interpretation Comments Protime (test code = 13.9 11.9- 14.2 5902-2) seconds INR (test code = 1.1 <=5.9 6301-6) PTT (test code = 28.9 22.5- 36.0 12260-7) seconds PAUL (test code = PAUL) Effective 08/18/2018: PT Reference Range ChangeNew: 11.9-14.2 Previous: 11.7-14.7 RECOMMENDED COUMADIN/WARFARIN INR THERAPY RANGESSTANDARD DOSE: 2.0-3.0 Includes: PROPHYLAXIS for venous thrombosis, systemic embolization; TREATMENT for venous thrombosis and/or pulmonary embolus.HIGH RISK: Target INR is 2.5-3.5 for patients wiht mechanical heart valves. Lab Interpretation Normal (test code = 26461-6) [id number] 10:00:00 Test Item Value Reference Range Interpretation Comments PROTIME (BEAKER) (test code = 13.9 seconds 11.9-14.2 759) INR (BEAKER) (test code = 370) 1.1 <=5.9 PARTIAL THROMBOPLASTIN TIME 28.9 seconds 22.5-36.0 (BEAKER) (test code = 760) Effective 08/18/2018: PT Reference Range ChangeNew: 11.9-14.2 Previous: 11.7- 14.7RECOMMENDED COUMADIN/WARFARIN INR THERAPY RANGESSTANDARD DOSE: 2.0-3.0 Includes: PROPHYLAXIS for venous thrombosis, systemic embolization; TREATMENT for venous thrombosis and/or pulmonary embolus.HIGH RISK: Target INR is2.5-3.5 for patients wiht mechanical heart valves.COMPREHENSIVE METABOLIC PANEL 2019-05-22 13:54:00 Test Item Value Reference Range Interpretation Comments SODIUM (test code = 140 MMOL/L 136-143 N NA) POTASSIUM (test 4.1 MMOL/L 3.5-5.1 N code = K) CHLORIDE (test code 99 MMOL/L 98-107 N = CL) CARBON DIOXIDE 32 mmol/L 24-31 H (test code = CO2) GLUCOSE (test code 99 mg/dL 70-104 N = GLU) BLOOD UREA NITROGEN 10.5 MG/DL 7.0-21.0 N (test code = BUN) GLOMERULAR >=60 max >60 The estimated FILTRATION RATE estimate glomerular (test code = GFR) filtration rate is computed usingpatient ra ce, age (>18), sex, and serum creatinin e. If anyof the ne eded data elements a re missing the Laboratory eulalia ot compute an estimation of t he glomerular filtration rate . CREATININE (test 0.4 mg/dL 0.8-1.5 L code = CREAT) TOTAL PROTEIN (test 6.4 g/dL 6.3-8.3 N code = PROT) ALBUMIN (test code 3.3 G/DL 3.5-5.0 L = ALB) CALCIUM (test code 9.4 mg/dL 8.8-10.2 N = CA) BILIRUBIN TOTAL 0.2 mg/dL 0.2-1.0 N (test code = BILT) SGOT/AST (test code 39 IU/L 10-34 H = AST) SGPT/ALT (test code 39 U/L 10-36 H = ALT) ALKALINE 148 U/L 32-104 H PHOSPHATASE (test code = ALKP) BASIC METABOLIC [id number] 08:06:00 Test Item Value Reference Range Interpretation Comments SODIUM (test code 138 MMOL/L 136-143 N = NA) POTASSIUM (test 4.2 MMOL/L 3.5-5.1 N code = K) CHLORIDE (test 99 MMOL/L 98-107 N code = CL) CARBON DIOXIDE 31 mmol/L 24-31 N (test code = CO2) GLUCOSE (test code 105 mg/dL 70-104 H = GLU) BLOOD UREA 12.4 MG/DL 7.0-21.0 N NITROGEN (test code = BUN) GLOMERULAR >=60 max >60 The estimated FILTRATION RATE estimate glomerular (test code = GFR) filtration rate is computed usingpatient ra ce, age (>18), sex, and serum creatinin e. If anyof the neede d data elements a re missing the Laboratory eulalia ot compute an estimation of t he glomerular filtration rate . CREATININE (test 0.5 mg/dL 0.8-1.5 L code = CREAT) CALCIUM (test code 9.3 mg/dL 8.8-10.2 N = CA) RENAL FUNCTION [id number] 08:06:00 Test Item Value Reference Range Interpretation Comments ALBUMIN (test code = ALB) 3.2 G/DL 3.5-5.0 L PHOSPHOROUS (test code = PHOS) 3.8 mg/dL 2.7-4.5 N CBC W/AUTO [id number] 07:18:00 Test Item Value Reference Range Interpretation Comments WHITE BLOOD CELL (test code = 5.2 x10 3/uL 4.8-10.8 N WBC) RED BLOOD CELL (test code = 3.68 x10 6/uL 4.20-5.40 L RBC) HEMOGLOBIN (test code = HGB) 10.4 g/dL 14.5-20 L HEMATOCRIT (test code = HCT) 35.2 % 37.0-47.0 L MEAN CELL VOLUME (test code = 95.7 fL 81.0-99.0 N MCV) MEAN CELL HGB (test code = MCH) 28.3 pg 27-31 N MEAN CELL HGB CONCENTRATION 29.5 G/DL 33-36.5 L (test code = MCHC) RED CELL DISTRIBUTION WIDTH 17.2 % 12.9-16.9 H (test code = RDW) PLATELET COUNT (test code = 356 150-440 N PLT) MEAN PLATELET VOLUME (test code 9.4 fL 8.9-12.4 N = MPV) NEUTROPHIL % (test code = NT%) 57.7 % 42.2-75.2 N LYMPHOCYTE % (test code = LY%) 25.3 % 20.5-51.1 N MONOCYTE % (test code = MO%) 11.0 % 1.7-9.3 H EOSINOPHIL % (test code = EO%) 4.6 % 0.0-7.0 N BASOPHIL % (test code = BA%) 0.8 % 0-2.5 N NEUTROPHIL # (test code = NT#) 2.99 x10 3/uL 1.80-7.70 N LYMPHOCYTE # (test code = LY#) 1.31 x10 3/uL 1.00-4.80 N MONOCYTE # (test code = MO#) 0.57 x10 3/uL 0.00-0.80 N EOSINOPHIL # (test code = EO#) 0.24 x10 3/uL 0.00-0.45 N BASOPHIL # (test code = BA#) 0.04 x10 3/uL 0.0-0.20 N CBC W/O [id number] 07:18:00 Test Item Value Reference Range Interpretation Comments RED CELL DISTRIBUTION WIDTH (test code 60 % 35-47 H = RDW-SD) BASIC METABOLIC [id number] 07:06:00 Test Item Value Reference Range Interpretation Comments SODIUM (test code 139 MMOL/L 136-143 = NA) POTASSIUM (test 3.6 MMOL/L 3.5-5.1 N code = K) CHLORIDE (test 96 MMOL/L 98-107 L code = CL) CARBON DIOXIDE 32 mmol/L 24-31 H (test code = CO2) GLUCOSE (test code 102 mg/dL 70-104 N = GLU) BLOOD UREA 8.2 MG/DL 7.0-21.0 N NITROGEN (test code = BUN) GLOMERULAR >=60 max >60 The estimated FILTRATION RATE estimate glomerular (test code = GFR) filtration rate is computed usingpatient ra ce, age (>18), sex, and serum creatinin e. If anyof the neede d data elements a re missing the Laboratory eulalia ot compute an estimation of t he glomerular filtration rate . CREATININE (test 0.4 mg/dL 0.8-1.5 L code = CREAT) CALCIUM (test code 9.4 mg/dL 8.8-10.2 N = CA) RENAL FUNCTION [id number] 07:25:00 Test Item Value Reference Range Interpretation Comments SODIUM (test code = 128 MMOL/L 136-143 L NA) POTASSIUM (test 4.1 MMOL/L 3.5-5.1 N code = K) CHLORIDE (test code 95 MMOL/L 98-107 L = CL) CARBON DIOXIDE 30 mmol/L 24-31 N (test code = CO2) GLUCOSE (test code 99 mg/dL 70-104 N = GLU) BLOOD UREA NITROGEN 10.4 MG/DL 7.0-21.0 N (test code = BUN) GLOMERULAR >=60 max >60 The estimated FILTRATION RATE estimate glomerular (test code = GFR) filtration rate is computed usingpatient ra ce, age (>18), sex, and serum creatinin e. If anyof the ne eded data elements a re missing the Laboratory eulalia ot compute an estimation of t he glomerular filtration rate . CREATININE (test 0.4 mg/dL 0.8-1.5 L code = CREAT) ALBUMIN (test code 2.9 G/DL 3.5-5.0 L = ALB) CALCIUM (test code 9.4 mg/dL 8.8-10.2 N = CA) PHOSPHOROUS (test 3.9 mg/dL 2.7-4.5 N code = PHOS) [id number] 07:25:00 Test Item Value Reference Range Interpretation Comments MAGNESIUM (test code = MAG) 1.9 mg/dL 1.4-2.6 N CBC W/AUTO [id number] 06:21:00 Test Item Value Reference Range Interpretation Comments WHITE BLOOD CELL (test code = 5.6 x10 3/uL 4.8-10.8 N WBC) RED BLOOD CELL (test code = 3.63 x10 6/uL 4.20-5.40 L RBC) HEMOGLOBIN (test code = HGB) 10.2 g/dL 14.5-20 L HEMATOCRIT (test code = HCT) 34.3 % 37.0-47.0 L MEAN CELL VOLUME (test code = 94.5 fL 81.0-99.0 N MCV) MEAN CELL HGB (test code = MCH) 28.1 pg 27-31 N MEAN CELL HGB CONCENTRATION 29.7 G/DL 33-36.5 L (test code = MCHC) RED CELL DISTRIBUTION WIDTH 17.0 % 12.9-16.9 H (test code = RDW) PLATELET COUNT (test code = 195 150-440 N PLT) MEAN PLATELET VOLUME (test code 9.6 fL 8.9-12.4 N = MPV) NEUTROPHIL % (test code = NT%) 63.8 % 42.2-75.2 N LYMPHOCYTE % (test code = LY%) 22.1 % 20.5-51.1 N MONOCYTE % (test code = MO%) 8.3 % 1.7-9.3 N EOSINOPHIL % (test code = EO%) 4.8 % 0.0-7.0 N BASOPHIL % (test code = BA%) 0.5 % 0-2.5 N NEUTROPHIL # (test code = NT#) 3.55 x10 3/uL 1.80-7.70 N LYMPHOCYTE # (test code = LY#) 1.23 x10 3/uL 1.00-4.80 N MONOCYTE # (test code = MO#) 0.46 x10 3/uL 0.00-0.80 N EOSINOPHIL # (test code = EO#) 0.27 x10 3/uL 0.00-0.45 N BASOPHIL # (test code = BA#) 0.03 x10 3/uL 0.0-0.20 N - CT GUID NDL PLCMT (Biopsy/Asp)2019-05-16 16:38:00Patient Name: DIMITRY KENNEY Unit No: [id number] EXAMS: CPT CODE: [id number] CT GUID NDL PLCMT (Biopsy/Asp) 48778 Procedure: 1. CT-guided placement of a perihepatic drain. 2.CT-guided placement of a deep left upper quadrant peritoneal drain. 3. CT-guided placement of a deep pelvic peritoneal drain. Location: B2 Clinical Indication: 59-year-old with multiple loculated fluid collections which required 3 separate drain placement. Comparison: CT May 10, 2019 Technique: Written informed consent was obtained. All elements of maximum sterile barrier technique were utilized throughout the procedure. Moderate sedation was given using Versed and fentanyl. Continuous cardiopulmonary monitoring was performed by the nurse. Intraservice moderate sedation time was 30 minutes. Patient was placed supine on the CT table in the anterior abdomen and pelvic wall prepped and draped. Limited unenhanced CT was performed for localization of the known large perihepatic intraperitoneal fluid collections. 1% lidocaine was given over the right upper quadrant. A tiny skin jyothi was made with a #[address] fluoroscopic guidance, an 18-gauge Chiba needle was advanced into the perihepatic fluid collection. Thin brownish fluid was aspirated. Over a 035 wire, the tract was dilated and an 8.5-Malawian locking cope loop drainage catheter placed. Catheter was secured to the skin with Prolene. 1% lidoc hayley was given over the left upper quadrant. A skin jyothi was made with a #11 blade. Using CTfluoroscopic guidance, an 18-gauge Chiba needle was advanced into the deep peritoneal fluid collection. Thin yellowish fluid was aspirated. Over a 035 wire, the tract was dilated and an 8.5-Malawian locking cope loop drainage catheter placed. Catheter was secured to the skin with Prolene. 1% lidocaine was given over the midline ventral pelvic wall. A skinnick was made with a #[address] fluoroscopic guidance, an 18-gauge Chiba needle was advanced into the deep pelvic peritoneal fluid collection. Thin brownish fluid was aspirated.Over a 035 wire, the tract was dilated and an 8.5-Malawian locking cope loop drainage catheter placed. The catheter was secured to the skin with Prolene. Fluid samples were sent for culture. Patient tolerated the procedure well, without immediate complication. Impression: Successful CT-guided drain placement into three separate f luid Name: DIMITRY KENNEY [facility] Phys: Johnson Lemons MD [address] : 1960 Age: 59 Sex: [place] [address] Loc: P.SRG Exam Date: 05/16/2019 Status: PRE SDC PH: FAX: PAGE 1 Signed Report (CONTINUED) Patient Name: DIMITRY KENNEY Unit No: [id number] EXAMS: CPT CODE: [id number] CT GUID NDL PLCMT (Biopsy/Asp) 73311 <Continued> collections as detailed above. at 1638 Reported and signed by: Dirk Turner MD CC: Johnson Medina MD; Terry Gabriel MD Technologist: Александр Ulrich CTDI: DLP: Trscr Dt/Tm: 05/16/2019 (1638) by:[email or web address] Printed Date/Time: 05/16/2019 (9907) Name: DIMITRY KENNEY [facility] Phys: Johnson Lemons MD [address] : 1960 Age: 59 Sex: [place] [address] Loc: P.SRG Exam Date: 05/16/2019 Status: PRE SD PH: FAX: PAGE 2 Signed Report- CT DRN PAULIE/RETRO [id number] 16:38:00 Patient Name: DIMITRY KENNEY Unit No: [id number] EXAMS: CPT CODE: [id number] CT DRN PAULIE/RETRO PERC [address] Procedure: 1. CT- guided placement of a perihepatic drain. 2.CT-guided placement of a deep left upper quadrant peritoneal drain. 3. CT-guided placement of a deep pelvic peritoneal drain. Location: B2 Clinical Indication: 59-year-old with multiple loculated fluid collections which required 3 separate drain placement. Comparison: CT May 10, 2019 Technique: Written informed consent was obtained. All elements of maximum sterile barrier technique were utilized throughout the proce dure. Moderate sedation was given using Versed and fentanyl. Continuous cardiopulmonary monitoring was performed by the nurse. Intraservice moderate sedation time was 30 minutes. Patient was placed supine on the CT table in the anterior abdomen and pelvic wall prepped and draped. Limited unenhanced CT was performed for localization of the known large perihepat ic intraperitoneal fluid collections. 1% lidocaine was given over the right upper quadrant. A tiny skin jyothi was made with a #[address] fluoroscopic guidance, an 18-gauge Chiba needle was advanced into the perihepatic fluid collection. Thin brownish fluid was aspirated. Over a 035 wire, the tract was dilated and an 8.5-Malawian locking cope loop drainage catheter placed. Catheter was secured to the skin with Prolene. 1% lidocaine was given over the left upper quadrant. A skin jyothi was made with a #11 blade. Using CTfluoroscopic guidance, an 18-gauge Chiba needle was advanced into the deep peritoneal fluid col lection. Thin yellowish fluid was aspirated. Over a 035 wire, the tract was dilated and an 8.5-Malawian locking cope loop drainage catheter placed. Catheter was secured to the skin with Prolene. 1% lidocaine was given over the midline ventral pelvic wall. A skinnick was made with a #[address] fluoroscopic guidance, an 18-gauge Chiba needle was a dvanced into the deep pelvic peritoneal fluid collection. Thin brownish fluid was aspirated.Over a 035 wire, the tract was dilated and an 8.5- Malawian locking cope loop drainage catheter placed. The catheter was secured to the skin with Prolene. Fluid samples were sent for culture. Patient tolerated the procedure well, without immediate complication. Impression: Successful CT-guided drain placement into three separate fluid Name: DIMITRY KENNEY [facility] Phys: Johnson Lemons MD [address] : 1960 Age: 59 Sex: [place] [address] Loc: P.SRG Exam Date: 05/16/2019 Status: PRE SDC PH: FAX: PAGE 1 Signed Report (CONTINUED) Patient Name: DIMITRY KENNEY Unit No: [id number] EXAMS: CPT CODE: [id number] CT DRN PAULIE/RETRO PERC [address]348 <Continued> collections as detailed above. at 1638 Reported and signed by: Dirk Turner MD CC: Johnson Medina MD; Terry Gabriel MD Technologist: Александр Ulrich CTDI: DLP: Trscr Dt/Tm: 05/16/2019 (7140) by:[email or web address] Printed Date/Time: 05/16/2019 (8866) Name: DIMITRY KENNEY [facility] Phys: Johnson Lemons MD [address] : 1960 Age: 59 Sex: [place] [address] Loc: P.SRG Exam Date: 05/16/2019 Status: PRE SDC PH: FAX: PAGE 2 Signed Report- CT GUID NDL PLCMT (Biopsy/Asp)2019-05-16 16:38:00Patient Name: DIMITRY KENNEY Unit No: [id number] EXAMS: CPT CODE: [id number] CT GUID NDL PLCMT (Biopsy/Asp) 88720 Procedure: 1. CT-guided placement of a perihepatic drain. 2.CT-guided placement of a deep left upper quadrant peritoneal drain. 3. CT-guided placement of a deep pelvic peritoneal drain. Location: B2 Clinical Indication: 59-year-old with multiple loculated fluid collections which required 3 separate drain placement. Comparison: CT May 10, 2019 Technique: Written informed consent was obtained. All elements of maximum sterile barrier technique were utilized throughout the procedure. Moderate sedation was given using Versed and fentanyl. Continuous cardiopulmonary monitoring was performed by the nurse. Intraservice moderate sedation time was 30 minutes. Patient was placed supine on the CT table in the anterior abdomen and pelvic wall prepped and draped. Limited unenhanced CT was performed for localization of the known large perihepatic intraperitoneal fluid collections. 1% lidocaine was given over the right upper quadrant. A tiny skin jyothi was made with a #[address] fluoroscopic guidance, an 18-gauge Chiba needle was advanced into the perihepatic fluid collection. Thin brownish fluid was aspirated. Over a 035 wire, the tract was dilated and an 8.5-Malawian locking cope loop drainage catheter placed. Catheter was secured to the skin with Prolene. 1% lidocaine was given over the left upper quadrant. A skin jyothi was made with a #[address] fluoroscopic guidance, an 18-gauge Chiba needle was advanced into the deep peritoneal fluid collection. Thin yellowish fluid was aspirated. Over a 035 wire, the tract was dilated and an 8.5-Malawian locking cope loop drainage catheter placed. Catheter was secured to the skin with Prolene. 1% lidocaine was given over the midline ventral pelvic wall. A skinnick was made with a #[address] fluoroscopic guidance, an 18-gauge Chiba needle was advanced into the deep pelvic peritoneal fluid collection. Thin brownish fluid was aspirated.Over a 035 wire, the tract was dilated and an 8.5-Malawian locking cope loop drainage catheter placed. The catheter was secured to the skin with Prolene. Fluid samples were sent for culture. Patient tolerated the procedure well, without immediate complication. Impression: Successful CT-guided drain placement into three separate fluid [facility] [address] : 1960 Age: 59 Sex: F [place] [address] Loc: P.SRG Exam Date: 05/16/2019 Status: PRE SDC PH: FAX: PAGE 1 Signed Report (CONTINUED) Patient Name: DIMITRY KENNEY Unit No: [id number] EXAMS: CPT CODE: [id number] CT GUID NDL [facility] (Biopsy/Asp) 67161 <Continued> collecti ons as detailed above. at 1638 Reported and signed by: Dirk Turner MD CC: Johnson Medina MD; Terry Gabriel MD Technologist: Александр Ulrich CTDI: DLP: Trscr Dt/Tm: 05/16/2019 (1638) by:[email or web address] Printed Date/Time: 05/16/2019 (5472) [facility]: Johnson Lemons MD [address] DOB: 1960 Age: 59 Sex: F [place] [address] Loc: P.SRG Exam Date: 05/16/2019 Status: PRE SDC PH: FAX: PAGE 2 Signed Report- CT DRN PAULIE/RETRO [id number] 16:38:00Patient Name: DIMITRY KENNEY Unit No: [id number] EXAMS: CPT CODE: [id number] CT DRN PAULIE/RETRO PERC [address] Procedure: 1. CT-guided placement of a perihepatic drain. 2.CT-guided placement of a deep left upper quadrant peritoneal drain. 3. CT-guided placement of a deep pelvic peritoneal drain. Location: B2 Clinical Indication: 59-year-old with multiple loculated fluid collections which required 3 separate drain placement. Comparison: CT May 10, 2019 Technique: Written informed consent was obtained. All elements of maximum sterile barrier technique were utilized throughout the procedure. Moderate sedation was given using Versed and fentanyl. Continuous cardiopulmonary monitoring was performed by the nurse. Intraservice moderate sedation time was 30 minutes. Patient was placed supine on the CT table in the anterior abdomen and pelvic wall prepped and draped. Limited unenhanced CT was performed for localization of the known large perihepatic intraperitoneal fluid collections. 1% lidocaine was given over the right upper quadrant. A tiny skin jyothi was made with a #[address] fluoroscopic guidance, an 18-gauge Chiba needle was advanced into the perihepatic fluid collection. Thin brownish fluid was aspirated. Over a 035 wire, the tract was dilated and an 8.5-Malawian locking cope loop drainage catheter placed. Catheter was secured to the skin with Prolene. 1% lidocaine was given over the left upper quadrant. A skin jyothi was made with a #[address] fluoroscopic guidance, an 18-gauge Chiba needle was advanced into the deep peritoneal fluid collection. Thin yellowish fluid was aspirated. Over a 035 wire, the tract was dilated and an 8.5-Malawian locking cope loop drainage catheter placed. Catheter was secured to the skin with Prolene. 1% lidocaine was given over the midline ventral pelvic wall. A skinnick was made with a #[address] fluoroscopic guidance, an 18-gauge Chiba needle was advanced into the deep pelvic peritoneal fluid collection. Thin brownish fluid was aspirated.Over a 035 wire, the tract was dilated and an 8.5-Malawian locking cope loop drainage catheter placed. The catheter was secured to the skin with Prolene. Fluid samples were sent for culture. Patient tolerated the procedure well, without immediate complication. Impression: Successful CT-guided drain placement into three separate fluid Name: ANNE MARIE,DIMITRY [facility] Phys: Johnson Lemons MD [address] : 1960 Age: 59 Sex: F [place] [address] Loc: P.SRG Exam Date: 05/16/2019 Status: PRE SDC PH: FAX: PAGE 1 Signed Report (CONTINUED) Patient Name: DIMITRY KENNEY Unit No: [id number] EXAMS: CPT CODE: [id number] CT DRN PAULIE/RETRO PERC 39056 <Continued> collecti ons as detailed above. at 1638 Reported and signed by: Dirk Turner MD CC: Johnson Medina MD Technologist: Александр Ulrich CTDI: DLP: Trscr Dt/Tm: 05/16/2019 (163) by:[email or web address] Printed Date/Time: 05/16/2019 (253) Name: DIMITRY KENNEY [facility] Phys: Johnson Lemons MD [address] : 1960 Age: 59 Sex: F [place] [address] Loc: P.SRG Exam Date: 05/16/2019 Status: PRE SDC PH: FAX: PAGE 2 Signed Report- CT GUID NDL PLCTX (Biopsy/Asp)2019-05-16 16:38:00Patient Name: DIMITRY KENNEY Unit No: [id number] EXAMS: CPT CODE: [id number] CT GUID NDL PLCTX (Biopsy/Asp) 47128 Procedure: 1. CT-guided placement of a perihepatic drain. 2.CT-guided placement of a deep left upper quadrant peritoneal drain. 3. CT-guided placement of a deep pelvic peritoneal drain. Location: B2 Clinical Indication: 59-year-old with multiple loculated fluid collections which required 3 separate drain placement. Comparison: CT May 10, 2019 Technique: Written informed consent was obtained. All elements of maximum sterile barrier technique were utilized throughout the procedure. Moderate sedation was given using Versed and fentanyl. Continuous cardiopulmonary monitoring was performed by the nurse. Intraservice moderate sedation time was 30 minutes. Patient was placed supine on the CT table in the anterior abdomen and pelvic wall prepped and draped. Limited unenhanced CT was performed for localization of the known large perihepatic intraperitoneal fluid collections. 1% lidocaine was given over the right upper quadrant. A tiny skin jyothi was made with a #[address] fluoroscopic guidance, an 18-gauge Chiba needle was advanced into the perihepatic fluid collection. Thin brownish fluid was aspirated. Over a 035 wire, the tract was dilated and an 8.5-Malawian locking cope loop drainage catheter placed. Catheter was secured to the skin with Prolene. 1% lidocaine was given over the left upper quadrant. A skin jyothi was made with a #[address] fluoroscopic guidance, an 18-gauge Chiba needle was advanced into the deep peritoneal fluid collection. Thin yellowish fluid was aspirated. Over a 035 wire, the tract was dilated and an 8.5-Malawian locking cope loop drainage catheter placed. Catheter was secured to the skin with Prolene. 1% lidocaine was given over the midline ventral pelvic wall. A skinnick was made with a #[address] fluoroscopic guidance, an 18-gauge Chiba needle was advanced into the deep pelvic peritoneal fluid collection. Thin brownish fluid was aspirated.Over a 035 wire, the tract was dilated and an 8.5-Malawian locking cope loop drainage catheter placed. The catheter was secured to the skin with Prolene. Fluid samples were sent for culture. Patient tolerated the procedure well, without immediate complication. Impression: Successful CT-guided drain placement into three separate fluid Name: DIMITRY KENNEY [facility] Phys: Johnson Lemons MD [address] : 1960 Age: 59 Sex: [place] [address] Loc: P.SRG Exam Date: 05/16/2019 Status: PRE SDC PH: FAX: PAGE 1 Signed Report (CONTINUED) Patient Name: DIMITRY KENNEY Unit No: [id number] EXAMS: CPT CODE: [id number] CT GUID NDL PLCMT (Biopsy/Asp) 02077 <Continued> collecti ons as detailed above. at 1638 Reported and signed by: Dirk Turner MD CC: Johnson Medina MD; Terry Gabriel MD Technologist: Александр Ulrich CTDI: DLP: Trscr Dt/Tm: 05/16/2019 (0216) by:[email or web address] Printed Date/Time: 05/16/2019 (2637) Name: DIMITRY KENNEY [facility] Phys: Johnson Lemons MD [address] : 1960 Age: 59 Sex: [place] [address] Loc: P.SRG Exam Date: 05/16/2019 Status: PRE SDC PH: FAX: PAGE 2 Signed Report- CT DRN PAULIE/RETRO [id number] 16:38:00Patient Name: DIMITRY KENNEY Unit No: [id number] EXAMS: CPT CODE: [id number] CT DRN PAULIE/RETRO PERC 13536 Procedure: 1. CT-guided placement of a perihepatic drain. 2.CT-guided placement of a deep left upper quadrant peritoneal drain. 3. CT-guided placement of a deep pelvic peritoneal drain. Location: B2 Clinical Indication: 59-year-old with multiple loculated fluid collections which required 3 separate drain placement. Comparison: CT May 10, 2019 Technique: Written informed consent was obtained. All elements of maximum sterile barrier technique were utilized throughout the procedure. Moderate sedation was given using Versed and fentanyl. Continuous cardiopulmonary monitoring was performed by the nurse. Intraservice moderate sedation time was 30 minutes. Patient was placed supine on the CT table in the anterior abdomen and pelvic wall prepped and draped. Limited unenhanced CT was performed for localization of the known large perihepatic intraperitoneal fluid collections. 1% lidocaine was given over the right upper quadrant. A tiny skin jyothi was made with a #[address] fluoroscopic guidance, an 18-gauge Chiba needle was advanced into the perihepatic fluid collection. Thin brownish fluid was aspirated. Over a 035 wire, the tract was dilated and an 8.5-Malawian locking cope loop drainage catheter placed. Catheter was secured to the skin with Prolene. 1% lidocaine was given over the left upper quadrant. A skin jyothi was made with a #[address] fluoroscopic guidance, an 18-gauge Chiba needle was advanced into the deep peritoneal fluid collection. Thin yellowish fluid was aspirated. Over a 035 wire, the tract was dilated and an 8.5-Malawian locking cope loop drainage catheter placed. Catheter was secured to the skin with Prolene. 1% lidocaine was given over the midline ventral pelvic wall. A skinnick was made with a #[address] fluoroscopic guidance, an 18-gauge Chiba needle was advanced into the deep pelvic peritoneal fluid collection. Thin brownish fluid was aspirated.Over a 035 wire, the tract was dilated and an 8.5-Malawian locking cope loop drainage catheter placed. The catheter was secured to the skin with Prolene. Fluid samples were sent for culture. Patient tolerated the procedure well, without immediate complication. Impression: Successful CT-guided drain placement into three separate fluid [facility] [address] DOB: 1960 Age: 59 Sex: F [place] [address] Loc: P.SRG Exam Date: 05/16/2019 Status: PRE SDC PH: FAX: PAGE 1 Signed Report (CONTINUED) Patient Name: DIMITRY KENNEY Unit No: [id number] EXAMS: CPT CODE: [id number] CT DRN PAULIE/RETRO PERC 80091 <Continued> collecti ons as detailed above. at 1638 Reported and signed by: Dirk Turner MD CC: Johnson Medina MD; Terry Gabriel MD Technologist: Александр Ulrich CTDI: 99.86 DLP: 3235 Trscr Dt/Tm: 05/16/2019 (1638) by:[email or web address] Printed Date/Time: 05/16/2019 (1641) [facility]: Johnson Lem[facility] MD [address] DOB: 1960 Age: 59 Sex: F [place] [address] Loc: P.SRG Exam Date: 05/16/2019 Status: PRE SDC PH: FAX: PAGE 2 Signed Report PROTHROMBIN [id number] 10:07:00 Test Item Value Reference Range Interpretation Comments PROTHROMBIN TIME 12.7 SECONDS 10.3-12.9 N PATIENT (test code = PTP) INTERNATIONAL 1.09 INR UNIT 0.9-1.11 N The INR is us eful only NORMAL RATIO (test for monit oring code = INR) anticoagulant therapy.It may be unreliable in t he initial phase o f antigoagulation and in unstable patien ts. Indication for Anticoagulation Recommend ed INR 1. Prevention o f venous thomboembolism 2.0-3.0in high -risk patients; treat ment of venousthrombosi s and pulmonary embol ism aftera course o f heparin; preven tion of systemicembolis m in a variety of cond itions, including atria l fibrillation an d prothetic tissu e heart valves, 2. Pros thetic mechanical hear t valves; 2.5-3.5recurren t systemic emboli sm. THROMBOPLASTIN TIME [id number] 10:07:00 Test Item Value Reference Range Interpretation Comments THROMBOPLASTIN TIME 23.9 SECONDS 26.0-35.9 L INTERPRE TATIVE PARTIAL (test code = : erapeutic PTT) range: Unfractionated heparin:47 - 71 seconds Argatroban:1.5 to 3 times the basel ine PTT CBC W/O [id number] 07:10:00 Test Item Value Reference Range Interpretation Comments WHITE BLOOD CELL (test code = 6.1 x10 3/uL 4.8-10.8 N WBC) RED BLOOD CELL (test code = 3.42 x10 6/uL 4.20-5.40 L RBC) HEMOGLOBIN (test code = HGB) 9.8 g/dL 14.5-20 L HEMATOCRIT (test code = HCT) 32.1 % 37.0-47.0 L MEAN CELL VOLUME (test code = 93.9 fL 81.0-99.0 N MCV) MEAN CELL HGB (test code = MCH) 28.7 pg 27-31 N MEAN CELL HGB CONCENTRATION 30.5 G/DL 33-36.5 L (test code = MCHC) RED CELL DISTRIBUTION WIDTH 56 % 35-47 H (test code = RDW-SD) PLATELET COUNT (test code = 228 150-440 N PLT) [id number] 17:15:00 Test Item Value Reference Range Interpretation Comments GLUBED (test code = GLUBED) 87 MG/DL 70-105 N - [facility] [id number] 13:15:00Patient Name: DIMITRY KENNEY Unit No: [id number] EXAMS: CPT CODE: [id number] [facility] ACCESS 58705 Ultrasound and fluoroscopic guided IVC filter placement: Procedures: 1. Ultrasound-guided right IJ access. 2. IVC cavogram. 3. IVC filter placement. HISTORY: DVT,PULMONARY EMBOLI. Metastatic endometrial cancer. Promotional Model: Steven Aguillon M.D. Medications: 1. Versed 2 mg IV 2. Fentanyl 100 mc g IV 3. 2% lidocaine with 0.5% lidocaine local injection Fluoroscopic time: 0.7 min; AK: 33.07 mGy CONTRAST: Isovue 30 mL Complications: None. Estimated blood loss: Less than 10 mL. TECHNIQUE AND FINDINGS: Informed consent was obtained. The patient was alert and oriented. The right neck was prepared using sterile technique. All elements of maximal barrier protection were used. The patient received 30 minutes conscious sedation under my supervision.. Ultrasound was used to localize the RIJ vein. The overlying skin was anesthetized with 1% lidocaine. Ultrasound was then used to puncture the right internal jugular. A digital sonographic image was obtained and placed in PACS. A guidewire was passed to the puncture needle and a small sheath was placed. A 0.35 Bentson guidewire was manipulated into the inferior vena cava. A Herrera 9 F sheathwas used. The sheath and catheter manipulated into the Left iliac vein. An inferior venacavogram was performed. The level of the renal veins was obtained and the diameter of the vena cava was measured. The vena cava diameter was 27 millimeters. The injection catheter was withdrawn. The Herrera Venatech permanent IVC filter was placed into the sheath. The filter was then deployed below the level of the renal veins. Completion Inferior venacavogram was performedand showed no apparent complication. The catheter sheath was successfully removed. Hemostasis was achieved with manual compression. A sterile dressing was applied. The patient tolerated the procedure without any difficulty. FINDINGS: Name: DIMITRY KENNEY [facility] Phys: Johnson Lemons MD [address] : 1960 Age: 59 Sex: [place] [address] Loc: P.SRG Exam Date: 05/13/2019 Status: REG [facility] PH: FAX: PAGE 1 Signed Report (CONTINUED) Patient Name: DIMITRY KENNEY Unit No: [id number] EXAMS: CPT CODE: [id number] [facility] ACCESS 99377 <Continued> 1. Patent right IJ, compressible. 2. IVC cavogram demonstrated no thrombus. 3. IVC filter placed just below the level of the renalveins. IMPRESSION: 1. Successful ultrasound and fluoroscopic guided placement of a permanent Vena-Tech IVC filter in the infrarenal location. ElectronicallySigned by Steven Aguillon MD on 05/13/2019 at 1315 Reported and signed by: Steven Aguillon MD CC: Johnson Medina MD; Terry Gabriel MD Technologist: Александр Wilkes; Uvaldo Sotelo; Melquiades Franz (R),(CT),() Fluoro Time: DAP (Gy m2): Air Kerma (mGy): Trscr Dt/Tm: 05/13/2019 (1315) by:[email or web address] Printed Date/Time: 05/13/2019 (1318) Name: DIMITRY KENNEY [facility] Phys: Johnson Lemons MD [address] : 1960 Age: 59 Sex: [place] [address] Loc: P.SRG Exam Date: 05/13/2019 Status: REG [facility] PH: FAX: PAGE 2 Signed Report- INSERT IVC ENDO [id number] 13:15:00Patient Name: DIMITRY KENNEY Unit No: [id number] EXAMS: CPT CODE: [id number] INSERT IVC ENDO W/IMAG [id number] Ultrasound and fluoroscopic guided IVC filter placement: Procedures: 1. Ultrasound-guided right IJ access. 2. IVC cavogram. 3. IVC filter placement. HISTORY: DVT,PULMONARY EMBOLI. Metastatic endometrial cancer. Promotional Model: Steven Aguillon M.D. Medications: 1. Versed 2 mg IV 2. Fentanyl 100 mcg IV 3. 2% lidocaine with 0.5% lidocaine local injection Fluoroscopic time: 0.7 min; AK: 33.07 mGy CONTRAST: Isovue 30 mL Complications: None. Estimated blood loss: Less than 10 mL. TECHNIQUE AND FINDINGS: Informed consent was obtained. The patient was alert and oriented. The right neck was prepared using sterile technique. All elements of maximal barrier protection were used. The patient received 30 minutes conscious sedation under my supervision.. Ultrasound was used to localize the RIJ vein. The overlying skin was anesthetized with 1% lidocaine. Ultrasound was then used to puncture the right internal jugular. A digital sonographic image was obtained and placed in PACS. A guidewire was passed to the puncture needle and a small sheath was placed. A 0.35 Bentson guidewire was manipulated into the inferior vena cava. A Herrera 9 F sheathwas used. The sheath and catheter manipulated into the Left iliac vein. An inferior venacavogram was performed. The level of the renal veins was obtained and the diameter of the vena cava was measured. The vena cava diameter was 27 millimeters. The injection catheter was withdrawn. The Herrera Venatech permanent IVC filter was placed into the sheath. The filter was then deployed below the level of the renal veins. Completion Inferior venacavogram was performedand showed no apparent complication. The catheter sheath was successfully removed. Hemostasis was achieved with manual compression. A sterile dressing was applied. The patienttolerated the procedure without any difficulty. FINDINGS: Name: DIMITRY KENNEY [facility] Phys: Johnson Lemons MD [address] : 1960 Age: 59 Sex: [place] [address] Loc: P.SRG Exam Date: 05/13/2019 Status: REG [facility] PH: FAX: PAGE 1 Signed Report (CONTINUED) Patient Name: DIMITRY KENNEY Unit No: [id number] EXAMS: CPT CODE: [id number] INSERT IVC ENDO W/IMAG [id number] <Continued> 1. Patent right IJ, compressible. 2.IVC cavogram demonstrated no thrombus. 3. IVC filter placed just below the level of the renalveins. IMPRESSION: 1. Successful ultrasound and fluoroscopic guided placement of a permanent Vena-Tech IVC filter in the infrarenal location. ElectronicallySigned by Steven Aguillon MD on 05/13/2019 at 1315 Reported and signed by: Steven Aguillon MD CC: Johnson Medina MD; Terry Gabriel MD Technologist: Александр Wilkes; Uvaldo Sotelo; Melquiades Franz (R),(CT),() Fluoro Time: DAP (Gy m2): Air Kerma (mGy): Trscr Dt/Tm: 05/13/2019 (1315) by:[email or web address] PrintedDate/Time: 05/13/2019 (0723) [facility] Phys: Johnson Lemons MD [address] : 1960 Age: 59 Sex: [place] [address] Loc: P.SRG Exam Date: 05/13/2019 Status: REG SDC PH: FAX: PAGE 2 Signed ReportVANCOMYCIN TROUGH 2019-05-13 00:12:00 Test Item Value Reference Range Interpretation Comments VANCOMYCIN TROUGH (test code = 7.8 mcg/ML 10.0-20.0 L VANCT) COMPREHENSIVE METABOLIC [id number] 20:08:00 Test Item Value Reference Range Interpretation Comments SODIUM (test code = 137 MMOL/L 136-143 N NA) POTASSIUM (test 4.3 MMOL/L 3.5-5.1 N code = K) CHLORIDE (test code 100 MMOL/L 98-107 N = CL) CARBON DIOXIDE 27 mmol/L 24-31 N (test code = CO2) GLUCOSE (test code 90 mg/dL 70-104 N = GLU) BLOOD UREA NITROGEN 13.6 MG/DL 7.0-21.0 N (test code = BUN) GLOMERULAR >=60 max >60 The estimated FILTRATION RATE estimate glomerular (test code = GFR) filtration rate is computed usingpatient ra ce, age (>18), sex, and serum creatinin e. If anyof the ne eded data elements a re missing the Laboratory eulalia ot compute an estimation of t he glomerular filtration rate . CREATININE (test 0.3 mg/dL 0.8-1.5 L code = CREAT) TOTAL PROTEIN (test 5.7 g/dL 6.3-8.3 L code = PROT) ALBUMIN (test code 2.8 G/DL 3.5-5.0 L = ALB) CALCIUM (test code 9.0 mg/dL 8.8-10.2 N = CA) BILIRUBIN TOTAL 0.4 mg/dL 0.2-1.0 N (test code = BILT) SGOT/AST (test code 66 IU/L 10-34 H = AST) SGPT/ALT (test code 93 U/L 10-36 H = ALT) ALKALINE 248 U/L 32-104 H PHOSPHATASE (test code = ALKP) LIVER FUNCTION [id number] 20:08:00 Test Item Value Reference Range Interpretation Comments BILIRUBIN DIRECT (test code = <0.2 mg/dL 0.0-0.2 N BILD) CBC W/AUTO [id number] 19:53:00 Test Item Value Reference Range Interpretation Comments WHITE BLOOD CELL (test code = 7.3 x10 3/uL 4.8-10.8 N WBC) RED BLOOD CELL (test code = 3.49 x10 6/uL 4.20-5.40 L RBC) HEMOGLOBIN (test code = HGB) 9.6 g/dL 14.5-20 L HEMATOCRIT (test code = HCT) 32.6 % 37.0-47.0 L MEAN CELL VOLUME (test code = 93.4 fL 81.0-99.0 N MCV) MEAN CELL HGB (test code = MCH) 27.5 pg 27-31 N MEAN CELL HGB CONCENTRATION 29.4 G/DL 33-36.5 L (test code = MCHC) RED CELL DISTRIBUTION WIDTH 16.9 % 12.9-16.9 N (test code = RDW) PLATELET COUNT (test code = 227 150-440 N PLT) MEAN PLATELET VOLUME (test code 9.5 fL 8.9-12.4 N = MPV) NEUTROPHIL % (test code = NT%) 71.7 % 42.2-75.2 N LYMPHOCYTE % (test code = LY%) 17.4 % 20.5-51.1 L MONOCYTE % (test code = MO%) 8.8 % 1.7-9.3 N EOSINOPHIL % (test code = EO%) 0.5 % 0.0-7.0 N BASOPHIL % (test code = BA%) 0.8 % 0-2.5 N NEUTROPHIL # (test code = NT#) 5.21 x10 3/uL 1.80-7.70 N LYMPHOCYTE # (test code = LY#) 1.27 x10 3/uL 1.00-4.80 N MONOCYTE # (test code = MO#) 0.64 x10 3/uL 0.00-0.80 N EOSINOPHIL # (test code = EO#) 0.04 x10 3/uL 0.00-0.45 N BASOPHIL # (test code = BA#) 0.06 x10 3/uL 0.0-0.20 N [id number] 08:22:00 Test Item Value Reference Range Interpretation Comments GLUBED (test code = GLUBED) 116 MG/DL 70-105 H [id number] 05:05:00 Test Item Value Reference Range Interpretation Comments GLUBED (test code = GLUBED) 105 MG/DL 70-105 N [id number] 21:19:00 Test Item Value Reference Range Interpretation Comments GLUBED (test code = GLUBED) 102 MG/DL 70-105 N [id number] 11:45:00 Test Item Value Reference Range Interpretation Comments GLUBED (test code = GLUBED) 113 MG/DL 70-105 H [id number] 11:45:00 Test Item Value Reference Range Interpretation Comments GLUBED (test code = GLUBED) 237 MG/DL 70-105 H RENAL FUNCTION [id number] 08:45:00 Test Item Value Reference Range Interpretation Comments SODIUM (test code = 137 MMOL/L 136-143 N NA) POTASSIUM (test 4.3 MMOL/L 3.5-5.1 N code = K) CHLORIDE (test code 99 MMOL/L 98-107 N = CL) CARBON DIOXIDE 28 mmol/L 24-31 N (test code = CO2) GLUCOSE (test code 108 mg/dL 70-104 H = GLU) BLOOD UREA NITROGEN 15.3 MG/DL 7.0-21.0 N (test code = BUN) GLOMERULAR >=60 max >60 The estimated FILTRATION RATE estimate glomerular (test code = GFR) filtration rate is computed usingpatient ra ce, age (>18), sex, and serum creatinin e. If anyof the ne eded data elements a re missing the Laboratory eulalia ot compute an estimation of t he glomerular filtration rate . CREATININE (test 0.4 mg/dL 0.8-1.5 L code = CREAT) ALBUMIN (test code 2.9 G/DL 3.5-5.0 L = ALB) CALCIUM (test code 9.1 mg/dL 8.8-10.2 N = CA) PHOSPHOROUS (test 3.6 mg/dL 2.7-4.5 N code = PHOS) [id number] 08:45:00 Test Item Value Reference Range Interpretation Comments MAGNESIUM (test code = MAG) 2.1 mg/dL 1.4-2.6 N CBC W/O [id number] 08:33:00 Test Item Value Reference Range Interpretation Comments WHITE BLOOD CELL (test code = 8.8 x10 3/uL 4.8-10.8 N WBC) RED BLOOD CELL (test code = 3.36 x10 6/uL 4.20-5.40 L RBC) HEMOGLOBIN (test code = HGB) 9.4 g/dL 14.5-20 L HEMATOCRIT (test code = HCT) 31.6 % 37.0-47.0 L MEAN CELL VOLUME (test code = 94.0 fL 81.0-99.0 N MCV) MEAN CELL HGB (test code = MCH) 28.0 pg 27-31 N MEAN CELL HGB CONCENTRATION 29.7 G/DL 33-36.5 L (test code = MCHC) RED CELL DISTRIBUTION WIDTH 57 % 35-47 H (test code = RDW-SD) PLATELET COUNT (test code = 240 150-440 N PLT) [id number] 17:26:00 Test Item Value Reference Range Interpretation Comments GLUBED (test code = GLUBED) 117 MG/DL 70-105 H - CT ABD PELVIS W WO [id number] 15:47:00Patient Name: DIMITRY KENNEY Unit No: [id number] EXAMS: CPT CODE: [id number] CT ABD PELVIS W WO CONT 90284 CLINICAL HISTORY: l flank pain TECHNIQUE: Axial images of the abdomen and pelvis were obtained from diaphragm to the pubic symphysis without andwith intravenous contrast. Delayed phase urogram imaging performed. Approximately 100 mL of intravenous contrast was administered. Sagittal and coronal images were obtained. Location: W1 CT DLP dose: 925 mGy-cm. Iterative dose reduction technique was utilized. Comparison study: CT chest study of 05/07/2019 is reviewed FINDINGS: The images of the lung bases demonstrate small left pleural effusion and trace right pleural effusion. Patchy bibasilar consolidation present. There is a14 x 9 x 9.8 x 11.8 cm loculated/subcapsular collection along the right hepatic dome. There is a 13.0 x 10.0 x 4.6 cm low-density collection surrounding the anterior and posterior aspect of the left lobe. There is small loculated collection surrounding the spleen. There is alarge 22 x 8.3 x 12.5 cm collection insinuating between the bowel in the anterior abdominal wall. There is a 9.5 x 5.3 x 5.9 cm low-density internal collection along the deep mesentery of the bowel along the midline. The liver is homogeneous, free of focal masses and dilated intrahepatic ducts. The gallbladder is not confidently seen. There are no surgical clips in the gallbladder fossa. The spleen is normal in size and contour. The pancreas is morphologically normal. No mass, pancreatic duct dilatation or peripancreatic edema is visible. The adrenal glands are normal in size and contour. Both kidneys are normal in size. No hydronephrosis or enhancing renal mass. No urothelial thickening is seen, calyceal system appears sharp. Neither cystic nor solid renal masses are visible. No hydronephrosis is seen. No renal calculi or perinephric stranding. The urinary bladder is unremarkable. Stomach and duodenum appear unremarkable. The visualized small bowel is unremarkable without evidence of bowel thickening or obstruction. The colon is unremarkable. Theappendix is unremarkable. There is no pericecal inflammation. Name: DIMITRY KENNEY [facility] Phys: Rip Barragan Jr, MD [address] : 1960 Age: 59 Sex: F [place], [place] [address]Revm No: [id number] Loc: P.PSCLIEN Exam Date: 05/10/2019 Status: REG REF PH: FAX: PAGE 1 Signed Report (CONTINUED) Patient Name: DIMITRY KENNEY Unit No: [id number] EXAMS: CPT CODE: [id number] CT ABD PELVIS W WO CONT [id number] <Continued> The uterus is unremarkable. There is a 6.4 cm low-density collection along the right adnexa. There is a 5.1 cm low-density collection along the left adnexa. No retroperitoneal lymphadenopathy is present. The aorta is of normal caliber. The IVC is patent. The portal vein is patent. No evidence of ascites. Abdominal wall is intact. No significant bone lesions. IMPRESSION: 1. No renal calculus or renal obstructive changes are present. 2. No renal mass or hydronephrosis seen. 3. Small left pleural effusion and trace right pleural effusion present. 4. There are prominent subcapsular collection surrounding the right and left lobe the liver. There is no suspicious enhancement or associated gas. 5. There are large abdominal collections including along the anterior peritoneum insinuating between the bowel and abdominal wall as well as within the deep mesenteryof the bowel. These may represent pockets of loculated ascites. 6. There is a 6.4 c m low-density collection along the right adnexa, loculated fluid or possibly left ovarian cyst. 7. There is a 5.1 cm low-density collection along the left adnexa, loculated fluid or possibly left ovarian cyst. at 1547 Reported and signed by: Steven Aguillon MD CC: Rip Rodrigues Jr, MD; Terry Gabriel MD Technologist: Guera Owens CTDI: 84.22 DLP: 4211.36Trscr Dt/Tm: 05/10/2019 (1547) by:[email or web address] Printed Date/Time: 05/10/2019 (6169) Name: DIMITRY KENNEY [facility] Phys: Rip Barragan Jr, MD [address] : 1960 Age: 59 Sex: [place] [address] Loc: P.PSCLIEN Exam Date: 05/10/2019 Status: REG REF PH: FAX: PAGE 2 Signed [id number] 12:52:00 Test Item Value Reference Range Interpretation Comments GLUBED (test code = GLUBED) 124 MG/DL 70-105 H RENAL FUNCTION [id number] 06:58:00 Test Item Value Reference Range Interpretation Comments SODIUM (test code = 137 MMOL/L 136-143 N NA) POTASSIUM (test 4.8 MMOL/L 3.5-5.1 N code = K) CHLORIDE (test code 99 MMOL/L 98-107 N = CL) CARBON DIOXIDE 29 mmol/L 24-31 N (test code = CO2) GLUCOSE (test code 108 mg/dL 70-104 H = GLU) BLOOD UREA NITROGEN 13.9 MG/DL 7.0-21.0 N (test code = BUN) GLOMERULAR >=60 max >60 The estimated FILTRATION RATE estimate glomerular (test code = GFR) filtration rate is computed usingpatient ra ce, age (>18), sex, and serum creatinin e. If anyof the ne eded data elements a re missing the Laboratory eulalia ot compute an estimation of t he glomerular filtration rate . CREATININE (test 0.4 mg/dL 0.8-1.5 L code = CREAT) ALBUMIN (test code 2.9 G/DL 3.5-5.0 L = ALB) CALCIUM (test code 9.1 mg/dL 8.8-10.2 N = CA) PHOSPHOROUS (test 3.8 mg/dL 2.7-4.5 N code = PHOS) [id number] 06:58:00 Test Item Value Reference Range Interpretation Comments MAGNESIUM (test code = MAG) 2.1 mg/dL 1.4-2.6 N CBC W/AUTO [id number] 06:32:00 Test Item Value Reference Range Interpretation Comments WHITE BLOOD CELL (test code = 9.2 x10 3/uL 4.8-10.8 N WBC) RED BLOOD CELL (test code = 3.35 x10 6/uL 4.20-5.40 L RBC) HEMOGLOBIN (test code = HGB) 9.5 g/dL 14.5-20 L HEMATOCRIT (test code = HCT) 31.8 % 37.0-47.0 L MEAN CELL VOLUME (test code = 94.9 fL 81.0-99.0 N MCV) MEAN CELL HGB (test code = MCH) 28.4 pg 27-31 N MEAN CELL HGB CONCENTRATION 29.9 G/DL 33-36.5 L (test code = MCHC) RED CELL DISTRIBUTION WIDTH 17.0 % 12.9-16.9 H (test code = RDW) PLATELET COUNT (test code = 259 150-440 N PLT) MEAN PLATELET VOLUME (test code 9.4 fL 8.9-12.4 N = MPV) NEUTROPHIL % (test code = NT%) 68.4 % 42.2-75.2 N LYMPHOCYTE % (test code = LY%) 15.3 % 20.5-51.1 L MONOCYTE % (test code = MO%) 11.2 % 1.7-9.3 H EOSINOPHIL % (test code = EO%) 1.3 % 0.0-7.0 N BASOPHIL % (test code = BA%) 0.9 % 0-2.5 N NEUTROPHIL # (test code = NT#) 6.27 x10 3/uL 1.80-7.70 N LYMPHOCYTE # (test code = LY#) 1.40 x10 3/uL 1.00-4.80 N MONOCYTE # (test code = MO#) 1.03 x10 3/uL 0.00-0.80 H EOSINOPHIL # (test code = EO#) 0.12 x10 3/uL 0.00-0.45 N BASOPHIL # (test code = BA#) 0.08 x10 3/uL 0.0-0.20 N [id number] 05:59:00 Test Item Value Reference Range Interpretation Comments GLUBED (test code = GLUBED) 158 MG/DL 70-105 H [id number] 23:51:00 Test Item Value Reference Range Interpretation Comments GLUBED (test code = GLUBED) 145 MG/DL 70-105 H [id number] 17:16:00 Test Item Value Reference Range Interpretation Comments GLUBED (test code = GLUBED) 118 MG/DL 70-105 H [id number] 17:16:00 Test Item Value Reference Range Interpretation Comments GLUBED (test code = GLUBED) 145 MG/DL 70-105 H [id number] 05:33:00 Test Item Value Reference Range Interpretation Comments GLUBED (test code = GLUBED) 124 MG/DL 70-105 H [id number] 23:15:00 Test Item Value Reference Range Interpretation Comments GLUBED (test code = GLUBED) 121 MG/DL 70-105 H [id number] 17:34:00 Test Item Value Reference Range Interpretation Comments GLUBED (test code = GLUBED) 122 MG/DL 70-105 H [id number] 17:34:00 Test Item Value Reference Range Interpretation Comments GLUBED (test code = GLUBED) 119 MG/DL 70-105 H - CTA CHEST FOR [id number] 13:14:00Patient Name: DIMITRY KENNEY Unit No: [id number] Report Has Been Amended EXAMS: CPT CODE: [id number] [place] [id number] Addendum -05/07/2019 SIGNED 05/07/2019 ADDENDUM: [id number] CT/CTCHEPE Communicated with Physician: Johnson Medina MD at 12:54 PM on 05/07/2019. FOR INTERNAL CODING PURPOSES ONLY RESULT CODE: [id number] at 1314 Reported and signed by: CRISTIAN JUNE M.D. Transcribed: 05/07/2019 (1314) [email or web address] Report Location A1 CT CHEST WITHCONTRAST (PE PROTOCOL) HISTORY: Shortness of breath. COMPARISON: Chest radiograph dated 05/06/2019 COMMENT: Multidetector axial slices through the chest were obtained during contrast administration for evaluation of the pulmonary arteries for pulmonary embolus. Coronal and sagittal reconstructions were performed and evaluated. Oblique recons tructions are provided as well. One or more of the following dose reduction techniques were used: Automated exposure control, adjustment of the mA or KV according to patient size, use of Iterative reconstruction technique. DLP 467 mGy-cm FINDINGS: Angiogram: Nonocclusive filling defect involving the right lower lobe pulmonary artery as well as secondary intention branches compatible with acute pulmonary embolism. Additionally, nonocclusive filling defect at the level of the left lower lobe pulmonary artery bifurcation with extension into the secondary branches, compatible with acute emboli as well.. The aorta is normal in diameter with no aneurysm or dissection. The arch vessels are patent. Cardiac: Heart size is normal. No pericardial effusion. Right PICC line tip is at distal SVC. Lungs : Small left pleural effusion. Minimal linear atelectasis at lung bases. No pneu mothorax. [facility] Phys: Johnson Lemons MD [address] : 1960 Age: 59 Sex: [place] [id number] Loc: P.PSCLIEN Exam Date: 05/07/2019 Status: REG REF PH: FAX: PAGE 1 Signed Report (CONTINUED) Patient Name: DIMITRY KENNEY Unit No: [id number] Report Has Been Amended EXAMS: CPT CODE: [id number] [place] [address] <Continued> Mediastinum: No evidence of hilar or mediastinal lymphadenopathy otherwise. No filling defects in the airways. Thyroid gland is enlarged, both lobes. Osseous: No acute or aggressive appearing osseous lesions. Upper abdomen: Large ascites is seen with some scalloping of the lateral liver margin. IMPRESSION: 1. Nonocclusive filling defect involving the right lower lobe pulmonary artery as well as secondary intention branches compatiblewith acute pulmonary embolism. 2. Nonocclusive filling defect at the level of the left lower lobe pulmonary artery bifurcation with extension into the secondary branches, compatible with acute emboli as well. 3. Small left pleural effusion. Minimal linear atelectasis at lung bases. No pneumothorax. 4. Large ascites is seen with some scalloping of the lateral liver margin. at 1227 Reportedand signed by: CRISTIAN JUNE M.D. CC: Johnson Medina MD; Terry Gabriel MD Technologist: Keven Zhao CTDI: 20.74 DLP: 467 Trscr Dt/Tm: 05/07/2019 (1227) by:[email or web address] Printed Date/Time: 05/07/2019 (1317) Name: DIMITRY KENNEY [facility] Phys: Johnson Lemons MD [address] : 1960 Age: 59 Sex: [place] [address] Loc: P.PSCLIEN Exam Date: 05/07/2019 Status: REG REF PH: FAX: PAGE 2 Signed Report- CTA CHEST FOR [id number] 12:27:00Patient Name: DIMITRY KENNEY Unit No: [id number] EXAMS: CPT CODE: [id number] [place] [address] CHEST WITH CONTRAST (PE PROTOCOL) HISTORY: Shortness of breath. COMPARISON: Chest radiograph dated 05/06/2019 COMMENT: Multidetector axial slices through the chest were obtained during contrast administration for evaluation of the pulmonary arteries for pulmonary embolus. Coronal and sagittal reconstructions were performed and evaluated. Oblique reconstructions are provided as well. One or more of the following dose reduction techniques were used: Automated exposure control, adjustment of the mA or KV according to patient size, use of Iterative reconstruction technique. DLP 467 mGy-cm FINDINGS: Angiogram: Nonocclusive filling defect involving the right lower lobe pulmonary artery as well as secondary intention branches compatible with acute pulmonary embolism. Additionally, nonocclusive filling defect at the level of the left lower lobe pulmonary artery bifurcation with extension into the secondary branches, compatible with acute emboli as well.. The aorta is normal in diameter with no aneurysm or dissection. The arch vessels are patent. Cardiac: Heart size is normal. No pericardial effusion. Right PICC line tip is at distal SVC. Lungs : Small left pleural effusion. Minimal linear atelectasis at lung bases. No pneumothorax. Mediastinum: No evidence of hilar or mediastinal lymphadenopathy otherwise. No filling defects in the airways. Thyroid gland is enlarged, both lobes. Osseous: No acute or aggressive appearing osseous lesions. Upper abdomen: Large ascites is seen with some scalloping of the lateral liver margin. IMPRESSION: 1. Nonocclusive filling defect involving the right lower lobe pulmonary artery as well as secondary intention bra nches compatible with acute pulmonary embolism. 2. Nonocclusive filling defect atthe level of the left lower lobe pulmonary artery bifurcation with extension into the secondary branches, compatible with acute emboli as well. 3. Small left pleural effusion. M inimal linear atelectasis at lung bases. No pneumothorax. Name: DIMITRY KENNEY [facility] Phys: Johnson Lemons MD [address] : 1960 Age: 59 Sex: [place] [address] Loc: JOSSELINE Exam Date: 05/07/2019 Status: REG REF PH: FAX: PAGE 1 Signed Report (CONTINUED) Patient Name: DIMITRY KENNEY Unit No: [id number] EXAMS: CPT CODE: [id number] [place] [address] <Continued> 4. Large ascites is seen with some scalloping of the lateral liver margin. at 1227 Reported and signed by: CRISTIAN JUNE M.D. CC: Johnson Medina MD; Terry Gabriel MD Technologist: Keven Zhao CTDI: 20.74 DLP: 467 Trscr Dt/Tm: 05/07/2019 (1227) by:[email or web address] Printed Date/Time: 05/07/2019 (1230) Name: DIMITRY KENNEY [facility] Phys: Johnson Lemons MD [address] : 1960 Age: 59 Sex: F [place] [address] Loc: JOSSELINE Exam Date: 05/07/2019 Status: REG REF PH: FAX: PAGE 2 Signed [id number] 12:09:00 Test Item Value Reference Range Interpretation Comments GLUBED (test code = GLUBED) 122 MG/DL 70-105 H [id number] 06:41:00 Test Item Value Reference Range Interpretation Comments GLUBED (test code = GLUBED) 132 MG/DL 70-105 H COMPREHENSIVE METABOLIC [id number] 05:44:00 Test Item Value Reference Range Interpretation Comments SODIUM (test code = 132 MMOL/L 136-143 L NA) POTASSIUM (test 4.7 MMOL/L 3.5-5.1 N code = K) CHLORIDE (test code 96 MMOL/L 98-107 L = CL) CARBON DIOXIDE 28 mmol/L 24-31 N (test code = CO2) GLUCOSE (test code 95 mg/dL 70-104 N = GLU) BLOOD UREA NITROGEN 15.8 MG/DL 7.0-21.0 N (test code = BUN) GLOMERULAR >=60 max >60 The estimated FILTRATION RATE estimate glomerular (test code = GFR) filtration rate is computed usingpatient ra ce, age (>18), sex, and serum creatinin e. If anyof the ne eded data elements a re missing the Laboratory eulalia ot compute an estimation of t he glomerular filtration rate . CREATININE (test 0.4 mg/dL 0.8-1.5 L code = CREAT) TOTAL PROTEIN (test 6.0 g/dL 6.3-8.3 L code = PROT) ALBUMIN (test code 3.1 G/DL 3.5-5.0 L = ALB) CALCIUM (test code 9.0 mg/dL 8.8-10.2 N = CA) BILIRUBIN TOTAL 0.3 mg/dL 0.2-1.0 N (test code = BILT) SGOT/AST (test code 64 IU/L 10-34 H = AST) SGPT/ALT (test code 89 U/L 10-36 H = ALT) ALKALINE 224 U/L 32-104 H PHOSPHATASE (test code = ALKP) CBC W/AUTO [id number] 05:34:00 Test Item Value Reference Range Interpretation Comments WHITE BLOOD CELL (test code = 8.6 x10 3/uL 4.8-10.8 N WBC) RED BLOOD CELL (test code = 3.30 x10 6/uL 4.20-5.40 L RBC) HEMOGLOBIN (test code = HGB) 9.3 g/dL 14.5-20 L HEMATOCRIT (test code = HCT) 31.0 % 37.0-47.0 L MEAN CELL VOLUME (test code = 93.9 fL 81.0-99.0 N MCV) MEAN CELL HGB (test code = MCH) 28.2 pg 27-31 N MEAN CELL HGB CONCENTRATION 30.0 G/DL 33-36.5 L (test code = MCHC) RED CELL DISTRIBUTION WIDTH 16.4 % 12.9-16.9 N (test code = RDW) PLATELET COUNT (test code = 227 150-440 N PLT) MEAN PLATELET VOLUME (test code 10.0 fL 8.9-12.4 N = MPV) NEUTROPHIL % (test code = NT%) 58.7 % 42.2-75.2 N LYMPHOCYTE % (test code = LY%) 21.2 % 20.5-51.1 N MONOCYTE % (test code = MO%) 12.1 % 1.7-9.3 H EOSINOPHIL % (test code = EO%) 1.9 % 0.0-7.0 N BASOPHIL % (test code = BA%) 0.9 % 0-2.5 N NEUTROPHIL # (test code = NT#) 5.05 x10 3/uL 1.80-7.70 N LYMPHOCYTE # (test code = LY#) 1.82 x10 3/uL 1.00-4.80 N MONOCYTE # (test code = MO#) 1.04 x10 3/uL 0.00-0.80 H EOSINOPHIL # (test code = EO#) 0.16 x10 3/uL 0.00-0.45 N BASOPHIL # (test code = BA#) 0.08 x10 3/uL 0.0-0.20 N [id number] 23:39:00 Test Item Value Reference Range Interpretation Comments GLUBED (test code = GLUBED) 124 MG/DL 70-105 H [id number] 18:48:00 Test Item Value Reference Range Interpretation Comments GLUBED (test code = GLUBED) 138 MG/DL 70-105 H - XR CHEST 1 [id number] 13:02:00Patient Name: DIMITRY KENNEY Unit No: [id number] EXAMS: CPT CODE: [id number] XR CHEST 1 V [id number] Chest one view AP 05/06/2019 1:02 PM CLINICAL INDICATION: Cough COMPARISON: 05/03/2019 LOCATION: W1 IMPRESSION: Bibasilar opacities may reflect atelectasis or pneumonia. Cardiomediastinal contours arewithin normal limits. There is central pulmonary vasculature congestion without remarkable peripheral edema. The tip of a right PICC projects over the right atrium and could be retracted 3 cm. at 1302 Reported and signed by: AIMEE Jimenez CC: Terry Gabriel MD Technologist: Ta Maya Fluoro Time: DAP (Gy m2): Air Kerma (mGy): Trscr Dt/Tm: 05/06/2019 (5425) by:[email or web address] Printed Date/Time : 05/06/2019 (4858) Name: DIMITRY KENNEY [facility] Phys: PAWAN - Terry Gabriel MD [address] : 1960 Age: 59 Sex: [place] [address] Loc: JOSSELINE Exam Date: 05/06/2019 Status: REG REF PH: FAX: PAGE 1 Signed [id number] 12:08:00 Test Item Value Reference Range Interpretation Comments GLUBED (test code = GLUBED) 113 MG/DL 70-105 H [id number] 05:49:00 Test Item Value Reference Range Interpretation Comments GLUBED (test code = GLUBED) 134 MG/DL 70-105 H [id number] 01:12:00 Test Item Value Reference Range Interpretation Comments GLUBED (test code = GLUBED) 150 MG/DL 70-105 H [id number] 12:13:00 Test Item Value Reference Range Interpretation Comments GLUBED (test code = GLUBED) 115 MG/DL 70-105 H THYROGLOBULIN [id number] 08:22:00 Test Item Value Reference Range Interpretation Comments THYROGLOBULIN 10.3 Thyroglobulin by STORAGE (test code = KEEGAN:Uni ts: THYROGLST) ng/mLReference Interval: 1.5 - 38.5 Comment:Accordi ng to the National [facility] y of Clinical Biochemistry,th e reference inter brendon for Thyroglobulin ( TG) should berelate d to euthyroid patie nts and not for patient s whounderwent thyroidectomy.T G reference inter vals for these patients depend on theresidual mas s of the thyroid tissue left after surgery.Establi shing a post-operative baseline is recommended. The assay limit of quanti tation is 0.1 ng/mL.Thyro globulin measured by [employer]. AB THYROGLOBULIN < 1.0 IU/mL 0.0-0.9 Thyroglobul in Antibody (test code = measured by [facility] THYROAB) CoulterMethodol ogy 451COMPREHENSIVE METABOLIC [id number] 05:30:00 Test Item Value Reference Range Interpretation Comments SODIUM (test code = 135 MMOL/L 136-143 L NA) POTASSIUM (test 4.7 MMOL/L 3.5-5.1 N code = K) CHLORIDE (test code 95 MMOL/L 98-107 L = CL) CARBON DIOXIDE 30 mmol/L 24-31 N (test code = CO2) GLUCOSE (test code 128 mg/dL 70-104 H = GLU) BLOOD UREA NITROGEN 16.0 MG/DL 7.0-21.0 N (test code = BUN) GLOMERULAR >=60 max >60 The estimated FILTRATION RATE estimate glomerular (test code = GFR) filtration rate is computed usingpatient ra ce, age (>18), sex, and serum creatinin e. If anyof the ne eded data elements a re missing the Laboratory eulalia ot compute an estimation of t he glomerular filtration rate . CREATININE (test 0.4 mg/dL 0.8-1.5 L code = CREAT) TOTAL PROTEIN (test 5.9 g/dL 6.3-8.3 L code = PROT) ALBUMIN (test code 3.2 G/DL 3.5-5.0 L = ALB) CALCIUM (test code 9.2 mg/dL 8.8-10.2 N = CA) BILIRUBIN TOTAL 0.3 mg/dL 0.2-1.0 N (test code = BILT) SGOT/AST (test code 57 IU/L 10-34 H = AST) SGPT/ALT (test code 87 U/L 10-36 H = ALT) ALKALINE 214 U/L 32-104 H PHOSPHATASE (test code = ALKP) [id number] 05:26:00 Test Item Value Reference Range Interpretation Comments GLUBED (test code = GLUBED) 142 MG/DL 70-105 H CBC W/AUTO [id number] 05:22:00 Test Item Value Reference Range Interpretation Comments WHITE BLOOD CELL (test code = 6.4 x10 3/uL 4.8-10.8 N WBC) RED BLOOD CELL (test code = 3.37 x10 6/uL 4.20-5.40 L RBC) HEMOGLOBIN (test code = HGB) 9.4 g/dL 14.5-20 L HEMATOCRIT (test code = HCT) 31.0 % 37.0-47.0 L MEAN CELL VOLUME (test code = 92.0 fL 81.0-99.0 N MCV) MEAN CELL HGB (test code = MCH) 27.9 pg 27-31 N MEAN CELL HGB CONCENTRATION 30.3 G/DL 33-36.5 L (test code = MCHC) RED CELL DISTRIBUTION WIDTH 15.9 % 12.9-16.9 N (test code = RDW) PLATELET COUNT (test code = 244 150-440 N PLT) MEAN PLATELET VOLUME (test code 9.7 fL 8.9-12.4 N = MPV) NEUTROPHIL % (test code = NT%) 51.9 % 42.2-75.2 N LYMPHOCYTE % (test code = LY%) 24.5 % 20.5-51.1 N MONOCYTE % (test code = MO%) 14.1 % 1.7-9.3 H EOSINOPHIL % (test code = EO%) 2.8 % 0.0-7.0 N BASOPHIL % (test code = BA%) 1.4 % 0-2.5 N NEUTROPHIL # (test code = NT#) 3.32 x10 3/uL 1.80-7.70 N LYMPHOCYTE # (test code = LY#) 1.57 x10 3/uL 1.00-4.80 N MONOCYTE # (test code = MO#) 0.90 x10 3/uL 0.00-0.80 H EOSINOPHIL # (test code = EO#) 0.18 x10 3/uL 0.00-0.45 N BASOPHIL # (test code = BA#) 0.09 x10 3/uL 0.0-0.20 N [id number] 23:47:00 Test Item Value Reference Range Interpretation Comments GLUBED (test code = GLUBED) 137 MG/DL 70-105 H THYROGLOBULIN [id number] 15:11:00 Test Item Value Reference Range Interpretation Comments THYROGLOBULIN STORAGE (test code = THYROGLST) AB THYROGLOBULIN < 1.0 IU/mL 0.0-0.9 Thyroglobul in Antibody (test code = measured by [facility] THYROAB) [employer] 451CBC W/MANUAL [id number] 10:32:00 Test Item Value Reference Range Interpretation Comments WHITE BLOOD CELL (test code = 5.1 x10 3/uL 4.8-10.8 N WBC) RED BLOOD CELL (test code = 3.46 x10 6/uL 4.20-5.40 L RBC) HEMOGLOBIN (test code = HGB) 9.8 g/dL 14.5-20 L HEMATOCRIT (test code = HCT) 31.8 % 37.0-47.0 L MEAN CELL VOLUME (test code = 91.9 fL 81.0-99.0 N MCV) MEAN CELL HGB (test code = MCH) 28.3 pg 27-31 N MEAN CELL HGB CONCENTRATION 30.8 G/DL 33-36.5 L (test code = MCHC) RED CELL DISTRIBUTION WIDTH 15.9 % 12.9-16.9 N (test code = RDW) PLATELET COUNT (test code = 252 150-440 N PLT) MEAN PLATELET VOLUME (test code 9.7 fL 8.9-12.4 N = MPV) TOTAL CELLS COUNTED (test code 100 #CELLS = TCC) SEGMENTED NEUTROPHILS (test 51 % 43-65 N code = SEG) BAND NEUTROPHIL (test code = 3 % 0-1 H BAND) LYMPHOCYTE (test code = LYMPH) 28 % 20.5-45.5 N MONOCYTE (test code = MON) 17 % 5.5-11.7 H EOSINOPHIL (test code = EOS) 1 % 0.9-2.9 N HYPOCHROMIA (test code = HYPO) 1+ NONE SEEN A PLATELET ESTIMATE (test code = ADEQUATE ADEQUATE PLTEST) PLATELET MORPHOLOGY (test code NORMAL NORMAL = PLTMORPH) COMPREHENSIVE METABOLIC [id number] 08:07:00 Test Item Value Reference Range Interpretation Comments SODIUM (test code = 132 MMOL/L 136-143 L NA) POTASSIUM (test 4.4 MMOL/L 3.5-5.1 N code = K) CHLORIDE (test code 92 MMOL/L 98-107 L = CL) CARBON DIOXIDE 32 mmol/L 24-31 H (test code = CO2) GLUCOSE (test code 108 mg/dL 70-104 H = GLU) BLOOD UREA NITROGEN 16.9 MG/DL 7.0-21.0 N (test code = BUN) GLOMERULAR >=60 max >60 The estimated FILTRATION RATE estimate glomerular (test code = GFR) filtration rate is computed usingpatient ra ce, age (>18), sex, and serum creatinin e. If anyof the ne eded data elements a re missing the Laboratory eulalia ot compute an estimation of t he glomerular filtration rate . CREATININE (test 0.4 mg/dL 0.8-1.5 L code = CREAT) TOTAL PROTEIN (test 6.1 g/dL 6.3-8.3 L code = PROT) ALBUMIN (test code 3.2 G/DL 3.5-5.0 L = ALB) CALCIUM (test code 9.4 mg/dL 8.8-10.2 N = CA) BILIRUBIN TOTAL 0.5 mg/dL 0.2-1.0 N (test code = BILT) SGOT/AST (test code 69 IU/L 10-34 H = AST) SGPT/ALT (test code 100 U/L 10-36 H = ALT) ALKALINE 214 U/L 32-104 H PHOSPHATASE (test code = ALKP) [id number] 08:07:00 Test Item Value Reference Range Interpretation Comments LIPASE (test code = LIP) 129 U/L 0-190 N [id number] 08:07:00 Test Item Value Reference Range Interpretation Comments MAGNESIUM (test code = MAG) 1.9 mg/dL 1.4-2.6 N CBC W/MANUAL [id number] 07:12:00 Test Item Value Reference Range Interpretation Comments WHITE BLOOD CELL (test code = 5.1 x10 3/uL 4.8-10.8 N WBC) RED BLOOD CELL (test code = 3.46 x10 6/uL 4.20-5.40 L RBC) HEMOGLOBIN (test code = HGB) 9.8 g/dL 14.5-20 L HEMATOCRIT (test code = HCT) 31.8 % 37.0-47.0 L MEAN CELL VOLUME (test code = 91.9 fL 81.0-99.0 N MCV) MEAN CELL HGB (test code = MCH) 28.3 pg 27-31 N MEAN CELL HGB CONCENTRATION 30.8 G/DL 33-36.5 L (test code = MCHC) RED CELL DISTRIBUTION WIDTH 15.9 % 12.9-16.9 N (test code = RDW) PLATELET COUNT (test code = 252 150-440 N PLT) MEAN PLATELET VOLUME (test code 9.7 fL 8.9-12.4 N = MPV) TOTAL CELLS COUNTED (test code #CELLS = TCC) SEGMENTED NEUTROPHILS (test % 43-65 code = SEG) LYMPHOCYTE (test code = LYMPH) % 20.5-45.5 CBC W/MANUAL [id number] 07:12:00 Test Item Value Reference Range Interpretation Comments WHITE BLOOD CELL (test code = 5.1 x10 3/uL 4.8-10.8 N WBC) RED BLOOD CELL (test code = 3.46 x10 6/uL 4.20-5.40 L RBC) HEMOGLOBIN (test code = HGB) 9.8 g/dL 14.5-20 L HEMATOCRIT (test code = HCT) 31.8 % 37.0-47.0 L MEAN CELL VOLUME (test code = 91.9 fL 81.0-99.0 N MCV) MEAN CELL HGB (test code = MCH) 28.3 pg 27-31 N MEAN CELL HGB CONCENTRATION 30.8 G/DL 33-36.5 L (test code = MCHC) RED CELL DISTRIBUTION WIDTH 15.9 % 12.9-16.9 N (test code = RDW) PLATELET COUNT (test code = 252 150-440 N PLT) MEAN PLATELET VOLUME (test code 9.7 fL 8.9-12.4 N = MPV) TOTAL CELLS COUNTED (test code #CELLS = TCC) SEGMENTED NEUTROPHILS (test % 43-65 code = SEG) LYMPHOCYTE (test code = LYMPH) % 20.5-45.5 [id number] 18:52:00 Test Item Value Reference Range Interpretation Comments GLUBED (test code = GLUBED) 114 MG/DL 70-105 H CBC W/MANUAL [id number] 09:40:00 Test Item Value Reference Range Interpretation Comments WHITE BLOOD CELL (test code = 4.1 x10 3/uL 4.8-10.8 L WBC) RED BLOOD CELL (test code = 3.43 x10 6/uL 4.20-5.40 L RBC) HEMOGLOBIN (test code = HGB) 9.6 g/dL 14.5-20 L HEMATOCRIT (test code = HCT) 31.4 % 37.0-47.0 L MEAN CELL VOLUME (test code = 91.5 fL 81.0-99.0 N MCV) MEAN CELL HGB (test code = MCH) 28.0 pg 27-31 N MEAN CELL HGB CONCENTRATION 30.6 G/DL 33-36.5 L (test code = MCHC) RED CELL DISTRIBUTION WIDTH 16.0 % 12.9-16.9 N (test code = RDW) PLATELET COUNT (test code = 254 150-440 N PLT) MEAN PLATELET VOLUME (test code 10.2 fL 8.9-12.4 N = MPV) TOTAL CELLS COUNTED (test code 100 #CELLS = TCC) SEGMENTED NEUTROPHILS (test 38 % 43-65 L code = SEG) BAND NEUTROPHIL (test code = 9 % 0-1 H BAND) LYMPHOCYTE (test code = LYMPH) 43 % 20.5-45.5 N MONOCYTE (test code = MON) 9 % 5.5-11.7 N BASOPHIL (test code = BASO) 1 % 0.2-1.0 N NUCLEATED RED BLOOD CELL (test 1.0 % 0-1 N code = NRBC) POLYCHROMASIA (test code = 1+ NONE SEEN A POLC) PLATELET ESTIMATE (test code = ADEQUATE ADEQUATE PLTEST) PLATELET MORPHOLOGY (test code NORMAL NORMAL = PLTMORPH) 451- XR CHEST 1 [id number] 08:53:00Patient Name: DIMITRY KENNEY Unit No: [id number] EXAMS: CPT CODE: [id number] XR CHEST 1 V [id number] Chest one view AP 05/03/2019 8:52 AM CLINICAL INDICATION: Congestion COMPARISON: None available LOCATION: [facility] IMPRESSION: Cardiomediastinal contours are within normal limits. There is central pulmonary vasculature congestion without remarkable peripheral edema. There is bibasilar atelectasis. The tip of a right PICC projects over the right atrium and could be retracted 3 cm. at 0853 Reported and signed by: GENEVIEVE KING M.D. CC: Terry Gabriel MD Technologist: Rodney Vicente Time: DAP (Gy m2): [employer] Kerma (mGy): Trscr Dt/Tm: 05/03/2019 (0853) by:[email or web address] Printed Date/Time: 05/03/2019 (0856) Name: DIMITRY KENNEY [facility] Phys: TAMMY HASTINGS - Terry Gabriel MD [address] : 1960 Age: 59 Sex: F [place] [address] Loc: JOSSELINE Exam Date: 05/03/2019 Status: REG REF PH: FAX: PAGE 1 Signed ReportB-TYPE NATRIURETIC [id number] 07:57:00 Test Item Value Reference Range Interpretation Comments B-TYPE NATRIURETIC PEPTIDE (test 20.1 PG/ML 0-100 N code = BNP) 451COMPREHENSIVE METABOLIC [id number] 07:39:00 Test Item Value Reference Range Interpretation Comments SODIUM (test code = 134 MMOL/L 136-143 L NA) POTASSIUM (test 4.0 MMOL/L 3.5-5.1 N code = K) CHLORIDE (test code 92 MMOL/L 98-107 L = CL) CARBON DIOXIDE 34 mmol/L 24-31 H (test code = CO2) GLUCOSE (test code 99 mg/dL 70-104 N = GLU) BLOOD UREA NITROGEN 21.5 MG/DL 7.0-21.0 H (test code = BUN) GLOMERULAR >=60 max >60 The estimated FILTRATION RATE estimate glomerular (test code = GFR) filtration rate is computed usingpatient ra ce, age (>18), sex, and serum creatinin e. If anyof the ne eded data elements a re missing the Laboratory eulalia ot compute an estimation of t he glomerular filtration rate . CREATININE (test 0.4 mg/dL 0.8-1.5 L code = CREAT) TOTAL PROTEIN (test 6.1 g/dL 6.3-8.3 L code = PROT) ALBUMIN (test code 3.3 G/DL 3.5-5.0 L = ALB) CALCIUM (test code 9.6 mg/dL 8.8-10.2 N = CA) BILIRUBIN TOTAL 0.4 mg/dL 0.2-1.0 N (test code = BILT) SGOT/AST (test code 67 IU/L 10-34 H = AST) SGPT/ALT (test code 107 U/L 10-36 H = ALT) ALKALINE 214 U/L 32-104 H PHOSPHATASE (test code = ALKP) 451LIPID PROFILE (CORONARY RISK)2019-05-03 07:39:00 Test Item Value Reference Range Interpretation Comments TRIGLYCERIDES (test 88 mg/dL 35-160 N code = TRIG) CHOLESTEROL (test code 145 mg/dL 0-200 N = CHOL) HDL CHOLESTEROL (test 37 mg/dL 45-65 L code = HDL) LIPOPROTEIN LDL (test 91 MG/DL 0-99 N INTERP RETATIVE code = LDLC) DATA:LDL Choles terol: Reference RangesOptimal: <100 mg/dLNear Optim al: 100 -129 mg/dLBorde rline High: 130 - 15 9 mg/dLHigh: 160 - 189 mg/dLVery High: = or > 190 mg/dL CORONARY RISK FACTOR 3.92 (test code = RISK) CHOL/HDL RISK MALE: 1/2 AVG 3.43 FEMALE: 1/2 AV G 3.27 AVG 4.97 AVG 4.44 2X AVG 9.55 2X AVG 7.05 3X AVG 23.39 3X AVG 11.04~~~~~~~~~~ ~~~~~~~ ~~~~~~~~~~~~~~~ ~~~~~~~ ~~~~~~~~~~~~~~~ ~~~~~~N [facility] norberto Education (IDEP ) Guidelines:~~~~ ~~~~~~~ ~~~~~~~~~~~~~~~ ~~~~~~~ ~~~~~~~~~~~~~~~ ~~~~~~~ ~~~~~ HDL Cholesterol<4 0mg/dL: HDL Cholesterol (Major risk factor for CHD)>60mg/dL: H DL Cholesterol (Ne gative risk factor for CHD)40-59mg/dL: Borderline Risk L DL Cholesterol<1 00mg/dL : Desirable LDL -C gelasdakaoaii56 0-159mg /dL: Borderline High Risk LDL-C duleioogzqhpe95 0-189mg /dL: High risk LDL-C concentration H DL-LDL Cholesterol is affected by a n umber of factors such as smoking, age an d sex.~~~~~~~~~~~ ~~~~~~~ ~~~~~~~~~~~~~~~ ~~~~~~~ ~~~~~~~~~~~~~~~ ~~~~~ [id number] 07:39:00 Test Item Value Reference Range Interpretation Comments PHOSPHOROUS (test code = PHOS) 3.2 mg/dL 2.7-4.5 N [id number] 07:39:00 Test Item Value Reference Range Interpretation Comments MAGNESIUM (test code = MAG) 2.0 mg/dL 1.4-2.6 N [id number] 07:39:00 Test Item Value Reference Range Interpretation Comments PREALBUMIN (test code = PREALB) 17.7 MG/ML 15-42 N [id number] - GLYCOSYLATED [id number] 07:31:00 Test Item Value Reference Range Interpretation Comments GLYCOSYLATED HEMOGLOBIN 5.4 % 0.0-5.6 N INTE RPRETATIVE (HA1C) (test code = DATA:HGB A1C levels above GLYHGB) the established reference range are anind ication of hyperglycemia d uring the preceeding 2 - 3months orlonger. HBA1C levels may reach 20% o r higher in poorlycontro lled diabetes. Thera peutic action is sugge sted atlevels above 8%.Diabetic pat ients with HBA1C levels be low 7% meet the goalof the [place] [employer] es [employer]. No rmal: <5.7Pre-Diabete s: 5.7 6.4Diabetic: >6.5Therapeutic goal for glycemic contro l: <7.0 451CBC W/MANUAL [id number] 07:24:00 Test Item Value Reference Range Interpretation Comments WHITE BLOOD CELL (test code = 4.1 x10 3/uL 4.8-10.8 L WBC) RED BLOOD CELL (test code = 3.43 x10 6/uL 4.20-5.40 L RBC) HEMOGLOBIN (test code = HGB) 9.6 g/dL 14.5-20 L HEMATOCRIT (test code = HCT) 31.4 % 37.0-47.0 L MEAN CELL VOLUME (test code = 91.5 fL 81.0-99.0 N MCV) MEAN CELL HGB (test code = MCH) 28.0 pg 27-31 N MEAN CELL HGB CONCENTRATION 30.6 G/DL 33-36.5 L (test code = MCHC) RED CELL DISTRIBUTION WIDTH 16.0 % 12.9-16.9 N (test code = RDW) PLATELET COUNT (test code = 254 150-440 N PLT) MEAN PLATELET VOLUME (test code 10.2 fL 8.9-12.4 N = MPV) TOTAL CELLS COUNTED (test code #CELLS = TCC) SEGMENTED NEUTROPHILS (test % 43-65 code = SEG) LYMPHOCYTE (test code = LYMPH) % 20.5-45.5 451COMPREHENSIVE METABOLIC [id number] 07:24:00 Test Item Value Reference Range Interpretation Comments SODIUM (test code = 134 MMOL/L 136-143 L NA) POTASSIUM (test 4.0 MMOL/L 3.5-5.1 N code = K) CHLORIDE (test code 92 MMOL/L 98-107 L = CL) CARBON DIOXIDE 34 mmol/L 24-31 H (test code = CO2) GLUCOSE (test code 99 mg/dL 70-104 N = GLU) BLOOD UREA NITROGEN 21.5 MG/DL 7.0-21.0 H (test code = BUN) GLOMERULAR >=60 max >60 The estimated FILTRATION RATE estimate glomerular (test code = GFR) filtration rate is computed usingpatient ra ce, age (>18), sex, and serum creatinin e. If anyof the ne eded data elements a re missing the Laboratory eulalia ot compute an estimation of t he glomerular filtration rate . CREATININE (test 0.4 mg/dL 0.8-1.5 L code = CREAT) TOTAL PROTEIN (test 6.1 g/dL 6.3-8.3 L code = PROT) ALBUMIN (test code 3.3 G/DL 3.5-5.0 L = ALB) CALCIUM (test code 9.6 mg/dL 8.8-10.2 N = CA) BILIRUBIN TOTAL 0.4 mg/dL 0.2-1.0 N (test code = BILT) SGOT/AST (test code 67 IU/L 10-34 H = AST) SGPT/ALT (test code 107 U/L 10-36 H = ALT) ALKALINE 214 U/L 32-104 H PHOSPHATASE (test code = ALKP) 451LIPID PROFILE (CORONARY RISK)2019-05-03 07:24:00 Test Item Value Reference Range Interpretation Comments TRIGLYCERIDES (test 88 mg/dL 35-160 N code = TRIG) CHOLESTEROL (test code 145 mg/dL 0-200 N = CHOL) HDL CHOLESTEROL (test 37 mg/dL 45-65 L code = HDL) LIPOPROTEIN LDL (test 91 MG/DL 0-99 N INTERP RETATIVE code = LDLC) DATA:LDL Choles terol: Reference RangesOptimal: <100 mg/dLNear Optim al: 100 -129 mg/dLBorde rline High: 130 - 15 9 mg/dLHigh: 160 - 189 mg/dLVery High: = or > 190 mg/dL CORONARY RISK FACTOR 3.92 (test code = RISK) CHOL/HDL RISK MALE: 1/2 AVG 3.43 FEMALE: 1/2 AV G 3.27 AVG 4.97 AVG 4.44 2X AVG 9.55 2X AVG 7.05 3X AVG 23.39 3X AVG 11.04~~~~~~~~~~ ~~~~~~~ ~~~~~~~~~~~~~~~ ~~~~~~~ ~~~~~~~~~~~~~~~ ~~~~~~N [facility]est norberto Education (NCEP ) Guidelines:~~~~ ~~~~~~~ ~~~~~~~~~~~~~~~ ~~~~~~~ ~~~~~~~~~~~~~~~ ~~~~~~~ ~~~~~ HDL Cholesterol<4 0mg/dL: HDL Cholesterol (Major risk factor for CHD)>60mg/dL: H DL Cholesterol (Ne gative risk factor for CHD)40-59mg/dL: Borderline Risk L DL Cholesterol<1 00mg/dL : Desirable LDL -C qibdblirhfyzq07 0-159mg /dL: Borderline High Risk LDL-C xyvhwkseudgnm48 0-189mg /dL: High risk LDL-C concentration H DL-LDL Cholesterol is affected by a n umber of factors such as smoking, age an d sex.~~~~~~~~~~~ ~~~~~~~ ~~~~~~~~~~~~~~~ ~~~~~~~ ~~~~~~~~~~~~~~~ ~~~~~ [id number] 07:24:00 Test Item Value Reference Range Interpretation Comments PHOSPHOROUS (test code = PHOS) 3.2 mg/dL 2.7-4.5 N [id number] 07:24:00 Test Item Value Reference Range Interpretation Comments MAGNESIUM (test code = MAG) 2.0 mg/dL 1.4-2.6 N [id number] 07:24:00 Test Item Value Reference Range Interpretation Comments PREALBUMIN (test code = PREALB) MG/ML 15-42 451PROTHROMBIN [id number] 07:24:00 Test Item Value Reference Range Interpretation Comments PROTHROMBIN TIME 11.9 SECONDS 10.3-12.9 N PATIENT (test code = PTP) INTERNATIONAL 1.03 INR UNIT 0.9-1.11 N The INR is us eful only NORMAL RATIO (test for monit oring code = INR) anticoagulant therapy.It may be unreliable in t he initial phase o f antigoagulation and in unstable patien ts. Indication for Anticoagulation Recommend ed INR 1. Prevention o f venous thomboembolism 2.0-3.0in high -risk patients; treat ment of venousthrombosi s and pulmonary embol ism aftera course o f heparin; preven tion of systemicembolis m in a variety of cond itions, including atria l fibrillation an d prothetic tissu e heart valves, 2. Pros thetic mechanical hear t valves; 2.5-3.5recurren t systemic emboli sm. 451THROMBOPLASTIN TIME [id number] 07:24:00 Test Item Value Reference Range Interpretation Comments THROMBOPLASTIN TIME 26.8 SECONDS 26.0-35.9 N INTERPRE TATIVE PARTIAL (test code = : erapeutic PTT) range: Unfractionated heparin:47 - 71 seconds Argatroban:1.5 to 3 times the basel ine PTT 451CBC W/MANUAL [id number] 07:24:00 Test Item Value Reference Range Interpretation Comments WHITE BLOOD CELL (test code = 4.1 x10 3/uL 4.8-10.8 L WBC) RED BLOOD CELL (test code = 3.43 x10 6/uL 4.20-5.40 L RBC) HEMOGLOBIN (test code = HGB) 9.6 g/dL 14.5-20 L HEMATOCRIT (test code = HCT) 31.4 % 37.0-47.0 L MEAN CELL VOLUME (test code = 91.5 fL 81.0-99.0 N MCV) MEAN CELL HGB (test code = MCH) 28.0 pg 27-31 N MEAN CELL HGB CONCENTRATION 30.6 G/DL 33-36.5 L (test code = MCHC) RED CELL DISTRIBUTION WIDTH 16.0 % 12.9-16.9 N (test code = RDW) PLATELET COUNT (test code = 254 150-440 N PLT) MEAN PLATELET VOLUME (test code 10.2 fL 8.9-12.4 N = MPV) TOTAL CELLS COUNTED (test code #CELLS = TCC) SEGMENTED NEUTROPHILS (test % 43-65 code = SEG) LYMPHOCYTE (test code = LYMPH) % 20.5-45.5 451POC-Glucose [id number] 19:01:00 Test Item Value Reference Range Interpretation Comments POC-Glucose Meter (test 122 mg/dL 70-110 H : TE STED AT [facility] code = 1538) [address] [facility] [place], [address]: Promotional Model/Techni jalen ID = [id number] for ARMEN SCHROEDER Lab Interpretation (test Abnormal code = 97794-1) [facility] [id number] 19:01:00 Test Item Value Reference Range Interpretation Comments POC-GLUCOSE METER 122 mg/dL 70-110 H : [facility] (BE[facility]ER[facility] (test code = [facility], 1538) [address]: Promotional Model/Techni jalen ID = [id number] for SA NCHEZ, ARMEN POCT-GLUCOSE [id number] 13:20:00 Test Item Value Reference Range Interpretation Comments POC-GLUCOSE METER 110 mg/dL 70-110 : [facility] (BEAKER[facility] (test code = [facility], 1538) [address]: Promotional Model/Techni jalen ID = [id number] for SA NCHEZ, ARMEN [id number] 07:43:00 Test Item Value Reference Range Interpretation Comments Magnesium (test code = 2.1 mg/dL 1.6-2.6 Speci men 61537-2) slightly hemolyzed PAUL (test code = PAUL) Promotional Model ID - LM Lab Interpretation Normal (test code = 36323-7) [facility] 07:43:00 Test Item Value Reference Range Interpretation Comments Phosphorus (test code 3.3 mg/dL 2.3-4.7 Specim en = 2777-1) slightly hemolyzed PAUL (test code = PAUL) Promotional Model ID - LM Lab Interpretation Normal (test code = 75089-3) [facility]-10 07:43:00 Test Item Value Reference Range Interpretation Comments MAGNESIUM (BEAKER) 2.1 mg/dL 1.6-2.6 Specimen slightly (test code = 627) hemolyzed Promotional Model ID - [id number] 07:43:00 Test Item Value Reference Range Interpretation Comments PHOSPHORUS (BEAKER) 3.3 mg/dL 2.3-4.7 Specimen slightly (test code = 604) hemolyzed Promotional Model ID - LMBASIC METABOLIC [id number] 07:43:00 Test Item Value Reference Range Interpretation Comments SODIUM (BEAKER) 134 meq/L 136-145 L (test code = 381) POTASSIUM (BEAKER) 3.6 meq/L 3.5-5.1 Specimen slightly (test code = 379) hemolyzed CHLORIDE (BEAKER) 95 meq/L 98-107 L (test code = 382) CO2 (BEAKER) (test 30 meq/L 22-29 H code = 355) BLOOD UREA NITROGEN 22 mg/dL 7-21 H (BEAKER) (test code = 354) CREATININE (BEAKER) 0.58 mg/dL 0.57-1.25 Specimen slightly (test code = 358) hemolyzed GLUCOSE RANDOM 95 mg/dL 70-105 (BEAKER) (test code = 652) CALCIUM (BEAKER) 9.2 mg/dL 8.4-10.2 (test code = 697) EGFR (BEAKER) (test 107 mL/min/1.73 ESTIM ATED GFR IS code = 1092) sq m NOT ACCURATE CREATININE CLEARANCE IN PREDICTING GLOMERULAR FILTRATION RATE . ESTIMATED GFR I S NOT APPLICABLE FOR DIALYSIS PATIEN TS. Promotional Model ID - LMPOCT-GLUCOSE [id number] 06:28:00 Test Item Value Reference Range Interpretation Comments POC-GLUCOSE METER 105 mg/dL 70-110 : Notified RN/MD: (BEAKER) (test code = TESTED AT [facility] 67[address] 1538) [facility] [place], [address]: Promotional Model/Techni jalen ID = [id number] for GORDY ATT, [place] POCT-GLUCOSE [id number] 23:16:00 Test Item Value Reference Range Interpretation Comments POC-GLUCOSE METER 134 mg/dL 70-110 H : [facility] (BEAKER[facility] (test code = [facility], 1538) [address]: Promotional Model/Techni jalen ID = [id number] for GORDY ATT, [place] POCT-GLUCOSE [id number] 19:10:00 Test Item Value Reference Range Interpretation Comments POC-GLUCOSE METER 101 mg/dL 70-110 : [facility] (BEAKER) (test code = [facility], 1538) [address]: Promotional Model/Techni jalen ID = [id number] for Vi MORALESULMA POCT-GLUCOSE [id number] 12:52:00 Test Item Value Reference Range Interpretation Comments POC-GLUCOSE METER 88 mg/dL 70-110 : [facility] (BEAKER) (test code = [facility], 1538) [address]: Promotional Model/Techni jalen ID = [id number] for ARMEN SAAB [id number] 06:42:00 Test Item Value Reference Range Interpretation Comments PHOSPHORUS (BEAKER) (test code = 3.3 mg/dL 2.3-4.7 604) Promotional Model ID - VLADIMIR [id number] 06:42:00 Test Item Value Reference Range Interpretation Comments MAGNESIUM (BEAKER) (test code = 2.1 mg/dL 1.6-2.6 627) Promotional Model ID - VLADIMIR WBASIC METABOLIC [id number] 06:42:00 Test Item Value Reference Range Interpretation Comments SODIUM (BEAKER) 133 meq/L 136-145 L (test code = 381) POTASSIUM (BEAKER) 3.5 meq/L 3.5-5.1 (test code = 379) CHLORIDE (BEAKER) 94 meq/L 98-107 L (test code = 382) CO2 (BEAKER) (test 32 meq/L 22-29 H code = 355) BLOOD UREA NITROGEN 23 mg/dL 7-21 H (BEAKER) (test code = 354) CREATININE (BEAKER) 0.60 mg/dL 0.57-1.25 (test code = 358) GLUCOSE RANDOM 95 mg/dL 70-105 (BEAKER) (test code = 652) CALCIUM (BEAKER) 9.4 mg/dL 8.4-10.2 (test code = 697) EGFR (BEAKER) (test 103 mL/min/1.73 ESTIM ATED GFR IS code = 1092) sq m NOT ACCURATE CREATININE CLEARANCE IN PREDICTING GLOMERULAR FILTRATION RATE . ESTIMATED GFR I S NOT APPLICABLE FOR DIALYSIS PATIEN TS. Promotional Model ID - VLADIMIR WPOCT-GLUCOSE [id number] 06:03:00 Test Item Value Reference Range Interpretation Comments POC-GLUCOSE METER 81 mg/dL 70-110 : TESTED A T [facility] 6720 (BEAKER) (test code = [facility], 1538) [address]: Promotional Model/Techni jalen ID = [id number] for WYAT T, [place] POCT-GLUCOSE [id number] 23:17:00 Test Item Value Reference Range Interpretation Comments POC-GLUCOSE METER 127 mg/dL 70-110 H : TESTED A T [facility] 6720 (BEAKER) (test code = [facility], 1538) [address]: Promotional Model/Techni jalen ID = [id number] for W[place] ATT, [place] POCT-GLUCOSE [id number] 18:13:00 Test Item Value Reference Range Interpretation Comments POC-GLUCOSE METER 111 mg/dL 70-110 H : TESTED A T [facility] 6720 (BEAKER) (test code = [facility], 1538) [address]: Promotional Model/Techni jalen ID = [id number] for DI AZ, ISSAIRIS POCT-GLUCOSE [id number] 12:32:00 Test Item Value Reference Range Interpretation Comments POC-GLUCOSE METER 124 mg/dL 70-110 H : TESTED A T [facility] 67[address] (BEAKER) (test code = [facility], 1538) [address]: Promotional Model/Techni jalen ID = [id number] for DI [place], ISSAIRIS [id number] 07:31:00 Test Item Value Reference Range Interpretation Comments PHOSPHORUS (BEAKER) (test code = 3.1 mg/dL 2.3-4.7 604) Promotional Model ID - KEY [id number] 07:31:00 Test Item Value Reference Range Interpretation Comments MAGNESIUM (BEAKER) (test code = 2.1 mg/dL 1.6-2.6 627) Promotional Model ID - KEY MBASIC METABOLIC [id number] 07:31:00 Test Item Value Reference Range Interpretation Comments SODIUM (BEAKER) 133 meq/L 136-145 L (test code = 381) POTASSIUM (BEAKER) 3.1 meq/L 3.5-5.1 L (test code = 379) CHLORIDE (BEAKER) 95 meq/L 98-107 L (test code = 382) CO2 (BEAKER) (test 31 meq/L 22-29 H code = 355) BLOOD UREA NITROGEN 27 mg/dL 7-21 H (BEAKER) (test code = 354) CREATININE (BEAKER) 0.60 mg/dL 0.57-1.25 (test code = 358) GLUCOSE RANDOM 113 mg/dL 70-105 H (BEAKER) (test code = 652) CALCIUM (BEAKER) 9.2 mg/dL 8.4-10.2 (test code = 697) EGFR (BEAKER) (test 103 mL/min/1.73 ESTIM ATED GFR IS code = 1092) sq m NOT ACCURATE CREATININE CLEARANCE IN PREDICTING GLOMERULAR FILTRATION RATE . ESTIMATED GFR I S NOT APPLICABLE FOR DIALYSIS PATIEN TS. Promotional Model ID - KEY MPOCT-GLUCOSE [id number] 05:23:00 Test Item Value Reference Range Interpretation Comments POC-GLUCOSE METER 116 mg/dL 70-110 H : TESTED A T [facility] 6720 (BEAKER) (test code = [facility], 1538) [address]: Promotional Model/Techni jalen ID = [id number] for DELGADO LL, OSHANELL POCT-GLUCOSE [id number] 00:46:00 Test Item Value Reference Range Interpretation Comments POC-GLUCOSE METER 130 mg/dL 70-110 H : TESTED A T [facility] 6720 (BEAKER) (test code = [facility], 1538) [address]: Promotional Model/Techni jalen ID = [id number] for DELGADO LL, OSHANELL POCT-GLUCOSE [id number] 18:35:00 Test Item Value Reference Range Interpretation Comments POC-GLUCOSE METER 101 mg/dL 70-110 : TESTED A T [facility] 6720 (BEAKER) (test code = [facility], 1538) [address]: Promotional Model/Techni jalen ID = [id number] for HARVEY NGUYEN ISSAIRIS POCT-GLUCOSE [id number] 12:31:00 Test Item Value Reference Range Interpretation Comments POC-GLUCOSE METER 96 mg/dL 70-110 : TESTED A T [facility] 6720 (BEAKER) (test code = [facility], 1538) [address]: Promotional Model/Techni jalen ID = [id number] for RANDA ISSAIRIS POCT-GLUCOSE [id number] 06:37:00 Test Item Value Reference Range Interpretation Comments POC-GLUCOSE METER 76 mg/dL 70-110 : TESTED A T [facility] 6720 (BEAKER) (test code = [facility], 1538) [address]: Promotional Model/Techni jalen ID = [id number] for ZAK SEVERINO [id number] 06:14:00 Test Item Value Reference Range Interpretation Comments PHOSPHORUS (BEAKER) (test code = 3.7 mg/dL 2.3-4.7 604) Promotional Model ID - KEY [id number] 06:14:00 Test Item Value Reference Range Interpretation Comments MAGNESIUM (BEAKER) (test code = 2.2 mg/dL 1.6-2.6 627) Promotional Model ID - KEY MBASIC METABOLIC [id number] 06:14:00 Test Item Value Reference Range Interpretation Comments SODIUM (BEAKER) 132 meq/L 136-145 L (test code = 381) POTASSIUM (BEAKER) 3.0 meq/L 3.5-5.1 L (test code = 379) CHLORIDE (BEAKER) 94 meq/L 98-107 L (test code = 382) CO2 (BEAKER) (test 31 meq/L 22-29 H code = 355) BLOOD UREA NITROGEN 31 mg/dL 7-21 H (BEAKER) (test code = 354) CREATININE (BEAKER) 0.65 mg/dL 0.57-1.25 (test code = 358) GLUCOSE RANDOM 116 mg/dL 70-105 H (BEAKER) (test code = 652) CALCIUM (BEAKER) 9.3 mg/dL 8.4-10.2 (test code = 697) EGFR (BEAKER) (test 94 mL/min/1.73 ESTIMA CRISTINA GFR IS code = 1092) sq m NOT ACCURATE CREATININE CLEARANCE IN PREDICTING GLOMERULAR FILTRATION RATE . ESTIMATED GFR I S NOT APPLICABLE FOR DIALYSIS PATIEN TS. Promotional Model ID - KEY MPOCT-GLUCOSE [id number] 23:59:00 Test Item Value Reference Range Interpretation Comments POC-GLUCOSE METER 134 mg/dL 70-110 H : TESTED A T [facility] 6720 ([employer]) (test code = [facility], 1538) [address]: Promotional Model/Techni jalen ID = [id number] for ZAK LOCKE MS POCT-GLUCOSE [id number] 18:24:00 Test Item Value Reference Range Interpretation Comments POC-GLUCOSE METER 83 mg/dL 70-110 : TESTED A T [facility] 6720 ([employer]) (test code = [facility], 1538) [address]: Promotional Model/Techni jalen ID = [id number] for SANC ARMEN GOMES POCT-GLUCOSE [id number] 13:19:00 Test Item Value Reference Range Interpretation Comments POC-GLUCOSE METER 70 mg/dL 70-110 : TESTED A T [facility] 6720 ([employer]) (test code = [facility], 1538) [address]: Promotional Model/Techni jalen ID = [id number] for SANC ELISEO, ARMEN Clostridium difficile GDH [id number] 12:04:00 Test Item Value Reference Range Interpretation Comments C. Difficle Toxin Negative Negative (test code = 8687153242) C. Difficile GDH Positive Negative A C. difficil e Antigen (test code = present but toxin [id number]) not detected. Indicates colonization wi th non-toxigenic strain or level of toxin below detectable levels. No nee d for enteric isolation. Treatment is rarely needed (only when stro ng clinical suspicion for Clostridium difficile infection) PAUL (test code = Testing performed PAUL) by [employer] Rapid Cassette Assay. For GDH, published sensitivity of the assay is 98.7% compared to cytotoxicity testing. For Toxin AB, published sensitivity is 87.8% and specificity 99.4% compared to cytotoxicity testing.Verificati on of kit performance was done by the [facility] Microbiology Lab prior to clinical use. Lab Interpretation Abnormal (test code = 85537-8) [facility] DI[facility]IC[facility]DH [id number] 12:04:00 Test Item Value Reference Range Interpretation Comments CDT TOXIN (test code Negative Negative = [id number]) CDT GDH ANTIGEN Positive Negative A C. difficile present but (test code = toxin not detec cristina. 7727033352) Indicates colon ization with non-toxige ava strain or level of tox in below detectable leve ls. No need for enteri c isolation. Prudencio atment is rarely needed ( only when strong clinical suspicion for Clostridium difficile infection) Testing performed by [employer] Rapid Cassette Assay. For GDH, published sensitivity of the assay is 98.7% compared to cytotoxicity testing. For Toxin AB, published sensitivity is 87.8% and specificity 99.4% compared to cytotoxicity testing.Verification of kit performance was done by the [facility] prior to clinical use.[id number] 07:13:00 Test Item Value Reference Range Interpretation Comments PHOSPHORUS (BEAKER) (test code = 3.4 mg/dL 2.3-4.7 604) Promotional Model ID - [id number] 07:13:00 Test Item Value Reference Range Interpretation Comments MAGNESIUM (BEAKER) (test code = 2.2 mg/dL 1.6-2.6 627) Promotional Model ID - LMBASIC METABOLIC [id number] 07:13:00 Test Item Value Reference Range Interpretation Comments SODIUM (BEAKER) 132 meq/L 136-145 L (test code = 381) POTASSIUM (BEAKER) 3.4 meq/L 3.5-5.1 L (test code = 379) CHLORIDE (BEAKER) 94 meq/L 98-107 L (test code = 382) CO2 (BEAKER) (test 31 meq/L 22-29 H code = 355) BLOOD UREA NITROGEN 30 mg/dL 7-21 H (BEAKER) (test code = 354) CREATININE (BEAKER) 0.61 mg/dL 0.57-1.25 (test code = 358) GLUCOSE RANDOM 111 mg/dL 70-105 H (BEAKER) (test code = 652) CALCIUM (BEAKER) 9.4 mg/dL 8.4-10.2 (test code = 697) EGFR (BEAKER) (test 101 mL/min/1.73 ESTIM ATED GFR IS code = 1092) sq m NOT ACCURATE CREATININE CLEARANCE IN PREDICTING GLOMERULAR FILTRATION RATE . ESTIMATED GFR I S NOT APPLICABLE FOR DIALYSIS PATIEN TS. Promotional Model ID - LMPOCT-GLUCOSE [id number] 06:49:00 Test Item Value Reference Range Interpretation Comments POC-GLUCOSE METER 82 mg/dL 70-110 : TESTED A T [facility] 6720 (BEAKER) (test code = [place], 1538) [address]: Promotional Model/Techni jalen ID = [id number] for ZAK SEVERINO CBC W/PLT COUNT & AUTO [id number] 06:11:00 Test Item Value Reference Range Interpretation Comments WHITE BLOOD CELL COUNT (BEAKER) 3.0 K/ L 3.5-10.5 L (test code = 775) RED BLOOD CELL COUNT (BEAKER) 3.70 M/ L 3.93-5.22 L (test code = 761) HEMOGLOBIN (BEAKER) (test code = 10.6 GM/DL 11.2-15.7 L 410) HEMATOCRIT (BEAKER) (test code = 33.8 % 34.1-44.9 L 411) MEAN CORPUSCULAR VOLUME (BEAKER) 91.4 fL 79.4-94.8 (test code = 753) MEAN CORPUSCULAR HEMOGLOBIN 28.6 pg 25.6-32.2 (BEAKER) (test code = 751) MEAN CORPUSCULAR HEMOGLOBIN CONC 31.4 GM/DL 32.2-35.5 L (BEAKER) (test code = 752) RED CELL DISTRIBUTION WIDTH 14.8 % 11.7-14.4 H (BEAKER) (test code = 412) PLATELET COUNT (BEAKER) (test 220 K/CU MM 150-450 code = 756) MEAN PLATELET VOLUME (BEAKER) 11.8 fL 9.4-12.3 (test code = 754) NUCLEATED RED BLOOD CELLS 0 /100 WBC 0-0 (BEAKER) (test code = 413) NEUTROPHILS RELATIVE PERCENT 44 % (BEAKER) (test code = 429) LYMPHOCYTES RELATIVE PERCENT 38 % (BEAKER) (test code = 430) MONOCYTES RELATIVE PERCENT 10 % (BEAKER) (test code = 431) EOSINOPHILS RELATIVE PERCENT 6 % (BEAKER) (test code = 432) BASOPHILS RELATIVE PERCENT 1 % (BEAKER) (test code = 437) NEUTROPHILS ABSOLUTE COUNT 1.31 K/ L 1.56-6.13 L (BEAKER) (test code = 670) LYMPHOCYTES ABSOLUTE COUNT 1.14 K/ L 1.18-3.74 L (BEAKER) (test code = 414) MONOCYTES ABSOLUTE COUNT (BEAKER) 0.31 K/ L 0.24-0.36 (test code = 415) EOSINOPHILS ABSOLUTE COUNT 0.17 K/ L 0.04-0.36 (BEAKER) (test code = 416) BASOPHILS ABSOLUTE COUNT (BEAKER) 0.04 K/ L 0.01-0.08 (test code = 417) IMMATURE GRANULOCYTES-RELATIVE 1 % 0-1 PERCENT (BEAKER) (test code = 2801) POCT-GLUCOSE [id number] 00:12:00 Test Item Value Reference Range Interpretation Comments POC-GLUCOSE METER 134 mg/dL 70-110 H : TESTED A T [facility] 6720 (BEAKER) (test code = [facility], [facility]8) 35[address]: Promotional Model/Techni jalen ID = [id number] for ZAK LOCKE MS POCT-GLUCOSE [id number] 18:54:00 Test Item Value Reference Range Interpretation Comments POC-GLUCOSE METER 109 mg/dL 70-110 : TESTED A T [facility] 6720 (BEAKER) (test code = [facility], 1538) 29908: Promotional Model/Techni jalen ID = [id number] for SA NCHEZ, ARMEN POCT-GLUCOSE [id number] 13:56:00 Test Item Value Reference Range Interpretation Comments POC-GLUCOSE METER 100 mg/dL 70-110 : TESTED A T [facility] 6720 (BEAKER) (test code = [facility], 1538) 43403: Promotional Model/Techni jalen ID = [id number] for SA NCHEZ, ARMEN [id number] 06:37:00 Test Item Value Reference Range Interpretation Comments PHOSPHORUS (BEAKER) (test code = 3.5 mg/dL 2.3-4.7 604) Promotional Model ID - [id number] 06:37:00 Test Item Value Reference Range Interpretation Comments MAGNESIUM (BEAKER) (test code = 2.3 mg/dL 1.6-2.6 627) Promotional Model ID - ASCOMPREHENSIVE METABOLIC [id number] 06:37:00 Test Item Value Reference Range Interpretation Comments TOTAL PROTEIN 6.2 gm/dL 6.0-8.3 (BEAKER) (test code = 770) ALBUMIN (BEAKER) 3.2 g/dL 3.5-5.0 L (test code = 1145) ALKALINE PHOSPHATASE 182 U/L 40-150 H (BEAKER) (test code = 346) BILIRUBIN TOTAL 0.5 mg/dL 0.2-1.2 (BEAKER) (test code = 377) SODIUM (BEAKER) (test 133 meq/L 136-145 L code = 381) POTASSIUM (BEAKER) 3.4 meq/L 3.5-5.1 L (test code = 379) CHLORIDE (BEAKER) 94 meq/L 98-107 L (test code = 382) CO2 (BEAKER) (test 30 meq/L 22-29 H code = 355) BLOOD UREA NITROGEN 34 mg/dL 7-21 H (BEAKER) (test code = 354) CREATININE (BEAKER) 0.61 mg/dL 0.57-1.25 (test code = 358) GLUCOSE RANDOM 117 mg/dL 70-105 H (BEAKER) (test code = 652) CALCIUM (BEAKER) 9.1 mg/dL 8.4-10.2 (test code = 697) AST (SGOT) (BEAKER) 62 U/L 5-34 H (test code = 353) ALT (SGPT) (BEAKER) 68 U/L 6-55 H (test code = 347) EGFR (BEAKER) (test 101 ESTIMATE D GFR IS code = 1092) mL/min/1.73 sq NOT ACCURA TE m CREATININE CLEARANCE IN PREDICTING GLOMERULAR FILTRATION RATE . ESTIMATED GFR I S NOT APPLICABLE FOR DIALYSIS PATIEN TS. Promotional Model ID - [id number] 06:24:00 Test Item Value Reference Range Interpretation Comments Prealbumin (test code = 20 mg/dL 14-45 87704-6) PAUL (test code = PAUL) Promotional Model ID - Lab Interpretation (test Normal code = 01502-2) [facility] 06:24:00 Test Item Value Reference Range Interpretation Comments PREALBUMIN (BEAKER) (test code = 20 mg/dL 14-45 586) Promotional Model ID - ASPOCT-GLUCOSE [id number] 01:31:00 Test Item Value Reference Range Interpretation Comments POC-GLUCOSE METER 121 mg/dL 70-110 H : TESTED A T [facility] 6720 (BEAKER) (test code = SID Nagel [facility], 1538) 27875: Promotional Model/Techni jalen ID = [id number] for DELGADO LL, OSHANELL POCT-GLUCOSE [id number] 18:30:00 Test Item Value Reference Range Interpretation Comments POC-GLUCOSE METER 122 mg/dL 70-110 H : TESTED A T [facility] 6720 (BEAKER) (test code = [facility], 1538) 03312: Promotional Model/Techni jalen ID = [id number] for SA NCHEZ, ARMEN Protein, Total, Peritoneal [id number] 15:00:00 Test Item Value Reference Range Interpretation Comments PROTEIN, TOTAL, PERITONEAL FLUID (test 4 code = 2883-7) [facility] CATH/PICC >5 Y.O. WITH IMAGING 2019-04-26 14:44:00Reason for exam:->For chemotherapy/ IV ACCESSAddendum BeginsREPORT STATUS:A Addendum: April 26, 2019 at 1445 hours This addendum is for billing and documentation purposes only. Maximum sterile barrier techniques were utilized during this PICC line placement. The report is otherwise unchanged. Signed: Brayan Mesa MDRshannonort Verified Date/Time: 04/26/2019 14:44:30 Reading Location: [facility] Diagnostic Imaging Reading Room -[facility] 1.310.12Addendum EndsFINAL REPORT History: Uterine cancer. Need for long-term central IV access for chemotherapy initiation. PROCEDURE: Following informed written consent,the patient's right upper extremity was prepped and draped in the usual sterile manner. 2% lidocaine was given locally for anesthesia. No conscious sedation was administered. Using ultrasound guidance a micropuncture needle, access was gained to the patient's right upper extremity cephalic vein. A 5 Malawian dual-lumen bile flow PICC line was cut to a length of 41 cm and placed through a peel-away sheath and over a wire centrally into the superior vena cava under fluoroscopic guidance. The catheter was flushed with saline and secured to the skin using 2-0 silk suture. Overall, the patient tolerated the procedure well without immediate complications and was discharged from the department in stable condition. FINDINGS: Spot image of the chest following PICC line placement demonstrates a right upper extremity PICC to lie in expected position with its tip near the cavoatrial junction. Both ports of the PICC line flush and aspirate without difficulty. Ultrasound images obtained during the procedure show patent and compressible right cephalic vein. There is no evidence for thrombus. These images were obtained and archived to PACS. IMPRESSION: 1. Successful uncomplicated placement of a 5 Malawian dual-lumen right upper extremity PICC line as described above. Total fluoroscopy time: 0.3 minutes. Estimated total patient dose reported as (Ka,r): 1.9 mGy Note: Patient was initially referred to the department for a chest port placement. However, the patient was unable to lie flat on the angiographic table. Following discussion with referring oncologist by telephone, the decision was made to place a PICC line at this time for inpatient initiation of chemotherapy. Chest port placement will be considered in the future once the patient is able to lie flat. Signed: Brayan Mesa Verified Date/Time: 04/19/2019 19:35:07 Reading Location: [place] [address] Angio Body Reading Room POCT-GLUCOSE [id number] 13:03:00 Test Item Value Reference Range Interpretation Comments POC-GLUCOSE METER 97 mg/dL 70-110 : TESTED A T [facility] 6720 (Best Before Media) (test code = [facility], 1538) 68052: Promotional Model/Techni jalen ID = [id number] for JUAREZMolly ARMEN GOMES POCT-GLUCOSE [id number] 07:56:00 Test Item Value Reference Range Interpretation Comments POC-GLUCOSE METER 126 mg/dL 70-110 H : TESTED A T [facility] 6720 ([employer] Before [employer]) (test code = [facility], 1538) 99508: Promotional Model/Techni jalen ID = [id number] for LENIN FLORES POCT-GLUCOSE [id number] 02:08:00 Test Item Value Reference Range Interpretation Comments POC-GLUCOSE METER 120 mg/dL 70-110 H : TESTED A T [facility] 6720 (BEAKER) (test code = [facility], 153) 74332: Promotional Model/Techni jalen ID = [id number] for DELGADO LL, OSHANELL POCT-GLUCOSE [id number] 19:44:00 Test Item Value Reference Range Interpretation Comments POC-GLUCOSE METER 119 mg/dL 70-110 H : TESTED A T [facility] 6720 (BEAKER) (test code = [facility], 153) 99780: Promotional Model/Techni jalen ID = [id number] for DELGADO LL, OSHANELL Body fluid culture + gram [id number] 12:50:00 Test Item Value Reference Range Interpretation Comments Result (test code = 6463-4) No growth Gram Stain Result (test No organisms seen code = 1123) [facility] Center[facility] + GRAM [id number] 12:50:00 Test Item Value Reference Range Interpretation Comments CULTURE (BEAKER) (test No growth code = 1095) GRAM STAIN RESULT <1+ White blood cells (BEAKER) (test code = seen 1123) GRAM STAIN RESULT No organisms seen (BEAKER) (test code = 41357) POCT-GLUCOSE [id number] 07:10:00 Test Item Value Reference Range Interpretation Comments POC-GLUCOSE METER 124 mg/dL 70-110 H : TESTED A T [facility] 6720 (BEAKER) (test code = [facility], 153) 31806: Promotional Model/Techni jalen ID = [id number] for IN MS, ZAK POCT-GLUCOSE [id number] 00:10:00 Test Item Value Reference Range Interpretation Comments POC-GLUCOSE METER 128 mg/dL 70-110 H : TESTED A T [facility] 6720 (BEAKER) (test code = [facility], 1538) 35004: Promotional Model/Techni jalen ID = [id number] for IN MS, ZAK POCT-GLUCOSE [id number] 18:16:00 Test Item Value Reference Range Interpretation Comments POC-GLUCOSE METER 126 mg/dL 70-110 H : TESTED A T [facility] 6720 (BEAKER) (test code = [facility], 1538) 80122: Promotional Model/Techni jalen ID = [id number] for LINCOLN CLAUDIO RAD, ABDOMEN/KUB, 1 VIEW [id number] 14:07:00Reason for exam:->abd painFINAL REPORT Abdomen dated to April 24, 2019 Comment:Abdomen was examined in the supine and erect position. Air is seen in the small and large bowel. There is a dilatation of the small bowel in the abdomen measuring up to 3 cm in diameter. No mass, pathological calcification, or free air is present. Impression: Early small bowel obstruction or ileus. Signed: Edvin Yanes MDReport Verified Date/Time: 04/24/2019 14:07:31 Reading Location: [address] Ortho Consult Reading Room XR abdomen / KUB 1 [id number] 14:07:00Interface, External Ris In - 04/24/2019 2:09 PM CSTFINAL REPORT Abdomen dated to April 24, 2019 Comment:Abdomen was examined in the supine and erect position. Air is seen in the small and large bowel. There is a dilatation of the small bowel in the abdomen measuring up to 3 cm in diameter. No mass, pathological calcification, or free air is present. Impression: Early small william wel obstruction or ileus. Signed: Edvin Yanes MDReport Verified Date/Time: 04/24/2019 14:07:31 Reading Location: [address] Ortho Consult [facility] [id number] 14:03:00 Test Item Value Reference Range Interpretation Comments POC-GLUCOSE METER 136 mg/dL 70-110 H : TESTED A T [facility] 6720 (BEAKER) (test code = SID Nagel [facility], 1538) 85100: Promotional Model/Techni jalen ID = [id number] for LINCOLN CLAUDIO [id number] 06:18:00 Test Item Value Reference Range Interpretation Comments PHOSPHORUS (BEAKER) (test code = 3.2 mg/dL 2.3-4.7 604) Promotional Model ID - PIAYA LPOCT-GLUCOSE [id number] 05:31:00 Test Item Value Reference Range Interpretation Comments POC-GLUCOSE METER 116 mg/dL 70-110 H : Notified RN/MD: TESTED ([facility]) (test code AT [facility] [address] = 1538) [facility], [facility] 30: Promotional Model/Techni jalen ID = [id number] for RIP KINGSTONINE POCT-GLUCOSE [id number] 23:32:00 Test Item Value Reference Range Interpretation Comments POC-GLUCOSE METER 128 mg/dL 70-110 H : Notified RN/MD: TESTED ([facility]) (test code AT [facility] [address] = 1538) [facility], [facility] 30: Promotional Model/Techni jalen ID = [id number] for RIP KINGSTONINE POCT-GLUCOSE [id number] 18:47:00 Test Item Value Reference Range Interpretation Comments POC-GLUCOSE METER 134 mg/dL 70-110 H : TESTED A T [facility] 6720 ([facility]) (test code = SID Nagel [facility], 1538) 97178: Promotional Model/Techni jalen ID = [id number] for RIP LONG POCT-GLUCOSE [id number] 14:12:00 Test Item Value Reference Range Interpretation Comments POC-GLUCOSE METER 130 mg/dL 70-110 H : TESTED A T [facility] 6720 ([facility]) (test code = ZARIARI Shona [facility], 1538) 43570: Promotional Model/Techni jalen ID = [id number] for ARMEN MORALES U/S, [id number] 12:35:00Reason for exam:->ascitesShould this be performed at the bedside?->NoFINAL REPORT PROCEDURE: Ultrasound-guided paracentesis Procedural PersonnelAttending physician(s): Yong Sky MD Pre-procedure diagnosis: AscitesPost-procedure diagnosis: SameInd ication: Ascites with pain or pressure symptomsAdditional clinical history: None Complications: No immediate complications. IMPRESSION:Initial ultrasound shows a small amount of loculated midline fluid. Ultrasound-guided paracentesis with drainage of 30 mL of brown fluid. Plan: Fluid sent for further analysis.Resume care by clinical team. PROCEDURE SUMMARY:- Limited abdominal ultrasound- Ultrasound-guided paracentesis- Additional procedure(s): None PROCEDURE DETAILS: Pre-procedureConsent: Informed consent for the procedure including risks, benefits and alternatives was obtained and time-out was performed prior to the procedure.Preparation: The site was prepared and draped using maximal sterile barrier technique including cutaneous antisepsis. Anesthesia/sedationLevel of anesthesia/sedation: No sedationAnesthesia/sedation administeredby: Not applicableTotal intra-service sedation time (minutes): N.A Initial abdominal ultrasoundInitial abdominal ultrasound was performed.Findings: Small loculated fluid. A safe window for paracentesiswas identified. ParacentesisLocal anesthesia was administered. The peritoneal cavity was accessed and fluid return confirmed position. Ascites was drained. The catheter was then removed, and a sterile bandage was applied.Paracentesis access technique: Real-time ultrasound guidanceCatheter placed: 5F YuehPost-drainage ultrasound: No visible ascites Additional DetailsAdditional description of procedure: NoneEquipment details: NoneSpecimens removed: Abdominal fluidEstimated blood loss (mL): Less than 10Standardized report: SIR_Paracentesis_v3 AttestationSigner name: Yong Camejo attest that I was present for the entire procedure. I reviewed the stored images and agree with the report as written. Signed: Yong Sky MDReport Verified Date/Time: 04/23/2019 12:35:06 Reading Location: [address] Body Reading Room PHOSPHORUS 2019-04-23 07:38:00 Test Item Value Reference Range Interpretation Comments PHOSPHORUS (BEAKER) (test code = 3.3 mg/dL 2.3-4.7 604) Promotional Model ID - PIAYA [id number] 07:38:00 Test Item Value Reference Range Interpretation Comments MAGNESIUM (BEAKER) (test code = 2.4 mg/dL 1.6-2.6 627) Promotional Model ID - PIAYA LBASIC METABOLIC [id number] 07:38:00 Test Item Value Reference Range Interpretation Comments SODIUM (BEAKER) 135 meq/L 136-145 L (test code = 381) POTASSIUM (BEAKER) 4.6 meq/L 3.5-5.1 (test code = 379) CHLORIDE (BEAKER) 101 meq/L 98-107 (test code = 382) CO2 (BEAKER) (test 27 meq/L 22-29 code = 355) BLOOD UREA NITROGEN 18 mg/dL 7-21 (BEAKER) (test code = 354) CREATININE (BEAKER) 0.58 mg/dL 0.57-1.25 (test code = 358) GLUCOSE RANDOM 102 mg/dL 70-105 (BEAKER) (test code = 652) CALCIUM (BEAKER) 9.3 mg/dL 8.4-10.2 (test code = 697) EGFR (BEAKER) (test 107 mL/min/1.73 ESTIM ATED GFR IS code = 1092) sq m NOT ACCURATE CREATININE CLEARANCE IN PREDICTING GLOMERULAR FILTRATION RATE . ESTIMATED GFR I S NOT APPLICABLE FOR DIALYSIS PATIEN TS. Promotional Model ID - PIAYA LCBC W/PLT COUNT & AUTO [id number] 07:09:00 Test Item Value Reference Range Interpretation Comments WHITE BLOOD CELL COUNT (BEAKER) 7.3 K/ L 3.5-10.5 (test code = 775) RED BLOOD CELL COUNT (BEAKER) 4.19 M/ L 3.93-5.22 (test code = 761) HEMOGLOBIN (BEAKER) (test code = 11.7 GM/DL 11.2-15.7 410) HEMATOCRIT (BEAKER) (test code = 38.2 % 34.1-44.9 411) MEAN CORPUSCULAR VOLUME (BEAKER) 91.2 fL 79.4-94.8 (test code = 753) MEAN CORPUSCULAR HEMOGLOBIN 27.9 pg 25.6-32.2 (BEAKER) (test code = 751) MEAN CORPUSCULAR HEMOGLOBIN CONC 30.6 GM/DL 32.2-35.5 L (BEAKER) (test code = 752) RED CELL DISTRIBUTION WIDTH 15.3 % 11.7-14.4 H (BEAKER) (test code = 412) PLATELET COUNT (BEAKER) (test 251 K/CU MM 150-450 code = 756) MEAN PLATELET VOLUME (BEAKER) 11.2 fL 9.4-12.3 (test code = 754) NUCLEATED RED BLOOD CELLS 0 /100 WBC 0-0 (BEAKER) (test code = 413) NEUTROPHILS RELATIVE PERCENT 83 % (BEAKER) (test code = 429) LYMPHOCYTES RELATIVE PERCENT 13 % (BEAKER) (test code = 430) MONOCYTES RELATIVE PERCENT 3 % (BEAKER) (test code = 431) EOSINOPHILS RELATIVE PERCENT 1 % (BEAKER) (test code = 432) BASOPHILS RELATIVE PERCENT 0 % (BEAKER) (test code = 437) NEUTROPHILS ABSOLUTE COUNT 6.05 K/ L 1.56-6.13 (BEAKER) (test code = 670) LYMPHOCYTES ABSOLUTE COUNT 0.96 K/ L 1.18-3.74 L (BEAKER) (test code = 414) MONOCYTES ABSOLUTE COUNT (BEAKER) 0.18 K/ L 0.24-0.36 L (test code = 415) EOSINOPHILS ABSOLUTE COUNT 0.05 K/ L 0.04-0.36 (BEAKER) (test code = 416) BASOPHILS ABSOLUTE COUNT (BEAKER) 0.01 K/ L 0.01-0.08 (test code = 417) IMMATURE GRANULOCYTES-RELATIVE 0 % 0-1 PERCENT (BEAKER) (test code = 2801) POCT-GLUCOSE [id number] 06:19:00 Test Item Value Reference Range Interpretation Comments POC-GLUCOSE METER 107 mg/dL 70-110 : Notified RN/: (GAMALIEL) (test code = TESTED AT [place] [address]) [facility], [address]: Promotional Model/Techni jalen ID = [id number] for [place], [place] POCT-GLUCOSE [id number] 23:27:00 Test Item Value Reference Range Interpretation Comments POC-GLUCOSE METER 133 mg/dL 70-110 H : Notified RN/: (GAMALIEL) (test code = TESTED AT [place] [address] 153) [facility], [address]: Promotional Model/Techni jalen ID = [id number] for [place], [place] Body fluid cell count with [id number] 22:48:00 Test Item Value Reference Range Interpretation Comments Appearance (test code = Bloody Clear A 9335-1) Color (test code = Brown Colorless, Straw A 6824-7) RBCs (test code = 78612 <=1 /cu mm H 58484-3) Adjusted WBC Count (test 425 <=5 /cu mm H code = 67959-8) Lining Cells (test code 25 <=1 /cu mm H = 75141-2) % Segs (test code = 20 % 40174-0) % Lymphs (test code = 5 % 03536-3) % Monos (test code = 75 % 28016-8) % Eos (test code = 0 % 95913-2) % Baso (test code = 0 % 62463-4) Container Body Fluid EDTA Tube (test code = 2873) PAUL (test code = PAUL) Many lysed red cells present (not included in count), degenerated white blood cells present. Lab Interpretation (test Abnormal code = 21492-8) [facility] WITH [id number] 22:48:00 Test Item Value Reference Range Interpretation Comments APPEARANCE FLUID (BEAKER) (test Bloody Clear A code = 510) COLOR FLUID (BEAKER) (test code Brown Colorless, Straw A = 511) RBC FLUID (BEAKER) (test code = 90557 /cu mm <=1 H 513) ADJUSTED WBC FLUID (BEAKER) 425 /cu mm <=5 H (test code = 1691) LINING CELLS (BEAKER) (test 25 /cu mm <=1 H code = 1590) NEUTROPHILS FLUID (BEAKER) 20 % (test code = 1656) LYMPHS FLUID (BEAKER) (test 5 % code = 488) MONO/MACROPHAGE FLUID (BEAKER) 75 % (test code = 489) EOSINOPHILS FLUID (BEAKER) 0 % (test code = 491) BASO FLUID (BEAKER) (test code 0 % = 492) CONTAINER BODY FLUID (BEAKER) EDTA Tube (test code = 2873) Many lysed red cells present (not included in count), degenerated white blood cells present.ALBUMIN PERITONEAL [id number] 22:33:00 Test Item Value Reference Range Interpretation Comments Albumin, Peritoneal Fluid (test code = 2.5 1749-1) [facility]2020-[facility] 08:17:00 Test Item Value Reference Range Interpretation Comments PHOSPHORUS (BEAKER) (test code = 3.2 mg/dL 2.3-4.7 604) Promotional Model ID - ENRIQUE [id number] 08:17:00 Test Item Value Reference Range Interpretation Comments MAGNESIUM (BEAKER) (test code = 2.5 mg/dL 1.6-2.6 627) Promotional Model ID - ENRIQUE LBASIC METABOLIC [id number] 08:17:00 Test Item Value Reference Range Interpretation Comments SODIUM (BEAKER) 138 meq/L 136-145 (test code = 381) POTASSIUM (BEAKER) 4.0 meq/L 3.5-5.1 (test code = 379) CHLORIDE (BEAKER) 103 meq/L 98-107 (test code = 382) CO2 (BEAKER) (test 28 meq/L 22-29 code = 355) BLOOD UREA NITROGEN 17 mg/dL 7-21 (BEAKER) (test code = 354) CREATININE (BEAKER) 0.56 mg/dL 0.57-1.25 L (test code = 358) GLUCOSE RANDOM 98 mg/dL 70-105 (BEAKER) (test code = 652) CALCIUM (BEAKER) 8.9 mg/dL 8.4-10.2 (test code = 697) EGFR (BEAKER) (test 111 mL/min/1.73 ESTIM ATED GFR IS code = 1092) sq m NOT ACCURATE CREATININE CLEARANCE IN PREDICTING GLOMERULAR FILTRATION RATE . ESTIMATED GFR I S NOT APPLICABLE FOR DIALYSIS PATIEN TS. Promotional Model ID - ENRIQUE [id number] 06:37:00 Test Item Value Reference Range Interpretation Comments PROTIME (BEAKER) (test code = 13.5 seconds 11.9-14.2 759) INR (BEAKER) (test code = 370) 1.1 <=5.9 PARTIAL THROMBOPLASTIN TIME 27.0 seconds 22.5-36.0 (BEAKER) (test code = 760) Effective 08/18/2018: PT Reference Range ChangeNew: 11.9-14.2 Previous: 11.7- 14.7RECOMMENDED COUMADIN/WARFARIN INR THERAPY RANGESSTANDARD DOSE: 2.0-3.0 Includes: PROPHYLAXIS for venous thrombosis, systemic embolization; TREATMENT for venous thrombosis and/or pulmonary embolus.HIGH RISK: Target INR is2.5-3.5 for patients wiht mechanical heart valves.PROTHROMBIN TIME/[id number] 06:36:00 Test Item Value Reference Range Interpretation Comments PROTIME (BEAKER) (test code = 13.5 seconds 11.9-14.2 759) INR (BEAKER) (test code = 370) 1.1 <=5.9 Effective 08/18/2018: PT Reference Range ChangeNew: 11.9-14.2 Previous: 11.7- 14.7RECOMMENDED COUMADIN/WARFARIN INR THERAPY RANGESSTANDARD DOSE: 2.0-3.0 Includes: PROPHYLAXIS for venous thrombosis, systemic embolization; TREATMENT for venous thrombosis and/or pulmonary embolus.HIGH RISK: Target INR is2.5-3.5 for patients wiht mechanical heart valves.CBC W/PLT COUNT & AUTO [id number] 06:32:00 Test Item Value Reference Range Interpretation Comments WHITE BLOOD CELL COUNT (BEAKER) 8.1 K/ L 3.5-10.5 (test code = 775) RED BLOOD CELL COUNT (BEAKER) 4.11 M/ L 3.93-5.22 (test code = 761) HEMOGLOBIN (BEAKER) (test code = 11.5 GM/DL 11.2-15.7 410) HEMATOCRIT (BEAKER) (test code = 37.7 % 34.1-44.9 411) MEAN CORPUSCULAR VOLUME (BEAKER) 91.7 fL 79.4-94.8 (test code = 753) MEAN CORPUSCULAR HEMOGLOBIN 28.0 pg 25.6-32.2 (BEAKER) (test code = 751) MEAN CORPUSCULAR HEMOGLOBIN CONC 30.5 GM/DL 32.2-35.5 L (BEAKER) (test code = 752) RED CELL DISTRIBUTION WIDTH 14.9 % 11.7-14.4 H (BEAKER) (test code = 412) PLATELET COUNT (BEAKER) (test 267 K/CU MM 150-450 code = 756) MEAN PLATELET VOLUME (BEAKER) 11.4 fL 9.4-12.3 (test code = 754) NUCLEATED RED BLOOD CELLS 0 /100 WBC 0-0 (BEAKER) (test code = 413) NEUTROPHILS RELATIVE PERCENT 78 % (BEAKER) (test code = 429) LYMPHOCYTES RELATIVE PERCENT 15 % (BEAKER) (test code = 430) MONOCYTES RELATIVE PERCENT 6 % (BEAKER) (test code = 431) EOSINOPHILS RELATIVE PERCENT 0 % (BEAKER) (test code = 432) BASOPHILS RELATIVE PERCENT 0 % (BEAKER) (test code = 437) NEUTROPHILS ABSOLUTE COUNT 6.35 K/ L 1.56-6.13 H (BEAKER) (test code = 670) LYMPHOCYTES ABSOLUTE COUNT 1.18 K/ L 1.18-3.74 (BEAKER) (test code = 414) MONOCYTES ABSOLUTE COUNT (BEAKER) 0.49 K/ L 0.24-0.36 H (test code = 415) EOSINOPHILS ABSOLUTE COUNT 0.01 K/ L 0.04-0.36 L (BEAKER) (test code = 416) BASOPHILS ABSOLUTE COUNT (BEAKER) 0.02 K/ L 0.01-0.08 (test code = 417) IMMATURE GRANULOCYTES-RELATIVE 1 % 0-1 PERCENT (BEAKER) (test code = 2801) POCT-GLUCOSE [id number] 06:05:00 Test Item Value Reference Range Interpretation Comments POC-GLUCOSE METER 92 mg/dL 70-110 : TESTED A T [facility] 6720 (BEAKER) (test code = [facility], 153) [address]: Promotional Model/Techni jalen ID = [id number] for FRENCH SANCHEZ POCT-GLUCOSE [id number] 01:11:00 Test Item Value Reference Range Interpretation Comments POC-GLUCOSE METER 117 mg/dL 70-110 H : TESTED A T [facility] 6720 (BEAKER) (test code = [facility], 153) 66132: Promotional Model/Techni jalen ID = [id number] for FRENCH DOMINGO POCT-GLUCOSE [id number] 19:07:00 Test Item Value Reference Range Interpretation Comments POC-GLUCOSE METER 120 mg/dL 70-110 H : TESTED A T [facility] 6720 (BEAKER) (test code = [facility], 153) [address]: Promotional Model/Techni jalen ID = [id number] for LINCOLN CLAUDIO POCT-GLUCOSE [id number] 12:44:00 Test Item Value Reference Range Interpretation Comments POC-GLUCOSE METER 112 mg/dL 70-110 H : TESTED A T [facility] 6720 (BEAKER) (test code = SID Nagel [place], 1538) [address]: Promotional Model/Techni jalen ID = [id number] for LINCOLN CLAUDIO [id number] 05:58:00 Test Item Value Reference Range Interpretation Comments PHOSPHORUS (BEAKER) (test code = 3.1 mg/dL 2.3-4.7 604) Promotional Model ID - KEY [id number] 05:58:00 Test Item Value Reference Range Interpretation Comments MAGNESIUM (BEAKER) (test code = 2.5 mg/dL 1.6-2.6 627) Promotional Model ID - KEY MBASIC METABOLIC [id number] 05:58:00 Test Item Value Reference Range Interpretation Comments SODIUM (BEAKER) 140 meq/L 136-145 (test code = 381) POTASSIUM (BEAKER) 4.0 meq/L 3.5-5.1 (test code = 379) CHLORIDE (BEAKER) 107 meq/L 98-107 (test code = 382) CO2 (BEAKER) (test 27 meq/L 22-29 code = 355) BLOOD UREA NITROGEN 12 mg/dL 7-21 (BEAKER) (test code = 354) CREATININE (BEAKER) 0.56 mg/dL 0.57-1.25 L (test code = 358) GLUCOSE RANDOM 119 mg/dL 70-105 H (BEAKER) (test code = 652) CALCIUM (BEAKER) 8.8 mg/dL 8.4-10.2 (test code = 697) EGFR (BEAKER) (test 111 mL/min/1.73 ESTIM ATED GFR IS code = 1092) sq m NOT ACCURATE CREATININE CLEARANCE IN PREDICTING GLOMERULAR FILTRATION RATE . ESTIMATED GFR I S NOT APPLICABLE FOR DIALYSIS PATIEN TS. Promotional Model ID - KEY MPOCT-GLUCOSE [id number] 05:54:00 Test Item Value Reference Range Interpretation Comments POC-GLUCOSE METER 122 mg/dL 70-110 H : Notified RN/MD: TESTED (BEAKER) (test code AT [facility] [address] = 1538) [facility], 770 30: Promotional Model/Techni jalen ID = [id number] for CLAIRE KINGSTON CBC W/PLT COUNT & AUTO [id number] 05:45:00 Test Item Value Reference Range Interpretation Comments WHITE BLOOD CELL COUNT (BEAKER) 6.1 K/ L 3.5-10.5 (test code = 775) RED BLOOD CELL COUNT (BEAKER) 4.12 M/ L 3.93-5.22 (test code = 761) HEMOGLOBIN (BEAKER) (test code = 11.5 GM/DL 11.2-15.7 410) HEMATOCRIT (BEAKER) (test code = 38.0 % 34.1-44.9 411) MEAN CORPUSCULAR VOLUME (BEAKER) 92.2 fL 79.4-94.8 (test code = 753) MEAN CORPUSCULAR HEMOGLOBIN 27.9 pg 25.6-32.2 (BEAKER) (test code = 751) MEAN CORPUSCULAR HEMOGLOBIN CONC 30.3 GM/DL 32.2-35.5 L (BEAKER) (test code = 752) RED CELL DISTRIBUTION WIDTH 14.7 % 11.7-14.4 H (BEAKER) (test code = 412) PLATELET COUNT (BEAKER) (test 292 K/CU MM 150-450 code = 756) MEAN PLATELET VOLUME (BEAKER) 10.9 fL 9.4-12.3 (test code = 754) NUCLEATED RED BLOOD CELLS 0 /100 WBC 0-0 (BEAKER) (test code = 413) NEUTROPHILS RELATIVE PERCENT 86 % (BEAKER) (test code = 429) LYMPHOCYTES RELATIVE PERCENT 9 % (BEAKER) (test code = 430) MONOCYTES RELATIVE PERCENT 2 % (BEAKER) (test code = 431) EOSINOPHILS RELATIVE PERCENT 0 % (BEAKER) (test code = 432) BASOPHILS RELATIVE PERCENT 0 % (BEAKER) (test code = 437) NEUTROPHILS ABSOLUTE COUNT 5.22 K/ L 1.56-6.13 (BEAKER) (test code = 670) LYMPHOCYTES ABSOLUTE COUNT 0.54 K/ L 1.18-3.74 L (BEAKER) (test code = 414) MONOCYTES ABSOLUTE COUNT (BEAKER) 0.14 K/ L 0.24-0.36 L (test code = 415) EOSINOPHILS ABSOLUTE COUNT 0.00 K/ L 0.04-0.36 L (BEAKER) (test code = 416) BASOPHILS ABSOLUTE COUNT (BEAKER) 0.01 K/ L 0.01-0.08 (test code = 417) IMMATURE GRANULOCYTES-RELATIVE 3 % 0-1 H PERCENT (GAMALIEL) (test code = 2801) POCT-GLUCOSE [id number] 00:06:00 Test Item Value Reference Range Interpretation Comments POC-GLUCOSE METER 133 mg/dL 70-110 H : Notified RN/MD: TESTED (GAMALIEL) (test code AT [facility] [address] = 1538) [facility], 770 30: Promotional Model/Techni jalen ID = [id number] for CLAIRE KINGSTON POCT-GLUCOSE [id number] 21:46:00 Test Item Value Reference Range Interpretation Comments POC-GLUCOSE METER 127 mg/dL 70-110 H : [facility] (test code = SID Nagel [facility], 1538) [address]: Promotional Model/Techni jalen ID = [id number] for LINCOLN CLAUDIO POCT-GLUCOSE [id number] 13:33:00 Test Item Value Reference Range Interpretation Comments POC-GLUCOSE METER 115 mg/dL 70-110 H : [facility]) (test [facility] = [facility], 1538) [address]: Promotional Model/Techni jalen ID = [id number] for LINCOLN CLAUDIO CT, CHEST, WITH [id number] 10:42:00Anesthesia:->NoneFINAL REPORT CT of the Chest dated 04/20/2019 CLINICAL INFORMATION: evaluate for metastatic disease Comment: Axial images of the chest were obtained from thoracic inlet to the upper abdomen with intravenous intravenous contrast. This exam was performed according to our departmental dose- optimization program, which includes automated exposure control, adjustment of the mA and/or kV according to patient size and/or use of interactive reconstruction technique. Heart is normal in size. Great vessels are unremarkable. No adenopathy in the mediastinum or perihilar region. Trachea and mainstem bronchi are patent. There is moderate bilateral pleural effusion with bibasilar subsegmental atelectasis. Subsegmental atelectasis is also seen in the lingula and right mid lobe but. The rest of the lungs are clear. No nodular, mass lesion, or airspace disease is seen. A 1.0 x 1.4 cmlymph node is seen in the right cardiophrenic sulcus. No osseous lytic or osteoblastic lesions seen i nvolving the dorsal spine. Visualized upper abdomen demonstrates loculated fluid collections under both hemidiaphragms. Impression: 1. No metastatic disease in the chest.2. Bilateral pleural effusion with the lingula, right mid, and bibasilar subsegmental atelectasis.3. Fluid collections under both hem idiaphragms. Signed: Edvin Yanes MDReport Verified Date/Time: 04/20/2019 10:42:19 Reading Location:[facility] C013Y CT Body Reading Room [id number] 09:35:00 Test Item Value Reference Range Interpretation Comments PREALBUMIN (BEAKER) (test code = 586) 8 mg/dL 14-45 L Promotional Model ID Alisson MACKEY MHEPATIC FUNCTION [id number] 07:45:00 Test Item Value Reference Range Interpretation Comments TOTAL PROTEIN (BEAKER) (test code = 5.7 gm/dL 6.0-8.3 L 770) ALBUMIN (BEAKER) (test code = 1145) 2.8 g/dL 3.5-5.0 L BILIRUBIN TOTAL (BEAKER) (test code 0.4 mg/dL 0.2-1.2 = 377) BILIRUBIN DIRECT (BEAKER) (test 0.2 mg/dL 0.1-0.5 code = 706) ALKALINE PHOSPHATASE (BEAKER) (test 66 U/L 40-150 code = 346) AST (SGOT) (BEAKER) (test code = 23 U/L 5-34 353) ALT (SGPT) (BEAKER) (test code = 13 U/L 6-55 347) Promotional Model ID Alisson SIMONA [id number] 07:05:00 Test Item Value Reference Range Interpretation Comments Triglycerides (test 101 mg/dL code = 2571-8) PAUL (test code = PAUL) TRIGLYCERIDE REFERENCE RANGELow Risk <150Borderline Risk 150-199High Risk 200-499Very High Risk >=500Operator ID - SIMONA [id number] 07:05:00 Test Item Value Reference Range Interpretation Comments TRIGLYCERIDES (BEAKER) (test code = 101 mg/dL 540) TRIGLYCERIDE REFERENCE RANGELow Risk <150Borderline Risk 150-199High Risk 200-499Very High Risk>=500Operator ID - SIMONA [id number] 07:05:00 Test Item Value Reference Range Interpretation Comments MAGNESIUM (BEAKER) (test code = 2.2 mg/dL 1.6-2.6 627) Promotional Model ID - SIMONA [id number] 07:05:00 Test Item Value Reference Range Interpretation Comments PHOSPHORUS (BEAKER) (test code = 3.3 mg/dL 2.3-4.7 604) Promotional Model ID - SIMONA FBASIC METABOLIC [id number] 07:05:00 Test Item Value Reference Range Interpretation Comments SODIUM (BEAKER) 143 meq/L 136-145 (test code = 381) POTASSIUM (BEAKER) 3.7 meq/L 3.5-5.1 (test code = 379) CHLORIDE (BEAKER) 108 meq/L 98-107 H (test code = 382) CO2 (BEAKER) (test 29 meq/L 22-29 code = 355) BLOOD UREA NITROGEN 8 mg/dL 7-21 (BEAKER) (test code = 354) CREATININE (BEAKER) 0.60 mg/dL 0.57-1.25 (test code = 358) GLUCOSE RANDOM 117 mg/dL 70-105 H (BEAKER) (test code = 652) CALCIUM (BEAKER) 8.8 mg/dL 8.4-10.2 (test code = 697) EGFR (BEAKER) (test 103 mL/min/1.73 ESTIM ATED GFR IS code = 1092) sq m NOT ACCURATE CREATININE CLEARANCE IN PREDICTING GLOMERULAR FILTRATION RATE . ESTIMATED GFR I S NOT APPLICABLE FOR DIALYSIS PATIEN TS. Promotional Model ID Alisson JARVIS FCBC W/PLT COUNT & AUTO [id number] 06:32:00 Test Item Value Reference Range Interpretation Comments WHITE BLOOD CELL COUNT (BEAKER) 9.6 K/ L 3.5-10.5 (test code = 775) RED BLOOD CELL COUNT (BEAKER) 3.94 M/ L 3.93-5.22 (test code = 761) HEMOGLOBIN (BEAKER) (test code = 11.2 GM/DL 11.2-15.7 410) HEMATOCRIT (BEAKER) (test code = 37.7 % 34.1-44.9 411) MEAN CORPUSCULAR VOLUME (BEAKER) 95.7 fL 79.4-94.8 H (test code = 753) MEAN CORPUSCULAR HEMOGLOBIN 28.4 pg 25.6-32.2 (BEAKER) (test code = 751) MEAN CORPUSCULAR HEMOGLOBIN CONC 29.7 GM/DL 32.2-35.5 L (BEAKER) (test code = 752) RED CELL DISTRIBUTION WIDTH 15.2 % 11.7-14.4 H (BEAKER) (test code = 412) PLATELET COUNT (BEAKER) (test 271 K/CU MM 150-450 code = 756) MEAN PLATELET VOLUME (BEAKER) 10.3 fL 9.4-12.3 (test code = 754) NUCLEATED RED BLOOD CELLS 0 /100 WBC 0-0 (BEAKER) (test code = 413) NEUTROPHILS RELATIVE PERCENT 74 % (BEAKER) (test code = 429) LYMPHOCYTES RELATIVE PERCENT 13 % (BEAKER) (test code = 430) MONOCYTES RELATIVE PERCENT 10 % (BEAKER) (test code = 431) EOSINOPHILS RELATIVE PERCENT 2 % (BEAKER) (test code = 432) BASOPHILS RELATIVE PERCENT 1 % (BEAKER) (test code = 437) NEUTROPHILS ABSOLUTE COUNT 7.13 K/ L 1.56-6.13 H (BEAKER) (test code = 670) LYMPHOCYTES ABSOLUTE COUNT 1.24 K/ L 1.18-3.74 (BEAKER) (test code = 414) MONOCYTES ABSOLUTE COUNT (BEAKER) 0.91 K/ L 0.24-0.36 H (test code = 415) EOSINOPHILS ABSOLUTE COUNT 0.18 K/ L 0.04-0.36 (BEAKER) (test code = 416) BASOPHILS ABSOLUTE COUNT (BEAKER) 0.07 K/ L 0.01-0.08 (test code = 417) IMMATURE GRANULOCYTES-RELATIVE 1 % 0-1 PERCENT (BEAKER) (test code = 2801) POCT-GLUCOSE [id number] 06:29:00 Test Item Value Reference Range Interpretation Comments POC-GLUCOSE METER 98 mg/dL 70-110 : TESTED A T [facility] 6720 (BEAKER) (test code = [place], 1538) [address]: Promotional Model/Techni jalen ID = [id number] for Aren as, Ghada U/S, [id number] 20:14:00Labs to be ordered:->CytologyReason for exam:->Ascites, uterine cancerShould this be performedat the bedside?->No FINAL REPORT Ultrasound guided paracentesis Clinical History: Ascites. Sedation: None. Senior Python Developer: Sarah Reyes PA-C Supervising Physician: Turner Jara MD Throw Out Clerk: None. Estimated Blood Loss: < 1 mL. Specimen: 900 mL of brown fluid, samples sent to laboratory. Technique: Informed consent was obtained. The risks of pain, bleeding, infection,bowel perforation, injury to adjacent structures, and adverse medication reactions were discussed with the patient. After informed consent was obtained, the patient's abdomen was scanned. The left lower quadrant of the abdomen was selected for paracentesis. After the largest fluid pocket area was marked, and the anterior abdominal wall was evaluated with color Doppler to exclude presence of bloodvessels traversing the area, the skin was prepped and draped in the usual sterile manner. After local anesthesia was achieved with lidocaine, a 5 Malawian one-step catheter was advanced into the peritoneal cavity under ultrasound guidance. After completion of drainage, the catheter was removed. There was no evidence of complication. Impression:Successful ultrasound guided paracentesis. Signed: Turner Jara Verified Date/Time: 04/19/2019 20:14:35 Reading Location: [facility] P006J Ultrasound Reading Room IR PICC line placement older than 5 [id number] 19:35:00 Interface, External Ris In - 04/26/2019 2:46 PM CSTAddendum BeginsREPORT STATUS:A Addendum: April 26, 2019 at 1445 hours This addendum is for billing and documentation purposes only. Maximum sterile barrier techniques were utilized during this PICC line placement. The report is otherwise unchanged. Signed: Brayan Mesa Verified Date/Time: 04/26/2019 14:44:30 Reading Location: [facility] Diagnostic Imaging Reading Room - [facility] 1.310.12Addendum EndsFINAL REPORT PATIENTID: [id number] History: Uterine cancer. Need for long-term central IV access for chemotherapy initiation. PROCEDURE: Following informed written consent, the patient's right upper extremity was prepped and draped in the usual sterile manner. 2% lidocaine was given locally for anesthesia. No conscious sedation was administered. Using ultrasound guidance a micropuncture needle, access was gained to the patient's right upper extremity cephalic vein. A 5 Malawian dual-lumen bile flow PICC line was cut to alength of 41 cm and placed through a peel-away sheath and over a wire centrally into the superior vena cava under fluoroscopic guidance. The catheter was flushed with saline and secured to the skin using 2-0 silk suture. Overall, the patient tolerated the procedure well without immediate complicationsand was discharged from the department in stable condition. FINDINGS: Spot image of the chest following PICC line placement demonstrates a right upper extremity PICC to lie in expected position with its tip near the cavoatrial junction. Both ports of the PICC line flush and aspirate without difficulty. Ultrasound images obtained during the procedure show patent and compressible right cephalic vein. There is no evidence for thrombus. These images were obtained and archived to PACS. IMPRESSION: 1. Successful uncomplicated placement of a 5 Malawian dual-lumen right upper extremity PICC line as describedabove. Total fluoroscopy time: 0.3 minutes. Estimated total patient dose reported as (Ka,r): 1.9 mGy Note: Patient was initially referred to the department for a chest port placement. However, the patient was unable to lie flat on the angiographic table. Following discussion with referring oncologist by telephone, the decision was made to place a PICC line at this time for inpatient initiation ofchemotherapy. Chest port placement will be considered in the future once the patient is able to lie flat. Signed: Brayan Mesa MDReport Verified Date/Time: 04/19/2019 19:35:07 Reading Location: [place] [address] Angio Body Reading [facility] 18:50:00 Medical Cytology Report Case: [id number] Authorizing Provider: Cole Albright, Collected: 04/14/2019 1502 OrderingLocation: [address] Received: 04/15/2019 8161 Service Pathologist: Billy Arora MD Specimen: Peritoneal Fluid PERITONEAL FLUID (CYTOSPINS AND CELL BLOCK): - POSITIVE FOR MALIGNANCY - ADENOCARCINOMA (SEE COMMENT) Preliminary result electronically signed by Billy Arora MD on 04/15/2019 at 4:04 PMThe immunophenotype suggests a Mullerian primary, favor clear cell carcinoma.The preliminary findings were conveyed to Cole Albright MD on 04/15/2019 at 11:33 am.INTRADEPARTMENTAL CONSULTATION: - Abigail Hodges MD has seen the case and agrees with the diagnosis.19534, 39985, 61393 x 1, 55136 x 89 y.o. female with with hypothyroidism and a recent cholecystectomy in 11/08/18 presenting with worsening ascites, edema and now with L sided epigastric and flank pain. Cystic bilateral adnexal mass. Uterine fibroid, endometrial thickening.PERITONEAL OVKMS907 mls dark bloody fluid; 4 cytospins, cell blockCollected: [id number]: [id number].SatisfactoryThe interpret ation of this case included the use of immunohistochemistry or special stains.PAX8-positiveWT1- negativeER- negativePR- uogqftfoS01- nvbsmywyMDJ75-mxsrrjriCylmuypmvz-eobld positiveControl Slides Examined: In- house known positive controls were evaluated along with the test tissue. These control slides run alongside of the patients sample show appropriate staining. Internal positive and negative controls when available are evaluated Immunohistochemistry technical testing was performed at [facility], Pathology Laboratory where it was developed and its performance characteristics were determined. It has not been cleared or approved by the U.S. Food and Drug Administration. The FDA has determined that such clearance or approval is not necessary. The test is used for clinical purposes. It should not be regarded as investigational or for research. This laboratory is certified under the Clinical Laboratory Improvement Amendments of 1988 (CLIA-88) as qualified to perform high complexity clinical laboratory testing.[facility], Department of Pathology, [address] [place] [address], [place] [address], DvsdfrJohn [facility], Department of Path ology, [address] [place] [address], [place] [address], GywzrzJohn Muir [facility], Department of Pathology, [address] [place] [address], BHSV-GLUCOSE [id number] 18:47:00 Test Item Value Reference Range Interpretation Comments POC-GLUCOSE METER 118 mg/dL 70-110 H : TESTED A T [facility] 6720 (GAMALIEL) (test code = SID Nagel [facility], 1538) [address]: Promotional Model/Techni jalen ID = [id number] for SA NCHEZ, ARMEN RAD, CHEST, 1 VIEW, NON [id number] 13:52:00Reason for exam:- >dyspneaShould this be performed at the bedside?->YesFINAL REPORT RAD, CHEST, 1 VIEW, NON DEPT INDICATION: dyspnea COMPARISON: None FINDINGS: Portable frontal view of the chest. IMPRESSION: Support Lines: Right IJ central venouscatheter terminates near the cavoatrial junction. Enteric tube side-port is not visible. Lungs and pleura: Bibasilar subsegmental atelectasis and small effusions. No pneumothorax.Heart and mediastinum: Unremarkable contours.Additional findings: None. Signed: JR Jose Robert MDReport Verified Date/Time: 04/19/2019 13:52:29 Reading Location: [facility] Radiology Reading Room XR chest 1 view portable / [id number] 13:52:00Interface, External Ris In - 04/19/2019 1:54 PM CSTFINAL REPORT RAD, CHEST, 1 VIEW, NON DEPT INDICATION: dyspnea COMPARISON: None FINDINGS: Portable frontal view of the chest.IMPRESSION: Support Lines: Right IJ central venous catheter terminates near the cavoatrial junction. Enteric tube side-port is not visible. Lungs and pleura: Bibasilar subsegmental atelectasis and small effusions. No pneumothorax.Heart and mediastinum: Unremarkable contours.Additional findings: None.Signed: JR Jose Robert MDReport Verified Date/Time: 04/19/2019 13:52:29 Reading Location:[facility] Reading [facility] [id number] 06:30:00 Test Item Value Reference Range Interpretation Comments POC-GLUCOSE METER 123 mg/dL 70-110 H : TESTED A T [facility] 6720 (BEAKER) (test code = [place], 1538) [address]: Promotional Model/Techni jalen ID = [id number] for JOLYNN POLANCO [id number] 04:53:00 Test Item Value Reference Range Interpretation Comments MAGNESIUM (BEAKER) (test code = 2.0 mg/dL 1.6-2.6 627) Promotional Model ID - KEY MBASIC METABOLIC [id number] 04:53:00 Test Item Value Reference Range Interpretation Comments SODIUM (BEAKER) 144 meq/L 136-145 (test code = 381) POTASSIUM (BEAKER) 3.4 meq/L 3.5-5.1 L (test code = 379) CHLORIDE (BEAKER) 110 meq/L 98-107 H (test code = 382) CO2 (BEAKER) (test 29 meq/L 22-29 code = 355) BLOOD UREA NITROGEN 6 mg/dL 7-21 L (BEAKER) (test code = 354) CREATININE (BEAKER) 0.64 mg/dL 0.57-1.25 (test code = 358) GLUCOSE RANDOM 122 mg/dL 70-105 H (BEAKER) (test code = 652) CALCIUM (BEAKER) 8.9 mg/dL 8.4-10.2 (test code = 697) EGFR (BEAKER) (test 95 mL/min/1.73 ESTIMA CRISTINA GFR IS code = 1092) sq m NOT ACCURATE CREATININE CLEARANCE IN PREDICTING GLOMERULAR FILTRATION RATE . ESTIMATED GFR I S NOT APPLICABLE FOR DIALYSIS PATIEN TS. Promotional Model ID - KEY [id number] 04:47:00 Test Item Value Reference Range Interpretation Comments PROTIME (BEAKER) (test code = 14.6 seconds 11.9-14.2 H 759) INR (BEAKER) (test code = 370) 1.2 <=5.9 PARTIAL THROMBOPLASTIN TIME 30.0 seconds 22.5-36.0 (BEAKER) (test code = 760) Effective 08/18/2018: PT Reference Range ChangeNew: 11.9-14.2 Previous: 11.7- 14.7RECOMMENDED COUMADIN/WARFARIN INR THERAPY RANGESSTANDARD DOSE: 2.0-3.0 Includes: PROPHYLAXIS for venous thrombosis, systemic embolization; TREATMENT for venous thrombosis and/or pulmonary embolus.HIGH RISK: Target INR is2.5-3.5 for patients wiht mechanical heart valves.CBC W/PLT COUNT & AUTO [id number] 04:34:00 Test Item Value Reference Range Interpretation Comments WHITE BLOOD CELL COUNT (BEAKER) 7.2 K/ L 3.5-10.5 (test code = 775) RED BLOOD CELL COUNT (BEAKER) 4.04 M/ L 3.93-5.22 (test code = 761) HEMOGLOBIN (BEAKER) (test code = 11.5 GM/DL 11.2-15.7 410) HEMATOCRIT (BEAKER) (test code = 37.8 % 34.1-44.9 411) MEAN CORPUSCULAR VOLUME (BEAKER) 93.6 fL 79.4-94.8 (test code = 753) MEAN CORPUSCULAR HEMOGLOBIN 28.5 pg 25.6-32.2 (BEAKER) (test code = 751) MEAN CORPUSCULAR HEMOGLOBIN CONC 30.4 GM/DL 32.2-35.5 L (BEAKER) (test code = 752) RED CELL DISTRIBUTION WIDTH 14.9 % 11.7-14.4 H (BEAKER) (test code = 412) PLATELET COUNT (BEAKER) (test 283 K/CU MM 150-450 code = 756) MEAN PLATELET VOLUME (BEAKER) 10.4 fL 9.4-12.3 (test code = 754) NUCLEATED RED BLOOD CELLS 0 /100 WBC 0-0 (BEAKER) (test code = 413) NEUTROPHILS RELATIVE PERCENT 64 % (BEAKER) (test code = 429) LYMPHOCYTES RELATIVE PERCENT 20 % (BEAKER) (test code = 430) MONOCYTES RELATIVE PERCENT 12 % (BEAKER) (test code = 431) EOSINOPHILS RELATIVE PERCENT 3 % (BEAKER) (test code = 432) BASOPHILS RELATIVE PERCENT 1 % (BEAKER) (test code = 437) NEUTROPHILS ABSOLUTE COUNT 4.59 K/ L 1.56-6.13 (BEAKER) (test code = 670) LYMPHOCYTES ABSOLUTE COUNT 1.42 K/ L 1.18-3.74 (BEAKER) (test code = 414) MONOCYTES ABSOLUTE COUNT (BEAKER) 0.85 K/ L 0.24-0.36 H (test code = 415) EOSINOPHILS ABSOLUTE COUNT 0.19 K/ L 0.04-0.36 (BEAKER) (test code = 416) BASOPHILS ABSOLUTE COUNT (BEAKER) 0.06 K/ L 0.01-0.08 (test code = 417) IMMATURE GRANULOCYTES-RELATIVE 1 % 0-1 PERCENT (BEAKER) (test code = 2801) POCT-GLUCOSE [id number] 18:30:00 Test Item Value Reference Range Interpretation Comments POC-GLUCOSE METER 104 mg/dL 70-110 : TESTED A T [facility] 6720 (BEAKER) (test code [facility], = 1538) [address]: Promotional Model/Techni jalen ID = [id number] for JOMAR MCKEON BODY FLUID CULTURE + GRAM [id number] 15:51:00 Test Item Value Reference Range Interpretation Comments CULTURE (BEAKER) (test code No growth = 1095) GRAM STAIN RESULT (BEAKER) <1+ WBCs (test code = 1123) GRAM STAIN RESULT (BEAKER) No organisms seen (test code = 50686) POCT-GLUCOSE [id number] 11:46:00 Test Item Value Reference Range Interpretation Comments POC-GLUCOSE METER 91 mg/dL 70-110 : TESTED A T [facility] 6720 (BEAKER) (test code = [facility], 1538) [address]: Promotional Model/Techni jalen ID = [id number] for TETOT JOMAR MARTINEZ CBC W/PLT COUNT & AUTO [id number] 08:08:00 Test Item Value Reference Range Interpretation Comments WHITE BLOOD CELL COUNT (BEAKER) 8.3 K/ L 3.5-10.5 (test code = 775) RED BLOOD CELL COUNT (BEAKER) 4.00 M/ L 3.93-5.22 (test code = 761) HEMOGLOBIN (BEAKER) (test code = 11.6 GM/DL 11.2-15.7 410) HEMATOCRIT (BEAKER) (test code = 36.9 % 34.1-44.9 411) MEAN CORPUSCULAR VOLUME (BEAKER) 92.3 fL 79.4-94.8 (test code = 753) MEAN CORPUSCULAR HEMOGLOBIN 29.0 pg 25.6-32.2 (BEAKER) (test code = 751) MEAN CORPUSCULAR HEMOGLOBIN CONC 31.4 GM/DL 32.2-35.5 L (BEAKER) (test code = 752) RED CELL DISTRIBUTION WIDTH 14.8 % 11.7-14.4 H (BEAKER) (test code = 412) PLATELET COUNT (BEAKER) (test 279 K/CU MM 150-450 code = 756) MEAN PLATELET VOLUME (BEAKER) 10.7 fL 9.4-12.3 (test code = 754) NUCLEATED RED BLOOD CELLS 0 /100 WBC 0-0 (BEAKER) (test code = 413) (CELLAVISION MANUAL DIFF)2019-04-18 08:08:00 Test Item Value Reference Range Interpretation Comments NEUTROPHILS - REL 77 % (CELLAVISION)(BEAKER) (test code = 2816) LYMPHOCYTES - REL 11 % (CELLAVISION)(BEAKER) (test code = 2817) MONOCYTES - REL 11 % (CELLAVISION)(BEAKER) (test code = 2818) ATYPICAL LYMPHOCYTES - REL 1 % 0-0 H (CELLAVISION)(BEAKER) (test code = 2829) NEUTROPHILS - ABS 6.39 K/ul 1.56-6.13 H (CELLAVISION)(BEAKER) (test code = 2830) LYMPHOCYTES - ABS 0.91 K/ul 1.18-3.74 L (CELLAVISION)(BEAKER) (test code = 2831) MONOCYTES - ABS 0.91 K/uL 0.24-0.36 H (CELLAVISION)(BEAKER) (test code = 2832) ATYPICAL LYMPHOCYTES - ABS 0.08 K/uL 0.00-0.00 H (CELLAVISION)(BEAKER) (test code = 2858) TOTAL COUNTED (BEAKER) (test code = 100 1351) WBC MORPHOLOGY (BEAKER) (test code Normal = 487) GIANT PLATELETS (BEAKER) (test code Present = 313) POLYCHROMATOPHILLIC RBCS(BEAKER) 1+ few (test code = 478) ANISOCYTOSIS (BEAKER) (test code = 1+ few 961) ARTIFACT (CELLAVISION)(BEAKER) Present (test code = 3432) PLATELET CONCENTRATION Adequate (CELLAVISION)(BEAKER) (test code = 3438) Promotional Model ID - Willi Tyler comments: Slide comments:BLOOD CULTURE 2019-04-18 08:00:00 Test Item Value Reference Range Interpretation Comments CULTURE (BEAKER) (test No growth in 5 days code = 1095) BLOOD [id number] 08:00:00 Test Item Value Reference Range Interpretation Comments CULTURE (BEAKER) (test No growth in 5 days code = 1095) POCT-GLUCOSE [id number] 07:46:00 Test Item Value Reference Range Interpretation Comments POC-GLUCOSE METER 117 mg/dL 70-110 H : TESTED A T [facility] 6720 (BEAKER) (test code = [facility], 1538) 25352: Promotional Model/Techni jalen ID = [id number] for ANT CHIU POCT-GLUCOSE [id number] 06:21:00 Test Item Value Reference Range Interpretation Comments POC-GLUCOSE METER 130 mg/dL 70-110 H : TESTED A T [facility] 6720 (BEAKER) (test code = [facility], 1538) 76261: Promotional Model/Techni jalen ID = [id number] for ELIZABETH VILLASENOR [id number] 05:21:00 Test Item Value Reference Range Interpretation Comments MAGNESIUM (BEAKER) (test code = 2.1 mg/dL 1.6-2.6 627) Promotional Model ID - VLADIMIR WBASIC METABOLIC [id number] 05:21:00 Test Item Value Reference Range Interpretation Comments SODIUM (BEAKER) 142 meq/L 136-145 (test code = 381) POTASSIUM (BEAKER) 3.0 meq/L 3.5-5.1 L (test code = 379) CHLORIDE (BEAKER) 108 meq/L 98-107 H (test code = 382) CO2 (BEAKER) (test 29 meq/L 22-29 code = 355) BLOOD UREA NITROGEN 7 mg/dL 7-21 (BEAKER) (test code = 354) CREATININE (BEAKER) 0.63 mg/dL 0.57-1.25 (test code = 358) GLUCOSE RANDOM 123 mg/dL 70-105 H (BEAKER) (test code = 652) CALCIUM (BEAKER) 8.8 mg/dL 8.4-10.2 (test code = 697) EGFR (BEAKER) (test 97 mL/min/1.73 ESTIMA CRISTINA GFR IS code = 1092) sq m NOT ACCURATE CREATININE CLEARANCE IN PREDICTING GLOMERULAR FILTRATION RATE . ESTIMATED GFR I S NOT APPLICABLE FOR DIALYSIS PATIEN TS. Promotional Model ID - VLADIMIR WPOCT-GLUCOSE [id number] 00:17:00 Test Item Value Reference Range Interpretation Comments POC-GLUCOSE METER 120 mg/dL 70-110 H : TESTED A T [facility] 6720 (BEAKER) (test code = [facility], 1538) 60757: Promotional Model/Techni jalen ID = [id number] for ELIZABETH VILLASENOR POCT-GLUCOSE [id number] 18:19:00 Test Item Value Reference Range Interpretation Comments POC-GLUCOSE METER 111 mg/dL 70-110 H : TESTED A T [facility] 6720 (BEAKER) (test code = [facility], 1538) 15491: Promotional Model/Techni jalen ID = [id number] for JAN PRINCE KENNA CT, [id number] 17:47:00FINAL REPORT TECHNIQUE: CT of the abdomen and pelvis WITH intravenous contrast and WITHOUT oral contrast. Dose modulation, iterative reconstruction, and/or weight-based adjustment of the mA/kV was utilized to reduce the radiation dose to as low as reasonably achievable. INDICATION: 59-year-old woman with uterine cancer, nausea, and vomiting. COMPARISON: Pelvis MRI 04/13/2019, abdomen and pelvis CT 04/12/2019, abdomen MRI 01/21/2019. FINDINGS: LOWER THORAX: Increased small bilateral pleural effusions with adjacent relaxation atelectasis. HEPATOBILIARY: No significant change in the 1 x 1.6 cm hypodense lesion in segment VII, previously characterized as a hemangioma. Prior cholecystectomy. No biliary ductal dilatation.SPLEEN: No splenomegaly.PANCREAS: No focal masses or ductal di latation. ADRENALS: No adrenal nodules.KIDNEYS/URETERS: No hydronephrosis or stones. Unchanged left renal cyst.PELVIC ORGANS/BLADDER: Uterus is grossly unremarkable. Neither normal ovary is clearly visualized. Bladder is underdistended. PERITONEUM/RETROPERITONEUM: Mildly decreased size of the cystic structure in the lower abdomen which extends into the right adnexum; this structure has decreased in size from 9.8 x 22.9 cm to 7.9 x 21.2 cm in greatest axial dimensions. The cystic structure in the left adnexum is also decreased in size from 6.5 x 5.5 cm to 5.2 x 4.6 cm. Slightly increased size from 13.7 x 8 cm to 14.1 x 9 cm of the lentiform shaped collection adjacent to the hepatic dome and right hepatic lobe. Persistent small volume ascites in the upper abdomen and mesentery, likely loculated. Nosignificant change in omental caking.LYMPH NODES: No lymphadenopathy.VESSELS: Unremarkable. GI TRACT: Nasogastric tube terminates in the gastric body. Mildly distended loops of small bowel without definite transition point. BONES AND SOFT TISSUES: Unremarkable. IMPRESSION:Slightly decreased size of the cystic structures in the lower abdomen/pelvis. Slightly increased size of the fluid collection adjacent to the hepatic dome. Omental carcinomatosis. Mildly distended loops of small bowel without definite transition point. Partial bowel obstruction cannot be excluded. Signed: Trang Adkins MDReportVerified Date/Time: 04/17/2019 17:47:33 Reading Location: [facility] C013Y CT Body Reading Room POCT-GLUCOSE [id number] 12:54:00 Test Item Value Reference Range Interpretation Comments POC-GLUCOSE METER 112 mg/dL 70-110 H : TESTED A T [facility] 6720 (BEAKER) ([facility], 1538) 33203: Promotional Model/Techni jalen ID = [id number] for JAN NIKIKENNA CBC W/PLT COUNT & AUTO [id number] 09:50:00 Test Item Value Reference Range Interpretation Comments WHITE BLOOD CELL COUNT (BEAKER) 9.5 K/ L 3.5-10.5 (test code = 775) RED BLOOD CELL COUNT (BEAKER) 4.28 M/ L 3.93-5.22 (test code = 761) HEMOGLOBIN (BEAKER) (test code = 12.1 GM/DL 11.2-15.7 410) HEMATOCRIT (BEAKER) (test code = 39.8 % 34.1-44.9 411) MEAN CORPUSCULAR VOLUME (BEAKER) 93.0 fL 79.4-94.8 (test code = 753) MEAN CORPUSCULAR HEMOGLOBIN 28.3 pg 25.6-32.2 (BEAKER) (test code = 751) MEAN CORPUSCULAR HEMOGLOBIN CONC 30.4 GM/DL 32.2-35.5 L (BEAKER) (test code = 752) RED CELL DISTRIBUTION WIDTH 14.6 % 11.7-14.4 H (BEAKER) (test code = 412) PLATELET COUNT (BEAKER) (test 312 K/CU MM 150-450 code = 756) MEAN PLATELET VOLUME (BEAKER) 10.4 fL 9.4-12.3 (test code = 754) NUCLEATED RED BLOOD CELLS 0 /100 WBC 0-0 (BEAKER) (test code = 413) (CELLAVISION MANUAL DIFF)2019-04-17 09:50:00 Test Item Value Reference Range Interpretation Comments NEUTROPHILS - REL 72 % (CELLAVISION)(BEAKER) (test code = 2816) LYMPHOCYTES - REL 14 % (CELLAVISION)(BEAKER) (test code = 2817) MONOCYTES - REL 9 % (CELLAVISION)(BEAKER) (test code = 2818) EOSINOPHILS - REL 1 % (CELLAVISION)(BEAKER) (test code = 2819) BANDS - REL (CELLAVISION)(BEAKER) 1 % 0-10 (test code = 2826) ATYPICAL LYMPHOCYTES - REL 3 % 0-0 H (CELLAVISION)(BEAKER) (test code = 2829) NEUTROPHILS - ABS 6.84 K/ul 1.56-6.13 H (CELLAVISION)(BEAKER) (test code = 2830) LYMPHOCYTES - ABS 1.33 K/ul 1.18-3.74 (CELLAVISION)(BEAKER) (test code = 2831) MONOCYTES - ABS 0.86 K/uL 0.24-0.36 H (CELLAVISION)(BEAKER) (test code = 2832) EOSINOPHILS - ABS 0.10 K/uL 0.04-0.36 (CELLAVISION)(BEAKER) (test code = 2834) BANDS - ABS (CELLAVISION)(BEAKER) 0.10 K/uL 0.00-0.80 (test code = 2840) ATYPICAL LYMPHOCYTES - ABS 0.29 K/uL 0.00-0.00 H (CELLAVISION)(BEAKER) (test code = 2858) TOTAL COUNTED (BEAKER) (test code = 100 1351) RBC MORPHOLOGY (BEAKER) (test code Normal = 762) WBC MORPHOLOGY (BEAKER) (test code Normal = 487) PLT MORPHOLOGY (BEAKER) (test code Normal = 486) ARTIFACT (CELLAVISION)(BEAKER) Present (test code = 3432) PLATELET CONCENTRATION Adequate (CELLAVISION)(BEAKER) (test code = 3438) Promotional Model JAZMIN Breen OverholtUser comments: Slide comments:[id number] 07:28:00 Test Item Value Reference Range Interpretation Comments MAGNESIUM (BEAKER) (test code = 2.0 mg/dL 1.6-2.6 627) Promotional Model JAZMIN BACON WBASIC METABOLIC [id number] 07:28:00 Test Item Value Reference Range Interpretation Comments SODIUM (BEAKER) 140 meq/L 136-145 (test code = 381) POTASSIUM (BEAKER) 3.4 meq/L 3.5-5.1 L (test code = 379) CHLORIDE (BEAKER) 106 meq/L 98-107 (test code = 382) CO2 (BEAKER) (test 28 meq/L 22-29 code = 355) BLOOD UREA NITROGEN 8 mg/dL 7-21 (BEAKER) (test code = 354) CREATININE (BEAKER) 0.63 mg/dL 0.57-1.25 (test code = 358) GLUCOSE RANDOM 130 mg/dL 70-105 H (BEAKER) (test code = 652) CALCIUM (BEAKER) 8.7 mg/dL 8.4-10.2 (test code = 697) EGFR (BEAKER) (test 97 mL/min/1.73 ESTIMA CRISTINA GFR IS code = 1092) sq m NOT ACCURATE CREATININE CLEARANCE IN PREDICTING GLOMERULAR FILTRATION RATE . ESTIMATED GFR I S NOT APPLICABLE FOR DIALYSIS PATIEN TS. Promotional Model JAZMIN BACON WPOCT-GLUCOSE [id number] 06:06:00 Test Item Value Reference Range Interpretation Comments POC-GLUCOSE METER 114 mg/dL 70-110 H : TESTED A T [facility] 6720 (BEAKER) (test code = [facility], [facility]) 92397: Promotional Model/Techni jalen ID = [id number] for ELIZABETH VILLASENOR POCT-GLUCOSE [id number] 00:38:00 Test Item Value Reference Range Interpretation Comments POC-GLUCOSE METER 110 mg/dL 70-110 : TESTED A T [facility] 6720 (BEAKER) (test code = [facility], [facility]8) 88580: Promotional Model/Techni jalen ID = [id number] for ELIZABETH VILLASENOR POCT-GLUCOSE [id number] 18:17:00 Test Item Value Reference Range Interpretation Comments POC-GLUCOSE METER 90 mg/dL 70-110 : TESTED A T [facility] 6720 (BEAKER) (test code = [facility], [facility]) 64715: Promotional Model/Techni jalen ID = [id number] for FAIT H, KENNA POCT-GLUCOSE [id number] 13:28:00 Test Item Value Reference Range Interpretation Comments POC-GLUCOSE METER 82 mg/dL 70-110 : TESTED A T [facility] 6720 (BEAKER) (test code = [facility], [facility]) 76902: Promotional Model/Techni jalen ID = [id number] for FAIT H, KENNA POCT-GLUCOSE [id number] 06:40:00 Test Item Value Reference Range Interpretation Comments POC-GLUCOSE METER 85 mg/dL 70-110 : TESTED A T [facility] 6720 (BEAKER) (test code = [facility], [facility]8) 40170: Promotional Model/Techni jalen ID = [id number] for ELIZABETH SIDDIQUI POCT-GLUCOSE [id number] 00:38:00 Test Item Value Reference Range Interpretation Comments POC-GLUCOSE METER 73 mg/dL 70-110 : TESTED A T [facility] 6720 (BEAKER) (test code = [facility], [facility]8) 77563: Promotional Model/Techni jalen ID = [id number] for ELIZABETH SIDDIQUI Cancer Antigen 125 (CA 125)2019-04-15 21:37:00 Test Item Value Reference Interpretation Comments Range CA 125 (test code = 389 U/mL <[address] was ) performed using the [employer] [place] Chemiluminescen t method.Values obtained from different assay methods cannot be used interchangeably .CA 125 levels, regardless of v alue, should not be interpreted as absoluteevidenc e of the presence or absence of dise ase. PAUL (test code = Performing Lab PAUL) EZ [facility] [address] [place] [address] Lisbeth Sanchez MD, PhD, GABO Lab Interpretation Abnormal (test code = 29639-1) [facility]O [id number] 11:07:00 Test Item Value Reference Range Interpretation Comments WHITE BLOOD CELL COUNT (BEAKER) 7.3 K/ L 3.5-10.5 (test code = 775) RED BLOOD CELL COUNT (BEAKER) 4.01 M/ L 3.93-5.22 (test code = 761) HEMOGLOBIN (BEAKER) (test code = 11.3 GM/DL 11.2-15.7 410) HEMATOCRIT (BEAKER) (test code = 37.9 % 34.1-44.9 411) MEAN CORPUSCULAR VOLUME (BEAKER) 94.5 fL 79.4-94.8 (test code = 753) MEAN CORPUSCULAR HEMOGLOBIN 28.2 pg 25.6-32.2 (BEAKER) (test code = 751) MEAN CORPUSCULAR HEMOGLOBIN CONC 29.8 GM/DL 32.2-35.5 L (BEAKER) (test code = 752) RED CELL DISTRIBUTION WIDTH 14.4 % 11.7-14.4 (BEAKER) (test code = 412) PLATELET COUNT (BEAKER) (test 297 K/CU MM 150-450 code = 756) MEAN PLATELET VOLUME (BEAKER) 10.6 fL 9.4-12.3 (test code = 754) NUCLEATED RED BLOOD CELLS 0 /100 WBC 0-0 (BEAKER) (test code = 413) (CELLAVISION MANUAL DIFF)2019-04-15 11:07:00 Test Item Value Reference Range Interpretation Comments NEUTROPHILS - REL 76 % (CELLAVISION)(BEAKER) (test code = 2816) LYMPHOCYTES - REL 16 % (CELLAVISION)(BEAKER) (test code = 2817) MONOCYTES - REL 5 % (CELLAVISION)(BEAKER) (test code = 2818) EOSINOPHILS - REL 1 % (CELLAVISION)(BEAKER) (test code = 2819) BANDS - REL (CELLAVISION)(BEAKER) 2 % 0-10 (test code = 2826) NEUTROPHILS - ABS 5.55 K/ul 1.56-6.13 (CELLAVISION)(BEAKER) (test code = 2830) LYMPHOCYTES - ABS 1.17 K/ul 1.18-3.74 L (CELLAVISION)(BEAKER) (test code = 2831) MONOCYTES - ABS 0.37 K/uL 0.24-0.36 H (CELLAVISION)(BEAKER) (test code = 2832) EOSINOPHILS - ABS 0.07 K/uL 0.04-0.36 (CELLAVISION)(BEAKER) (test code = 2834) BANDS - ABS (CELLAVISION)(BEAKER) 0.15 K/uL 0.00-0.80 (test code = 2840) TOTAL COUNTED (BEAKER) (test code = 100 1351) WBC MORPHOLOGY (BEAKER) (test code Normal = 487) PLT MORPHOLOGY (BEAKER) (test code Normal = 486) POLYCHROMATOPHILLIC RBCS(BEAKER) 1+ few (test code = 478) ARTIFACT (CELLAVISION)(BEAKER) Present (test code = 3432) PLATELET CONCENTRATION Adequate (CELLAVISION)(BEAKER) (test code = 3438) Promotional Model ID - Nuha OverholtUser comments: Slide comments:BASIC METABOLIC PANEL 2019-04-15 06:50:00 Test Item Value Reference Range Interpretation Comments SODIUM (BEAKER) 141 meq/L 136-145 (test code = 381) POTASSIUM (BEAKER) 3.4 meq/L 3.5-5.1 L (test code = 379) CHLORIDE (BEAKER) 105 meq/L 98-107 (test code = 382) CO2 (BEAKER) (test 28 meq/L 22-29 code = 355) BLOOD UREA NITROGEN 15 mg/dL 7-21 (BEAKER) (test code = 354) CREATININE (BEAKER) 0.66 mg/dL 0.57-1.25 (test code = 358) GLUCOSE RANDOM 65 mg/dL 70-105 L (BEAKER) (test code = 652) CALCIUM (BEAKER) 8.5 mg/dL 8.4-10.2 (test code = 697) EGFR (BEAKER) (test 92 mL/min/1.73 ESTIMA CRISTINA GFR IS code = 1092) sq m NOT ACCURATE CREATININE CLEARANCE IN PREDICTING GLOMERULAR FILTRATION RATE . ESTIMATED GFR I S NOT APPLICABLE FOR DIALYSIS PATIEN TS. Promotional Model ID - KEY MBODY FLUID CELL COUNT WITH [id number] 18:57:00 Test Item Value Reference Range Interpretation Comments APPEARANCE FLUID (BEAKER) (test Bloody Clear A code = 510) COLOR FLUID (BEAKER) (test code Brown Colorless, Straw A = 511) RBC FLUID (BEAKER) (test code = 26698 /cu mm <=1 H 513) ADJUSTED WBC FLUID (BEAKER) 27 /cu mm <=5 H (test code = 1691) LINING CELLS (BEAKER) (test 1 /cu mm <=1 code = 1590) NEUTROPHILS FLUID (BEAKER) 44 % (test code = 1656) LYMPHS FLUID (BEAKER) (test 28 % code = 488) MONO/MACROPHAGE FLUID (BEAKER) 26 % (test code = 489) EOSINOPHILS FLUID (BEAKER) 0 % (test code = 491) BASO FLUID (BEAKER) (test code 0 % = 492) CONTAINER BODY FLUID (BEAKER) EDTA Tube (test code = 2873) BASIC METABOLIC [id number] 04:01:00 Test Item Value Reference Range Interpretation Comments SODIUM (BEAKER) 142 meq/L 136-145 (test code = 381) POTASSIUM (BEAKER) 3.6 meq/L 3.5-5.1 Specimen slightly (test code = 379) hemolyzed CHLORIDE (BEAKER) 105 meq/L 98-107 (test code = 382) CO2 (BEAKER) (test 26 meq/L 22-29 code = 355) BLOOD UREA NITROGEN 18 mg/dL 7-21 (BEAKER) (test code = 354) CREATININE (BEAKER) 0.70 mg/dL 0.57-1.25 Specimen slightly (test code = 358) hemolyzed GLUCOSE RANDOM 73 mg/dL 70-105 (BEAKER) (test code = 652) CALCIUM (BEAKER) 8.7 mg/dL 8.4-10.2 (test code = 697) EGFR (BEAKER) (test 86 mL/min/1.73 ESTIMA CRISTINA GFR IS code = 1092) sq m NOT ACCURATE CREATININE CLEARANCE IN PREDICTING GLOMERULAR FILTRATION RATE . ESTIMATED GFR I S NOT APPLICABLE FOR DIALYSIS PATIEN TS. Promotional Model ID - BSCBC W/PLT COUNT & AUTO [id number] 03:40:00 Test Item Value Reference Range Interpretation Comments WHITE BLOOD CELL COUNT (BEAKER) 6.8 K/ L 3.5-10.5 (test code = 775) RED BLOOD CELL COUNT (BEAKER) 4.02 M/ L 3.93-5.22 (test code = 761) HEMOGLOBIN (BEAKER) (test code = 11.4 GM/DL 11.2-15.7 410) HEMATOCRIT (BEAKER) (test code = 38.8 % 34.1-44.9 411) MEAN CORPUSCULAR VOLUME (BEAKER) 96.5 fL 79.4-94.8 H (test code = 753) MEAN CORPUSCULAR HEMOGLOBIN 28.4 pg 25.6-32.2 (BEAKER) (test code = 751) MEAN CORPUSCULAR HEMOGLOBIN CONC 29.4 GM/DL 32.2-35.5 L (BEAKER) (test code = 752) RED CELL DISTRIBUTION WIDTH 14.6 % 11.7-14.4 H (BEAKER) (test code = 412) PLATELET COUNT (BEAKER) (test 255 K/CU MM 150-450 code = 756) MEAN PLATELET VOLUME (BEAKER) 10.2 fL 9.4-12.3 (test code = 754) NUCLEATED RED BLOOD CELLS 0 /100 WBC 0-0 (BEAKER) (test code = 413) NEUTROPHILS RELATIVE PERCENT 67 % (BEAKER) (test code = 429) LYMPHOCYTES RELATIVE PERCENT 16 % (BEAKER) (test code = 430) MONOCYTES RELATIVE PERCENT 13 % (BEAKER) (test code = 431) EOSINOPHILS RELATIVE PERCENT 3 % (BEAKER) (test code = 432) BASOPHILS RELATIVE PERCENT 1 % (BEAKER) (test code = 437) NEUTROPHILS ABSOLUTE COUNT 4.52 K/ L 1.56-6.13 (BEAKER) (test code = 670) LYMPHOCYTES ABSOLUTE COUNT 1.11 K/ L 1.18-3.74 L (BEAKER) (test code = 414) MONOCYTES ABSOLUTE COUNT (BEAKER) 0.86 K/ L 0.24-0.36 H (test code = 415) EOSINOPHILS ABSOLUTE COUNT 0.20 K/ L 0.04-0.36 (BEAKER) (test code = 416) BASOPHILS ABSOLUTE COUNT (BEAKER) 0.04 K/ L 0.01-0.08 (test code = 417) IMMATURE GRANULOCYTES-RELATIVE 0 % 0-1 PERCENT (BEAKER) (test code = 2801) MR, PELVIS, [id number] 17:50:00FINAL REPORT TECHNIQUE: MRI of the pelvis WITHOUT and WITH intravenous contrast. INDICATION: 59-year-old woman with adnexal mass. COMPARISON: Abdomen and pelvis CT 04/12/2019. FINDINGS:Suboptimal evaluation secondary to patient body habitus. UTERUS: The uterus measures 11 x 6.4 x 5.4 cm. Intramural fibroid in the anterior uterine body measures 4.7 x 4.2 x 4.4 cm. Cervical nabothian cysts.ENDOMETRIUM: Endometrium is normal in thickness and contains a 1.1 x 0.6 cm T2 hypointensestructure.OVARIES/ADNEXA: Neither normal ovary is clearly visualized. 14.9 x 11.4 x 22.8 cm cystic structure in the right adnexum extends superiorly into the anterior lower abdomen; this structure contains multiple irregular septations as well as hemorrhagic/proteinaceous debris. 6.3 x 6.3 x 4.9 cm cystic structure in the left adnexum also contains irregular septations as well as hemorrhagic/proteinaceous debris. PERITONEUM/RETROPERITONEUM: Trace ascites. Suspected omental caking superior to the larger cystic structure. BLADDER: Bladder is unremarkable.RECTUM: Rectum and mesorectum are unremarkable. LYMPH NODES: No lymphadenopathy. BONES AND SOFT TISSUES: Unremarkable. Other findings: 1.2 x 1 cm cyst in the lower pole of the right kidney. IMPRESSION:Suboptimal evaluation secondary to patient body habitus. Complex cystic structures in the lower abdomen/bilateral adnexa, suspicious for epithelialovarian neoplasm. Additional differential considerations include complex fluid collection/ascites. 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 Intramural uterine fibroid. Additional 1.1 cm structure within the endometrium, suggestive of a submucosal fibroid. Signed: Trang Adkins MDReport Verified Date/Time: 04/13/2019 17:50:41 Reading Location: [facility] C013Y CT Body Reading Room MR pelvis without & with IV [id number] 17:50:00Interface, External Ris In - 04/13/2019 5:52 PM CSTFINAL REPORT TECHNIQUE: MRI of the pelvis WITHOUT and WITH intravenous contrast. INDICATION: 59-year-old woman with adnexal mass. COMPARISON: Abdomen and pelvis CT 04/12/2019. FINDINGS:Suboptimal evaluation secondary to patientbody habitus. UTERUS: The uterus measures 11 x 6.4 x 5.4 cm. Intramural fibroid in the anterior uterine body measures 4.7 x 4.2 x 4.4 cm. Cervical nabothian cysts.ENDOMETRIUM: Endometrium is normal in thickness and contains a 1.1 x 0.6 cm T2 hypointense structure.OVARIES/ADNEXA: Neither normal ovary is clearly visualized. 14.9 x 11.4 x 22.8 cm cystic structure in the right adnexum extends superiorly into the anterior lower abdomen; this structure contains multiple irregular septations as well as hemorrhagic/proteinaceous debris. 6.3 x 6.3 x 4.9 cm cystic structure in the left adnexum also contains irregular septations as well as hemorrhagic/proteinaceous debris. PERITONEUM/RETROPERITONEUM: Trace ascites. Suspected omental caking superior to the larger cystic structure. BLADDER: Bladder is unremarkable.RECTUM: Rectum and mesorectum are unremarkable. LYMPH NODES: No lymphadenopathy. BONES AND SOFTTISSUES: Unremarkable. Other findings: 1.2 x 1 cm cyst in the lower pole of the right kidney. IMPRESSION:Suboptimal evaluation secondary to patient body habitus. Complex cystic structures in the lowerabdomen/bilateral adnexa, suspicious for epithelial ovarian neoplasm. Additional differential considerations include complex fluid collection/ascites. 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 Intramural uterine fibroid. Additional 1.1 cm structure within the endometrium, suggestive of a submucosal fibroid. Signed: Trang Adkins MDReport Verified Date/Time: 04/13/2019 17:50:41 Reading Location: [facility] C013Y CT Body Reading [facility] [id number] 16:43:49Ejection FractionSLEH ECHO HEARTLAB MKCKESSON CPACSRight Impression1. There is no deep venous obstruction in the common femoral, profundafemoral, femoral or popliteal veins where visualized.2. The posterior tibial and peroneal veins are poorly visualized.3. There is no superficial venous obstruction in the great saphenous veinwhere visualized.Left Impression1. There is no deep venous obstruction in the common femoral, profundafemoral, femoral or popliteal veins where visualized.2. The posterior tibial and peroneal veins are poorly visualized.3. There is no superficial venous obstruction in the great saphenous veinwhere visualized. Conclusions Summary Venous duplex imaging and compression of thebilateral lower extremities were performed. The veins were technically difficult to visualize due toedema and patient body habitus. The bilateral venous systems had patent flow throughout; however, could not visualize well enough to rule out partial thrombus. The venous Doppler waveforms were phasic with respiration. Signature Velocities are measured in cm/s ; Diameters are measured in cm Interface, External Ris In - 04/13/2019 4:43 PM [facility] - Lower Extremities DVT Study Demographics Patient Name DIMITRY KENNEY Date of Study 04/12/2019 TACOS Age 59 Visit Number [id number] Gender Female Accession Number [id number] Date of 1960 Referring Arianne Neal Room Number 5312 Physician Waterworks Supervisor Benjamin Ornelas Interpreting Michelle Guerra, Physician ProcedureType of Study: Veins: Lower Extremities DVT Study, VENOUS DOPPLER LEG, BILATERAL. Indicationsfor Study:Abdominal pain and Bilateral leg edema .Patient Status:TIFFANY.Study Location:Portable.Technical Quality:Technically Difficult.Risk FactorsHistory of Disease+ +----+ +!Diagnosis !Date!Comments !+ +----+ +!Hi story/Risk ! !Uterine Cancer, Recent Gall Bladder Surgery, !!Factors: ! !Paraplegia !+ +----+ +ImpressionsRight Impression1. There is no deep venous obstruction in the common femoral, profundafemoral, femoral or popliteal veins where visualized.2. The posterior tibial and peroneal veins are poorly visualized.3. There is no superficial venous obstruction in the great saphenous veinwhere visualized.Left Impression1. There is no deep venous obstruction in the common femoral, profundafemoral, femoral or popliteal veins where visualized.2. The posterior tibial and peroneal veins are poorly visualized.3. There is no superficial venous obstruction in the great saphenous veinwhere visualized. Conclusions Summary Venous duplex imaging and [...] in cm/s ; Diameters are measured in [facility] W/PLT COUNT & AUTO DIFFERENTIAL 2019-04-13 09:38:00 Test Item Value Reference Range Interpretation Comments WHITE BLOOD CELL COUNT (BEAKER) 5.8 K/ L 3.5-10.5 (test code = 775) RED BLOOD CELL COUNT (BEAKER) 3.64 M/ L 3.93-5.22 L (test code = 761) HEMOGLOBIN (BEAKER) (test code = 10.6 GM/DL 11.2-15.7 L 410) HEMATOCRIT (BEAKER) (test code = 34.2 % 34.1-44.9 411) MEAN CORPUSCULAR VOLUME (BEAKER) 94.0 fL 79.4-94.8 (test code = 753) MEAN CORPUSCULAR HEMOGLOBIN 29.1 pg 25.6-32.2 (BEAKER) (test code = 751) MEAN CORPUSCULAR HEMOGLOBIN CONC 31.0 GM/DL 32.2-35.5 L (BEAKER) (test code = 752) RED CELL DISTRIBUTION WIDTH 14.9 % 11.7-14.4 H (BEAKER) (test code = 412) PLATELET COUNT (BEAKER) (test 265 K/CU MM 150-450 code = 756) MEAN PLATELET VOLUME (BEAKER) 10.2 fL 9.4-12.3 (test code = 754) NUCLEATED RED BLOOD CELLS 0 /100 WBC 0-0 (BEAKER) (test code = 413) NEUTROPHILS RELATIVE PERCENT 68 % (BEAKER) (test code = 429) LYMPHOCYTES RELATIVE PERCENT 13 % (BEAKER) (test code = 430) MONOCYTES RELATIVE PERCENT 17 % (BEAKER) (test code = 431) EOSINOPHILS RELATIVE PERCENT 2 % (BEAKER) (test code = 432) BASOPHILS RELATIVE PERCENT 1 % (BEAKER) (test code = 437) NEUTROPHILS ABSOLUTE COUNT 3.91 K/ L 1.56-6.13 (BEAKER) (test code = 670) LYMPHOCYTES ABSOLUTE COUNT 0.78 K/ L 1.18-3.74 L (BEAKER) (test code = 414) MONOCYTES ABSOLUTE COUNT (BEAKER) 0.96 K/ L 0.24-0.36 H (test code = 415) EOSINOPHILS ABSOLUTE COUNT 0.10 K/ L 0.04-0.36 (BEAKER) (test code = 416) BASOPHILS ABSOLUTE COUNT (BEAKER) 0.03 K/ L 0.01-0.08 (test code = 417) IMMATURE GRANULOCYTES-RELATIVE 0 % 0-1 PERCENT (BEAKER) (test code = 2801) BASIC METABOLIC [id number] 09:19:00 Test Item Value Reference Range Interpretation Comments SODIUM (BEAKER) 142 meq/L 136-145 (test code = 381) POTASSIUM (BEAKER) 3.3 meq/L 3.5-5.1 L (test code = 379) CHLORIDE (BEAKER) 104 meq/L 98-107 (test code = 382) CO2 (BEAKER) (test 31 meq/L 22-29 H code = 355) BLOOD UREA NITROGEN 20 mg/dL 7-21 (BEAKER) (test code = 354) CREATININE (BEAKER) 0.72 mg/dL 0.57-1.25 (test code = 358) GLUCOSE RANDOM 86 mg/dL 70-105 (BEAKER) (test code = 652) CALCIUM (BEAKER) 8.9 mg/dL 8.4-10.2 (test code = 697) EGFR (BEAKER) (test 83 mL/min/1.73 ESTIMA CRISTINA GFR IS code = 1092) sq m NOT ACCURATE CREATININE CLEARANCE IN PREDICTING GLOMERULAR FILTRATION RATE . ESTIMATED GFR I S NOT APPLICABLE FOR DIALYSIS PATIEN TS. Promotional Model ID - KEY MCT, [id number] 09:47:00FINAL REPORT INDICATION:Abdominal pain. COMPARISON: Abdomen MR January [address] [place] [address] January 19, 2019 TECHNIQUE: CT of the Abdomen and Pelvis WITH intravenous contrast. Enteric contrast was not used. The exam was performed according to our departmentdose-optimization protocol, which includes automated exposure control, adjustments of mA and kV according to patient size. Iterative reconstructions are also sometimes employed. FINDINGS:The patient isstatus post cholecystectomy in December 2018. Previously demonstrated free peritoneal fluid (bile leak) has performed a perihepatic / perigastric collection with mass effect on the right hepatic lobe and separately an anterior lower abdominal collection with thin rim enhancement. The former measures 13x 8 cm along the right liver margin. The latter measures 22 x 9 cm. There are prominent fluid-filledsmall bowel loops in the central abdomen and the distal small bowel is collapsed. There is a small amount of air throughout the colon. Right hepatic lobe hypodense mass represents hemangioma as demonstrated on abdomen MR January 21, 2019. Pancreas, spleen, adrenal glands, kidneys, uterus, and bladder are unremarkable. There is a small right pleural effusion. Osseous structures unremarkable. IMPRESSION: Postoperative intraperitoneal collections / bilomas. Thin rim enhancement of the low anterior abdominal collection suggests infection. Prominent small bowel loops in the central abdomen, favor ileus related to peritoneal collections over small bowel obstruction. Small right pleural effusion. Signed:Larry Lucas MDRort Verified Date/Time: 04/12/2019 09:47:48 Reading Location: [facility] signed by: LARRY LUCAS M.D. on 04/12/2019 09:47 AMCBC W/PLT COUNT & AUTO [id number] 09:25:00 Test Item Value Reference Range Interpretation Comments WHITE BLOOD CELL COUNT (BEAKER) 5.1 K/ L 3.5-10.5 (test code = 775) RED BLOOD CELL COUNT (BEAKER) 3.97 M/ L 3.93-5.22 (test code = 761) HEMOGLOBIN (BEAKER) (test code = 11.3 GM/DL 11.2-15.7 410) HEMATOCRIT (BEAKER) (test code = 37.0 % 34.1-44.9 411) MEAN CORPUSCULAR VOLUME (BEAKER) 93.2 fL 79.4-94.8 (test code = 753) MEAN CORPUSCULAR HEMOGLOBIN 28.5 pg 25.6-32.2 (BEAKER) (test code = 751) MEAN CORPUSCULAR HEMOGLOBIN CONC 30.5 GM/DL 32.2-35.5 L (BEAKER) (test code = 752) RED CELL DISTRIBUTION WIDTH 14.8 % 11.7-14.4 H (BEAKER) (test code = 412) PLATELET COUNT (BEAKER) (test 313 K/CU MM 150-450 code = 756) MEAN PLATELET VOLUME (BEAKER) 10.9 fL 9.4-12.3 (test code = 754) NUCLEATED RED BLOOD CELLS 0 /100 WBC 0-0 (BEAKER) (test code = 413) NEUTROPHILS RELATIVE PERCENT 66 % (BEAKER) (test code = 429) LYMPHOCYTES RELATIVE PERCENT 15 % (BEAKER) (test code = 430) MONOCYTES RELATIVE PERCENT 16 % (BEAKER) (test code = 431) EOSINOPHILS RELATIVE PERCENT 2 % (BEAKER) (test code = 432) BASOPHILS RELATIVE PERCENT 1 % (BEAKER) (test code = 437) NEUTROPHILS ABSOLUTE COUNT 3.35 K/ L 1.56-6.13 (BEAKER) (test code = 670) LYMPHOCYTES ABSOLUTE COUNT 0.76 K/ L 1.18-3.74 L (BEAKER) (test code = 414) MONOCYTES ABSOLUTE COUNT (BEAKER) 0.84 K/ L 0.24-0.36 H (test code = 415) EOSINOPHILS ABSOLUTE COUNT 0.11 K/ L 0.04-0.36 (BEAKER) (test code = 416) BASOPHILS ABSOLUTE COUNT (BEAKER) 0.04 K/ L 0.01-0.08 (test code = 417) IMMATURE GRANULOCYTES-RELATIVE 0 % 0-1 PERCENT (BEAKER) (test code = 2801) [id number] 08:55:00 Test Item Value Reference Range Interpretation Comments PROTIME (BEAKER) (test code = 14.7 seconds 11.9-14.2 H 759) INR (BEAKER) (test code = 370) 1.2 <=5.9 PARTIAL THROMBOPLASTIN TIME 30.9 seconds 22.5-36.0 (BEAKER) (test code = 760) Effective 08/18/2018: PT Reference Range ChangeNew: 11.9-14.2 Previous: 11.7- 14.7RECOMMENDED COUMADIN/WARFARIN INR THERAPY RANGESSTANDARD DOSE: 2.0-3.0 Includes: PROPHYLAXIS for venous thrombosis, systemic embolization; TREATMENT for venous thrombosis and/or pulmonary embolus.HIGH RISK: Target INR is2.5-3.5 for patients wiht mechanical heart valves.[id number] 06:56:00 Test Item Value Reference Range Interpretation Comments Lipase (test code = 3040-3) 7 U/L 8-78 L PAUL (test code = PAUL) Promotional Model ID - LA Lab Interpretation (test Abnormal code = 53376-8) [facility] Test Item Value Reference Range Interpretation Comments LIPASE (BEAKER) (test code = 749) 7 U/L 8-78 L Promotional Model ID - LABASIC METABOLIC [id number] 06:56:00 Test Item Value Reference Range Interpretation Comments SODIUM (BEAKER) 142 meq/L 136-145 (test code = 381) POTASSIUM (BEAKER) 3.6 meq/L 3.5-5.1 (test code = 379) CHLORIDE (BEAKER) 104 meq/L 98-107 (test code = 382) CO2 (BEAKER) (test 28 meq/L 22-29 code = 355) BLOOD UREA NITROGEN 21 mg/dL 7-21 (BEAKER) (test code = 354) CREATININE (BEAKER) 0.68 mg/dL 0.57-1.25 (test code = 358) GLUCOSE RANDOM 112 mg/dL 70-105 H (BEAKER) (test code = 652) CALCIUM (BEAKER) 10.0 mg/dL 8.4-10.2 (test code = 697) EGFR (BEAKER) (test 89 mL/min/1.73 ESTIMA CRISTINA GFR IS code = 1092) sq m NOT ACCURATE CREATININE CLEARANCE IN PREDICTING GLOMERULAR FILTRATION RATE . ESTIMATED GFR I S NOT APPLICABLE FOR DIALYSIS PATIEN TS. Promotional Model ID - LAHEPATIC FUNCTION [id number] 06:56:00 Test Item Value Reference Range Interpretation Comments TOTAL PROTEIN (BEAKER) (test code = 7.0 gm/dL 6.0-8.3 770) ALBUMIN (BEAKER) (test code = 1145) 3.9 g/dL 3.5-5.0 BILIRUBIN TOTAL (BEAKER) (test code 0.8 mg/dL 0.2-1.2 = 377) BILIRUBIN DIRECT (BEAKER) (test 0.4 mg/dL 0.1-0.5 code = 706) ALKALINE PHOSPHATASE (BEAKER) (test 88 U/L 40-150 code = 346) AST (SGOT) (BEAKER) (test code = 24 U/L 5-34 353) ALT (SGPT) (BEAKER) (test code = 14 U/L 6-55 347) Promotional Model ID - [id number] 14:42:00Medical Cytology Report Case: [id number] Authorizing Provider: Kristie Padilla MD Collected: 01/20/2019 1248 Ordering Location: [address] Received: 01/20/2019 1531 Service Pathologist: Clara Carpio MD Specimen: Peritoneal Fluid PERITONEAL FLUID (CYTOSPINS AND CELL BLOCK): - RARE ATYPICAL CELLS IN A BACKGROUND OF CHRONIC INFLAMMATION (SEE COMMENT) Signing Pathologist Direct Phone Line: [phone] signed by Clara Carpio MD on 01/26/2019 at 2:42 PMImmunohistochemical stains Calretinin, WT-1, highlighted rare mesothelial cells present . MOC-31 and Bahman- EP4 are negative in atypical cells. Negative for malignancy.45779, 68678; 41399; 03066 x 3AscitesPERITONEAL EETTS3000 mls brown fluid; 4 cytospins, cell block (collodion bag)Collected: 522198Toggjaar: 212809ZsmhlwhrxptzRtz interpretation of this case included the use of immunohistochemistry or special stains.Calretinin; Bahman-EP4; MOC-31 and WT-1Control Slides Examined: In-house known positive controls were evaluated along with the test tissue. These controlslides run alongside of the patients sample show appropriate staining. Internal positive and negative controls when available are evaluated Immunohistochemistry technical testing was performed at [facility], Pathology Laboratory where it was developed and its performance characteristics were determined. It has not been cleared or approved by the U.S. Food and Drug Administration. The FDA has determined that such clearance or approval is not necessary. The test is used for clinical purposes. It should not be regarded as investigational or for research. This laboratory is certified under the Clinical Laboratory Improvement Amendments of 1988 (CLIA-88) as qualified to perform high complexity clinical laboratory testing.[facility], Department of Pathology, [address] [place] [address], [facility] of [facility], [address] [place] [address], [facility], [facility] of Pathology, [address] [place] [address], Bpwsa Protein Electrophoresis, [id number] 17:09:00 Test Item Value Reference Range Interpretation Comments Protein, Urine (test code 32 mg/dL 0-14 H = 2888-6) Albumin %, Urine (test 22.7 % code = 94392-0) Globulin %, Urine (test 77.3 % code = 46049-7) UPEP,ID (test code = No monoclonal bands 2604) detected. Pathologist: (test code = Leslee Cosme, 2605) (electronic signature) Lab Interpretation (test Abnormal code = 20240-4) [facility] Center[facility] ELECTROPHORESIS, [id number] 17:09:00 Test Item Value Reference Range Interpretation Comments PROTEIN, URINE 32 mg/dL 0-14 H (BEAKER) (test code = 1569) ALBUMIN URINE ELP 22.7 % (BEAKER) (test code = 1018) GAMMA GLOBULIN URINE 77.3 % (BEAKER) (test code = 1015) UPEP, ID-438 (BEAKER) No monoclonal bands (test code = 2604) detected. [id number] Leslee Cosme MD (BEAKER) (test code = (electronic signature) 2605) BODY FLUID CULTURE + GRAM [id number] 13:57:00 Test Item Value Reference Range Interpretation Comments CULTURE (BEAKER) (test code No growth = 1095) GRAM STAIN RESULT (BEAKER) <1+ WBCs (test code = 1123) GRAM STAIN RESULT (BEAKER) No organisms seen (test code = 79872) ANAEROBIC [id number] 17:42:00 Test Item Value Reference Range Interpretation Comments CULTURE (BEAKER) (test No anaerobes isolated code = 1095) HEPATOBILIARY [id number] 15:58:00FINAL REPORT PROCEDURE: HEPATOBILIARY SCAN CPT CODE: 90095 INDICATION: abdominal pain, ascites, possible bile leak PROTOCOL: 5.4 mCi of Tc-99m mebrofeninwas injected intravenously. Images of the upper abdomen were obtained for approximately 75 minutes after tracer injection. FINDINGS: Initial tracer uptake into the liver is physiological. Subsequent tracer clearance from the liver proceeds normally. There is good visualization of the extrahepatic biliary duct, and the tracer appears appropriately in the small bowel. No tracer extravasation is seen. The gallbladder is not seen. IMPRESSION: Normal post-cholecystectomy hepatobiliary scan.No evidence of bile leakage or biliary obstruction. Signed: Tim Franco Verified Date/Time: 01/22/2019 15:58:55 [facility] hepatobiliary (HIDA) [id number] 15:58:00Interface, External Ris In - 01/22/2019 4:01 PM CDTFINAL REPORT PROCEDURE: HEPATOBILIARY SCAN CPT CODE: 82127 INDICATION: abdominal pain, ascites, possible bile leak PROTOCOL: 5.4 mCi of Tc-99m mebrofenin was injected intravenously. Images of the upper abdomen were obtained for approximately 75 minutes after tracer injection. FINDINGS: Initial tracer uptake into the liver is physiological. Subsequent tracer clearance from the liver proceeds normally. There is good visualization of the extrahepatic biliary duct, and the tracer appears appropriately in the small bowel. No tracer extravasation is seen. The gallbladder is not seen. IMPRESSION: Normal post- cholecystectomy hepatobiliary scan. No evidence of bile leakage or biliary obstruction. Signed: Tim Franco Verified Date/Time: 01/22/2019 15:58:55 [facility] [id number] 06:37:00 Test Item Value Reference Range Interpretation Comments TOTAL PROTEIN (BEAKER) (test code = 5.7 gm/dL 6.0-8.3 L 770) ALBUMIN (BEAKER) (test code = 1145) 3.0 g/dL 3.5-5.0 L BILIRUBIN TOTAL (BEAKER) (test code 0.2 mg/dL 0.2-1.2 = 377) BILIRUBIN DIRECT (BEAKER) (test 0.1 mg/dL 0.1-0.5 code = 706) ALKALINE PHOSPHATASE (BEAKER) (test 49 U/L 40-150 code = 346) AST (SGOT) (BEAKER) (test code = 28 U/L 5-34 353) ALT (SGPT) (BEAKER) (test code = 18 U/L 6-55 347) [id number] 05:04:00 Test Item Value Reference Range Interpretation Comments MAGNESIUM (BEAKER) (test code = 1.9 mg/dL 1.6-2.6 627) BASIC METABOLIC [id number] 05:04:00 Test Item Value Reference Range Interpretation Comments SODIUM (BEAKER) 140 meq/L 136-145 (test code = 381) POTASSIUM (BEAKER) 3.2 meq/L 3.5-5.1 L (test code = 379) CHLORIDE (BEAKER) 99 meq/L 98-107 (test code = 382) CO2 (BEAKER) (test 33 meq/L 22-29 H code = 355) BLOOD UREA NITROGEN 9 mg/dL 7-21 (BEAKER) (test code = 354) CREATININE (BEAKER) 0.68 mg/dL 0.57-1.25 (test code = 358) GLUCOSE RANDOM 95 mg/dL 70-105 (BEAKER) (test code = 652) CALCIUM (BEAKER) 8.6 mg/dL 8.4-10.2 (test code = 697) EGFR (BEAKER) (test 89 mL/min/1.73 ESTIMA CRISTINA GFR IS code = 1092) sq m NOT ACCURATE CREATININE CLEARANCE IN PREDICTING GLOMERULAR FILTRATION RATE . ESTIMATED GFR I S NOT APPLICABLE FOR DIALYSIS PATIEN TS. CBC (Hemogram only)2019-01-22 04:35:00 Test Item Value Reference Range Interpretation Comments WBC (test code = 6690-2) 5.8 3.5- 10.5 K/L RBC (test code = 789-8) 4.25 3.93- 5.22 M/L MCHC (test code = 786-4) 31.6 32.2- 35.5 GM/DL L Hematocrit (test code = 4544-3) 39.6 % 34.1-44.9 MCV (test code = 787-2) 93.2 fL 79.4-94.8 MCH (test code = 785-6) 29.4 pg 25.6-32.2 RDW (test code = 788-0) 12.4 % 11.7-14.4 Platelets (test code = 777-3) 290 150- 450 K/CU MM MPV (test code = 14393-0) 9.9 fL 9.4-12.3 nRBC (test code = 413) 0 0- 0 /100 WBC Lab Interpretation (test code = Abnormal 96604-3) [facility] (HEMOGRAM ONLY)2019-01-22 04:35:00 Test Item Value Reference Range Interpretation Comments WHITE BLOOD CELL COUNT (BEAKER) 5.8 K/ L 3.5-10.5 (test code = 775) RED BLOOD CELL COUNT (BEAKER) 4.25 M/ L 3.93-5.22 (test code = 761) HEMOGLOBIN (BEAKER) (test code = 12.5 GM/DL 11.2-15.7 410) HEMATOCRIT (BEAKER) (test code = 39.6 % 34.1-44.9 411) MEAN CORPUSCULAR VOLUME (BEAKER) 93.2 fL 79.4-94.8 (test code = 753) MEAN CORPUSCULAR HEMOGLOBIN 29.4 pg 25.6-32.2 (BEAKER) (test code = 751) MEAN CORPUSCULAR HEMOGLOBIN CONC 31.6 GM/DL 32.2-35.5 L (BEAKER) (test code = 752) RED CELL DISTRIBUTION WIDTH 12.4 % 11.7-14.4 (BEAKER) (test code = 412) PLATELET COUNT (BEAKER) (test 290 K/CU MM 150-450 code = 756) MEAN PLATELET VOLUME (BEAKER) 9.9 fL 9.4-12.3 (test code = 754) NUCLEATED RED BLOOD CELLS 0 /100 WBC 0-0 (BEAKER) (test code = 413) U/S, [id number] 18:38:00Please send 1 liter for cytology. Also please send fluid bilirubin.Labs to be ordered:->Body Fluid Culture (w/Gram Stain, C\\T\\S)bilirubin, albumin, proteinLabs to be ordered:->Other (please add comment)Labs to be ordered:->Anaerobic Culture (w/Gram Stain)Labs to be ordered:->CytologyReasonfor exam:->tense ascitesReason for exam:- >Please send 1 liter for cytology. Also please send fluid bilirubin.FINAL REPORT Ultrasound guided paracentesis Clinical History: Ascites. Sedation: None. Senior Python Developer: Sarah Reyes PA-C Supervising Physician: Turner Jara MD Throw Out Clerk: None. Estimated Blood Loss: < 1 mL. Specimen: 3300 mL of cloudy yellow fluid, samples sent to laboratory. Technique: Informed consent was obtained. The risks of pain, bleeding, infection, bowel perforation, injury to adjacent structures, and adverse medication reactions were discussed with the patient. After informed consent was obtained, the patient's abdomen was scanned. The lower quadrant of the abdomen was selected for paracentesis. After the largest fluid pocket area was marked, and the anterior abdominal wall was evaluated with color Doppler to exclude presence of blood vessels traversing the area, the skin was prepped and draped in the usual sterile manner. Afterlocal anesthesia was achieved with lidocaine, a 5 Malawian one-step catheter was advanced into the peritoneal cavity under ultrasound guidance. After completion of drainage, the catheter was removed. There was no evidence of complication. This procedure was performed by CALLY Carrasco under direct supervision of Turner Jara M.D. Impression:Successful ultrasound guided paracentesis. Signed: Turner Jara MDReport Verified Date/Time: 01/21/2019 18:38:02 Reading Location: [address] Ultrasound Reading Room 2D Echo W/Doppler(CW/PW/Color)2019-01-21 16:44:39Ejection FractionSLEH ECHO HEARTLAB MKCKESSON CPACSInterface, External Ris In - 01/21/2019 4:44 PM CDTTransthoracic Echocardiography Report (TTE) Demographics Patient Name DIMITRY KENNEY Date of Study 01/21/2019 TACOS Gender Female Visit Number [id number] Race Unknown Room Number 730 Number Date of 1960 Referring Physician CANELO FLOYD Age 58 year(s) Waterworks Supervisor Lucia Mora Senior Sharepoint Architect Rosa M Fofana Interpreting Physician NARCISA Miranda Procedure Type of Study TTE procedure:2DECHO W DOPPLER(CW/PW/COLOR) (Routine) Indications:Known or suspected heart failure.Clinical HistoryHGB 12.3HCT 39.1 %Contrast Medium: Definity. Amount - 2 mlHeight: 63 inches Weight: 102.06 kg (225 lbs) BSA: 2.03 m^2 BMI: 39.86kg/m^2HR: 76 bpm BP: 115/56 mmHg Summary 1. Normal LV size and function. LVEF is > 60% 2. Diastology: Grade 1 diastolic dysfunction 3. Normal RV size and function 4. No significant VHD 5. Unable to estimate PASP 6. No pericardial effusion Previous Study No prior exam available for comparison. Signature Findings Technical Quality: Technically difficult exam. Left Ventricle The left ventricle is chamber size (by PSLAX dimension) is normal (female - LVIDd 3.8-5.2cm). Normal LV wall thickness. All of the LV segments contract normally . Global LV systolic function normal . LVEF by Norman's methodof disk assessment is normal (>60%) . The LVEF was measured using Norman's bi-plane method of disk . LV endocardium is incompletely visualized despite IV ultrasound enhancing agent. Grade 1 diastolic dysfunction (impaired relaxation and low-normal LA pressure). Left Atrium LA size is normal (16-34 ml/m2) . Right Ventricle The right ventricular chamber size and systolic function are within normal limits. Right Atrium The RA is partially visualized. Aortic Valve Mild aortic regurgitation. Mild AoV cusp thickening. Mitral Valve Mild mitral annular calcification. No evidence of mitral regurgitation. Tricuspid Valve TV structure is normal. Unable to estimate peak systolic PA pressure; inadequate TR velocity signal. Pulmonic Valve Normal PV structure and function. Aorta Aortic root size (SInus of Valsalva diameter) is normal . Pericardium No significant pericardial effusion is visualized. IVC/SVC/PA/PV/Pleural The estimated RA [...] ml/m^2 LVOT Diameter: 2 cm Right Ventricle TAPSE:3.11 cm Aorta Ao Root S of Brendon.: 3.34 cm Doppler/Quantitative Measurements Mitral Valve MV Peak E-Wave: 0.54 m/s MV Peak A-Wave: 0.77 m/s E/A Ratio: 0.7 Peak Gradient: 1.16 mmHg Deceleration Time: 243.1 msec MV Lisandro. Peak: Tissue Doppler E' Septal Velocity: 0.07 m/s E/E': 7.21 E' Lateral Velocity: 0.05 m/s LVOT Peak Velocity: 0.73 m/s Peak Gradient: 2.11 mmHg Mean Velocity: 0.47 m/s Mean Gradient: 1.07 mmHg LVOT Diameter: 2 cm LVOT VTI: 16.32 cm LVOT Area: 3.14 cm^2 LVOT SV:51.24 ml LVOT CO: 3.89 l/min LVOT CI: 1.92 l/min/m^2[facility] 2019-01-21 15:55:00With MRCP. S/p cholecystectomy. Possible bile leakFINAL REPORT INDICATION:Abdominal pain status post cholecystectomy. COMPARISON: Abdomen ultrasound January 20, 2019 TECHNIQUE: MR of the Abdomen WITHOUT and WITH intravenous contrast. MRCP was also performed including 3-D reconstructions. FINDINGS:There is free intraperitoneal fluid mostly in the left upper quadrant and low anterior abdomen. This is suspicious for a bile leak after cholecystectomy. In the gallbladder fossa there are two adjacent 1 cm low signal structures suspicious for dropped stones. There is no biliary ductal dilatation. The liver is normal in size, contour, and signal. In the right hepatic lobe there is a 1.5 cm hemangioma. Pancreas, spleen, adrenal glands are normal. In the right kidney lower pole there is a 1 cm benign cortical cyst. There is mild left hydronephrosis and pelviectasis with the upper ureter normal in caliber. There is a tiny left pleural effusion. IMPRESSION:Free intraperitoneal fluid after cholecystectomy suspicious for bile leak. Probable two dropped gallstones in the gallbladder fossa. Mild left hydronephrosis and pelviectasis. 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 Recommend correlation with renal function tests and follow-up renal ultrasound in two days. Signed: Larry Lucas MDReport Verified Date/Time: 01/21/2019 15:55:40 Reading Location: [facility] Radiology Reading Room MR abdomen without & with IV [id number] 15:55:00Interface, External Ris In - 01/21/2019 3:57 PM CDTFINAL REPORT INDICATION:Abdominal pain status post cholecystectomy. COMPARISON: Abdomen ultrasound January 20, 2019 TECHNIQUE:MR of the Abdomen WITHOUT and WITH intravenous contrast. MRCP was also performed including 3-D reconstructions. FINDINGS:There is free intraperitoneal fluid mostly in the left upper quadrant and low anterior abdomen. This is suspicious for a bile leak after cholecystectomy. In the gallbladder fossa there are two adjacent 1 cm low signal structures suspicious for dropped stones. There is no biliary ductal dilatation. The liver is normal in size, contour, and signal. In the right hepatic lobe there gill 1.5 cm hemangioma. Pancreas, spleen, adrenal glands are normal. In the right kidney lower pole there is a 1 cm benign cortical cyst. There is mild left hydronephrosis and pelviectasis with the upper ureter normal in caliber. There is a tiny left pleural effusion. IMPRESSION:Free intraperitoneal fluid after cholecystectomy suspicious for bile leak. Probable two dropped gallstones in the gallbladder fossa. Mild left hydronephrosis and pelviectasis. 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 Recommend correlation with renal function tests and follow-up renal ultrasound in two days. Signed: Larry Lucas MDReport Verified Date/Time: 01/21/2019 15:55:40 Reading Location: [facility] Radiology [facility] WITH [id number] 11:14:00 Test Item Value Reference Range Interpretation Comments APPEARANCE FLUID (BEAKER) (test Hazy Clear A code = 510) COLOR FLUID (BEAKER) (test code Yellow Colorless, Straw A = 511) RBC FLUID (BEAKER) (test code = 2000 /cu mm <=1 H 513) ADJUSTED WBC FLUID (BEAKER) 633 /cu mm <=5 H (test code = 1691) LINING CELLS (BEAKER) (test code 0 /cu mm <=1 = 1590) NEUTROPHILS FLUID (BEAKER) (test 14 % code = 1656) LYMPHS FLUID (BEAKER) (test code 76 % = 488) MONO/MACROPHAGE FLUID (BEAKER) 10 % (test code = 489) EOSINOPHILS FLUID (BEAKER) (test 0 % code = 491) BASO FLUID (BEAKER) (test code = 0 % 492) CONTAINER BODY FLUID (BEAKER) EDTA Tube (test code = 2873) Ascitic fluid [id number] 09:21:00Scan ResultQUEST NON-INTERFACED LABCHI [facility] HospitalHepatitis B surface [id number] 05:02:00 Test Item Value Reference Range Interpretation Comments Hep B S Ab (test code = 62832-5) <8.0 <8.0 mIU/mL Lab Interpretation (test code = Normal 13004-0) [facility] SURFACE [id number] 05:02:00 Test Item Value Reference Range Interpretation Comments HEPATITIS B SURFACE ANTIBODY < mIU/mL <8.0 (BEAKER) (test code = 647) Hepatitis B core antibody, [id number] 04:54:00 Test Item Value Reference Range Interpretation Comments Hep B Core Total Ab (test code = Nonreactive Nonreactive 86286-6) Lab Interpretation (test code = Normal 72551-3) [facility] [id number] 04:54:00 Test Item Value Reference Range Interpretation Comments Hepatitis C Ab (test code = Nonreactive Nonreactive 03961-4) Lab Interpretation (test code = Normal 84017-1) [facility] CenterHethe medical centertis A antibody, [id number] 04:54:00 Test Item Value Reference Range Interpretation Comments Hep A IgG (test code = 80392-1) Nonreactive Nonreactive Lab Interpretation (test code = Normal 95666-4) [facility] C [id number] 04:54:00 Test Item Value Reference Range Interpretation Comments HEPATITIS C ANTIBODY (BEAKER) Nonreactive Nonreactive (test code = 367) HEPATITIS B CORE ANTIBODY, [id number] 04:54:00 Test Item Value Reference Range Interpretation Comments HEPATITIS B CORE TOTAL ANTIBODY Nonreactive Nonreactive (BEAKER) (test code = 497) HEPATITIS A ANTIBODY, [id number] 04:54:00 Test Item Value Reference Range Interpretation Comments HEPATITIS A IGG ANTIBODY (BEAKER) Nonreactive Nonreactive (test code = 2797) [id number] 04:49:00 Test Item Value Reference Range Interpretation Comments MAGNESIUM (BEAKER) (test code = 2.0 mg/dL 1.6-2.6 627) BASIC METABOLIC [id number] 04:49:00 Test Item Value Reference Range Interpretation Comments SODIUM (BEAKER) 139 meq/L 136-145 (test code = 381) POTASSIUM (BEAKER) 3.3 meq/L 3.5-5.1 L (test code = 379) CHLORIDE (BEAKER) 100 meq/L 98-107 (test code = 382) CO2 (BEAKER) (test 32 meq/L 22-29 H code = 355) BLOOD UREA NITROGEN 9 mg/dL 7-21 (BEAKER) (test code = 354) CREATININE (BEAKER) 0.68 mg/dL 0.57-1.25 (test code = 358) GLUCOSE RANDOM 96 mg/dL 70-105 (BEAKER) (test code = 652) CALCIUM (BEAKER) 8.6 mg/dL 8.4-10.2 (test code = 697) EGFR (BEAKER) (test 89 mL/min/1.73 ESTIMA CRISTINA GFR IS code = 1092) sq m NOT ACCURATE CREATININE CLEARANCE IN PREDICTING GLOMERULAR FILTRATION RATE . ESTIMATED GFR I S NOT APPLICABLE FOR DIALYSIS PATIEN [id number] 04:49:00 Test Item Value Reference Range Interpretation Comments LIPASE (BEAKER) (test code = 749) 4 U/L 8-78 L CBC (HEMOGRAM ONLY)2019-01-21 03:58:00 Test Item Value Reference Range Interpretation Comments WHITE BLOOD CELL COUNT (BEAKER) 6.7 K/ L 3.5-10.5 (test code = 775) RED BLOOD CELL COUNT (BEAKER) 4.15 M/ L 3.93-5.22 (test code = 761) HEMOGLOBIN (BEAKER) (test code = 12.3 GM/DL 11.2-15.7 410) HEMATOCRIT (BEAKER) (test code = 39.1 % 34.1-44.9 411) MEAN CORPUSCULAR VOLUME (BEAKER) 94.2 fL 79.4-94.8 (test code = 753) MEAN CORPUSCULAR HEMOGLOBIN 29.6 pg 25.6-32.2 (BEAKER) (test code = 751) MEAN CORPUSCULAR HEMOGLOBIN CONC 31.5 GM/DL 32.2-35.5 L (BEAKER) (test code = 752) RED CELL DISTRIBUTION WIDTH 12.6 % 11.7-14.4 (BEAKER) (test code = 412) PLATELET COUNT (BEAKER) (test 282 K/CU MM 150-450 code = 756) MEAN PLATELET VOLUME (BEAKER) 10.1 fL 9.4-12.3 (test code = 754) NUCLEATED RED BLOOD CELLS 0 /100 WBC 0-0 (BEAKER) (test code = 413) Albumin, body [id number] 15:17:00 Test Item Value Reference Range Interpretation Comments Albumin, Fluid (test 2.7 gm/dL code = 1747-5) PAUL (test code = Reference Range: No PAUL) Normals Assay performance has not been validated for this type of specimen. [facility] CenterALBUMIN, BODY [id number] 15:17:00 Test Item Value Reference Range Interpretation Comments ALBUMIN FLUID (BEAKER) (test code = 2.7 gm/dL 501) Reference Range: No Normals Assay performance has not been validated for this type of specimen.U/S, ABDOMINAL, WITH [id number] 15:14:00Reason for exam:->ascites, looking for portal vein thrombusFINAL REPORT TECHNIQUE: Grayscale ultrasound of the abdomen with color Doppler and spectral Doppler ultrasound of the portal/hepatic vasculature. INDICATION: ascites, looking forportal vein thrombus. COMPARISON: None. FINDINGS: LIVER: Mildly heterogeneous liver echotexture. Smooth liver contour. No focal liver lesions. HEPATIC VASCULATURE: Portal veins are patent with normal waveform and directionality. Flow velocity in the main portal vein is within normal limits. The hepatic arteries are patent with normal flow velocities, resistive indices, and waveforms. The hepatic veins and confluence are patent. The main portal vein measures 0.8 cm. The hepatic arterial resistive indices range from 0.6-0.7, and the proper hepatic arterial acceleration time is 0.05 seconds. BILIARY:G allbladder: Surgically absentCommon bile duct measures 0.3 cm, within normal limits. No intrahepaticbiliary ductal dilatation. PANCREAS: Incompletely visualized due to overlying bowel gas. The partially visualized pancreatic neck and body are normal. SPLEEN: No splenomegaly. The spleen measures 10.2 cm PERITONEUM: There is a trace residual ascites. KIDNEYS: Normal in size bilaterally. No hydronephrosis. No sonographically evident solid mass lesion. Minimal right renal pelvic fullness. MIDLINE VASCULATURE: The visualized inferior vena cava is patent. The maximum visualized aortic diameter is 1.9 cm. Splenic artery and vein are patent. IMPRESSION: 1.No portal vein thrombosis is seen. Providing the prior outside hospital imaging would be helpful. 2.The mild heterogeneity of the liver echotexture is nonspecific but can be seen with chronic parenchymal liver disease. 3.Minimal right renal pelvic fullness. Signed: Stephen Shin MDReport Verified Date/Time: 01/20/2019 15:14:32 Reading Location: [address] Radiology Reading Room US abdominal with [id number] 15:14:00Interface, External Ris In - 01/20/2019 3:16 PM CDTFINAL REPORT TECHNIQUE: Grayscale ultrasound of the abdomen with color Doppler and spectral Doppler ultrasound of the portal/hepatic vasculature. INDICATION: ascites, looking for portal vein thrombus. COMPARISON: None. FINDINGS: LIVER: Mildly heterogeneous liver echotexture. Smooth liver contour. No focal liver lesions. HEPATIC VASCULATURE: Portal veins are patent with normal waveform and directionality. Flow velocity in themain portal vein is within normal limits. The hepatic arteries are patent with normal flow velocities, resistive indices, and waveforms. The hepatic veins and confluence are patent. The main portal vein measures 0.8 cm. The hepatic arterial resistive indices range from 0.6-0.7, and the proper hepatic arterial acceleration time is 0.05 seconds. BILIARY:Gallbladder: Surgically absentCommon bile duct measures 0.3 cm, within normal limits. No intrahepatic biliary ductal dilatation. PANCREAS: Incompletely visualized due to overlying bowel gas. The partially visualized pancreatic neck and body are normal. SPLEEN: No splenomegaly. The spleen measures 10.2 cm PERITONEUM: There is a trace residual ascites.KIDNEYS: Normal in size bilaterally. No hydronephrosis. No sonographically evident solid mass lesion. Minimal right renal pelvic fullness. MIDLINE VASCULATURE: The visualized inferior vena cava is patent. The maximum visualized aortic diameter is 1.9 cm. Splenic artery and vein are patent. IMPRESSION: 1.No portal vein thrombosis is seen. Providing the prior outside hospital imaging would be helpful. 2.The mild heterogeneity of the liver echotexture is nonspecific but can be seen with chronic parenchymal liver disease. 3.Minimal right renal pelvic fullness. Signed: Stephen Shin MDReport Verified Date/Time: 01/20/2019 15:14:32 Reading Location: [address] Radiology [facility] Creatinine, random [id number] 09:52:00 Test Item Value Reference Range Interpretation Comments Creatinine, Ur (test 211.5 mg/dL code = 2161-8) PAUL (test code = Reference Range: No PAUL) Normals [facility], RANDOM [id number] 09:52:00 Test Item Value Reference Range Interpretation Comments CREATININE URINE (BEAKER) (test 211.5 mg/dL code = 375) Reference Range: No NormalsUrinalysis with Microscopic If [id number] 07:40:00 Test Item Value Reference Range Interpretation Comments Color, UA (test code = 5778-6) Yellow Clarity, UA (test code = 5767-9) Clear Specific [place], UA (test code = >1.050 1.001-1.035 H 5811-5) pH, UA (test code = 5803-2) 5.5 5.0-8.0 Protein, UA (test code = 40988-4) 20 mg/dL Negative A Glucose, UA (test code = 365) Negative Negative Ketones, UA (test code = 2514-8) 10 mg/dL Negative A Bilirubin, UA (test code = 37206-6) Negative Negative Blood, UA (test code = 27731-8) Moderate Negative A Nitrite, UA (test code = 5802-4) Negative Negative Leukocytes, UA (test code = 5799-2) Negative Negative Urobilinogen, UA (test code = 0.2 mg/dL 0.2-1 46253-4) Specimen Source (test code = 2795) Lab Interpretation (test code = Abnormal 85420-5) [facility] Center[facility]inalysis Microscopic [id number] 07:40:00 Test Item Value Reference Range Interpretation Comments RBC, UA (test code = 57715-4) 12 /HPF WBC, UA (test code = 5821-4) 12 /HPF Bacteria, UA (test code = 71208-3) Occasional Mucus (test code = 8247-9) Occasional Squam Epithel, UA (test code = 3 /HPF 49174-8) [facility] Center[facility]IN[facility]IS WITH MICROSCOPIC IF [id number] 07:40:00 Test Item Value Reference Range Interpretation Comments COLOR (BEAKER) (test code = 470) Yellow CLARITY (BEAKER) (test code = 469) Clear SPECIFIC GRAVITY UA (BEAKER) (test > 1.001-1.035 H code = 468) PH UA (BEAKER) (test code = 467) 5.5 5.0-8.0 PROTEIN UA (BEAKER) (test code = 20 mg/dL Negative A 464) GLUCOSE UA (BEAKER) (test code = Negative Negative 365) KETONES UA (BEAKER) (test code = 10 mg/dL Negative A 371) BILIRUBIN UA (BEAKER) (test code = Negative Negative 462) BLOOD UA (BEAKER) (test code = 461) Moderate Negative A NITRITE UA (BEAKER) (test code = Negative Negative 465) LEUKOCYTE ESTERASE UA (BEAKER) Negative Negative (test code = 466) UROBILINOGEN UA (BEAKER) (test code 0.2 mg/dL 0.2-1.0 = 463) SOURCE(BEAKER) (test code = 2795) URINALYSIS [id number] 07:40:00 Test Item Value Reference Range Interpretation Comments RBC UA (BEAKER) (test code = 519) 12 /HPF WBC UA (BEAKER) (test code = 520) 12 /HPF BACTERIA (BEAKER) (test code = Occasional 517) MUCUS (BEAKER) (test code = 1574) Occasional SQUAMOUS EPITHELIAL (BEAKER) (test 3 /HPF code = 516) TSH/Free T4 If [id number] 05:14:00 Test Item Value Reference Range Interpretation Comments TSH (test code = 98322-0) 3.09 0.35- 4.94 uIU/mL Lab Interpretation (test code = Normal 40007-4) [facility] Center[facility]FREE T4 IF [id number] 05:14:00 Test Item Value Reference Range Interpretation Comments THYROID STIMULATING HORMONE 3.09 uIU/mL 0.35-4.94 (BEAKER) (test code = 772) [id number] 04:54:00 Test Item Value Reference Range Interpretation Comments MAGNESIUM (BEAKER) 2.3 mg/dL 1.6-2.6 Specimen slightly (test code = 627) hemolyzed COMPREHENSIVE METABOLIC [id number] 04:54:00 Test Item Value Reference Range Interpretation Comments TOTAL PROTEIN 6.4 gm/dL 6.0-8.3 Specimen sligh tly (BEAKER) (test code = hemoly zed 770) ALBUMIN (BEAKER) 3.2 g/dL 3.5-5.0 L Specimen sl ightly (test code = 1145) hemolyzed ALKALINE PHOSPHATASE 56 U/L 40-150 (BEAKER) (test code = 346) BILIRUBIN TOTAL 0.5 mg/dL 0.2-1.2 Specimen sli ghtly (BEAKER) (test code = hemoly zed 377) SODIUM (BEAKER) (test 137 meq/L 136-145 code = 381) POTASSIUM (BEAKER) 3.6 meq/L 3.5-5.1 Specimen slightly (test code = 379) hemolyzed CHLORIDE (BEAKER) 100 meq/L 98-107 (test code = 382) CO2 (BEAKER) (test 26 meq/L 22-29 code = 355) BLOOD UREA NITROGEN 10 mg/dL 7-21 (BEAKER) (test code = 354) CREATININE (BEAKER) 0.78 mg/dL 0.57-1.25 Specimen slightly (test code = 358) hemolyzed GLUCOSE RANDOM 100 mg/dL 70-105 (BEAKER) (test code = 652) CALCIUM (BEAKER) 9.0 mg/dL 8.4-10.2 (test code = 697) AST (SGOT) (BEAKER) 28 U/L 5-34 Specimen slightly (test code = 353) hemolyzed ALT (SGPT) (BEAKER) 20 U/L 6-55 Specimen slightly (test code = 347) hemolyzed EGFR (BEAKER) (test 76 mL/min/1.73 ESTIMA CRISTINA GFR IS code = 1092) sq m NOT ACCURATE CREATININE CLEARANCE IN PREDICTING GLOMERULAR FILTRATION RATE . ESTIMATED GFR I S NOT APPLICABLE FOR DIALYSIS PATIEN TS. PROTHROMBIN [id number] 04:41:00 Test Item Value Reference Range Interpretation Comments PROTIME (BEAKER) (test code = 14.3 seconds 11.9-14.2 H 759) INR (BEAKER) (test code = 370) 1.2 <=5.9 Effective 08/18/2018: PT Reference Range ChangeNew: 11.9-14.2 Previous: 11.7- 14.7RECOMMENDED COUMADIN/WARFARIN INR THERAPY RANGESSTANDARD DOSE: 2.0-3.0 Includes: PROPHYLAXIS for venous thrombosis, systemic embolization; TREATMENT for venous thrombosis and/or pulmonary embolus.HIGH RISK: Target INR is2.5-3.5 for patients wiht mechanical heart valves.CBC W/PLT COUNT & AUTO [id number] 04:31:00 Test Item Value Reference Range Interpretation Comments WHITE BLOOD CELL COUNT (BEAKER) 8.2 K/ L 3.5-10.5 (test code = 775) RED BLOOD CELL COUNT (BEAKER) 4.49 M/ L 3.93-5.22 (test code = 761) HEMOGLOBIN (BEAKER) (test code = 13.3 GM/DL 11.2-15.7 410) HEMATOCRIT (BEAKER) (test code = 42.8 % 34.1-44.9 411) MEAN CORPUSCULAR VOLUME (BEAKER) 95.3 fL 79.4-94.8 H (test code = 753) MEAN CORPUSCULAR HEMOGLOBIN 29.6 pg 25.6-32.2 (BEAKER) (test code = 751) MEAN CORPUSCULAR HEMOGLOBIN CONC 31.1 GM/DL 32.2-35.5 L (BEAKER) (test code = 752) RED CELL DISTRIBUTION WIDTH 12.5 % 11.7-14.4 (BEAKER) (test code = 412) PLATELET COUNT (BEAKER) (test 323 K/CU MM 150-450 code = 756) MEAN PLATELET VOLUME (BEAKER) 10.3 fL 9.4-12.3 (test code = 754) NUCLEATED RED BLOOD CELLS 0 /100 WBC 0-0 (BEAKER) (test code = 413) NEUTROPHILS RELATIVE PERCENT 70 % (BEAKER) (test code = 429) LYMPHOCYTES RELATIVE PERCENT 14 % (BEAKER) (test code = 430) MONOCYTES RELATIVE PERCENT 13 % (BEAKER) (test code = 431) EOSINOPHILS RELATIVE PERCENT 1 % (BEAKER) (test code = 432) BASOPHILS RELATIVE PERCENT 1 % (BEAKER) (test code = 437) NEUTROPHILS ABSOLUTE COUNT 5.74 K/ L 1.56-6.13 (BEAKER) (test code = 670) LYMPHOCYTES ABSOLUTE COUNT 1.14 K/ L 1.18-3.74 L (BEAKER) (test code = 414) MONOCYTES ABSOLUTE COUNT (BEAKER) 1.09 K/ L 0.24-0.36 H (test code = 415) EOSINOPHILS ABSOLUTE COUNT 0.09 K/ L 0.04-0.36 (BEAKER) (test code = 416) BASOPHILS ABSOLUTE COUNT (BEAKER) 0.07 K/ L 0.01-0.08 (test code = 417) IMMATURE GRANULOCYTES-RELATIVE 1 % 0-1 PERCENT (BEAKER) (test code = 2801)
--- OUTSIDE RECORDS SUMMARY | 2019-12-28 22:13 | XMS REPORT | Summary of Care ---
:1960 [address] [facility] - Health Address [address] [place] [address] Care Team Providers Name Role Phone Asa Mccray Primary Care Provider Encounter Details Date Type Department Care Team Description 10/18/[address] [facility] Doctor Unassigned, No 301 [facility] Name [place] [phone] [address] [place] [address] Allergies No Known Allergiesdocumented as of this encounter (statuses as of 10/18/2019) Medications Medication Sig Dispensed Refills Start Date [...] as of this encounter (statuses as of 10/18/2019) Active Problems Problem Noted Date Atypical glandular [...] as of this encounter (statuses as of 10/18/2019) Social History Tobacco Use Types Packs/Day Years [...] Associated Diagnosis Comme nts EXTERNAL PROVIDER Routine 10/18/2019 12:01 AM CDT RECORDS documented in this encounter Results Not on filedocumented in this encounter Insurance Payer Benefit Plan Subscriber ID Effective Dates Phone Address Type / Group [place] [id number] 2018-Nelda [phone] [address] t 7 [id number] [place] [address] documented as of this encounter
--- OUTSIDE RECORDS SUMMARY | 2019-12-28 22:13 | XMS REPORT | Summary of Care ---
:1960 Author Organization [facility] - Health Address [address] [place] [address] Care Team Providers Name Role Phone Asa Mccray Primary Care Provider Encounter Details Date Type Department Care Team Description 10/10/2019 Orders Only [facility] Doctor Unassigned, No 301 [facility] Name [place] [id number] [address] [place] [address] Allergies No Known Allergiesdocumented as of this encounter (statuses as of 10/10/2019) Medications Medication Sig Dispensed Refills Start Date [...] as of this encounter (statuses as of 10/10/2019) Active Problems Problem Noted Date Atypical glandular [...] as of this encounter (statuses as of 10/10/2019) Social History Tobacco Use Types Packs/Day Years [...] Associated Diagnosis Comme nts EXTERNAL PROVIDER Routine 10/10/2019 12:01 AM CDT RECORDS documented in this encounter Results Not on filedocumented in this encounter Insurance Payer Benefit Plan Subscriber ID Effective Dates Phone Address Type / Group [place] [id number] 2018-Nelda [phone] [address] P[place] t 7 [id number] [place] [address] documented as of this encounter
--- OUTSIDE RECORDS SUMMARY | 2019-12-28 22:13 | XMS REPORT | Summary of Care ---
:1960 Author Organization [facility] - [facility] Address [address] [place] [address] Care Team Providers Name Role Phone Asa Mccray Primary Care Provider Reason for Visit Reason Comments Notification Encounter Details Date Type Department Care Team Description 10/27/2019 Telephone [facility] Women[facility] Bhanu Hernandes, Bev [facility]WSTER [address] [place] [address], [address] [place] [address] [place] [address] [phone] Allergies No Known Allergiesdocumented as of this encounter (statuses as of 10/27/2019) Medications Medication Sig Dispensed Refills Start Date [...] as of this encounter (statuses as of 10/27/2019) Active Problems Problem Noted Date Atypical glandular [...] as of this encounter (statuses as of 10/27/2019) Social History Tobacco Use Types Packs/Day Years Used Date Never Smoker Smokeless Tobacco: Never Used Alcohol Use Drinks/Week oz/Week Comments Not Currently Sex Assigned at Date Recorded Not on file documented as of this encounter Last Filed Vital Signs Not on filedocumented in this encounter Miscellaneous Notes Telephone Encounter - Gisselle Villagomez RN - 10/27/2019 2:29 PM CDTSee case management from 10/27/2019. Gisselle Villagomez RN 10/27/2019 2:29 PM Telephone Encounter - Laura Sears - 10/27/2019 9:51 AM CDTFAX FROM [facility] documented in this encounter Plan of Treatment [...] Phone Address Type / Group [facility] [id number] 2018-Nelda [phone] [address] t 7 [id number] [place] [address] documented as of this encounter
--- OUTSIDE RECORDS SUMMARY | 2019-12-28 22:13 | XMS REPORT | Summary of Care ---
:1960 Author Organization [facility] - Health Address [address] [place] [address] Care Team Providers Name Role Phone Asa Mccray Primary Care Provider Encounter Details Date Type Department Care Team Description 12/19/2019 Orders Only [facility] Doctor Unassigned, No 301 [facility] Name [place] [phone] [address] [place] [address] Allergies No Known Allergiesdocumented as of this encounter (statuses as of 12/19/2019) Medications Medication Sig Dispensed Refills Start Date [...] as of this encounter (statuses as of 12/19/2019) Active Problems Problem Noted Date Atypical glandular [...] as of this encounter (statuses as of 12/19/2019) Social History Tobacco Use Types Packs/Day Years [...] Associated Diagnosis Comme nts EXTERNAL PROVIDER Routine 12/19/2019 12:01 AM CDT RECORDS documented in this encounter Results Not on filedocumented in this encounter Insurance Payer Benefit Plan Subscriber ID Effective Dates Phone Address Type / Group [place] [id number] 2018-Nelda [phone] [address] t 7 [id number] [place] [address] documented as of this encounter
--- OUTSIDE RECORDS SUMMARY | 2019-12-28 22:13 | XMS REPORT | Summary of Care ---
:1960 Author Organization [facility] - [facility] Address [address] [place] [address] Care Team Providers Name Role Phone Asa Mccray Primary Care Provider Reason for Visit Reason Comments Medical Records Encounter Details Date Type Department Care Team Description 12/09/2019 Telephone [facility] Women's Katia Mann PA-C Medical Records Healthcare- [address] [facility] [address] [place] [address] [place] [address] [phone] Allergies No Known Allergiesdocumented as of this encounter (statuses as of 12/12/2019) Medications Medication Sig Dispensed Refills Start Date [...] as of this encounter (statuses as of 12/12/2019) Active Problems Problem Noted Date Atypical glandular [...] as of this encounter (statuses as of 12/12/2019) Social History Tobacco Use Types Packs/Day Years Used Date Never Smoker Smokeless Tobacco: Never Used Alcohol Use Drinks/Week oz/Week Comments Not Currently Sex Assigned at Date Recorded Not on file documented as of this encounter Last Filed Vital Signs Not on filedocumented in this encounter Miscellaneous Notes Telephone Encounter - Memo Serrano - 12/12/2019 8:28 AM CDTRecords placed on provider desk for review. Memo Serrano 12/12/2019 8:29 AM elephone Encounter - Janey Cid - 12/09/2019 4:02 PM CDTReceived fax, records chief complaint : Chemo clearance from [facility], given to nurse. documented in this encounter Plan of Treatment [...] Type / Group [place] [id number] 2018-Nelda [phone] [address] P[place] t 7 [id number] [place] [address] documented as of this encounter
--- OUTSIDE RECORDS SUMMARY | 2019-12-28 22:13 | XMS REPORT | Summary of Care ---
:1960 Author Organization [facility] - Health Address [address] [place] [id number] Care Team Providers Name Role Phone Asa Mccray Primary Care Provider Reason for Visit Reason Comments Medical Records from [facility] Encounter Details Date Type Department Care Team Description 10/27/2019 Case Management [facility] [place] (from [address] On[facility]) [facility], [address] [place] [id number] [place], [place] [phone] Allergies No Known Allergiesdocumented as of [...] on filedocumented in this encounter Progress Notes Gisselle Villagomez RN - 10/27/2019 2:05 PM CDTRecords received from [facility]. Placed on Provider's desk for review. Gisselle Villagomez RN 10/27/2019 2:06 PM documented in this encounter Plan of Treatment [...] / Group [employer] [place] [employer] [place] [id number] 2018-Nelda [phone] [place] [address] [place] P[place] t 7 [id number] [place] [address] documented as of this encounter
== END 2019-12-24 03:53 | disposition short-term general hospital (02) ==
LOC: ER 22:38
DX: N13.2 Hydronephrosis with renal and ureteral calculous obstruction (principal); D72.825 Bandemia; R18.8 Other ascites; Z20.828 Contact with and (suspected) exposure to other viral communicable diseases; E03.9 Hypothyroidism, unspecified; K21.9 Gastro-esophageal reflux disease without esophagitis
CPT/HCPCS: 96365; 96367; 93005; 87040 ×2; 87088; 85025; 87086; 80048; 36415; 82150; 86900; 86850; 82550; 85610; 86901; 80076; 83605; 85730; 84484; 82553; 83690; 84145; 87804 ×2; 71260; 74177; 71045; 96375; 99285; U0003; Q9967; J3010; J3370; J0692; J7050; J7030; J2405; 81003; 81015